=== PATIENT | female | born 1995 | race African-American/Black ===

== ENCOUNTER 2022-01-11 21:44 | Emergency (ER) | payer SELFPAY ==
[2022-01-11] VITALS (12 sets, daily range): BP systolic 95–110; BP diastolic 61–75; PULSE 89–102; RESP 14–19; TEMP 37; O2SAT 100
--- NOTE | 2022-01-11 21:53 | ECG_ITS ---
Measurements Intervals [place] Rate: 101 P: 71 NH: 148 QRS: 19 QRSD: 87 T: -2 QT: 326 QTc: 423 Interpretive Statements SINUS TACHYCARDIA LOW QRS VOLTAGE IN PRECORDIAL LEADS [QRS DEFLECTION < 1.0 mV IN CHEST LEADS] POSSIBLE RIGHT VENTRICULAR CONDUCTION DELAY [RSR (QR) IN V1/V2] NONSPECIFIC T-WAVE ABNORMALITY ABNORMAL ECG NO PREVIOUS ECG AVAILABLE FOR COMPARISON Electronically Signed On 01-12-2022 9:06:02 [employer]ANNING LEAD by Davide Webb M.D.
[2022-01-11 22:30] LABS: Basophils Percent Auto 0.4 % (0.2-1.2); Eosinophils Percent Auto 0.3 % (0-4.4); Hematocrit 30.5 % (37.0-47.0); Hemoglobin 9.9 g/dL (12.0-15.0); Immature Granulocyte Absolute 0.02 K/mm3 (0.00-0.031); Immature Granulocyte Percent A 0.3 % (0-0.5); Lymphocytes Absolute Auto 2.68 K/mm3 (0.9-3.2); Lymphocytes Percent Auto 35.4 % (18.3-44.2); Mean Corpuscular HGB Conc 32.5 g/dl (32-36); Mean Corpuscular Hemoglobin 31.4 pg (26-34); Mean Corpuscular Volume 96.8 fl (80-100); Mean Platelet Volume 10.7 fl (7.4-10.4); Monocytes Absolute Auto 0.4 K/mm3 (0.1-0.6); Monocytes Percent Auto 5.8 % (2.6-8.5); Neutrophils Absolute Auto 4.4 K/mm3 (1.3-6.7); Neutrophils Percent Auto 57.8 % (45.5-73.1); Platelet Count Result 234 k/mm3 (150-375); Red Blood Count 3.15 M/mm3 (4.2-5.4); Red Cell Distribution Width 12.3 % (11.5-14.5); White Blood Count 7.6 K/mm3 (4.5-10.0)
[2022-01-11 22:40] LABS: INR 1.2; Prothrombin Time 15.1 Seconds (11.1-14.7)
[2022-01-11 22:56] LABS: Ethanol 64 mg/dL (<10)
[2022-01-11 23:01] LABS: Alanine Aminotransferase 11 U/L (4-35); Albumin Level 4.5 g/dL (3.5-5.1); Alkaline Phosphatase 54 U/L (38-126); Anion Gap 16 mmol/L (8-16); Aspartate Amino Transferase 25 U/L (14-36); Bilirubin,Total 0.2 mg/dL (0.2-1.3); Blood Urea Nitrogen 3 mg/dL (7-17); Calcium 8.5 mg/dL (8.4-10.2); Carbon Dioxide 18 mmol/L (22-30); Chloride 106 mmol/L (98-107); Estimated CRCL calculation 80 ml/min; Estimated Glomerular Filt Rate > 60; Glucose 38 mg/dL (65-110); Potassium 3.3 mmol/L (3.4-5.0); Sodium 140 mmol/L (137-145)
[2022-01-11] MEDS: DEXTROSE 50% 25 GM/50 ML SYRINGE (23:08)
[2022-01-11 23:48] LABS: Phenytoin Dilantin < 3 ug/mL (10-20)
--- NOTE | 2022-01-11 23:55 | ED.SEIZURE ---
HPI - Seizure General Chief Complaint: Seizure Stated Complaint: SEIZURES Time Seen by Provider: 01/11/22 23:32 Source: patient History of Present Illness HPI Narrative: Patient presents with seizures. Patient has a known seizure disorder reports she has stopped taking her medications since she knew she was . She has not discussed this with her OB or with her neurologist. Patient had seizure approximately 1 week ago was seen at another facility and discharged home. Patient where she does have follow-up with her OB and neurologist this week. Patient was in the car this evening not driving admits to having a couple shots then had a seizure. Patient reports she feels sore all over and says usual after she has had a seizure. She has no other focal areas of complaints. EMS noted 2 seizures in route gave Versed. Related Data Allergies Allergy/AdvReac Type Severity Reaction Status Date / Time ibuprofen Allergy Shakiness Verified 01/11/22 22:23 Review of Systems Review of Systems: CONSTITUTIONAL: Denies fever, chills, or sweats. EYES: Denies visual changes, redness, or discharge. ENT: Denies rhinorrhea, congestion, sore throat, or otalgia. CARDIOVASCULAR: Denies chest pain, palpitations, or edema. RESPIRATORY: Denies cough or dyspnea. GASTROINTESTINAL: Denies abdominal pain, nausea, vomiting, or diarrhea. GENITOURINARY: Denies dysuria or hematuria. SKIN: Denies rash or itching. MUSCULOSKELETAL: Denies back pain, joint pain. NEUROLOGIC: Denies headache, numbness, dizziness, or weakness. PSYCHIATRIC: Denies anxiety or depression. All systems reviewed & are unremarkable except as noted in HPI and below PMFSH Past Medical History Medical History (Updated 01/11/22 @ 23:59 by Alphonso Salgado MD) Seizures Social History Social History (Updated 01/11/22 @ 23:56 by Alphonso Salgado MD) Alcohol intake: current Exam Narrative: GENERAL: Well-appearing, well-nourished, and in no acute distress. HEAD: Normocephalic, atraumatic. EYES: PERRLA and EOMI. ENT: Nares clear, no rhinorrhea or epistaxis. Mucous membranes moist. NECK: Supple. No masses. No JVD CHEST: Clear to auscultation. No respiratory distress. No wheezes rales or rhonchi HEART: Regular rate and rhythm. No murmur heard. Normal peripheral pulses. ABDOMEN: Soft, nontender, nondistended, normal active bowel sounds. EXTREMITIES: Normal range of motion. No edema. SKIN: Warm, dry, no rash. NEURO: No focal deficits. Alert and oriented x3. PSYCH: Normal mood and affect. Course Vital Signs Vital signs: Vital Signs Temperature 37.0 C 01/11/22 21:54 Pulse Rate 102 H 01/11/22 21:54 Respiratory Rate 17 01/11/22 21:54 Blood Pressure 110/75 01/11/22 21:54 Pulse Oximetry 100 01/11/22 21:54 Temperature 37.0 C 01/11/22 21:54 Pulse Rate 84 01/12/22 06:54 Respiratory Rate 16 01/12/22 06:54 Blood Pressure 127/75 01/12/22 06:54 Pulse Oximetry 100 01/12/22 06:54 MDM - Seizure MDM Narrative Medical decision making narrative: H&P as above, vss, pt looks clinically well, exam no focal neurological deficits or focal areas of pain, labs with hypoglycemia corrected with and likely related to seizure activity additional labs/img considered, symptomatic relief available as needed, on reevaluation pt continues to looks clinically well. Suspect is related to medication noncompliance we'll switch patient to Lamictal given her status, dns intracranial hemorrhage, severe sepsis, severe dehydration plan to tx/monitor as op w/ pcm f/u findings/plan discussed with pt, pt agree/comfortable with plan, return precautions given Lab Data Result diagrams: 01/11/22 22:25 01/11/22 22:25 Labs: Lab Results 01/11/22 01/11/22 01/11/22 Range/Units 22:25 22:25 22:25 WBC 7.6 (4.5-10.0) K/mm3 RBC 3.15 L (4.2-5.4) M/mm3 Hgb 9.9 L (12.0-15.0) g/dL Hct 30.5 L (37.0-47.0) % MCV 96.8 (80-100)
[2022-01-11 23:56] LABS: Glucose Point of Care 68 mg/dl (65-105)
[2022-01-12] VITALS: BP 108/71; PULSE 90; RESP 19
[2022-01-12 00:06] VITALS: PULSE 99; RESP 19
[2022-01-12 00:15] VITALS: BP 96/55; PULSE 94; RESP 14
[2022-01-12] MEDS: DEXTROSE 50% 25 GM/50 ML SYRINGE IV PUSH (00:15)
[2022-01-12] MEDS: lamoTRIgine 25 MG TABLET 50 MG PO (02:07)
[2022-01-12] MEDS: POTASSIUM CHLORIDE 20 MEQ PACKET (FOR LIQUID) 40 MEQ PO (02:07)
[2022-01-12] MEDS: METOCLOPRAMIDE HCL INJ 10 MG/2 ML VIAL IV PUSH (02:16)
[2022-01-12] MEDS: POTASSIUM CHLORIDE 20 MEQ TABLET 40 MEQ PO (02:22)
[2022-01-12 03:02] LABS: Add Urine Microscopic? YES; Appearance Urine Clear (Clear); Bacteria Urine Trace /hpf; Bilirubin Urine Negative (Negative); Blood Urine Negative (Negative); Color Urine Yellow (Yellow); Glucose Urine UA 1+ mg/dL (Negative); Ketones Urine Trace mg/dL (Negative); Leukocyte Esterase Ur 1+ LEU/UL (Negative); Mucus Urine Rare /lpf; Nitrate Urine Negative (Negative); Protein Urine 1+ mg/dL (Negative); Specific Grav Ur 1.018 (1.001-1.035); Squamous Epithelial Cell Urine Moderate /hpf (Few); Urobilinogen Urine Negative mg/dL (<2.0)
[2022-01-12 06:54] VITALS: BP 127/75; PULSE 84; RESP 16; O2SAT 100
== END 2022-01-12 06:56 | disposition home or self-care (01) ==
PROVIDERS: Emergency Medicine; Emergency Provider Emergency Medicine
DX: G40.909 Epilepsy, unspecified, not intractable, without status epilepticus (principal)
CPT/HCPCS: 36415; 80053; 80185; 80307; 81001; 82948; 84702; 85025; 85610; 85730; 93005; 96374; 96375; 99284; A9270; J2765

== ENCOUNTER 2022-05-27 10:48 | Observation (INO) | payer OTHER, SELFPAY ==
[2022-05-27 11:00] VITALS: BMI 19.5
[2022-05-27 11:15] VITALS: BP 111/62; PULSE 82
[2022-05-27 11:51] LABS: Appearance Urine Clear (Clear); Bilirubin Urine Negative (Negative); Blood Urine Negative (Negative); Color Urine Yellow (Yellow); Glucose Urine UA Negative (Negative); Ketones Urine Negative (Negative); Leukocyte Esterase Ur 2+ LEU/UL (NEGATIVE); Nitrate Urine Negative (Negative); Protein Urine Negative (Negative); Specific Grav Ur 1.015 (1.001-1.035); Urobilinogen Urine 0.2 mg/dL (<2.0); pH Urine 7.5 (5.0-9.0)
[2022-05-27 12:06] LABS: Bacteria Urine 1+ /hpf; Squamous Epithelial Cell Urine Many /hpf (Few)
[2022-05-27 12:13] LABS: Add Urine Microscopic? YES
--- NOTE | 2022-05-27 12:17 | OBADM ---
This patient, Saray Mcdaniel, admitted to the OB room OB Post 116 for observation. Patient/family oriented to hospital policies and general routines including ID bracelet, bed and alarms, visiting hours, pain management, procedures, bathroom and other care routines, personal items, smoking policy, room service/diet, and visiting hours. Patient/Family are encouraged to report perceived risks to care and to ask questions if they do not understand what they are told or what they should do.
--- NOTE | 2022-05-27 14:10 | PM.OBTRLD ---
OB - Triage/Final Diagnosis Visit Information Comments/Additional reasons for admission: I have assessed the risk for this patient, Saray Mcdaniel, and determined that she would benefit from observation care. Evaluation Laboratory results: Laboratory Tests 05/27/22 11:38 Urine Color Yellow Urine Appearance Clear Urine pH 7.5 Ur Specific [place] 1.015 Urine Protein Negative Urine Glucose (UA) Negative Urine Ketones Negative Ur Blood (Man) Negative Urine Nitrate Negative Urine Bilirubin Negative Urine Urobilinogen 0.2 Ur Leukocyte Esterase 2+ H Urine RBC 3-5 H Urine WBC 4-6 H Ur Squamous Epith Cells Many H Urine Bacteria 1+ H Vital signs: Vital Signs - 24 hr 05/27/22 11:15 Pulse Rate 82 Blood Pressure 111/62 Final Diagnosis (1) Abdominal pain affecting : Code(s): O26.899 - Other specified related conditions, unspecified trimester; R10.9 - Unspecified abdominal pain Status: Acute
== END 2022-05-27 13:03 | disposition home or self-care (01) ==
PROVIDERS: Admitting Provider Student in an Organized Health Care Education/Training Program; Visit Provider Student in an Organized Health Care Education/Training Program
DX: O26.892 Other specified pregnancy related conditions, second trimester (principal); R10.9 Unspecified abdominal pain; Z3A.27 27 weeks gestation of pregnancy
CPT/HCPCS: 81001; G0378; G0379

== ENCOUNTER 2025-02-23 01:35 | Emergency (ER) | payer OTHER, SELFPAY ==
[2025-02-23] VITALS (98 sets, daily range): BP systolic 46–144; BP diastolic 36–120; PULSE 47–122; RESP 12–45; TEMP 35.9–36.9; O2SAT 61–100
--- NOTE | ~2025-02-23 | XR_ITS ---
XR chest ET placement Ordering provider: Valerio Azevedo MD History: 29 years Female with . ET OG PLACEMENT . Comparison: None. FINDINGS: MEDIASTINUM: The cardiac silhouette is not enlarged. The endotracheal tube is 2 cm above the ra. Nasogastric tube is extending to the stomach area. Congestive gloria. LUNGS: No infiltrates, effusions or pneumothorax. OTHER: No free air under the diaphragm. IMPRESSION: No acute cardiopulmonary pathology. Reviewed, dictated and finalized at location A.
--- NOTE | ~2025-02-23 | US_ITS ---
FIRST TRIMESTER ULTRASOUND 02/23/2025 2:50 CDT Ordering provider: Valerio Azevedo History: . pain bleeding eval for ectopic . Comparison: None. FINDINGS: INTRAUTERINE GESTATIONAL SAC: Not demonstrated. YOLK SAC: Not demonstrated. POLE: Not demonstrated. No obvious infiltrate frontal is seen. Thickened heterogenous endometrium is noted measuring 18 mm. E panfilo cannot be excluded. Follow-up advised. Splenomegaly UTERUS: The uterus measures 10.8x 5.2x 5.1 cm. in length which is within normal limits. No myometrial masses. FREE FLUID: Trace seen anterior to the uterus. OVARIES: Normal in size with the right measuring 3.7x 1.6x 2.3 cm. and the left is not visualized. Do ppler flow is demonstrated within the right ovary. ADNEXAL MASSES: None. IMPRESSION: Thickened endometrium with no intrauterine seen at this time. This may indicate early pregn chayito or missed . Follow-up advised. No adnexal masses seen to suggest ectopic . The left ovary is not demonstrated. Reviewed, dictated and finalized at location A. IMPRESSION: Thickened endometrium with no intrauterine seen at this time. This ma y indicate early or missed . Follow-up advised. No adnexal masses seen to suggest ectopic . The left ovary is not demo nstrated.
--- NOTE | 2025-02-23 02:05 | PC.NURSE ---
pt has witnessed seizure x 1 min x 2 episodes. mikep essence at bedside. keppra ativan given at this time.
[2025-02-23 02:08] LABS: Basophils Percent Auto 0.4 % (0.2-1.2); Eosinophils Percent Auto 0.5 % (0-4.4); Hemoglobin 10.8 g/dL (12.0-15.0); Immature Granulocyte Absolute 0.02 K/mm3 (0.00-0.031); Immature Granulocyte Percent A 0.2 % (0-0.5); Lymphocytes Absolute Auto 1.47 K/mm3 (0.9-3.2); Lymphocytes Percent Auto 18.1 % (18.3-44.2); Mean Corpuscular HGB Conc 31.8 g/dl (32-36); Mean Corpuscular Hemoglobin 29.6 pg (26-34); Mean Corpuscular Volume 93.2 fl (80-100); Mean Platelet Volume 10.9 fl (7.4-10.4); Monocytes Absolute Auto 0.4 K/mm3 (0.1-0.6); Monocytes Percent Auto 4.7 % (2.6-8.5); Neutrophils Absolute Auto 6.2 K/mm3 (1.3-6.7); Neutrophils Percent Auto 76.1 % (45.5-73.1); Platelet Count Result 237 k/mm3 (150-375); Red Blood Count 3.65 M/mm3 (4.2-5.4); Red Cell Distribution Width 13.1 % (11.5-14.5); White Blood Count 8.1 K/mm3 (4.5-10.0)
[2025-02-23] MEDS: levETIRAcetam 1000MG/NACL100ML 1,000 MG/100 ML BAG 400 MG IVPB (02:16)
[2025-02-23] MEDS: LORazepam INJ (*CRX) 2 MG/ML VIAL ×2 (02:16→03:19)
[2025-02-23 02:18] LABS: Alanine Aminotransferase 16 U/L (6-35); Albumin Level 4.3 g/dL (3.5-5.1); Alkaline Phosphatase 45 U/L (38-126); Anion Gap 18 mmol/L (4-12); Aspartate Amino Transferase 24 U/L (14-36); Bilirubin,Total 0.6 mg/dL (0.2-1.3); Blood Urea Nitrogen 4 mg/dL (7-17); Carbon Dioxide 15 mmol/L (22-30); Chloride 101 mmol/L (98-107); Estimated CRCL calculation 109 ml/min; Estimated Glomerular Filt Rate > 60; Glucose 102 mg/dL (65-110); Potassium 3.5 mmol/L (3.4-5.0); Sodium 134 mmol/L (137-145)
--- NOTE | 2025-02-23 02:20 | ED.GENADULT ---
HPI - General Adult General Chief complaint: Seizure Stated complaint: SEIZURE/VAGINAL BLEEDING History of Present Illness HPI narrative: Patient 29-year-old female who presents since emergency department with chief complaint of vaginal bleeding and seizures. Patient has prior history of seizure disorder takes Keppra and Vimpat the patient states that she was diagnosed with an incomplete and was given medications to complete her miscarriage at home the patient states that she started having heavy bleeding and reports that she has been saturating towel patient states that she has been getting lightheaded was standing up reports she is Rh negative the patient states that she had several seizures EN route to the emergency department and reports that she may have missed some of her doses of Keppra Related Data Allergies Allergy/AdvReac Type Severity Reaction Status Date / Time ibuprofen Allergy Shakiness Verified 01/11/22 22:23 Review of Systems Review of Systems: A 10 system review of systems was completed on the patient and is negative except for what is stated in the HPI. Nursing and ancillary documentation was reviewed. PMFSH Past Medical History Medical History Seizures Social History Social History Alcohol intake: current Exam Narrative: GENERAL: Well-appearing, well-nourished, and in no acute distress. HEAD: Normocephalic, atraumatic. EYES: PERRLA and EOMI. ENT: Nares clear, no rhinorrhea or epistaxis. Mucous membranes moist. NECK: Supple. CHEST: Clear to auscultation. No respiratory distress. HEART: Regular rate and rhythm. No murmur heard. Normal peripheral pulses. ABDOMEN: Soft, nontender, nondistended, normal active bowel sounds. : There was moderate amount of blood and gestational sac vaginal vault the vault was cleared and bleeding appears to have stopped at this time EXTREMITIES: Normal range of motion. No edema. SKIN: Warm, dry, no rash. NEURO: No focal deficits. Alert and oriented x3. PSYCH: Normal mood and affect. Course Vital Signs Vital signs: Vital Signs Temperature 36.7 C 02/23/25 01:37 Pulse Rate 93 02/23/25 01:37 Respiratory Rate 19 02/23/25 01:37 Blood Pressure 96/62 L 02/23/25 01:37 Pulse Oximetry 100 02/23/25 01:37 Oxygen Delivery Room Air 02/23/25 01:37 Temperature 36.0 C L 02/23/25 06:42 Pulse Rate 60 02/23/25 06:37 Respiratory Rate 16 02/23/25 06:22 Blood Pressure 79/45 L 02/23/25 06:37 Pulse Oximetry 100 02/23/25 06:21 Oxygen Delivery Mechanical Ventilation 02/23/25 06:04 Fraction of Inspired Oxygen 45 02/23/25 06:04 Procedures Central Line Placement Right Femoral: Central Line Date: 02/23/25 Central Line Time: 05:13 Performed Emergently - Given emergent patient condition, temporal constraints may have precluded informed consent.: Yes Time Out Performed: Yes Patient Placed on Monitor/Pulse Ox: Yes Max. Sterile Barrier Technique: Caps, large sterile sheet and hand hygiene Central Line Prep: 2% chlorhexidine scrub and sterile drapes applied Technique: sterile prep/drape Local Anesthetic: lidocaine 1% Amount of anesthesia used (mL): 5 Ultrasound Used for Placement: Yes Central Line Lumen Inserted: triple Post Procedure: sutured in place, good blood return, all ports aspirated, flushed, capped and sterile dressing applied Patient Tolerated Procedure: well Complications: none Intubation Intubation #1: Intubation Date: 02/23/25 Intubation Time: 04:07 Time out performed: Yes sedative: Etomidate Mg Given: 20 paralytic: Succinylcholine Mg Given: 100 Laryngoscope: Bam Tube Size (cm): 7.5 Method of Intubation: orotracheal Number of Attempts: 1 Tube Secured Depth (cm): 24 Tube Secured Location: lips Tube Placement Confirmation: visualized tube passing through cords, equal breath sounds bilaterally, no breath sounds over epigastrium and confirmation by capnometry Patient Tolerated Procedure: well Intubation Complications: none Medical Decision Making MDM Narrative Medical decision making narrative: The patient continued to have multiple seizures in the emergency department after multiple doses of Ativan and also being loaded with Keppra The patient was also given 1 g of Dilantin as she was continuing to seize after receiving Keppra and multiple doses of benzodiazepines. Ultimately the patient was continuing to seize and the patient was intubated for airway protection prior to intubation the patient requested to go to [facility] after intubation the ultrasound was obtained that showed no gestational sac in the uterus. There is no free fluid the pelvis Case was discussed with the [facility] transfer center currently [facility] does not have beds available in the neuro ICU and is not taking wait list they recommended calling other facilities the [facility] transfer center was contacted and plan at this time [facility] be [facility] has spoken with gynecology neurology and now we are waiting on the textbook associate call back Vital Signs Vital Signs: Vital Signs Temperature 36.7 C 02/23/25 01:37 Pulse Rate 93 02/23/25 01:37 Respiratory Rate 19 02/23/25 01:37 Blood Pressure 96/62 L 02/23/25 01:37 Pulse Oximetry 100 02/23/25 01:37 Oxygen Delivery Room Air 02/23/25 01:37 Temperature 36.0 C L 02/23/25 06:42 Pulse Rate 60 02/23/25 06:37 Respiratory Rate 16 02/23/25 06:22 Blood Pressure 79/45 L 02/23/25 06:37 Pulse Oximetry 100 02/23/25 06:21 Oxygen Delivery Mechanical Ventilation 02/23/25 06:04 Fraction of Inspired Oxygen 45 02/23/25 06:04 Lab Data 02/23/25 06:07 02/23/25 01:59 Labs: Lab Results 02/23/25 02/23/25 02/23/25 Range/Units 01:59 04:06 06:07 WBC 8.1 (4.5-10.0) K/mm3 RBC 3.65 L (4.2-5.4) M/mm3 Hgb 10.8 L 9.2 L (12.0-15.0) g/dL Hct 34.0 L 28.7 L (37.0-47.0) % MCV 93.2 (80-100) fl MCH 29.6 (26-34) pg MCHC 31.8 L (32-36) g/dl RDW 13.1 (11.5-14.5) % Plt Count 237 (150-375) k/mm3 MPV 10.9 H (7.4-10.4) fl Immature Gran % (Auto) 0.2 (0-0.5) % Neut % (Auto) 76.1 H (45.5-73.1) % Lymph % (Auto) 18.1 L (18.3-44.2) % [place] % (Auto) 4.7 (2.6-8.5) % Eos % (Auto) 0.5 (0-4.4) % Baso % (Auto) 0.4 (0.2-1.2) % Lymph # (Auto) 1.47 (0.9-3.2) K/mm3 [place] # (Auto) 0.4 (0.1-0.6) K/mm3 Eos # (Auto) 0.0 (0-0.3) K/mm3 Baso # (Auto) 0.0 (0.0-0.1) K/mm3 Abs Immat Gran (auto) 0.02 (0.00-0.031) K/mm3 Absolute Neuts (auto) 6.2 (1.3-6.7) K/mm3 Absolute Nucleated RBC 0.000 (0.0-0.012) K/mm3 Nucleated RBC % 0.0 (0.0-0.2) % Minute Volume Not Reportable Vent Mode Cmv Tidal Volume 350 ml PEEP 5 cmH2O Peak Inspir Pressure Not Reportable Pressure Support Not Reportable Sodium 134 L (137-145) mmol/L Potassium 3.5 (3.4-5.0) mmol/L Chloride 101 (98-107) mmol/L Carbon Dioxide 15 L (22-30) mmol/L Anion Gap 18 H (4-12) mmol/L BUN 4 L (7-17) mg/dL Creatinine 0.55 L (0.7-1.0) mg/dL Estim Creat Clear Calc 109 ml/min Estimated GFR > 60 (59 - ) Glucose 102 (65-110) mg/dL Calcium 9.0 (8.4-10.2) mg/dL Total Bilirubin 0.6 (0.2-1.3) mg/dL AST 24 (14-36) U/L ALT 16 (6-35) U/L Alkaline Phosphatase 45 (38-126) U/L Total Protein 7.0 (6.3-8.2) g/dL Albumin 4.3 (3.5-5.1) g/dL Triglycerides 68 (<150) mg/dL Beta HCG, Quant 62399.00 mIU/ML Urine Color Yellow (Yellow) Urine Appearance Clear (Clear) Urine pH 6.5 (5.0-9.0) Ur Specific [place] 1.007 (1.001-1.035) Urine Protein Negative (Negative) mg/dL Urine Glucose (UA) Negative (Negative) mg/dL Urine Ketones 1+ H (Negative) mg/dL Ur Blood (Man) Trace (Negative) Urine Nitrate Negative (Negative) Urine Bilirubin Negative (Negative) Urine Urobilinogen 0.2 (<2.0) mg/dL Leukocyte Esterase Rfl Negative (Negative) SINDY/UL Urine RBC 0-2 (0-2) /hpf Urine WBC 0-5 (0-3) /hpf Ur Squamous Epith Cells None seen (Few) /hpf Urine Bacteria None seen /hpf Urine Casts 0-2 Blood Type AB Negative Antibody Screen Negative Doses of RhIg Required 1 ABG Data ABG results: 02/23/25 04:06 Puncture Site Left radial ABG pH 7.332 L ABG pCO2 32.3 L ABG pO2 493.4 H ABG PO2/FiO2 Ratio 4.93 ABG HCO3 16.7 L ABG O2 Saturation 99.9 ABG O2 Content 17.2 ABG Base Excess -8.2 A-a Gradient 187.3 Oxyhemoglobin 99.0 Total Hemoglobin 11.4 L O2 Delivery Device Ventilator O2 Liters/Min Not Reportable Vent Rate 16 FiO2 100 Critical Care Time Critical Care Time Critical Care Time: Yes Total Critical Care Time: 75 Discharge Plan Discharge Clinical Impression: Seizures, Threatened miscarriage Patient Disposition: Acute Care Hospital Condition: Stable Patient Language: [place] Prescriptions: No Action lamotrigine [Lamictal] 25 mg tablet 50 mg PO DAILY Qty: 60 0RF Rx Instructions: take 2 tabs daily for 1 week then increase to twice a day Follow-up/Referrals: UNKNOWN,DOCTOR [Primary Care Provider] -
--- NOTE | 2025-02-23 02:24 | PC.NURSE ---
Pt told this rn and Carrol, java technical manager that if she keeps seizing that she has had to have a breathing tube and i am ok if we need to do that again.
[2025-02-23] MEDS: SODIUM CHLORIDE 0.9% IV 1,000 ML 999 ML IV CONT ×3 (02:37→06:18)
[2025-02-23] MEDS: LORazepam INJ (*CRX) 2 MG/ML VIAL 4 MG (03:25)
--- NOTE | 2025-02-23 03:25 | PC.NURSE ---
Pt has had 8 total seizures witnessed. EDP Roberto Carlos at the bedside - verbal consent obtained for intubation and blood products if needed to be given if needed. ED RT x 2 at bedside. Meds Given: Ativan 1mg @ 0314 Ativan 1mg @ 0319 Ativan 4mg @ 0324 0327- Pt given 20mg etomidate and 100 mg Succinylcholine for intubation. 0330 Intubated - bilateral breathe sounds, color change, ett 7.5, 24 @ lip. 0333 - Propofol drip for sedation started @5mcg/hr
[2025-02-23] MEDS: PHENYTOIN SODIUM INJ (*BKC) 1,000 MG in SODIUM CHLORIDE 0.9% IV 100 ML 360 MG IVPB (03:38)
[2025-02-23] MEDS: PROPOFOL IV EMULSION 100 ML 1.84 MG IV CONT ×2 (03:39→07:19)
[2025-02-23] MEDS: RAPID SEQUENCE INTUBATION KIT 1 EACH (03:39)
--- NOTE | 2025-02-23 03:46 | PC.NURSE ---
0345 OG @ 58 at the teeth Pt continues to osorio the tube. EDP Aware - more sedation requested.
[2025-02-23 03:50] LABS: Triglycerides 68 mg/dL (<150)
[2025-02-23] MEDS: FENTANYL 2,500MCG/NS250ML(*CRX 2,500 MCG/250 ML BAG IV CONT (03:53)
--- OUTSIDE RECORDS SUMMARY | 2025-02-23 03:53 | XMS_ITS | Clinical Summary ---
Author Organization [facility] [employer] Address [address] [place] [address] Care Team Providers Care Mechanical Insulator Name Role Phone Izzy Shukla MD Unavailable [phone] Source Comments [facility] [employer],non-owned Affiliates and Associated Physician Practices is amultiple site organization consisting of ambulatory clinics and hospital sitesin [place], [place], [place] and [place]. This disclosure is being madepursuant to the Care Everywhere program and may not contain all information available regarding this patient. Last updated 18.[facility] [employer] Allergies Active Allergy Reactions Criticality Noted Date Comments Ibuprofen Other 11/26/2010 Pt states it causes shaking Clobazam Other 06/11/2023 Sores in mouth Medications * This document contains information received from the source organization and may not represent a complete record from that organization. * Be aware that medications may not be up to date on this document. Alwaysverify current medications with the patient. famotidine (Pepcid) 20 MG tablet Take 1 (one) tablet by mouth every 12 hours 60 tablet 2 2 Active ondansetron (Zofran) 4 MG tablet Take 1 (one) tablet by mouth every 6 hours as needed for Nausea/Vomiting 10 tablet 2 Active acetaminophen (Tylenol) 325 MG tablet Take 2 (two) tablets by mouth every 6 hours as needed for Fever or Pain Maximum allowable Acetaminophen amount = 4 Grams (4000 mg) / 24 hours. 60 tablet 1 2 Active lacosamide (Vimpat) 200 MG tablet Take 1 (one) tablet by mouth 2 times daily 60 tablet 3 3 Active levETIRAcetam (Keppra) 1000 MG tablet Take 1 (one) tablet by mouth 2 times daily 60 tablet 3 3 Active QUEtiapine (SEROquel) 50 MG tablet Take 1 (one) tablet by mouth every morning 30 tablet 3 3 Active QUEtiapine (SEROquel) 100 MG tablet Take 1 (one) tablet by mouth at bedtime 30 tablet 3 3 Active cyproheptadine (Periactin) 4 MG tablet Take 1 (one) tablet by mouth 2 times daily 60 tablet 3 3 Active Active Problems Problem Noted Date Diagnosed Date Bipolar affective disorder, currently depressed, moderate 06/06/2023 Seizures 06/04/2023 Ill feeling 07/20/2022 Abdominal pain, unspecified abdominal location 0 06/17/2022 contractions 05/22/2022 Seizure disorder during in second trim manjula 04/18/2022 Gonorrhea affecting in second trimeste r 03/29/2022 Seizure disorder during 03/17/2022 Supervision of high-risk of aliya fox igravida 03/17/2022 Depression 03/22/2011 Overview (03/22/2011): Continue psychiatrist and return to therapist. Discussed need for ongoing counseling. 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 [facility] lab results reviewed and DOPE HOUSE OPERATOR HELPER exam reviewed with Dr. Kaitlynn Joseph over the phone. Plan: No current intervention at this time. Pt should have a repeat pap in 1 year from now. If parents or pt concerned may do sooner but no sooner than 4 months post colposcopy. Pap done today was discarded and not sent to lab. Pt and mother provided with education and reassurance. HPV handout given. Parent wishing to transfer care to correctional supervisor lieutenant. Pt to followup with Dr. Joseph in 1 year for pap. Screen for STD (sexually transmitted disease) 03/22/20 11 03/17/2022 Overview (03/22/2011): Pt with multiple partners and inconsistent condom use. HIV and RPR tested recently and reported to be negative. Pt has history of chlamydia dx last month. Currently discharge has resolved. Tested for gc, chlamydia, and trich today. Encounter for other general counseling or advice on contraception 03/22/2011 03/17/2022 Overview (09/20/2015): Pt currently has been using Nuva Ring for past 3 months and wishes to continue but having difficulty with insertion and unable to insert it in this month. Has prescription at home. Does not want to be at this time. Recommended pt to insert Nuva Ring with tampon applicator to see if this makes it easier on insertion. Discussed mode and pt to start Ring upon arrival home today. Also encouraged pt to only use for 3 weeks and then menstruate for 1. [facility] providers have told her in past to use for more than 3 weeks. Abdominal pain, generalized 11/19/2010 03/17/2022 Overview (03/22/2011): Pt with no pain on palpation of abdomen or pelvic region today. Continue to monitor abdominal pain. Monitor stools. May use tylenol prn for pain. Constipation 11/19/2010 03/17/2022 IBS (irritable bowel syndrome) 11/19/2010 03/17/2022 Immunizations Immunization Administration Dates Next Due MMR 07/24/2022(Deferred: See Comments - patient is rubella IMMUNE) Rho D Immune Globulin 07/25/2022(Deferre d: See Comments - already administered this hospitalization on 07/24/22),07/24/2022,04/19/2022 TDAP (7yrs+) 07/24/2022 Family History Medical History Relation Name Comments Other Brother HIV+, homosexua l Other Maternal Aunt 1 Chrohn's dis ease Diabetes Maternal Aunt 2 CAD (Coronary Artery Disease) Maternal Grandmother Cancer - Ovarian Maternal Grandmother Diabetes Maternal Grandmother Diabetes Maternal Uncle 1 Stroke Maternal Uncle 2 Glaucoma Mother Other Mother uterine fibroid s Relation Name Status Comments Brother Maternal Aunt 1 Maternal Aunt 2 Maternal Grandmother Maternal Uncle 1 Maternal Uncle 2 Mother Alive Social History Tobacco Use Types Packs/Day Years Used Date Smoking Tobacco: Some Days Cigarettes 0.1 8 Started: 12/2013; Last attempted to quit: 12/2021 Smokeless Tobacco: Never Tobacco Cessation:Ready to Q uit: No; Counseling Given: Yes Comments:1 cigarette a day Alcohol Use Standard Drinks/Week Comments No 0 (1 standard drink = 0.6 oz pur e alcohol) Overall Financial Resource Strain (CARDIA) Answe r Date Recorded How hard is it for you to pa y for the very basics like food, housing, medical care, and heating? Somewhat hard 06/04/2023 [facility] [place] of Occupat ional Health - Occupational Stress Questionnaire Answer Date Recorded Do you feel stress - tense, restless, nervous, or anxious, or unable to sleep at night because your mind is troubled all the time - these days? To some extent 06/04/2023 Hunger Vital Sign Answer Date Recorded Within the past 12 months, y ou worried that your food would run out before you got the money to buy more. Never true 06/04/20 Within the past 12 months, t he food you bought just didn't last and you didn't have money to get more. Never true 06/04/2023 PRAPARE - Transportation Answer Date Re corded In the past 12 months, has l ack of transportation kept you from medical appointments or from getting medications? Yes 05/14 In the past 12 months, has l ack of transportation kept you from meetings, work, or from getting things needed for daily living? Yes 06/04/2023 Housing Stability Vital Sign Answer Bryon e Recorded In the last 12 months, was t here a time when you were not able to pay the mortgage or rent on time? Yes 06/04/2023 In the last 12 months, how many places have you lived? 1 06/04/2023 In the last 12 months, was t here a time when you did not have a steady place to sleep or slept in a senior care (including now)? No 06/04/2023 Wirtz Depression Scale Answer Date Recorded RETIRED: Total Score 0 07/25/2022 Last EPDS Self Harm Result Not on file 07/25 Comments No Sex and Gender Information Value Date Recorded Sex Assigned at Not on file Legal Sex Female 5:37 AM SUPERVISOR FITTING Gender Identity Not on file Sexual Orientation Not on file Last Filed Vital Signs Vital Sign Reading Time Taken Comments Blood Pressure 99/61 06/16/2023 10:56 AM CDT Pulse 89 06/16/2023 10:56 AM CDT Temperature 36.7 C (98 F) 06/16/2023 10:56 AM CDT Respiratory Rate 16 06/16/2023 10:56 AM CDT Oxygen Saturation 99% 06/16/2023 10:56 AM CDT Inhaled Oxygen Concentration - - Weight 62.8 kg (138 lb 6.4 oz) 06/16/2023 4:20 A M CDT Height 162.6 cm (5' 4) 06/15/2023 5:06 AM CDT Body Mass Index 23.76 06/15/2023 5:06 AM CDT Plan of Treatment Health Maintenance Due Date Last Done Comments PAP SMEAR 1994 HEPATITIS C SCREENING 10/31/2012 HEPATITIS B VACCINE (1 of 3 - 19+ 3-dose series) 2013 PNEUMOCOCCAL VACCINE (1 of 2 - PCV) 2013 COVID-19 VACCINE (1 - 2023-2 5 season) 2024 INFLUENZA VACCINE (Season Ended) 2025 08/03/20 18 DTAP/TDAP/TD VACCINES (2 - T d or Tdap) 07/24/2032 07/24/2022 ZOSTER VACCINE (1 of 2) 2044 HIV SCREENING Completed 12/30/2009 HIB VACCINE Aged Out No longer eligi ble based on patient's age to complete this topic HPV VACCINE Aged Out No longer eligi ble based on patient's age to complete this topic MENINGOCOCCAL (Group B) VACC INE SHARED DECISION-MAKING Aged Out No longer eligibl e based on patient's age to complete this topic MENINGOCOCCAL GROUPS A/C/Y/W VACCINE Aged Out No longer eligible b ased on patient's age to complete this topic Procedures Procedure Name Priority Date/Time Associated Diagnosis Comments HIV-1 HIV-2 ANTIBODY Routine 12/30/2009 4:38 PM SUPERVISOR FITTING Leukorrhea, not Specified as Infective from Last 3 Months or Most Recently Relevant to Health Maintenance Results * HIV-1 HIV-2 ANTIBODY (12/30/2009 4:38 PM SUPERVISOR FITTING) HIV-1/HIV-2 Non-Reacti ve Non-Reacti ve [facility] BLOOD SPECIMEN / Unknown 12/30/2009 4:38 PM SUPERVISOR FITTING us Shikha Maguire MD LAB - CHEMISTRY ORDERRommel HANSEN Final Result [facility] from Last 3 Months or Most Recently Relevant to Health Maintenance Insurance Advance Directives * Full Code (Latest Code Status on File) Date Activated Date Inactivated Comments 06/14/2023 3:25 PM 06/16/2023 4:14 PM * Full Code Date Activated Date Inactivated Comments 06/04/2023 8:49 AM 06/12/2023 12:39 AM * Full Code Date Activated Date Inactivated Comments 07/22/2022 9:04 AM 07/25/2022 5:20 PM * Full Code Date Activated Date Inactivated Comments 07/20/2022 5:32 PM 07/22/2022 9:04 AM * Full Code Date Activated Date Inactivated Comments 07/08/2022 4:26 AM 07/08/2022 3:04 PM Care Teams Mechanical Insulator Relationship Specialty Start Date End Date Izzy Shukla MD [address] [address] 05/27/21
--- OUTSIDE RECORDS SUMMARY | 2025-02-23 03:53 | XMS_ITS | Encounter Summary ---
Author Organization [facility] Care Team Providers Care Display Fabrication Supervisor Name Role Phone No, Physician Primary Care Provider [phone] Reason for Visit * Auth/Cert Specialty Diagnoses / Procedures Referred By Reny t Referred To Contact Diagnoses SEIZURES Procedures VIDEO EEG Referral ID Status Reason Start Date Expiration Date Visits Re quested Visits Authorized [id number] 1 1 Encounter Details Date Type Department Care Team (Late st Contact Info) Description 03/09/2022 8:00 AM CDT Hospital Encounter Timothy Malik MD PhD [address] [place] [address] Social History Tobacco Use Types Packs/Day Years Used Date Smoking Tobacco: Former Cigarettes Q uit: 12/28/2021 Smokeless Tobacco: Never [facility] Utilities Answer Date Recorded In the past 12 months has [employer] electric, gas, oil, or water company threatened to shut off services in your home? No 09/26/2023 Social Connection and Isolat ion Panel [NHANES] Answer Date Recorded In a typical week, how many times do you talk on the phone with family, friends, or neighbors? More than three times a week 09/26/2023 How often do you get togethe r with friends or relatives? More than three times a week 09/26/2023 How often do you attend chur ch or denominational services? Never 09/26/2023 Do you belong to any clubs o r organizations such as buddhist groups, unions, fraternal or athletic groups, or school groups? No 09/26/2023 How often do you attend meet ings of the clubs or organizations you belong to? Never 09/26/2023 Are you , , di vorced, , never , or living with a partner? Never 09/26/2023 AUDIT-C Answer Date Recorded Q1: How often do you have a drink containing alc ohol? Monthly or less 09/24/2023 Q2: How many drinks containi ng alcohol do you have on a typical day when you are drinking? 1 or 2 09/24/2023 Q3: How often do you have si x or more drinks on one occasion? Never 09/24/2023 Overall Financial Resource Strain (CARDIA) Answe r Date Recorded How hard is it for you to pa y for the very basics like food, housing, medical care, and heating? Not hard at all 09/26/2023 Hunger Vital Sign Answer Date Recorded Within the past 12 months, y ou worried that your food would run out before you got the money to buy more. Never true 09/26/20 23 Within the past 12 months, t he food you bought just didn't last and you didn't have money to get more. Never true 09/26/2023 PRAPARE - Transportation Answer Date Re corded In the past 12 months, has l ack of transportation kept you from medical appointments or from getting medications? No 09/13 In the past 12 months, has l ack of transportation kept you from meetings, work, or from getting things needed for daily living? No 09/26/2023 Housing Stability Vital Sign Answer Bryon e Recorded In the last 12 months, was t here a time when you were not able to pay the mortgage or rent on time? No 09/26/2023 In the last 12 months, how many places have you lived? 1 09/26/2023 In the last 12 months, was t here a time when you did not have a steady place to sleep or slept in a mcfp (including now)? No 09/26/2023 Personal Safety Answer Date Recorded Have you ever been in or are you currently in a harmful physical or emotional relationship or is someone making you feel afraid or unsafe? Denies 11/19/2024 Comments No Sex and Gender Information Value Date Recorded Sex Assigned at Not on file Legal Sex Female 7:13 AM CENTRAL OFFICE INSPECTOR Gender Identity Not on file Sexual Orientation Not on file documented as of this encounter Functional Status * Audit-C Score Answer Date of Assessment Author 1 09/24/2023 2:44 AM Kim Lomeli RN * Question Answer Date of Assessment Author Q1: How often do you have a drink containing alcohol? Monthly or less 09/24/2023 2:44 AM Kim Lomeli, SLIM Q2: How many drinks containing alcohol do you have on a typical day when you are drinking? 1 or 2 09/24/2023 2:44 AM Rj Lomeli RN Q3: How often do you have six or more drinks on one occasion? Never 09/24/2023 2:44 AM Kim Lomeli RN documented as of this encounter Plan of Treatment Not on file documented as of this encounter Visit Diagnoses Not on filedocumented in this encounter Additional Health Concerns Infection Onset Date Last Indicated Resolved Time COVID: Suspected 11/25/2023 11/25/2023 11/25/2023 3:30 AM CENTRAL OFFICE INSPECTOR COVID: Suspected 11/19/2024 11/19/2024 11/19/2024 9:11 PM CENTRAL OFFICE INSPECTOR documented as of this encounter Care Teams Display Fabrication Supervisor Relationship Specialty Start Date End Date No, Physician PCP - General 01/02/22 04/26/23 documented as of this encounter
--- OUTSIDE RECORDS SUMMARY | 2025-02-23 03:53 | XMS_ITS | Encounter Summary ---
Author Organization [facility] Address [facility] [place] [address] Care Team Providers Care County Agricultural Agent Name Role Phone Geno Gerard Primary Care Provider [phone] None, Provider Unavailable Unavailable Encounter Details Date Type Department Care Team (Late st Contact Info) Description 12/26/2022 [place] Message Enc [facility] Medical Group Family and Sports Medicine - [place] [address] [place] [address] [facility] Provider Schedule Appointment: Annual Physical Social History Tobacco Use Types Packs/Day Years Used Date Smoking Tobacco: Every Day Cigarettes 0.3 5 Smokeless Tobacco: Never Alcohol Use Standard Drinks/Week Comments Yes 0 (1 standard drink = 0.6 oz pur e alcohol) social AUDIT-C Answer Date Recorded Frequency of Alcohol Consumption Never 08/01/2018 Average Number of Drinks Not on file 018 Frequency of Binge Drinking Not on file 07/14 Comments No Sex and Gender Information Value Date Recorded Sex Assigned at Not on file Legal Sex Female 2:02 PM CDT Gender Identity Not on file Sexual Orientation Not on file documented as of this encounter Plan of Treatment Not on file documented as of this encounter Visit Diagnoses Not on filedocumented in this encounter Care Teams County Agricultural Agent Relationship Specialty Start Date End Date Geno Gerard APNP [address] [place] [address] PCP - General NURSE PRACTITIONER 10/15/18 None, ProviderMD 08/01/18 documented as of this encounter
--- OUTSIDE RECORDS SUMMARY | 2025-02-23 03:53 | XMS_ITS | Encounter Summary ---
Author Organization [facility] Address Count includes the [facility] [place] [address] Care Team Providers Care Skiver Sock Linings Name Role Phone Geno Gerard Primary Care Provider [phone] None, Provider MD Unavailable Unavailable Encounter Details Date Type Department Care Team (Late st Contact Info) Description 04/29/2024 MyChart Message Enc [facility] Medical [facility] Family and Sports Medicine - [place] [address] [place] [address] Geno Gerard APNP [address] [place] [address] [phone] Yearly Visit Reminder Social History Tobacco Use Types Packs/Day Years [...] on filedocumented in this encounter Care Teams Skiver Sock Linings Relationship Specialty Start Date End Date Geno Gerard APNP [address] [place] [address] PCP - General NURSE PRACTITIONER 10/15/18 None, Provider, 08/01/18 documented as of this encounter
--- OUTSIDE RECORDS SUMMARY | 2025-02-23 03:53 | XMS_ITS | Referral Summary ---
Author Organization [facility] Address [address] [place] [address] Care Team Providers Care Baker Test Name Role Phone Ines Her NP Primary Care Provide r Allergies Active Allergy Reactions Criticality Noted Date Comments Ibuprofen Other (See comments) Low 05/27/2017 Reaction: Other Reaction: Shaking Medications cyproheptadine (PERIACTIN) 4 mg tabletIndications: Increased Appetite Take 1 tablet (4 mg total) by mouth 2 (two) times a day Active medroxyPROGESTERon e 150 mg/mL injection Inject 1 mL (150 mg total) into the muscle as instructed every 3 (three) months 3 Active QUEtiapine (SEROquel) 100 mg tablet Take 1 tablet (100 mg total) by mouth nightly 3 Active QUEtiapine (SEROquel) 50 mg tablet Take 1 tablet (50 mg total) by mouth daily before breakfast [address] (PROTONIX) 40 mg EC tablet Take 1 tablet (40 mg total) by mouth daily 30 tablet 4 Active dicyclomine (BENTYL) 10 mg capsule Take 1 capsule (10 mg total) by mouth 4 (four) times a day before meals and nightly 120 capsule 4 Active ondansetron ODT (ZOFRAN-ODT) 4 mg disintegrating tablet Take 1 tablet (4 mg total) by mouth every 8 (eight) hours as needed for nausea or vomiting 20 tablet 4 Active levETIRAcetam (KEPPRA) 1,000 mg tablet Take 1 tablet (1,000 mg total) by mouth 2 (two) times a day 60 tablet 5 Active lacosamide (VIMPAT) 200 mg tablet Take 1 tablet (200 mg total) by mouth 2 (two) times a day 60 tablet 5 Active Active Problems Problem Noted Date Diagnosed Date Alcohol abuse 09/24/2023 Seizure 09/23/2023 Psychogenic nonepileptic seizure 01/25/2022 Anemia 10/22/2021 Bipolar disorder 10/22/2021 Resolved Problems Problem Noted Date Diagnosed Date Resolved Date Spells of trembling 10/22/2021 09/24/20 23 Immunizations Immunization Administration Dates Next Due DTP / HiB 06/15/1998,07/02/1996,08/17/1995 DTaP 12/23/1999 DTaP / IPV 12/23/1999 DTaP, Unspecified 12/23/1999 HPV, Quadrivalent 04/01/2008 HPV, Unspecified 04/01/2008 Hep A, Adult 01/31/2014 Hep A, Ped Unspecified 07/09/2004,03/20/2003 Hep A, Unspecified 01/31/2014,07/09/2004, 003 Hep B, Adolescent or Pediatric 4,06/15/1998,07/02/1996,04/15 HiB 04/15/1995 IPV 12/23/1999 Immune Globulin, IM 06/06/2016,05/18/2016,2014 Influenza, Trivalent, Preser vative Free, Intramuscular 09/20/2015 Influenza, Unspecified 08/03/2018,10/24/2017,12/2008 MMR 12/23/1999,07/02/1996 MMRV 12/23/1999,07/02/1996 OPV 07/02/1996,08/17/1995,04/15/1995 OPV, Unspecified 07/02/1996,08/17/1995, 5 Pneumococcal Polysaccharide PPV23 11/10/2015 Tdap 07/24/2022,09/20/2015 Varicella 03/03/2005 Social History Tobacco Use Types Packs/Day Years Used Date Smoking Tobacco: Former Cigarettes Q uit: 12/28/2021 Smokeless Tobacco: Never Tobacco Cessation:Ready to Q uit: No [facility] Utilities Answer Date Recorded In the past 12 months has th e electric, gas, oil, or water company threatened [...] often do you attend chur ch or zoroastrianism services? Never 09/26/2023 Do you belong to any clubs o r organizations such as roman catholic groups, unions, fraternal or athletic groups, or [...] place to sleep or slept in a detention (including now)? No 09/26/2023 Personal Safety Answer Date Recorded Have you ever been in or are you currently in a harmful physical or emotional relationship or is someone making you feel afraid or unsafe? Denies 11/19/2024 Comments No Sex and Gender Information Value Date Recorded Sex Assigned at Not on file Legal Sex Female 7:13 AM CPHT Gender Identity Not on file Sexual Orientation Not on file Last Filed Vital Signs Vital Sign Reading Time Taken Comments Blood Pressure 94/55 11/19/2024 10:00 PM CPHT Pulse 74 11/19/2024 10:46 PM CPHT Temperature 36.7 C (98.1 F) 11/19/2024 6:18 PM CPHT Respiratory Rate 14 11/19/2024 10:46 PM CPHT Oxygen Saturation 97% 11/19/2024 10:46 PM CPHT Inhaled Oxygen Concentration - - Weight 61.2 kg (135 lb) 11/19/2024 4:40 PM CPHT Height 162.6 cm (5' 4) 11/24/2023 8:34 PM CPHT Body Mass Index 23.17 11/24/2023 8:34 PM CPHT Plan of Treatment Not on file Insurance [facility] [address] Advance Directives For more information, please contact: [phone] * Full Code (Latest Code Status on File) Date Activated Date Inactivated Comments 09/25/2023 10:47 PM 09/27/2023 1:57 PM * Full Code Date Activated Date Inactivated Comments 09/23/2023 11:59 PM 09/25/2023 3:08 PM * Full Code Date Activated Date Inactivated Comments 10/22/2021 9:10 PM 10/23/2021 7:43 PM Care Teams Baker Test Relationship Specialty Start Date End Date Ines Her NP [address] [place] [address] PCP - General Nurse Practitioner 01/30/25
--- OUTSIDE RECORDS SUMMARY | 2025-02-23 03:53 | XMS_ITS | Clinical Summary ---
Author Organization [facility] Address [address] [place] [address] Care Team Providers Care General Office Dispatcher Name Role Phone Ines Her NP Primary [...] Polysaccharide PPV23 11/10/2015 Tdap 07/24/2022,09/20/2015 Varicella 03/03/2005 Medical History Medical History Date Comments Seizure (HCC) Social History Tobacco Use Types Packs/Day Years Used Date Smoking Tobacco: Former Cigarettes Q uit: 12/28/2021 Smokeless Tobacco: Never Tobacco Cessation:Ready to Q uit: No [facility] Utilities Answer Date Recorded In the [...] often do you attend chur ch or buddhist services? Never 09/26/2023 Do you belong to any clubs o r organizations such as yarsanism groups, unions, fraternal or athletic groups, or [...] place to sleep or slept in a penitentiary (including now)? No 09/26/2023 Personal Safety Answer Date Recorded Have you ever been in or are you currently in a harmful physical or emotional relationship or is someone making you feel afraid or unsafe? Denies 11/19/2024 Comments No Sex and Gender Information Value Date Recorded Sex Assigned at Not on file Legal Sex Female 7:13 AM KICK BOXER Gender Identity Not on file Sexual Orientation Not on file Obstetrics History Last Filed Vital Signs Vital Sign Reading Time Taken Comments Blood Pressure 94/55 11/19/2024 10:00 PM KICK BOXER Pulse 74 11/19/2024 10:46 PM KICK BOXER Temperature 36.7 C (98.1 F) 11/19/2024 6:18 PM KICK BOXER Respiratory Rate 14 11/19/2024 10:46 PM KICK BOXER Oxygen Saturation 97% 11/19/2024 10:46 PM KICK BOXER Inhaled Oxygen Concentration - - Weight 61.2 kg (135 lb) 11/19/2024 4:40 PM KICK BOXER Height 162.6 cm (5' 4) 11/24/2023 8:34 PM KICK BOXER Body Mass Index 23.17 11/24/2023 8:34 PM KICK BOXER Plan of Treatment Health Maintenance Due Date Last Done Comments Depression Screening 1995 Hepatitis C Screening 1995 HPV Vaccines (2 - 2-dose series) 10/02/2008 04/01/2008, 04/01/2008 Regular Well Visit/Exam 18-64 2012 Cervical Cancer Screening 05/03/2020 05/03/2019 Influenza Vaccine (Season Ended) 2025 08/03/2018, 10/24/2017, 09/20/2015, Additional history exists DTaP/Tdap/Td Vaccine (7 - Td or Tdap) 07/24/2032 07/24/2022, 09/20/2015, 12/23/1999, Additional history exists Varicella Vaccines Completed 03/03/2005, 0 12/23/1999, 07/02/1996 Hepatitis B Screening Completed 01/31/2014 , 06/15/1998, 07/02/1996, Additional history exists Pneumococcal vaccine <65 Aged Out 11/10/2015 No longer eligible based on patient's age to complete this topic Insurance [facility] Advance Directives For more information, please contact: [phone] * Full Code (Latest Code Status on File) Date Activated Date Inactivated Comments 09/25/2023 10:47 PM 09/27/2023 1:57 PM * Full Code Date Activated Date Inactivated Comments 09/23/2023 11:59 PM 09/25/2023 3:08 PM * Full Code Date Activated Date Inactivated Comments 10/22/2021 9:10 PM 10/23/2021 7:43 PM Care Teams General Office Dispatcher Relationship Specialty Start Date End Date Ines Her NP [facility] [place], [place] [id number] PCP - General Nurse Practitioner 01/30/25
--- OUTSIDE RECORDS SUMMARY | 2025-02-23 03:53 | XMS_ITS | Clinical Summary ---
Author Organization [facility] Address [facility] [place] [address] Care Team Providers Care Delivery Aide Name Role Phone Geno Reilly Primary Care Provider [phone] None, Provider MD Unavailable Unavailable Allergies Active Allergy Reactions Criticality Noted Date Comments Ibuprofen Other (see comment) 11/20/2017 shakes Other reaction(s): Other (See Comments) shaking Medications QUEtiapine 200 MG tabletIndications:B ipolar depression ([facility]) Take 1 tablet (200 mg total) by mouth nightly at bedtime. 30 tablet 6 0 Active ondansetron 4 MG disintegrating tabletIndications:N ausea Take 1 tablet (4 mg total) by mouth every 8 (eight) hours as needed for Nausea. 20 tablet 0 Active acetaminophen-codei ne 300-30 MG tablet 01/30/20 2 0 Active omeprazole 40 MG capsuleIndications: Gastroesophageal reflux disease without esophagitis Take 1 capsule (40 mg total) by mouth daily. 90 capsule 3 0 Active cyproheptadine 4 MG tablet Take 1 tablet (4 mg total) by mouth 3 (three) times daily as needed. 90 tablet 0 Active Active Problems Problem Noted Date Diagnosed Date Bacterial vaginosis 08/03/2018 Bipolar disorder with depression ([facility]) 08/03/2018 Contraception 08/03/2018 Dark urine 08/03/2018 Migraine 08/03/2018 UTI symptoms 08/03/2018 Depression 03/22/2011 Overview (10/15/2018): Overview: Continue psychiatrist and return to therapist. Discussed need for ongoing counseling. Encounter for other general counseling or advice on contraception 03/22/2011 Overview (10/15/2018): Overview: Pt currently has been using Nuva Ring [...] 3 weeks and then menstruate for 1. [facility] providers have told her in past to use for more than 3 weeks. Abdominal pain, generalized 11/19/2010 Overview (10/15/2018): Overview: Pt with no pain on palpation of abdomen or pelvic region today. Continue to monitor abdominal pain. Monitor stools. May use tylenol prn for pain. Constipation 11/19/2010 IBS (irritable bowel syndrome) 11/19/2010 Resolved Problems Problem Noted Date Diagnosed Date Resolved Date Screening for deficiency anemia 08/03/2018 07/24/2020 Need for influenza vaccination 08/03/2018 07/24/2020 Immunizations Immunization Administration Dates Next Due Dtap (Generic) 12/23/1999 Dtp/Hib 06/15/1998,07/02/1996,08/17/1995 HPV 04/01/2008 Hepatitis A (Generic) 01/31/2014,07/09/2004,05/0 06/2003 Hepatitis B Pediatric 01/31/2014,06/15/1998,06/14,04/15/1995 Hib (Generic) 04/15/1995 Influenza (Generic) 09/20/2015,08/14/2009 Influenza Adult (Generic) 08/03/2018,10/24/2017 MMR (Generic) 12/23/1999,07/02/1996 Opv 07/02/1996,08/17/1995,04/15/1995 Pneumococcal (Pneumovax 23) 11/10/2015 Polio Ipv (Generic) 12/23/1999 Tdap (Generic) 09/20/2015 Varicella Vaccine 03/03/2005 Family History Medical History Relation Comments Stroke Father Hypertension Mother Relation Status Comments Father Alive Mother Alive Social History Tobacco Use Types Packs/Day Years Used Date Smoking Tobacco: Every Day Cigarettes 0.3 5 Smokeless Tobacco: Never Tobacco Cessation:Ready to Q uit: No; Counseling Given: Yes Alcohol Use Standard Drinks/Week Comments Yes 0 [...] Sign Reading Time Taken Comments Blood Pressure 103/72 11/19/2024 1:00 PM AGRICULTURAL SCIENTIST Pulse 88 11/19/2024 1:00 PM AGRICULTURAL SCIENTIST Temperature 37.1 C (98.8 F) 11/19/2024 8:40 AM AGRICULTURAL SCIENTIST Respiratory Rate 22 11/19/2024 1:00 PM AGRICULTURAL SCIENTIST Oxygen Saturation 93% 11/19/2024 1:00 PM AGRICULTURAL SCIENTIST Inhaled Oxygen Concentration - - Weight 63.7 kg (140 lb 6.9 oz) 11/19/2024 8:40 A M AGRICULTURAL SCIENTIST Height 163.8 cm (5' 4.5) 11/19/2024 8:27 AM AGRICULTURAL SCIENTIST Body Mass Index 23.73 11/19/2024 8:27 AM AGRICULTURAL SCIENTIST Plan of Treatment Health Maintenance Due Date Last Done Comments Annual Physical 1997 HPV Vaccines (2 - 2-dose series) 10/02/2008 04/01/2008 Pneumococcal Vaccine: Pediatrics (0 to 5 Years) and At-Risk Patients (6 to 49 Years) (2 of 2 - PCV) 11/10/2016 11/10/2015 Cervical Cancer Screening Pap Smear (Age 30 to 64) Every 3 Years 05/03/2022 05/03/2019, 04/16/2011 COVID-19 Vaccine ( season) 2024 Cervical Cancer Screening Pap with HPV Testing (Age 30 to 64) Every 5 Years 2024 05/06/2019, 05/03/2019, 04/16/2011 Cervical Cancer Screening with HPV 2024 PHQ-2 (Physician [place]) 11/13/2024 DTaP, Tdap and Td Vaccines (4 - Td or Tdap) 07/24/2032 07/24/2022, 09/20/2015, 12/23/1999, Additional history exists Hepatitis B Vaccines Completed 01/31/2014, 06/15/1998, 07/02/1996, Additional history exists Hepatitis C Completed 11/14/2019, 04/05/2019 Meningococcal B Vaccine Aged Out No l onger eligible based on patient's age to complete this topic Meningococcal Vaccine Aged Out No kenroy jazmyne eligible based on patient's age to complete this topic RSV Immunizations Under 20 Months Aged Out No longer eligible based on patient's age to complete this topic Procedures Procedure Name Priority Date/Time Associated Diagnosis Comments HEPATITIS PANEL,ACUTE Routine 11/14/2019 2:36 PM AGRICULTURAL SCIENTIST Routine screening for STI (sexually transmitted infection) HPV MRNA E6/E7 W/ RFLX GENOTYPES Routine 05/03/2019 2:36 PM CDT CYTOPATH CERV/VAG THIN LAYER Routine 05/03/2019 12:00 AM CDT from Last 3 Months or Most Recently Relevant to Health Maintenance Results * HEPATITIS PANEL,ACUTE (11/14/2019 2:36 PM AGRICULTURAL SCIENTIST) HEPATITIS B SURFACE AG NON-REACTI VE NON-REACTI VE 11/14/2019 8:35 PM AGRICULTURAL SCIENTIST [facility] HEP B CORE IGM NON-REACTI VE NON-REACTI VE 11/14/2019 8:52 PM AGRICULTURAL SCIENTIST [facility] HAV IGM NON-REACTI VE NON-REACTI VE 11/14/2019 8:54 PM AGRICULTURAL SCIENTIST [facility] HEPATITIS C AB NON-REACTI VE NON-REACTI VE 11/14/2019 8:51 PM AGRICULTURAL SCIENTIST [facility] 11/14/2019 2:36 PM AGRICULTURAL SCIENTIST Geno Poirot APNP LABORATORY Final Result [facility] [address] [place] [address], * HPV MRNA E6/E7 W/ RFLX GENOTYPES (05/03/2019 2:36 PM CDT) HPV MRNA E6/E7 Not Detected NOT DETECTED 05/09/2019 4:37 PM CDT [facility] ELXUS MORRISON Comment: This test was performed using the APTIMA(R) HPV Assay ([employer] This assay detects E6/E7 viral messenger RNA (mRNA) from 14 high-risk HPV types (16,18,31,33,35,39,45,51, 52,56,58,59,66,68). For additional information please refer to: http://education.[employer]/faq/QGM065f7 (This link is being provided for informational/ educational purposes only.) The analytical performance characteristics of this assay have been determined by [facility] [place], [place]. The modifications have not been cleared or approved by the FDA. This assay has been validated pursuant to the CLIA regulations and is used for clinical purposes. HPV HUMAN PAPILLOMAVIRUS REPORT 05/09/2019 4:37 PM CDT [facility] LEXUS MORRISON Comment: Not indicated Test Performed by [facility], [facility] [place], [address] [place] [address] Scott Cano M.D., Ph.D., Director of Laboratories , CLIA [id number] 05/03/2019 2:36 PM CDT Geno Moustapha SARGENT PATHOLOGY/CYTOLOGY ORDERABLES Final Result [facility] [address] [place] [address], * Cytopath Cerv/Vag Thin Layer (05/03/2019 12:00 AM CDT) COPATH REPORT [facility] [address] [place], [place] [address] [phone] Department of Pathology Pathology Report Gynecological Cytology Report Patient Name: HARPAL EDENKINS ANUJ MATIASAccession#: [id number] : 1995 (Age: 23) Location: [facility] Gender: F Collected Date: 05/03/2019 Med Rec #: [id number] Date Received: 05/08/2019 Date Reported: 05/10/2019 Provider: GENO REILLY Final Cytologic Diagnosis Satisfactory for evaluation. Endocervical component not identified. Negative for Intraepithelial Lesion or Malignancy Bacterial Vaginosis High-risk HPV mRNA E6/E7 by Aptima assay (performed at [facility]) is reported as NOT DETECTED (see separate report for details). This case was signed out at [facility], [address] [place] [address]. Electronically Signed Out Oscar Jacobs Source of Specimen(s) Cervical/Endocervi veda - Thin Prep Clinical History Screening, last Pap not provided. History of HPV and abnormal Pap. Z12.4 Date of Last Menstrual Period: 04/15/19 Frozen Section Diagnosis Billing Fee Code(s): A: [address] [facility] 05/03/2019 05/08/2019 3:3 2 PM CDT Comment:CERVICAL/ENDOCERVICA L - THIN PREP us Geno SARGENT PATHOLOGY/CYTOLOGY ORDERABLES Final Result [facility] [address] [place] [address], from Last 3 Months or Most Recently Relevant to Health Maintenance Insurance [employer] Care Teams Delivery Aide Relationship Specialty Start Date End Date Geno Reilly APNP [address] [place] [id number] PCP - General NURSE PRACTITIONER 10/15/18 None, Provider, 08/01/18
--- OUTSIDE RECORDS SUMMARY | 2025-02-23 03:53 | XMS_ITS | Data Portability ---
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 Plan of Treatment Reminders Order Date Submit Date Provider Last Modified By Organization Details Last Modified Time Details Appointments None record ed. Lab beta-H CG, quanti tative , serum or plasma 2024 025 [facility] [employer], [address] [place], [address], 5 10:18:32 CBC w/ auto diff 2024 025 [employer], [address] [place], [address], 5 10:23:50 bacter ial vagino sis + vagini tis panel, vagina l 2024 025 [employer], [address] [place], [address], 5 09:12:37 pregna ncy test, urine 2024 025 [facility], [address] [place], [address], 5 10:11:54 unlist ed lab - STD screen ing (hc) 2024 025 [employer] [employer], [address] [place], [address], 5 14:16:26 bacter ial vagino sis + vagini tis panel, vagina l 2023 024 LACEY [facility], [address] [place], [address], 4 08:57:22 pregna ncy test, urine 2023 024 [facility], [address] [facility], [place], [address], 4 11:34:01 Referral dermat ologis t referr angeles roblero, evalua te and treat for possib le dermat itis 2024 025 [email or web address] [facility], [address] [facility], [place], [address], 5 10:39:53 Procedures None record ed. Surgeries None record ed. Imaging US, obstet roberto, transv aginal 2024 025 LACEY [facility], [facility], [place], [address], 5 07:57:28 US, transv aginal 2024 025 [email or web address] [facility], [address] [place] [address], [address], 5 18:30:45 US, transv aginal 2023 024 LACEY [facility], [facility] [place], [address], 4 13:49:51 Medication Orders Percoc et 5 mg-325 mg tablet 2024 025 [id number], [address] [place], [place], [id number], 14:16:21 misopr ostol 200 mcg tablet 2024 [facility] #[id number] [place], [place], [id number], 14:16:19 Prenat al Vitami n 27 mg iron-8 00 mcg tablet 2024 [facility] #[id number], [address] [place], [place], [id number], 10:12:00 Depo-P rovera 150 mg/mL intram uscula r suspen anna 2023 [facility] #94601, [address] [place], [place], [id number], 5 09:39:34 Mirena 21 mcg/24 hr (up to 8 years) 52 mg intrau terine device 2023 024 [email or web address] Not available 15:48:09 Patient TargetsNo targets recorded. 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 Referral for I nflammatory dermatosis Consult, evaluate and treat for possible dermatitis Referring Physician: Ines Her, BULB PACKER, Encounter Date: 01/29/2025 Results Created Date Observation Date Name Description Value Unit Range Abnormal Flag Note LastModifiedBy Organization Detail LastModifiedTime 04/11/20 24 04/12/2024 STD SCREAiram MOLINA ([facility] ) hep BS Ag Non-Re active non-re active normal Not Available [address], [address], 04/12/2024 14:16:03 04/11/20 24 04/12/2024 STD SCREAiram MOLINA ([facility] ) hep C Ab Non-Re active non-re active normal Not Available [address], [address], 04/12/2024 14:16:03 04/11/20 24 04/12/2024 STD SANDER MOLINA ([facility] ) HIV 1/2 Ag/Ab Non-Re active non-re active normal Not Available [address], [address], 04/12/2024 14:16:03 04/11/20 24 04/12/2024 STD SANDER COLLAZOG ([facility] ) syphilis Ab Non-Re active non-re active normal Not Available [address], [address], 04/12/2024 14:16:03 04/11/20 24 04/16/2024 STI PANEL trichomonas vaginalis TRICH neg negati ve normal Not Available [address], [address], 04/16/2024 13:50:12 04/11/20 24 04/16/2024 STI PANEL chlamydia trachomatis CT neg negati ve normal This repor t is inten ded for us in clini veda monit oring and manag ement of [facility]. It is not inten ded for use in medic al-le gal appli catio n. Not Available [address], [address], 04/16/2024 13:50:12 04/11/20 24 04/16/2024 STI PANEL neisseria gonorrhoeae GC neg negati ve normal This repor t is inten ded for us in clini veda monit oring and manag ement of [facility]. It is not inten ded for use in medic [facility] appli catio n. Not Available [employer] [address] [place], [address], 04/16/2024 13:50:12 04/15/20 24 04/15/2024 pregn chayito test, urine HCG negati ve Not Available [facility] [address] [place], [address], 04/15/2024 10:22:42 07/05/20 24 07/08/2024 VAGIN ITIS PLUS STD PANEL bacterial vaginosis BV POS negati ve abnormal Not Available [facility] [address] [place], [address], 07/09/2024 08:57:22 07/05/20 24 07/08/2024 VAGIN ITIS PLUS STD PANEL lety species C. spp neg negati ve normal Not Available [facility] [address] [place], [address], 07/09/2024 08:57:22 07/05/20 24 07/08/2024 VAGIN ITIS PLUS STD PANEL lety glabrata C. gla neg negati ve normal Not Available [facility] [address] [place] [address], [address], 07/09/2024 08:57:22 07/05/20 24 07/08/2024 VAGIN ITIS PLUS STD PANEL trichomonas vaginalis CV/TV TRICH neg negati ve normal Not Available [facility] [address] [place] [address], [address], 07/09/2024 08:57:22 07/05/20 24 07/08/2024 VAGIN ITIS PLUS STD PANEL chlamydia trachomatis CT neg negati ve normal This repor t is inten ded for us in clini veda monit oring and manag ement of [facility]. It is not inten ded for use in medic al-le gal appli catio n. Not Available [address], [address], 07/09/2024 08:57:22 07/05/20 24 07/08/2024 VAGIN ITIS PLUS STD PANEL neisseria gonorrhoeae GC neg negati ve normal This repor t is inten ded for us in clini veda monit oring and manag ement of [facility]. It is not inten ded for use in medic al-le gal appli catio n. Not Available [address], [address], 07/09/2024 08:57:22 01/30/20 25 01/30/2025 STD BLOOD SCREE TRACY ([facility] ) hep BS Ag Non-Re active non-re active normal Not Available [address], [address], 01/30/2025 14:16:26 01/30/20 25 01/30/2025 STD BLOOD SCREE TRACY ([facility] ) hep C Ab Non-Re active non-re active normal Not Available [address], [address], 01/30/2025 14:16:26 01/30/20 25 01/30/2025 STD BLOOD SCREE TRACY ([facility] ) HIV 1/2 Ag/Ab Non-Re active non-re active normal Not Available [address], [address], 01/30/2025 14:16:26 01/30/20 25 01/30/2025 STD BLOOD SCREE TRACY ([facility] ) syphilis Ab Non-Re active non-re active normal Not Available [address], [address], 01/30/2025 14:16:26 01/30/20 25 01/30/2025 VAGIN ITIS PLUS STD PANEL bacterial vaginosis BV POS negati ve abnormal Not Available [address], [address], 01/31/2025 09:12:37 01/30/20 25 01/30/2025 VAGIN ITIS PLUS STD PANEL lety species C. spp neg negati ve normal Not Available [address], [address], 01/31/2025 09:12:37 01/30/20 25 01/30/2025 VAGIN ITIS PLUS STD PANEL lety glabrata C. gla neg negati ve normal Not Available [address], [address], 01/31/2025 09:12:37 01/30/20 25 01/30/2025 VAGIN ITIS PLUS STD PANEL trichomonas vaginalis CV/TV TRICH neg negati ve normal Not Available [address], [address], 01/31/2025 09:12:37 01/30/20 25 01/30/2025 VAGIN ITIS PLUS STD PANEL chlamydia trachomatis CT neg negati ve normal This repor t is inten ded for us in clini veda monit oring and manag ement of patie nts. It is not inten ded for use in medic al-le gal appli catio n. Not Available [address], [address], 01/31/2025 09:12:37 01/30/20 25 01/30/2025 VAGIN ITIS PLUS STD PANEL neisseria gonorrhoeae GC neg negati ve normal This repor t is inten ded for us in clini veda monit oring and manag ement of patie nts. It is not inten ded for use in medic al-le gal appli catio n. Not Available [address], [address], 01/31/2025 09:12:37 01/30/20 25 01/29/2025 pregn chayito test, urine HCG positi ve Not Available [facility] [address] [place], [address], 01/29/2025 10:02:14 04/15/20 24 04/15/2024 US, trans vagin al No observ ation record ed. [id number], [place], [address], 04/15/2024 13:53:59 02/11/20 25 02/10/2025 US, trans vagin al No observ ation record ed. [address], [place], [address], 02/10/2025 20:17:54 02/23/20 25 02/21/2025 US, obste tric, trans vagin al No observ ation record ed. [id number] [address], [place], [address], 02/22/2025 07:57:28 Result Notes None recorded. Problems No Known Problems Procedures Surgical History Date Name Laterality Status Provider Name and Address Organization Details Recorded Time 07/05/20 24 IUD Removal completed JESSIE JETT [address] [place], [address], [facility] 07/05/2024 16:06:15 04/15/20 24 IUD Insertion completed JESISE JETT [address] [place], [address], [place] [facility] 04/15/2024 11:07:07 04/11/20 24 Date of Last Pap Smear completed Millicent Malik [place] - [facility] 04/15/2024 10:33:27 09/11/20 23 Depo Provera Injection completed Martine Dallas [place] - [facility] 09/11/2023 11:52:07 11/16/19 23 I&D completed ERIKA PEREZ DO [address] [place], [address], [place] [facility] 11/17/2022 10:32:24 10/25/20 22 Suture/Staple removal cancelled Ria Hoskins [facility] 09/05/2022 14:12:57 procedure on upper arm completed Roma Fernandezlauricristina [facility] [employer] [facility] IV 07/05/2024 15:49:01 Imaging Results Imaging Date Name Status LastModified by Organization Details LastModified Time 04/15/2024 US, transvaginal completed Sophie [address], [place], [address], 04/15/2024 13:53:59 02/10/2025 US, transvaginal completed Sophie [address], [place], [address], 02/10/2025 20:17:54 02/21/2025 US, obstetric, transvaginal active [id number] [address], [place], [address], 02/22/2025 07:57:28 Procedure Notes None recorded. Medical Equipment None Reported. Allergies Allergen ID Allergen Name Allergen Category Reaction Reaction Severity Criticality Documentation Date Start Date Code Code System Note Provider Name and Address Organization Details Recorded Time 788980 ibuprofen medicatio n Not available Not available Not available 09/03/20212014 5640 RxNorm Sever ity: Moder ate; Not Available Not Available Not Available Medications Name Sig Start Date Stop Date Status Note LastModified by Organization Details LastModified Time Mirena 21 mcg/24 hr (up to 8 years) 52 mg intrauter ine device Take by intraute rine route. 07/05 completed Document procedur e details in the PE - Procedur e SectionD ocument Lot # Exp Date and click Administ ered in this A/P order Not Available Not Available Not Available terconazo le 0.4 % vaginal cream INSERT ONE APPLICAT ORFUL VAGINALL Y AT BEDTIME FOR 7 NIGHTS 03/21 completed Not Available Not Available Not Available acetamino phen 325 mg tablet TAKE 2 TABLETS BY MOUTH EVERY 6 HOURS NEEDED 01/17 completed Not Available Not Available Not Available doxycycli ne hyclate 100 mg capsule TAKE 1 CAPSULE BY MOUTH TWICE DAILY WITH MEALS FOR 14 DAYS 11/16 completed Not Available Not Available Not Available Celexa 10 mg tablet Take 1 tablet(s ) by mouth daily 01/17 completed Celexa 10mg Tablet RxNorm: 592014 Allow Substitu tion: True Refill Denied: No For Problem: Depressi on Not Available Not Available Not Available clindamyc in HCl 300 mg capsule TAKE 1 CAPSULE BY MOUTH EVERY 8 HOURS FOR 7 DAYS 01/17 completed Not Available Not Available Not Available azithromy ariana 250 mg tablet Take 2 tablet(s ) by mouth on day 1 then 1 tablet every day for the next 4 days. 10/06 completed Azithrom ycin 250mg Tablet RxNorm: 115458 Allow Substitu tion: True Refill Denied: No Not Available Not Available Not Available levetirac etam 500 mg tablet 09/04 completed Not Available Not Available Not Available cephalexi n 250 mg capsule TAKE ONE CAPSULE BY MOUTH TWICE DAILY 01/17 completed Not Available Not Available Not Available hydrocodo ne 5 mg-acetam inophen 325 mg tablet 04/15 completed Not Available Not Available Not Available metronida zole 0.75 % (37.5 mg/5 gram) vaginal gel INSERT 1 APPLICAT ORFUL VAGINALL Y EVERY DAY FOR 5 DAYS 04/11 completed Not Available Not Available Not Available ondansetr on HCl 4 mg tablet TAKE 1 TABLET BY MOUTH EVERY 8 HOURS NEEDED 01/29 completed Not Available Not Available Not Available metronida zole 500 mg tablet 1 tablet twice a day x 7 days 02/10 completed Not Available Not Available Not Available oxcarbaze pine 300 mg tablet TAKE 1 TABLET BY MOUTH EVERY 12 HOURS 01/17 completed Not Available Not Available Not Available phenytoin sodium extended 100 mg capsule TAKE 1 CAPSULE BY MOUTH TWICE DAILY 04/15 completed Not Available Not Available Not Available sulfameth oxazole 800 mg-trimet hoprim 160 mg tablet TAKE 1 TABLET BY MOUTH TWICE DAILY 01/17 completed Not Available Not Available Not Available quetiapin e 100 mg tablet TAKE 1 TABLET BY MOUTH EVERY NIGHT AT BEDTIME 04/15 completed Not Available Not Available Not Available Vitamin tablet Take 1 tablet(s ) by mouth daily 12/21 completed Multivit araujo Tablet Allow Substitu tion: True Refill Denied: No Not Available Not Available Not Available cyprohept adine 4 mg tablet TAKE 1 TABLET BY MOUTH EVERY NIGHT AT BEDTIME 01/29 completed Not Available Not Available Not Available famotidin e 20 mg tablet TAKE 1 TABLET BY MOUTH TWICE DAILY FOR 10 DAYS 04/11 completed Not Available Not Available Not Available cephalexi n 500 mg capsule TAKE 1 CAPSULE BY MOUTH TWICE DAILY FOR 5 DAYS 12/20 completed Not Available Not Available Not Available pantopraz ole 40 mg tablet,de layed release 07/05 completed Not Available Not Available Not Available buspirone 30 mg tablet 12/21 completed Buspiron e HCl Allow Substitu tion: True Refill Denied: No Not Available Not Available Not Available buspirone 10 mg tablet 12/21 completed Buspiron e HCl Allow Substitu tion: True Refill Denied: No Not Available Not Available Not Available misoprost ol 200 mcg tablet 4 tablets vaginall y x 1 then repeat 4 tablets vaginall y in 24 hours. 2024 active Not Available Not Available Not Avai lable docusate sodium 100 mg capsule 11/16 completed Not Available Not Available Not Available folic acid 1 mg tablet 11/16 completed Not Available Not Available Not Available ceftriaxo ne 500 mg solution for injection 500 mg IM injectio n x 1. 11/16 completed Not Available Not Available Not Available mirtazapi ne 15 mg tablet TAKE 1/2 TABLET BY MOUTH EVERY DAY AT BEDTIME FOR SLEEP OR ANXIETY 02/10 completed Not Available Not Available Not Available gabapenti n 100 mg capsule TAKE ONE CAPSULE BY MOUTH THREE TIMES DAILY 01/17 completed Not Available Not Available Not Available methylpre dnisolone 4 mg tablets in a dose pack FOLLOW PACKAGE DIRECTIO NS 01/17 completed Not Available Not Available Not Available Percocet 5 mg-325 mg tablet Take 1 tablet every 6 hours by oral route as needed, for moderate to severe pain. 2024 active Not Available Not Available Not Avai lable morphine 15 mg immediate release tablet TAKE 1 TABLET BY MOUTH EVERY 4 HOURS NEEDED FOR PAIN 04/15 completed Not Available Not Available Not Available ondansetr on 4 mg disintegr ating tablet 04/15 completed Not Available Not Available Not Available clotrimaz ole 1 % topical cream APPLY TOPICALL Y TO THE AFFECTED AREA EVERY 12 HOURS 01/29 completed Not Available Not Available Not Available medroxypr ogesteron e 150 mg/mL intramusc ular suspensio n ADMINIST ER 1 ML IN THE MUSCLE EVERY 3 MONTHS 01/29 completed Not Available Not Available Not Available dicyclomi ne 10 mg capsule 04/15 completed Not Available Not Available Not Available naproxen 500 mg tablet 09/04 completed Not Available Not Available Not Available amoxicill in 875 mg-potass ium clavulana te 125 mg tablet TAKE 1 TABLET BY MOUTH TWICE DAILY WITH FOOD 12/20 completed Not Available Not Available Not Available azithromy ariana 1 gram oral packet MIX 2 PACKETS DIRECTED FOR 1 DOSE 04/12 completed Not Available Not Available Not Available buspirone 15 mg tablet 1/2 tablet PO BID 03/20 completed Buspiron e HCl 15mg Tablet RxNorm: 220043 Allow Substitu tion: True Refill Denied: No For Problem: Depressi on Not Available Not Available Not Available Ortho Evra 150 mcg-35 mcg/24 hr transderm al patch Apply 1 patch to buttock, abdomen, or upper outer arm q week for 3 weeks of each month. 05/19 completed Ortho Evra 150mcg/3 5mcg per 24hr Transder mal Patch RxNorm: 6106908 Allow Substitu tion: True Refill Denied: No For Problem: Family planning advice Not Available Not Available Not Available azithromy ariana 500 mg tablet TAKE 2 TABLETS BY MOUTH 1 TIME WITH FOOD 04/12 completed Not Available Not Available Not Available medroxypr ogesteron e 150 mg/mL intramusc ular syringe Inject 1 mL every 3 months by intramus cular route. 04/15 completed Not Available Not Available Not Available cyclobenz aprine 5 mg tablet TAKE 2 TABLETS BY MOUTH TWICE DAILY NEEDED FOR MUSCLE SPASMS 01/17 completed Not Available Not Available Not Available aripipraz ole 5 mg tablet TAKE 1 TABLET BY MOUTH EVERY DAY AT BEDTIME 01/29 completed Not Available Not Available Not Available nitrofura ntoin monohydra te/macroc rystals 100 mg capsule TAKE ONE CAPSULE BY MOUTH EVERY 12 HOURS FOR 5 DAYS 01/17 completed Not Available Not Available Not Available albuterol 2 puffs every 4-6 hrs prn 10/17 completed Albutero l 90mcg/1a ctuation Oral Inhaler RxNorm: 933665 Allow Substitu tion: True Refill Denied: No Not Available Not Available Not Available azithromy ariana Take 2 tablet(s ) by mouth once. Take with food. 04/27 completed Azithrom ycin 500mg Tablet RxNorm: 001230 Allow Substitu tion: True Refill Denied: No Not Available Not Available Not Available ferrous sulfate 12/21 completed Ferrous Sulfate Allow Substitu tion: True Refill Denied: No Refill DateOccu rred: 08/18/20 15 Not Available Not Available Not Available Celexa 10/06 completed Celexa RxNorm: 222336 Allow Substitu tion: True Refill Denied: No Refill DateOccu rred: 08/18/20 15 Not Available Not Available Not Available 10/17 completed Not Available Not Available Not Available levetirac etam 1,000 mg tablet TAKE 1 TABLET BY MOUTH TWICE DAILY 01/29 completed Not Available Not Available Not Available quetiapin e 50 mg tablet TAKE 1 TABLET BY MOUTH EVERY MORNING 04/15 completed Not Available Not Available Not Available quetiapin e 400 mg tablet TAKE 1 TABLET BY MOUTH EVERY DAY AT BEDTIME 04/12 completed Not Available Not Available Not Available quetiapin e ER 400 mg tablet,ex tended release 24 hr TAKE 1 TABLET BY MOUTH EVERY DAY AT BEDTIME 01/17 completed Not Available Not Available Not Available quetiapin e ER 300 mg tablet,ex tended release 24 hr TAKE 1 TABLET BY MOUTH EVERY DAY AT BEDTIME 01/17 completed Not Available Not Available Not Available quetiapin e ER 200 mg tablet,ex tended release 24 hr TAKE 1 TABLET BY MOUTH EVERY DAY AT BEDTIME FOR 4 DAYS 11/16 completed Not Available Not Available Not Available quetiapin e ER 50 mg tablet,ex tended release 24 hr TAKE 2 TABLETS BY MOUTH EVERY DAY AT BEDTIME 04/15 completed Not Available Not Available Not Available lacosamid e 200 mg tablet TAKE 1 TABLET BY MOUTH TWICE DAILY 04/15 completed Not Available Not Available Not Available PNV-DHA 27 mg iron-1 mg-300 mg capsule Take 1 capsule by oral route for 30 days. 03/21 completed Not Available Not Available Not Available [place] 11/04 completed [place] RxNorm: 6568478 Allow Substitu tion: True Refill Denied: No Refill DateOccu rred: 09/21/20 15 Not Available Not Available Not Available Vitamin 27 mg iron-800 mcg tablet Take 1 tablet every day by oral route for 30 days. 2024 active Not Available Not Available Not Avai lable [place] (PF) 275 mg/1.1 mL subcutane ous auto-inje ctor Inject 1.1 mL every week by subcutan eous route. 11/16 completed Not Available Not Available Not Available WesTab Plus 27 mg iron-1 mg tablet TAKE 1 TABLET BY MOUTH EVERY DAY 11/16 completed Not Available Not Available Not Available Vitals Date Recorded Body height Body mass index (BMI) Body weight Body temperature Systolic blood pressure Diastolic blood pressure Provider Name and Address Organization Details Last Updated DateTime 4 163.83 cm 24.2 kg/m2 72683.7 1 g 98 [degF] 118 mm[Hg] 68 mm[Hg] Millicent Malik [facility] [employer] [facility] 4 10:38:45 Date Recorded Body height Body mass index (BMI) Body weight Systolic blood pressure Diastolic blood pressure Provider Name and Address Organization Details Last Updated DateTime 07/05/2024 163.83 cm 24.3 kg/m2 85165.3 g 90 mm[Hg] 40 mm[Hg] Roma Callaway [place] [facility] 4 15:53:27 Date Recorded Body height Body mass index (BMI) Body weight Systolic blood pressure Diastolic blood pressure Provider Name and Address Organization Details Last Updated DateTime 01/29/2025 163.83 cm 21.6 kg/m2 49916.82 g 110 mm[Hg] 70 mm[Hg] Ina Arellano [place] [facility] 5 09:38:34 Date Recorded Body height Body mass index (BMI) Body weight Systolic blood pressure Diastolic blood pressure Provider Name and Address Organization Details Last Updated DateTime 02/10/2025 163.83 cm 21.2 kg/m2 37925.48 g 118 mm[Hg] 72 mm[Hg] Ria Hoskins [place] [facility] 5 12:11:46 Date Recorded Body height Body mass index (BMI) Body weight Systolic blood pressure Diastolic blood pressure Provider Name and Address Organization Details Last Updated DateTime 02/21/2025 163.83 cm 20.9 kg/m2 70607.3 g 100 mm[Hg] 60 mm[Hg] Kirk Delgado [facility] [employer] IV 5 13:58:29 Social History Question Answer Notes LastModified by Organizat ion Details LastModified Time Tobacco Smoking Status Former Smoker Roma quiroz, [employer] [facility] 07/05/2024 15:48:44 What Is Your Level Of Alcohol Consumption? None [email or web address] Information not available 04/12/2022 Are You Blind Or Do You Have Difficulty Seeing? No Information not available 02/14/2022 Are You Currently Employed? No [email or web address] Information not available 04/11/2024 Are You Deaf Or Do You Have Serious Difficulty Hearing? No Information not available 02/14/2022 What Type Of Diet Are You Following? REGULAR Information not available 02/14/2022 Do You Or Have You Ever Used E-cigarettes Or Vape? Current User Of Electronic Cigarettes Information not available 07/05/2024 How Many Children Do You Have? 3 [email or web address] Information not available 12/20/2022 What Is Your Relationship Status? [email or web address] Information not available 04/12/2022 Are You Sexually Active? Yes Information not available 04/11/2024 Do You Use Any Illicit Or Recreational Drugs? No Information not available 04/12/2022 Do You Or Have You Ever Used Any Other Forms Of Tobacco Or Nicotine? Yes Information not available 07/05/2024 Sex: Unknown Functional Status Question Answer Note LastModified by Organization D etails LastModified Time What is your exercise level? None Information not available 02/14/2022 Mental Status None recorded. Family History Relationship Description Onset Age of this Age Resolved Age Notes LastModified by Organization Details LastModified Time Maternal Aunt Malignant tumor of breast [email or web address] Not available 2023 13:57:45 Paternal Grandfather Malignant tumor of colon [email or web address] Not available 04/2022 20:37:28 Maternal Grandmother Malignant tumor of ovary [email or web address] Not available 04/2022 20:37:39 Unspecified Relation Malignant tumor of breast Not available 2023 13:57:45 Medical History Condition Response High Blood Pressure N Cytomegalovirus N Hyperthyroidism N MRSA N Blood Transfusion N Depression Y Incontinence N Anxiety Disorder Y Autoimmune disease N Arthritis N Polycystic Ovarian Syndrome N Infertility N Hematuria N Varicosities N Stroke N Crohn's Disease N Seasonal allergies N Alzheimer's/Dementia N COPD/Emphysema N History of Abnormal Pap Y Fibromyalgia N Kidney Infection N Kidney Disease N Gallbladder disease N Von Willebrand disease N Eating Disorder N Diabetes Mellitus (non-insulin dependent ) N Ovarian Problems N Frequent Urinary Tract infections N Osteopenia N GERD (reflux) N Diabetes (insulin dependent) N Asthma N Heart Attack N Endometrial Cancer N Hepatitis N Pulmonary Embolism N RPR N Chicken Pox N Other Cancer N Colon Cancer N Breast Cancer N Herpes (HSV) N Lung Cancer N Hypothyroidism N Panic Attacks N Neurological Disorder N Deep Vein Thrombosis N Tuberculosis/Positive PPD N Shingles N Cervical Cancer N Chlamydia N HPV/Genital Warts N Endometriosis N IBS (Irritable Bowel Syndrome) N High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 [id number] growth restriction 07/20/2022 [id number] start testing- biweekly NST/wkly MELI and dopplers Chris Calculation Initial Chris Date Initial Exam Date Initial Exam Provider Initial Ultrasound Date Last Menstrual Period Date Ultra Sound Weeks Gestation 08/26/2022 02/14/2022 01/17/2022 11/19/2021 8 Eighteen To Twenty Week Chris Update Ultra Sound Date Fundal Height At Umbil Quickening Date Ultra Sound Latest Weeks Gestation Final Chris Confirmed By Final Chris Confirmed Date Final Chris Date Ultra Sound Latest Days Gestation 0 08/26/20 22 0 [place] Flowsheet Flowsheet Date 02/14/2022 Early Score Blood Edema Fundus Height Fundus Units Glucose Ketones Leukocytes Nitrite Labor Signs Protein Cervic Dilation Cervic Effacement Cervic Station none neg Type Weight in lbs Pre/Post Dialysis Refused Weight 103.278861001664 BP Diastolic BP Location Tested BP Systolic BP Type 78 118 Fetus Heart Rate Present A 158 Fetus Movement A Yes Comments Flowsheet Date 03/21/2022 Early Score Blood Edema Fundus Height Fundus Units Glucose Ketones Leukocytes Nitrite Labor Signs Protein Cervic Dilation Cervic Effacement Cervic Station none none neg Type Weight in lbs Pre/Post Dialysis Refused Weight 104.438772438229 BP Diastolic BP Location Tested BP Systolic BP Type 58 110 Fetus Heart Rate Present A 150 Fetus Movement A Yes Comments PENTA today Flowsheet Date 04/12/2022 Early Score Blood Edema Fundus Height Fundus Units Glucose Ketones Leukocytes Nitrite Labor Signs Protein Cervic Dilation Cervic Effacement Cervic Station none neg Type Weight in lbs Pre/Post Dialysis Refused Weight 109.604110174941 BP Diastolic BP Location Tested BP Systolic BP Type 70 116 Fetus Heart Rate Present A 155 Fetus Movement A Yes Comments Patient is following up afte r [facility] visit last week. States they are requesting her to have [place] injections. Visit notes not available but task sent to day to order. Reinforced bleeding recommendations. Needs RANCHO for chlamydia at next visit. Flowsheet Date 05/10/2022 Early Score Blood Edema Fundus Height Fundus Units Glucose Ketones Leukocytes Nitrite Labor Signs Protein Cervic Dilation Cervic Effacement Cervic Station none neg Type Weight in lbs Pre/Post Dialysis Refused Weight 114.4282251824 BP Diastolic BP Location Tested BP Systolic BP Type 68 116 Fetus Heart Rate Present A 151 Fetus Movement A Yes Comments Reports she saw [facility] yesterda y- previa is resolved. Checking status on [place] Flowsheet Date 06/24/2022 Early Score Blood Edema Fundus Height Fundus Units Glucose Ketones Leukocytes Nitrite Labor Signs Protein Cervic Dilation Cervic Effacement Cervic Station none 29 wks none Cramping neg Type Weight in lbs Pre/Post Dialysis Refused Weight 123.221262096837 BP Diastolic BP Location Tested BP Systolic BP Type Fetus Heart Rate Present A 142 Present Fetus Movement A Yes Comments s/p inpatient stay at [facility], r /o PTL. sve 1cm on admit without change. complaints of left sided pain unresolved. discussed pt referral from [facility] and [facility]. Plan to order on [facility]. PTL precautions discussed at length.Rhogam order and tdap info given today. 28 week labs completed today. RTO 2 wks plan growth with 4d. s<d Flowsheet Date 07/20/2022 Early Score Blood Edema Fundus Height Fundus Units Glucose Ketones Leukocytes Nitrite Labor Signs Protein Cervic Dilation Cervic Effacement Cervic Station none none Uterine Contract ions neg Type Weight in lbs Pre/Post Dialysis Refused With clothes 132.420019279667 BP Diastolic BP Location Tested BP Systolic BP Type 62 L arm 102 sitting Fetus Heart Rate Present A 147 Present Fetus Movement A Yes Comments EFW- 2.2%tile; dopplers done ; BPP 06/20- already established with [facility]- patient case to schedule her for an appt; start biweekly NST/weekly dopplers/MELI; s/p steroids after hospital admission for PTL SVE - no change Flowsheet Date 10/17/2022 Early Score Blood Edema Fundus Height Fundus Units Glucose Ketones Leukocytes Nitrite Labor Signs Protein Cervic Dilation Cervic Effacement Cervic Station Type Weight in lbs Pre/Post Dialysis Refused Weight 122.046911214880 BP Diastolic BP Location Tested BP Systolic BP Type 72 L arm 108 sitting Fetus Heart Rate Present Fetus Movement Comments Menstrual History Last Menstrual Date Menses Monthly On Bcp Conception Prior Menses Frequency Hcg Plus Date Menarche Onset Age 0111/19/2021 Delivery Information Delivery Date Delivery Type Labor Anesthesia Weeks Gestation Incision Type Labor Labor Length Hrs Delivered By Post Complications Tubal Sterilization Discharge Date Comments 2 35.1 IOL for oligohydr amnios (3.8cm) and FGR (normal dopplers) , hx PTD, pseudosei zures Discharge Information Feeding Method Contraceptive Method Maternal HG B and HCT Levels Ob Episode Information Episode Created Date Number of Fetuses Patient Bloodtype Patient rh Status Prepregnancy Weight lbs Domestic Partner Domestic Partner Phone Father Name Medical Affairs Specialist Status 10/15/20 22 1 CLOSED Fetus Data First Name Last Name Admitted to NICU Weight (g) Sex Living Outcome Pediatric Complications Fetus ID Race Codes Race Delivery Type , Spontane ous [id number] Chris Calculation Initial Chris Date Initial Exam Date Initial Exam Provider Initial Ultrasound Date Last Menstrual Period Date Ultra Sound Weeks Gestation 0 Eighteen To Twenty Week Chris Update Ultra Sound Date Fundal Height At Umbil Quickening Date Ultra Sound Latest Weeks Gestation Final Chris Confirmed By Final Chris Confirmed Date Final Chris Date Ultra Sound Latest Days Gestation 0 0 Menstrual History Last Menstrual Date Menses Monthly On Bcp Conception Prior Menses Frequency Hcg Plus Date Menarche Onset Age Delivery Information Delivery Date Delivery Type Labor Anesthesia Weeks Gestation Incision Type Labor Labor Length Hrs Delivered By Post Complications Tubal Sterilization Discharge Date Comments 4 Discharge Information Feeding Method Contraceptive Method Maternal HG B and HCT Levels Ob Episode Information Episode Created Date Number of Fetuses Patient Bloodtype Patient rh Status Prepregnancy Weight lbs Domestic Partner Domestic Partner Phone Father Name Medical Affairs Specialist Status 10/15/20 22 1 CLOSED Fetus Data First Name Last Name Admitted to NICU Weight (g) Sex Living Outcome Pediatric Complications Fetus ID Race Codes Race Delivery Type , Induced [id number] Chris Calculation Initial Chris Date Initial Exam Date Initial Exam Provider Initial Ultrasound Date Last Menstrual Period Date Ultra Sound Weeks Gestation 0 Eighteen To Twenty Week Chris Update Ultra Sound Date Fundal Height At Umbil Quickening Date Ultra Sound Latest Weeks Gestation Final Chris Confirmed By Final Chris Confirmed Date Final Chris Date Ultra Sound Latest Days Gestation 0 0 Menstrual History Last Menstrual Date Menses Monthly On Bcp Conception Prior Menses Frequency Hcg Plus Date Menarche Onset Age Delivery Information Delivery Date Delivery Type Labor Anesthesia Weeks Gestation Incision Type Labor Labor Length Hrs Delivered By Post Complications Tubal Sterilization Discharge Date Comments 6 18 Discharge Information Feeding Method Contraceptive Method Maternal HG B and HCT Levels
--- OUTSIDE RECORDS SUMMARY | 2025-02-23 03:53 | XMS_ITS | Encounter Summary ---
Author Organization [facility] Address [address] [place] [address] Care Team Providers Care Field Tax Auditor Name Role Phone Geno Gerard Primary Care Provider [phone] None, Provider Unavailable Unavailable Encounter Details Date Type Department Care Team (Late st Contact Info) Description 10/10/2022 D[facility] Labs Message Enc [facility] Medical Group Family [facility] - [place] [address] [place] [address] [facility] Provider Schedule Appointment: Annual Physical Due Social History Tobacco Use Types Packs/Day Years [...] on filedocumented in this encounter Care Teams Field Tax Auditor Relationship Specialty Start Date End Date Geno Gerard APNP [address] [place] [address] PCP - General NURSE PRACTITIONER 10/15/18 None, Provider, 08/01/18 documented as of this encounter
[2025-02-23] MEDS: MIDAZOLAM 100MG/NS 100ML(*CRX) 100 MG/100 ML BAG IV CONT (03:55)
[2025-02-23 04:19] LABS: Add Urine Microscopic? YES; Appearance Urine Clear (Clear); Bacteria Urine None Seen /hpf; Bilirubin Urine Negative (Negative); Blood Urine Trace (Negative); Color Urine Yellow (Yellow); Glucose Urine UA Negative (Negative); Ketones Urine 1+ mg/dL (Negative); Leukocyte Esterase Ur Negative LEU/UL (Negative); Nitrate Urine Negative (Negative); Non Pathogenic Casts 0-2; Protein Urine Negative (Negative); RBC Urine 0-2 /hpf (0-2); Specific Grav Ur 1.007 (1.001-1.035); Squamous Epithelial Cell Urine None Seen /hpf (Few); Urobilinogen Urine 0.2 mg/dL (<2.0); WBC Urine 0-5 /hpf (0-3); pH Urine 6.5 (5.0-9.0)
--- NOTE | 2025-02-23 04:47 | PC.NURSE ---
verbal consent obtained to start a central line. Jairo Gardner RN, and VLADIMIR Carranza at bedside.
--- NOTE | 2025-02-23 04:47 | PC.NURSE ---
LEFT HAND IV INFILTRATED, UNABLE TO OBTAIN 2ND IV ACCESS SITE. EDP AWARE. CENTRAL LINE WILL BE PLACED. PROPOFOL TEMPORARILY PAUSED.
[2025-02-23 04:49] LABS: Alveolar/Arterial O2 Gradient 187.3 mmHg; Base Excess ABG -8.2 mEq/l (+/-2.0); Fractional Inspired Oxygen 100 %; HCO3 ABG 16.7 mEq/l (22.0-26.0); Oxygen Content ABG 17.2 %vol (16.0-22.0); Oxygen Saturation ABG 99.9 % (95.0-100.0); PCO2 ABG 32.3 mmHg (35.0-45.0); PO2 ABG 493.4 mmHg (80.0-100.0); PO2 FiO2 Ratio Arterial Blood 4.93 %; Total Hemoglobin 11.4 g/dL (12.0-18.0); pH ABG 7.332 (7.350-7.450)
[2025-02-23 04:50] LABS: Device VENTILATOR; Modified Allen's Test Pass; Site Drawn LEFT RADIAL
[2025-02-23 04:51] LABS: Arterial Blood Gas PEEP 5 cmH2O; Arterial Blood Gas Tidal Volume 350 ml; Arterial Blood Gas Vent Mode CMV; Arterial Blood Gas Ventilator rate 16 /MIN
--- NOTE | 2025-02-23 06:00 | PC.NURSE ---
multiple warm blankets placed on pt at this time.
[2025-02-23] MEDS: SODIUM CHLORIDE 0.9% IV 1,000 ML 150 ML IV CONT (06:09)
[2025-02-23 06:18] LABS: Hematocrit 28.7 % (37.0-47.0); Hemoglobin 9.2 g/dL (12.0-15.0)
[2025-02-23] MEDS: NOREPINEPHRINE 8 MG/D5W 250 ML 8 MG/250 ML BAG 9.38 MG IV CONT (06:37)
--- NOTE | 2025-02-23 07:25 | PC.NURSE ---
RN report to SLIM Golden
--- NOTE | 2025-02-23 07:27 | PC.NURSE ---
Jann accepted Room [address] Virgen RN to RN report [phone]
--- NOTE | 2025-02-23 07:28 | PC.NURSE ---
Report to SLIM Christine @ [facility] 3N Room 302
[2025-02-23] MEDS: RHO(D) IMMUNE GLOBULIN 300 MCG/2 ML SYRINGE IM (08:12)
[2025-02-23 08:14] LABS: Triglycerides 80 mg/dL (<150)
--- NOTE | 2025-02-23 09:33 | PC.NURSE ---
Pt transferred with maintenance fluids, Midazolam, Propofol and Norepinephrine currently infusing.
== END 2025-02-23 09:42 | disposition short-term general hospital (02) ==
PROVIDERS: Emergency Provider Emergency Medicine
DX: O99.351 Diseases of the nervous system complicating pregnancy, first trimester (principal); G40.909 Epilepsy, unspecified, not intractable, without status epilepticus; O20.0 Threatened abortion; Z3A.01 Less than 8 weeks gestation of pregnancy
CPT/HCPCS: 31500; 36415; 36556; 36600; 76801; 80053; 81001; 82805; 84478; 84702; 85014; 85018; 85025; 85461; 86850; 86900; 86901; 88305; 90384; 94002; 96361; 96365; 96366; 96367; 96368; 96372; 96375; 96376; 99285; C1751; J0330; J1165; J1953; J2060; J2250; J2704; J2790; J3010; J7030

== ENCOUNTER 2025-03-03 15:18 | Emergency (ER) | payer OTHER, SELFPAY ==
[2025-03-03 15:42] VITALS: BP 109/81; PULSE 90; RESP 16; TEMP 37.3; O2SAT 100
--- OUTSIDE RECORDS SUMMARY | 2025-03-03 17:17 | XMS_ITS | Clinical Summary ---
Author Organization [facility] Address [address] [place] [address] Care Team Providers Care Shirring Tender Name Role Phone Ines Her NP Primary [...] Never Tobacco Cessation:Ready to Q uit: No [facility] Utilities Answer Date Recorded In the [...] often do you attend chur ch or yazidi services? Never 09/26/2023 Do you belong to any clubs o r organizations such as scientology groups, unions, fraternal or athletic groups, or [...] place to sleep or slept in a assisted (including now)? No 09/26/2023 Personal Safety Answer Date Recorded Have you ever been in or are you currently in a harmful physical or emotional relationship or is someone making you feel afraid or unsafe? Denies 11/19/2024 Comments No Sex and Gender Information Value Date Recorded Sex Assigned at Not on file Legal Sex Female 7:13 AM ADMINISTRATIVE COORDINATOR Gender Identity Not on file Sexual Orientation Not on file Obstetrics History Last Filed Vital Signs Vital Sign Reading Time Taken Comments Blood Pressure 94/55 11/19/2024 10:00 PM ADMINISTRATIVE COORDINATOR Pulse 74 11/19/2024 10:46 PM ADMINISTRATIVE COORDINATOR Temperature 36.7 C (98.1 F) 11/19/2024 6:18 PM ADMINISTRATIVE COORDINATOR Respiratory Rate 14 11/19/2024 10:46 PM ADMINISTRATIVE COORDINATOR Oxygen Saturation 97% 11/19/2024 10:46 PM ADMINISTRATIVE COORDINATOR Inhaled Oxygen Concentration - - Weight 61.2 kg (135 lb) 11/19/2024 4:40 PM ADMINISTRATIVE COORDINATOR Height 162.6 cm (5' 4 ) 11/24/2023 8:34 PM ADMINISTRATIVE COORDINATOR Body Mass Index 23.17 11/24/2023 8:34 PM ADMINISTRATIVE COORDINATOR Plan of Treatment Health Maintenance Due Date [...] patient's age to complete this topic Insurance [facility] Advance Directives For more information, please contact: [phone] * Full Code (Latest Code Status on File) Date Activated Date Inactivated Comments 09/25/2023 10:47 PM 09/27/2023 1:57 PM * Full Code Date Activated Date Inactivated Comments 09/23/2023 11:59 PM 09/25/2023 3:08 PM * Full Code Date Activated Date Inactivated Comments 10/22/2021 9:10 PM 10/23/2021 7:43 PM Care Teams Shirring Tender Relationship Specialty Start Date End Date Ines Her NP [facility] [place], [place] [id number] PCP - General Nurse Practitioner 01/30/25
--- OUTSIDE RECORDS SUMMARY | 2025-03-03 17:17 | XMS_ITS | Referral Summary ---
Author Organization [facility] Address [address] [place] [address] Care Team Providers Care Hydraulic Press Tender Name Role Phone Ines Her NP [...] Never Tobacco Cessation:Ready to Q uit: No [facility] Utilities Answer Date Recorded In the [...] often do you attend chur ch or lutheran services? Never 09/26/2023 Do you belong to any clubs o r organizations such as caodaism groups, unions, fraternal or athletic groups, or [...] on file Legal Sex Female 7:13 AM ASSURANCE MANAGER Gender Identity Not on file Sexual Orientation Not on file Last Filed Vital Signs Vital Sign Reading Time Taken Comments Blood Pressure 94/55 11/19/2024 10:00 PM ASSURANCE MANAGER Pulse 74 11/19/2024 10:46 PM ASSURANCE MANAGER Temperature 36.7 C (98.1 F) 11/19/2024 6:18 PM ASSURANCE MANAGER Respiratory Rate 14 11/19/2024 10:46 PM ASSURANCE MANAGER Oxygen Saturation 97% 11/19/2024 10:46 PM ASSURANCE MANAGER Inhaled Oxygen Concentration - - Weight 61.2 kg (135 lb) 11/19/2024 4:40 PM ASSURANCE MANAGER Height 162.6 cm (5' 4 ) 11/24/2023 8:34 PM ASSURANCE MANAGER Body Mass Index 23.17 11/24/2023 8:34 PM ASSURANCE MANAGER Plan of Treatment Not on file Insurance [facility] [address] Advance Directives For more information, please contact: [phone] * Full Code (Latest Code Status on File) Date Activated Date Inactivated Comments 09/25/2023 10:47 PM 09/27/2023 1:57 PM * Full Code Date Activated Date Inactivated Comments 09/23/2023 11:59 PM 09/25/2023 3:08 PM * Full Code Date Activated Date Inactivated Comments 10/22/2021 9:10 PM 10/23/2021 7:43 PM Care Teams Hydraulic Press Tender Relationship Specialty Start Date End Date Ines Her NP [address] [place] [address] PCP - General Nurse Practitioner 01/30/25
--- OUTSIDE RECORDS SUMMARY | 2025-03-03 17:17 | XMS_ITS | Clinical Summary ---
Author Organization [facility] Address [facility] [place] [address] Care Team Providers Care Pension Administrator Name Role Phone Geno Reilly Primary Care Provider [phone] None, Provider MD Unavailable Unavailable Allergies Active Allergy Reactions Criticality Noted Date Comments Ibuprofen Other (see comment) 11/20/2017 shakes Other reaction(s): Other (See Comments) shaking Medications QUEtiapine 200 MG tabletIndications:B ipolar depression ([facility]) Take 1 tablet (200 mg total) by [...] Bacterial vaginosis 08/03/2018 Bipolar disorder with depression ([facility]) 08/03/2018 Contraception 08/03/2018 Dark urine [...] 3 weeks and then menstruate for 1. [facility] providers have told her in past [...] Comments Blood Pressure 103/72 11/19/2024 1:00 PM TOWER WATCHMAN Pulse 88 11/19/2024 1:00 PM TOWER WATCHMAN Temperature 37.1 C (98.8 F) 11/19/2024 8:40 AM TOWER WATCHMAN Respiratory Rate 22 11/19/2024 1:00 PM TOWER WATCHMAN Oxygen Saturation 93% 11/19/2024 1:00 PM TOWER WATCHMAN Inhaled Oxygen Concentration - - Weight 63.7 kg (140 lb 6.9 oz) 11/19/2024 8:40 A M TOWER WATCHMAN Height 163.8 cm (5' 4.5 ) 11/19/2024 8:27 AM TOWER WATCHMAN Body Mass Index 23.73 11/19/2024 8:27 AM TOWER WATCHMAN Plan of Treatment Health Maintenance Due Date [...] Cancer Screening with HPV 2024 PHQ-2 (Physician Spencer) 11/13/2024 DTaP, Tdap and Td Vaccines (4 [...] Comments HEPATITIS PANEL,ACUTE Routine 11/14/2019 2:36 PM TOWER WATCHMAN Routine screening for STI (sexually transmitted infection) HPV MRNA E6/E7 W/ RFLX GENOTYPES Routine 05/03/2019 2:36 PM CDT CYTOPATH CERV/VAG THIN LAYER Routine 05/03/2019 12:00 AM CDT from Last 3 Months or Most Recently Relevant to Health Maintenance Results * HEPATITIS PANEL,ACUTE (11/14/2019 2:36 PM TOWER WATCHMAN) HEPATITIS B SURFACE AG NON-REACTI VE NON-REACTI VE 11/14/2019 8:35 PM TOWER WATCHMAN [facility] HEP B CORE IGM NON-REACTI VE NON-REACTI VE 11/14/2019 8:52 PM TOWER WATCHMAN [facility] HAV IGM NON-REACTI VE NON-REACTI VE 11/14/2019 8:54 PM TOWER WATCHMAN [facility] HEPATITIS C AB NON-REACTI VE NON-REACTI VE 11/14/2019 8:51 PM TOWER WATCHMAN [facility] 11/14/2019 2:36 PM TOWER WATCHMAN Geno Poirot APNP LABORATORY Final Result [facility] [address] [place] [address], * HPV MRNA E6/E7 W/ RFLX GENOTYPES (05/03/2019 2:36 PM CDT) HPV MRNA E6/E7 Not Detected NOT DETECTED 05/09/2019 4:37 PM CDT [employer] LEXUS MORRISON Comment: This test was performed using the APTIMA(R) HPV Assay ([employer] This assay detects E6/E7 viral messenger RNA (mRNA) from 14 high-risk HPV types (16,18,31,33,35,39,45,51, 52,56,58,59,66,68). For additional information please refer to: http://education.[employer]/faq/YSI575t9 (This link is being provided for informational/ educational purposes only.) The analytical performance characteristics of this assay have been determined by [employer] [place], [place]. The modifications have not been cleared or approved by the FDA. This assay has been validated pursuant to the CLIA regulations and is used for clinical purposes. HPV HUMAN PAPILLOMAVIRUS REPORT 05/09/2019 4:37 PM CDT [employer] LEXUS MORRISON Comment: Not indicated Test Performed by [facility], [employer] [place], [id number] [place] [address] Scott Cano M.D., Ph.D., Director of Laboratories , CLIA [id number] 05/03/2019 2:36 PM CDT Geno Moustapha SARGENT PATHOLOGY/CYTOLOGY ORDERABLES Final Result [facility] [address] [place] [address], * Cytopath Cerv/Vag Thin Layer (05/03/2019 12:00 AM CDT) COPATH REPORT [facility] [address] [place], [place] [address] [phone] Department of Pathology Pathology Report Gynecological Cytology Report Patient Name: HARPAL EDENKINS ANUJ MATIASAccession#: [id number] : 1995 (Age: 23) Location: [facility] Gender: F Collected Date: 05/03/2019 Med Rec #: [id number] Date Received: 05/08/2019 Date Reported: 05/10/2019 Provider: GENO REILLY Final Cytologic Diagnosis Satisfactory for evaluation. Endocervical component not identified. Negative for Intraepithelial Lesion or Malignancy Bacterial Vaginosis High-risk HPV mRNA E6/E7 by Aptima assay (performed at [employer]) is reported as NOT DETECTED (see separate report for details). This case was signed out at [facility], [address] [place] [address]. Electronically Signed Out Oscar Jacobs Source of Specimen(s) Cervical/Endocervi veda - Thin Prep Clinical History Screening, last Pap not provided. History of HPV and abnormal Pap. Z12.4 Date of Last Menstrual Period: 04/15/19 Frozen Section Diagnosis Billing Fee Code(s): A: [address] [facility] 05/03/2019 05/08/2019 3:3 2 PM CDT Comment:CERVICAL/ENDOCERVICA L - THIN PREP us Geno SARGENT PATHOLOGY/CYTOLOGY ORDERABLES Final Result [facility] [address] [place] [address], from Last 3 Months or Most Recently Relevant to Health Maintenance Insurance [employer] Care Teams Pension Administrator Relationship Specialty Start Date End Date Geno Reilly APNP [address] [place] [address] PCP - General NURSE PRACTITIONER 10/15/18 None, Provider, 08/01/18
--- OUTSIDE RECORDS SUMMARY | 2025-03-03 17:17 | XMS_ITS | Encounter Summary ---
Author Organization [facility] Address [facility] [place] [address] Care Team Providers Care Director Of Business Development Name Role Phone Geno Gerard Primary Care Provider [phone] None, Provider MD Unavailable Unavailable Encounter Details Date Type Department Care Team (Late st Contact Info) Description 04/29/2024 MyChart Message Enc [facility] Medical Group Family and Sports Medicine - [place] [address] [place] [address] Geno Gerard APNP [address] [place] [address] [phone] Yearly Visit Reminder Social History Tobacco Use [...] on filedocumented in this encounter Care Teams Director Of Business Development Relationship Specialty Start Date End Date Geno Gerard APNP [address] [place] [address] PCP - General NURSE PRACTITIONER 10/15/18 None, Provider, 08/01/18 documented as of this encounter
--- OUTSIDE RECORDS SUMMARY | 2025-03-03 17:17 | XMS_ITS | Encounter Summary ---
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 Role Phone Izzy Shukla MD Unavailable [phone] Reason for Referral * (Routine) - Open Specialty Diagnoses / Procedures Referred By Reny roblero Referred To Contact Procedures Follow up with provider Armand Fam MD [address] [place] [address] [place] [address] Phone: tel: fax: Referral ID Status Reason Start Date Expiration Date Visits Re quested Visits Authorized [id number] Open 03/03/2025 03/03/2026 1 1 Reason for Visit * Auth/Cert (Routine) Specialty Diagnoses / Procedures Referred By Reny roblero Referred To Contact Diagnoses Seizure Referral ID Status Reason Start Date Expiration Date Visits Re quested Visits Authorized [id number] 1 1 Encounter Details Date Type Department Care Team (Latest Contact Info) Description 03/01/2025 3:01 PM CDT - 03/03/2025 10:52 AM CDT Hospital Encounter [facility] 7S TELE/NEURO [id number] [place] [address] [place] [address] [place] [id number] [place] [address] [place] [address] [place] [address] [place] [id number] [facility] [place] [address] Hospitalist Discharge Disposition: Home or Self Care Social History Tobacco Use Types Packs/Day Years Used Date Smoking Tobacco: Some Days Cigarettes 0.1 8 Started: 12/2013; Last attempted to quit: 12/2021 Smokeless Tobacco: Never Comments:1 cigarette a day Alcohol Use Standard Drinks/Week Comments No 0 (1 standard drink = 0.6 oz pur e alcohol) AUDIT-C Answer Date Recorded Q1: How often do you have a drink containing alcohol? Patient unable to answer 02/24/2025 Q2: How many drinks containi ng alcohol do you have on a typical day when you are drinking? Patient unable to answer Q3: How often do you have si x or more drinks on one occasion? Patient unable to answer 02/24/2025 Overall Financial Resource Strain (CARDIA) Answe r Date Recorded How hard is it for you to pa y for the very basics like food, housing, medical care, and heating? Not hard at all 02/26/2025 [facility] - Occupational Stress Questionnaire Answer Date Recorded Do you feel stress - tense, restless, nervous, or anxious, or unable to sleep at night because your mind is troubled all the time - these days? Patient unable to answer 02/24/2025 Hunger Vital Sign Answer Date Recorded Within the past 12 months, y ou worried that your food would run out before you got the money to buy more. Never true 02/27/20 25 Within the past 12 months, t he food you bought just didn't last and you didn't have money to get more. Never true 02/26/2025 PRAPARE - Transportation Answer Date Re corded In the past 12 months, has l ack of transportation kept you from medical appointments or from getting medications? No 02/11 In the past 12 months, has l ack of transportation kept you from meetings, work, or from getting things needed for daily living? No 02/26/2025 Housing Stability Vital Sign Answer Bryon e [...] place to sleep or slept in a prison (including now)? No 06/04/2023 [place] Depression Scale Answer Date Recorded RETIRED: Total Score 0 07/25/2022 Last EPDS Self Harm Result Not on file 07/25 Housing Stability Vital Sign Answer Bryon e Recorded In the last 12 months, was t here a time when you were not able to pay the mortgage or rent on time? No 02/26/2025 In the past 12 months, how m any times have you moved where you were living? 0 02/26/2025 At any time in the past 12 m [facility], were you homeless or living in a prison (including now)? 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 Answer Date of Assessment Author No 03/03/2025 10:41 AM CDT Pita Newton RN * Is person blind or have serious difficulty seeing? Answer Date of Assessment Author No 03/03/2025 10:41 AM Pita Smart RN * Does person have serious difficulty walking/climbing stairs? Answer Date of Assessment Author No 03/03/2025 10:41 AM Pita Smart RN * Does person have difficulty dressing/bathing? Answer Date of Assessment Author No 03/03/2025 10:41 AM Pita Smart RN * Does person have difficulty doing errands alone? Answer Date of Assessment Author No 03/03/2025 10:41 AM Pita Smart RN documented as of this encounter Mental Status * Does person have difficulty concentrating/remembering/making decisions? Answer Entry Date Author No 03/03/2025 10:41 AM Pita Smart RN documented in this encounter Discharge Summaries * Armand Fam MD - 03/03/2025 9:49 AM CDT HOSPITALIST DISCHARGE SUMMARY NAME: Saray Chow : 1995 DATE OF ADMISSION: 03/01/2025 DATE OF DISCHARGE: 03/03/2025 FINAL DIAGNOSES: Include all new and active diagnoses. Pseudoseizure Missed Miscarriage Vaginal bleeding Anemia DISCHARGE DESTINATION: Home FOLLOW UP PLAN: Include list of active issues: Next steps Testing & Referrals Scheduled: Testing & Referrals TBD: Timing Provider PCP in one week PENDING TEST RESULTS: None INCIDENTAL FINDINGS REQUIRING FOLLOW UP: None READMISSION RISK SCORE: 19+: high 30 day readmission risk 0-18: low-moderate 30 day readmission risk 12 at 9:49 AM 03/03/2025. Secondary/Resolved/Significant Prior Diagnoses: None PRESENTING HISTORY: Saray Chow is a 29 year old female with PMH of h/o seizure disorder treated with Keppra and Vimpat who was admitted on 02/23/2025 for status epilepticus was just discharged yesterday when she repeatedly asked to get discharged. She was admitted to ICU in last admission with status epilepticus and neurology was following. She underwent MRI brain with and without contrast which was unremarkable. Neurology recommended psychiatry evaluation. Patient was discharged on depakote and olanzapine in addition to keppra lacosamide and abilify. Patient had missed miscarriage and was also experiencing vaginal bleeding during my eval. She had an episode of seizure today, presented to outside hospital and was transferred to [facility] care. HOSPITAL COURSE: (include consults and procedure details) Saray Chow is a 29 year old female with PMH of h/o seizure disorder treated with Keppra and Vimpat who was admitted on 02/23/2025 for status epilepticus was just discharged yesterday when she repeatedly asked to get discharged. She was admitted to ICU in last admission with status epilepticus and neurology was following. She underwent MRI brain with and without contrast which was unremarkable. Neurology recommended psychiatry evaluation. Patient was discharged on depakote and olanzapine in addition to keppra lacosamide and abilify. Pseudoseizure Workup from last admission reviewed Neurology consulted and cleared patient for discharge Psychiatry consulted and cleared for discharge Resume all antiepileptics Missed Miscarriage Vaginal bleeding Anemia TVUS done recently and no gestational sac seen RADIOLOGY: (last 7 days) + additional pertinent studies US OB Less Than 14 Wks W Transvag Result Date: 02/28/2025 IMPRESSION: 1. An intrauterine is NOT identified. Serial beta hCG and if needed, short interval follow-up pelvic ultrasound is recommended. 2. No adnexal mass or pelvic free fluid. > Interpreting Provider: Jamal Bush DO on 02/28/2025 10:52 AM MRI Brain Wwo Contrast Result Date: 02/26/2025 IMPRESSION: Unremarkable brain MRI performed without and with contrast. > Interpreting Provider:Deb Martinez MD on 02/26/2025 9:32 AM ADDITIONAL PERTINENT STUDIES: RECENT/NOTABLE LABS: include pertinent positives Recent Labs Component Name 03/02/25 0349 SODIUM 141 POTASSIUM 3.9 CHLORIDE 112* CO2 23 BUN 8 CREATININE 0.63 EGFR >90 Recent Labs Component Name 03/01/25 1727 WBC 6.1 HGB 9.9* HCT 31.6* PLTCOUNT 288 Recent Labs Component Name 04/19/22 0001 07/04/17 0516 INR 1.1 1.3* VITALS/MENTAL STATUS/NOTIBLE EXAM FINDINGS Most recent weight: BP 129/79 Pulse 97 Temp 98.4 ??F (36.9 ??C) Resp 14 SpO2 99% Exam: constitutional: Alert, oriented x3, in no distress Respiratory: Auscultation: Vesicular breath sounds B/L. No wheezing/crackles. Cardiovascular: Regular rate and rhythm. S1 and S2 heard, no murmurs. No extremity edema. Gastrointestinal: soft, nontender, non-distended, no guarding or rigidity. BS heard. Genitourinary: Omitted Musculoskeletal: no gross limb abnormalities Skin: warm, no skin ulcers/rash/petechiae/ecchymosis Neurological: alert, oriented, normal speech, motor and sensory grossly normal, crude touch intact all 4 extremities . Neck supple. NIHSS 0 Psychiatric: appropriate to circumstances DISCHARGE MEDICATIONS AND ALLERGIES This list of medications is preliminary and tentative: please see the Patient Discharge Instructions for patients discharged home or the Facility Transfer Order for the final and accurate medication list. Current Discharge Medication List CONTINUE taking these medications which have NOT CHANGED Instructions Authorizing Provider ARIPiprazole 5 MG tablet Commonly known as: Abilify Take 1 (one) tablet by mouth at bedtime cyproheptadine 4 MG tablet Commonly known as: Periactin Quantity Dispensed: 60 tablet Take 1 (one) tablet by mouth 2 times daily Mercy Fernandez MD Depo-Provera 150 MG/ML vial Generic drug: medroxyPROGESTERone Inject 1 mL into muscle Every [address] 250 MG tablet Commonly known as: Depakote Quantity Dispensed: 90 tablet Take 1 (one) tablet by mouth 3 times daily for 30 days Armand Fam MD lacosamide 200 MG tablet Commonly known as: Vimpat Quantity Dispensed: 60 tablet Take 1 (one) tablet by mouth 2 times daily Mercy Fernandez MD levETIRAcetam 1000 MG tablet Commonly known as: Keppra Quantity Dispensed: 60 tablet Take 1 (one) tablet by mouth 2 times daily Mercy Fernandez MD mirtazapine 15 MG tablet Commonly known as: Remeron Take 0.5 (one-half) tablet by mouth nightly as needed (sleep, anxiety) Nutritional Supplement Liqd Take 1 container by mouth 2 times daily for 30 days Your Registered Dietitian recommends that you continue an oral nutrition supplement 1-2 times daily for 30 days after discharge. High Calorie High Protein Supplement Examples: Ensure Enlive/Ensure Plus/Boost Plus/Equate Plus Armand Fam MD OLANZapine (disintegrating) 10 MG tablet Commonly known as: ZyPREXA Zydis Quantity Dispensed: 30 tablet Take 1 (one) tablet by mouth at bedtime for 30 days Armand Fam MD ALLERGIES: Allergies[1] DISCHARGE INSTRUCTIONS Contact Information for Follow-Up Providers Follow up with provider Next Steps: Follow up Follow Up Instructions for Patient: Within 5 Days from Discharge ISOLATION PRECAUTIONS No active isolations. Isolation due to No active infections. I spent 35 minutes in addition to direct patient care summarizing this patient's hospital stay, reviewing and updating the inpatient problem list, reviewing discharge medications, instructions, discussing discharge care planand discharge follow up labs/studies/doctor visits with the patient and or POA/family. Armand Fam MD [1] Allergies Allergen Reactions Ibuprofen Other Pt states it causes shaking Onfi [Clobazam] Other Sores in mouth documented in this encounter Medications at Time of Discharge ARIPiprazole (Abilify) 5 MG tablet Take 1 (one) tablet by mouth at bedtime cyproheptadine (Periactin) 4 MG tablet Take 1 (one) tablet by mouth 2 times daily 60 tablet 3 06/16/[address] (Depakote) 250 MG tablet Take 1 (one) tablet by mouth 3 times daily for 30 days 90 tablet 02/28/2025 lacosamide (Vimpat) 200 MG tablet Take 1 (one) tablet by mouth 2 times daily 60 tablet 3 06/16/2023 levETIRAcetam (Keppra) 1000 MG tablet Take 1 (one) tablet by mouth 2 times daily 60 tablet 3 06/16/2023 medroxyPROGESTER one (Depo-Provera) 150 MG/ML vial Inject 1 mL into muscle Every 90 days mirtazapine (Remeron) 15 MG tablet Take 0.5 (one-half) tablet by mouth nightly as needed (sleep, anxiety) Nutritional Supplement LIQD Take 1 container by mouth 2 times daily for 30 days Your Registered Dietitian recommends that you continue an oral nutrition supplement 1-2 times daily for 30 days after discharge. High Calorie High Protein Supplement Examples: Ensure Enlive/Ensure Plus/Boost Plus/Equate Plus 02/27/2025 5 OLANZapine, disintegrating, (ZyPREXA Zydis) 10 MG tablet Take 1 (one) tablet by mouth at bedtime for 30 days 30 tablet 02/28/2025 5 documented as of this encounter Progress Notes * Cait Dove RN - 03/03/2025 10:52 AM CDT Patient discharge before could complete initial assessment. Cait Dove hr analyst [phone] * Marietta Sanchez RN - 03/03/2025 10:12 AM CDT Problem: Pain/Discomfort Goal: Patient exhibits reduced pain/discomfort as evidenced by pain scores Outcome: Progressing Goal: Patient uses pharmacological and non-pharmacological pain management strategies. Outcome: Progressing Goal: Patient verbalizes acceptable level of pain relief and ability to engage in desired activity. 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 VSS throughout. Previous EEGs have confirmed nonepileptic events. Patient upset and wanting to be transferred, says that she was told at [facility] that she had epileptic seizures though I see no record of this. Medication list reviewed as per electronic chart Past medical, family, social history reviewed and unchanged from previously documented Review of systems unchanged from previously documented BP 129/79 Pulse 97 Temp 98.4 ??F (36.9 ??C) Resp 14 SpO2 99% Medications[1] Objective: A&O x 3, no acute distress Speech fluent Follows commands Moves all extremities spontaneously Strength symmetric proximally and distally Sensation intact throughout CN 2-12 grossly intact Impression: PNES Plan: EEG discontinued Continue home meds Psych input appreciated Follow up with [facility] will sign off. Please call with any questions or concerns. Thank you for allowing us to participate in the care of this patient. Lamar Morris APRN, COMPLIANCE AIDE-C General Neurology [facility] [employer] ASCOM #[id number] [1] 0.9% NaCl 3 mL Intracatheter q8h ARIPiprazole 5 mg Oral QDAY bacitracin Topical TID cyproheptadine 4 mg Oral BID lacosamide 200 mg Intravenous BID lactulose 20 g Oral TID levETIRAcetam 1,000 mg Intravenous q12h OLANZapine 10 mg Oral AT BEDTIME valproate 250 mg Intravenous q8h Cosigned by aWqas Burnham MD at 03/03/2025 12:33 PM CDT Associated attestation - Waqas Burnham MD - 03/03/2025 12:33 PM CDT I have seen and examined the patient with the nurse practitioner. I have re- confirmed the [place] elements of the history and performed an examination. I have discussed the patient's care with the nurse practitioner. History of known nonepileptic events Requesting transfer to [facility] Impression: Psychogenic nonepileptic events. Pranav is unlikely to except given that she has an established diagnosis. Reiterated behavioral nature of events and recommended therapeutic approaches. Plan: EEG reviewed Continue home medication Psychiatry input reviewed Follow-up with outpatient neurologist after discharge Neurology will sign off I created the above plan in its entirety and communicated with the nurse practitioner Waqas Burnham MD, MSc * Pita Newton RN - 03/03/2025 9:[address] Burnham pt can discharge. EEG was negtive. * Armand Fam MD - 03/02/2025 11:47 AM CDT DAILY PROGRESS NOTE Armand Fam MD 03/02/2025 Name: Saray Chow Admit Date: 03/01/2025 3:01 PM PCP: No primary care provider on file. , None Clinical Course Saray Chow is a 29 year old female with PMH of h/o seizure disorder treated with Keppra and Vimpat who was admitted on 02/23/2025 for status epilepticus was just discharged yesterday when she repeatedly asked to get discharged. She was admitted to ICU in last admission with status epilepticus and neurology was following. She underwent MRI brain with and without contrast which was unremarkable. Neurology recommended psychiatry evaluation. Patient was discharged on depakote and olanzapine in addition to keppra lacosamide and abilify. Seen and exmined Patient known to me from previous admission Extensive work up completed and she was diagnosed with Pseudoseizure Data Intake/Output Summary (Last 24 hours) at 03/02/2025 1148 Last data filed at 03/01/2025 1922 Gross per 24 hour Intake 120 ml Output 250 ml Net -130 ml LABS:My review of labs, imaging, notes and other tests is significant for : see details in my assessment and plan Recent Labs Component Name 03/01/25 1727 02/28/25 0637 02/27/25 0243 WBC 6.1 4.8 5.6 HGB 9.9* 9.4* 9.6* HCT 31.6* 29.1* 30.0* PLTCOUNT 288 256 237 Recent Labs Component Name 03/02/25 0349 03/01/25 1727 02/28/25 0637 SODIUM 141 141 142 POTASSIUM 3.9 3.6 3.6 CHLORIDE 112* 110* 109* CO2 23 23 26 BUN 8 8 4* CREATININE 0.63 0.64 0.61 GLUCOSE 102* 107* 99 CALCIUM 8.3* 8.9 9.1 Exam Vitals: 03/01/25 2018 03/01/25 2257 03/02/25 0350 03/02/25 1035 BP: 101/59 97/67 104/78 Pulse: 87 62 85 Resp: Temp: 98.1 ??F (36.7 ??C) 98.1 ??F (36.7 ??C) SpO2: (!) 0% 98% 100% onstitutional: Alert, oriented x3, in no distress Respiratory: Auscultation: Vesicular breath sounds B/L. No wheezing/crackles. Cardiovascular: Regular rate and rhythm. S1 and S2 heard, no murmurs. No extremity edema. Gastrointestinal: soft, nontender, non-distended, no guarding or rigidity. BS heard. Genitourinary: Omitted Musculoskeletal: no gross limb abnormalities Skin: warm, no skin ulcers/rash/petechiae/ecchymosis Neurological: alert, oriented, normal speech, motor and sensory grossly normal, crude touch intact all 4 extremities . Neck supple. NIHSS 0 Psychiatric: appropriate to circumstances Assessment and plan 29 year old yr old patient with presenting with seizures. Pseudoseizure Workup from last admission reviewed Neurology consulted Psychiatry consulted Resume all antiepileptics Missed Miscarriage Vaginal bleeding Anemia TVUS done recently and no gestational sac seen READMISSION RISK SCORE is 12 at 11:48 AM 03/02/2025. Patients Functional Baseline prior to admit : independent Discharge Planning to Next Site of Care: Based on clinical conditions and medical necessities and after reviewing PT/OT evaluation, family support, patient wishes, and discussion with multidisciplinary care team (manager group home, GROCERY WORKER, CSN, Therapy services, Pharmacy, and gum rolling machine operator) the current recommendation for the most appropriate discharge destination at this time is :Home Due to the medical condition in assessment and plan patient requires further stay in the hospital e * Marni Peters RN - 03/02/2025 11:01 AM CDT CM attempted to complete assessments, pt refused stating she did not want to answer any questions at this time. RN at bedside speaking with family and states pt has requested to leave AMA. * Corin Warren LCSW - 03/02/2025 9:09 AM CDT Corin has submitted a consult to psychiatry request in the [employer] Portal for TeleHealth evaluation [id number]. [employer] contact number: [phone] documented in this encounter H&P Notes * Rica Hogan MD - 03/01/2025 7:29 PM CDT HISTORY AND PHYSICAL ASSESSMENT [address] [address] Name: Saray ChowMRN: [id number] : 1995Age: 29 year old ADMISSION DATE: 03/01/2025 LOCATION: [address] TELE/NEURO PCP: No primary care provider on file. Chief Complaint: pseudoseizures History of Present Illness Saray Chow is a 29 year old female with PMH of h/o seizure disorder treated with Keppra and Vimpat who was admitted on 02/23/2025 for status epilepticus was just discharged yesterday when she repeatedly asked to get discharged. She was admitted to ICU in last admission with status epilepticus and neurology was following. She underwent MRI brain with and without contrast which was unremarkable. Neurology recommended psychiatry evaluation. Patient was discharged on depakote and olanzapine in addition to keppra lacosamide and abilify. Patient had missed miscarriage and was also experiencing vaginal bleeding during my eval. She had an episode of seizure today, presented to outside hospital and was transferred to [facility] of care. Patient is being admitted for further evaluation During my examination patient was:- Review of system Constitutional: alert oriented x 3 vitally stable HENT: No congestion, no sore throat. Eyes: No visual disturbance. Respiratory: no cough, no shortness of breath. Cardiovascular:no chest pain, no palpitations. Gastrointestinal: no abdominal pain, no nausea, no vomiting Genitourinary: No dysuria, no hematuria. Musculoskeletal: No new back pain. Skin: No rash. Neurological: No light-headedness, no headache, no tingling Psychiatric/Behavioral: No confusion. Past Medical History[1] Past Surgical History[2] Medications[3] Allergies[4] Social History: reports that she has been smoking cigarettes. She started smoking about 11 years ago. She has a 0.8pack-year smoking history. She has never used smokeless tobacco. She reports that she does not currently use drugs after having used the following drugs: Marijuana. She reports that she does not drink alcohol. Family History[5] Physical Exam Vitals: Blood pressure 111/75, pulse 81, temperature 99 ??F (37.2 ??C), temperature source Oral, resp. rate 18, SpO2 99%, not currently ., There is no height or weight on file to calculate BMI. Constitutional: Alert, oriented x3, in no distress Respiratory: Auscultation: Vesicular breath sounds B/L. No wheezing/crackles. Cardiovascular: Regular rate and rhythm. S1 and S2 heard, no murmurs. No extremity edema. Gastrointestinal: soft, nontender, non-distended, no guarding or rigidity. BS heard. Genitourinary: Omitted Musculoskeletal: no gross limb abnormalities Skin: warm, no skin ulcers/rash/petechiae/ecchymosis Neurological: alert, oriented, normal speech, motor and sensory grossly normal, crude touch intact all 4 extremities . Neck supple. NIHSS 0 Psychiatric: appropriate to circumstances Data Review Labs: Recent Labs Component Name 03/01/25 1727 02/28/25 0637 02/27/25 0243 04/18/22 2023 07/04/17 0516 05/27/17 1750 05/27/17 1750 05/16/17 2132 SODIUM 141 142 142 - 141 - 141 - NA - - - - - - - 146* POTASSIUM 3.6 3.6 3.5 - 3.0* - 4.4 3.3* CHLORIDE 110* 109* 111* - 106 - 109* - CO2 23 26 23 - 18* - 13* 27 BUN 8 4* <3* - 4* - 8.2 4* CREATININE 0.64 0.61 0.61 - 0.74 - 0.66 0.8 GLUCOSE 107* 99 104* - 82 - 89 97 CALCIUM 8.9 9.1 8.6 - 9.0 - 9.52 9.0 EGFR >90 >90 >90 - >60 - >60 >60 EGFRAFR - - - - >60 - >60 - - = values in this interval not displayed. Recent Labs Component Name 03/01/25 1727 WBC 6.1 HGB 9.9* HCT 31.6* PLTCOUNT 288 No results found for: TROPONIN Lab Results Component Value Date TRIG 79 02/25/2025 Studies: I reviewed all of patient's current and pertinent past medical records, labs, imaging and scans. Assessment and Plan: 29 year old yr old patient with presenting with seizures. Pseudoseizure Workup from last admission reviewed Neurology consulted Psychiatry consulted Resume all antiepileptics Missed Miscarriage Vaginal bleeding Anemia TVUS ordered Monitor Hb Medications Reconciliation Medication reconciliation was done with last discharge summary Nutrition: regular DVT Prophylaxis: SCD Advance Care Planning Goals of Care A voluntary discussion was had with the patient regarding goals of care. - The patient has the following serious conditions: seizure Current active code status Full Code Discussion: I had a detailed discussion regarding resuscitation preferences with the patient/patient's family, and all the resources that could be provided to the patient. The patient/patient's family, elects toremain Full Code for now including potential CPR, cardioversion/defibrillation/internal or external pacemaker application, intubation, mechanical ventilation, and vasopressors in the event of a cardiac or respiratory arrest. I reviewed with the patient/patient's family the current diagnosis, treatment options, and associated prognosis. I reviewed with the patient what decisions to be made regarding the current illness and what decisions to be made if things change. These active diagnoses are of sufficient risk that focused discussion on advance care planning is indicated in order to allow the patient and/or family to consider personal goals of care; and, if situations arise that prevent the ability to personally provide input, to ensure appropriate representation of their personal desires through documentation or informed surrogate decision makers. Patients Functional Baseline prior to admit : Home Discharge Planning to Next Site of Care: TBD READMISSION RISK SCORE is 11 at 7:42 PM 03/01/2025. Peripheral IV Left;Posterior Hand (Active) Placement Date/Time: 03/01/25 1200 Existing LDA : Outside Facility Size (Gauge): 20 G Orientation: Left;Posterior Location: Hand Number of days: 0 Peripheral IV Posterior;Right Hand (Active) Placement Date/Time: 03/01/25 1200 Existing LDA : Outside Facility Size (Gauge): 22 G Orientation:Posterior;Right Location: Hand Number of days: 0 Other Wound Left;Lower;Posterior Arm (Active) Date/Time: 03/01/25 1520 Present on admission?: Yes Orientation: Left;Lower;Posterior Location: Arm Number of days: 0 Other Wound Upper Face (Active) Date/Time: 03/01/25 1520 Present on admission?: Yes Orientation: Upper Location: Face Number of days: 0 { Risk Factors for Mortality Present at Time of Admission Patient Diagnoses Present at the Time of Admission No other risk factors present Author: Rica Hogan MD 03/01/25 7:42 PM This note was dictated with [employer] Direct voice recognition software. Please excuse any unintentional grammatical and syntactical errors. Thank you. 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 recurrent uti's depression Psychiatric diagnosis Bipolar, depression, anxiety Psychogenic nonepileptic seizure 06/2023 Documented with 24h EEG Rh incompatibility [2] Past Surgical History: Procedure Laterality Date CERVICAL BIOPSY WITH COLPOSCOPY 2013 ULNAR SHAFT FRACTURE REPAIR Left Pt has 2 metal plates [3] Medications Prior to Admission Medication Sig Dispense Refill ARIPiprazole (Abilify) 5 MG tablet Take 1 (one) tablet by mouth at bedtime cyproheptadine (Periactin) 4 MG tablet Take 1 (one) tablet by mouth 2 times daily (Patient taking differently: Take 1 (one) tablet by mouth at bedtime) [address] (Depakote) 250 MG tablet Take 1 (one) tablet by mouth 3 times daily for 30 days 90 tablet 0 lacosamide (Vimpat) 200 MG tablet Take 1 (one) tablet by mouth 2 times daily 60 tablet 3 levETIRAcetam (Keppra) 1000 MG tablet Take 1 (one) tablet by mouth 2 times daily 60 tablet 3 medroxyPROGESTERone (Depo-Provera) 150 MG/ML vial Inject 1 mL into muscle Every 90 days mirtazapine (Remeron) 15 MG tablet Take 0.5 (one-half) tablet by mouth nightly as needed (sleep, anxiety) Nutritional Supplement LIQD Take 1 container by mouth 2 times daily for 30 days Your Registered Dietitian recommends that you continue an oral nutrition supplement 1-2 times daily for 30 days after discharge. High Calorie High Protein Supplement Examples: Ensure Enlive/Ensure Plus/Boost Plus/Equate Plus OLANZapine, disintegrating, (ZyPREXA Zydis) 10 MG tablet Take 1 (one) tablet by mouth at bedtime for 30 days 30 tablet 0 [4] Allergies Allergen Reactions Ibuprofen Other Pt states it causes shaking Onfi [Clobazam] Other Sores in mouth [5] Family History Problem Relation Name Age of Onset Glaucoma Mother Other Mother uterine fibroids Cancer - Ovarian Maternal Grandmother Diabetes Maternal Grandmother CAD (Coronary Artery Disease) Maternal Grandmother Other Maternal Aunt Chrohn's disease Diabetes Maternal Aunt Diabetes Maternal Uncle Stroke Maternal Uncle Other Brother HIV+, homosexual documented in this encounter Consult Notes * Zaire Graff MD - 03/02/2025 12:15 PM CDTAssociated Order(s): IP CONSULT TO PSYCHIATRY PSYCHIATRY CONSULT NOTE: INITIAL EVALUATION Date/Time: 03/02/2025 1:15:03 PM Name: Saray Chow : 1995 Location of the patient: [facility] IP Consulting Array Clinician: Zaire Graff Location of the clinician: [facility] Length of Consult: 50 mts SUMMARY 29-year-old female, with history of bipolar disorder, history of suicide attempt(s), aggressive behavior, history of psychiatric hospitalization, with no current excessive drug use, admitted to medicine 03/01 for Seizures referred to psychiatry for agitation, yanira. Pt is readmitted for having seizures in 1 day after discharged from medical floor. She is having some agitation and frustration about medical care. She is not exhibiting any acute psychiatric distress, no behaviors of danger to selfor others. She is currently on Abilify 5mg qday, and Zyprex 10mg qhs, two antipsychotics and unusual for bipolar disorder but she feels stable on the combination at this time and do not want to change and have change later slowly with the help of her outpt psychiatrist. Primary team has concern forpseudo seizures and that need to be addressed with therapy and psychiatric outpt care.Patient denies SI/HI, does not display signs or symptoms of serious psychosis, has reliable collateral support who confirms safety, has supportive and safe recovery environment. Patient does not appear to be at acute risk to self or others due to psychiatric illness or to require inpatient psychiatric hospitalization. 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 Disposition to be determined by primary team Resource information to be provided by site: outpatient mental health treatment Observation level - Psychiatric 1:1 needed? No psych 1:1 needed Work-up: Pharmacological: Continue Zyprexa 10mg qhs and Abilify 5mg qday Is patient psychotic? - No; Informed consent: Discussed risks and benefits of the above recommended psychiatric medications with patient, who demonstrated understanding and gave express informed consent to take the above medications as documented. Follow up needed while in the hospital? [id number] Other: Discussed plan with onsite freight team associate: Yes - Spoke with Dr Cristel WATKINS, WILL follow up HISTORY This evaluation was conducted remotely with the assistance of onsite staff via HIPAA-compliant video call. Patient consented to proceed with the telehealth visit. Requested by: Dr Cristel MD Sources of information: Patient, medical record, Mother History of Present Illness: 29-year-old female, single, on disability, with history of bipolar disorder, history of suicide attempt(s), aggressive behavior, history of psychiatric hospitalization, with no current excessive druguse, admitted to medicine 03/01 for Seizures referred to psychiatry for agitation, yanira. UDS not ordered, Alcohol not ordered. In the hospital, patient has been agitated. On psychiatric evaluation, patient is cooperative, able to give clear history. Pt reports she is frustrated about her staph infection not treated that is making her agitated. According to the nurses she was yelling at the staff as she felt the nurse was disrespectful. She feel her mood is okay at this time, denied depression or anxiety, and not having manic or psychotic symptoms. She was recentlyd/c from hospital 1 day ago and readmitted as she had seizures in the home and she felt it was not safe for her.. Collateral Contacted Contacted Mirian Coker- [facility]- Bed side--Mother. Collateral reports patient poses no immediatesafety concerns. Collateral reports patient has no access to firearms. PSYCHIATRIC REVIEW OF SYSTEMS (symptoms in past two weeks) Pertinent Positives: irritability/aggressive behavior/agitation/anxiety/mood swings/impulsivity Pertinent Negatives: no depressed mood/no anhedonia/no hopelessness/no negative ruminations/no insomnia/no hypersomnia/no poor appetite/no anergia/no self- injurious behavior/no homicidal ideation/no auditory hallucinations/no visual hallucinations/no command hallucinations/no paranoia/no ideas of reference/no disordered thinking/no confusion/no panic attacks/no tension/no somatic preoccupations/no hypervigilance/no flashbacks/no nightmares/no elevated mood/no increased goal-directed activity/nodecreased need for sleep PSYCHIATRIC HISTORY Past Psychiatric Diagnoses/Problems: bipolar disorder Psychiatric Treatment: Hospitalizations: psychiatric hospitalization Other Past treatment: medication management Current treatment: medication management; treatment adherent Drug/Alcohol History Current excessive drug/alcohol use: none Past excessive drug/alcohol use: none Drug/alcohol use comment: Treatment: none Withdrawal symptoms: none UDS results: UDS not ordered BAL results: not ordered Active withdrawal Protocol: Stressors: acute medical illness, medical comorbidity Trauma: none Family Psychiatric History: Brother- Depression and anxiety HEALTH HISTORY Medical Problems: seizure disorder Is patient linked with PCP? yes Psychiatric and other clinically relevant medications: Zyprexa 10mg qhs, Abilify 5mg qday, Periactin 4mg bid- Allergies/Adverse Medication Reactions: Ibuprofen, Clobazam Physical Findings: no clinically significant changes in vital signs, no clinically significant abnormal lab values, QTc < 500 ms DEMOGRAPHICS/SOCIAL HISTORY Gender: female Living Situation: Relationship Status: single Education: Employment: on disability Social Support Network: Legal History: none Special Considerations: none RISK EVALUATION Suicidality/self-injury: Yes prior suicide attempt(s) over 6 months ago Primary Suicide Screening (PSS-3) 1. In the past two weeks, have you felt down, depressed, or hopeless? NO 2. In the past two weeks, have you had thoughts of killing yourself? NO 3. In your lifetime, have you ever attempted to kill yourself? YES 3a. Within the past 6 months? NO ESS-6 Secondary Screen ( If #2 is yes or #3a is yes within the past 6 months, then complete secondary screen) 1. Positive on PSS-3 questions 2 & 3 - active suicidal ideation with a past attempt? Screen notapplicable 2. Have you been thinking about how you might kill yourself? Screen not applicable 3. Have you had some intention of acting on your thoughts? Screen not applicable 4. Lifetime psychiatric hospitalization? Screen not applicable 5. Has drinking or substance abuse ever been a problem for you? Screen not applicable 6. Current irritability, agitation, or aggression? Screen not applicable PSS-3/ESS-6 Secondary Screen Scoring: Low Risk-PSS3 screen negative PSS-3/ESS-6 Scoring Interpretation Legend PSS-3 screen incomplete [Blank PSS-3 questions #2 OR #3a] PSS-3 screen unable to assess [Unable to Assess responses on PSS-3 questions #2 AND #3a] Mild [No current attempt AND No suicide plan or intent AND Score (0-2)] Moderate [No current attempt AND Active suicidal ideation with plan or intent (not both) OR Score (3-4)] Severe [Current attempt OR Suicide plan and intent OR Score (5-6)] HI/Violence/Property Destruction: Yes Access to Firearms: none. Collateral reports patient has no access to firearms. Grave disability/Poor self-care: no Psychosis: No Protective Factors: future orientation High Utilization Criteria: none Signs of Secondary Gain: none MENTAL STATUS EXAM Appearance and Attire: Normal Psychomotor agitation: No abnormality Attitude and behavior: Cooperative Speech: No abnormality Mood: Dysthymic Affect: Full range of affect Thought Process: Coherent Thought content: No suicidal ideation, No homicidal ideation, No paranoia, No delusions Perception: No hallucinations Intelligence: Average Abstraction: Appropriate Language: No abnormality Orientation: Oriented x 4 Sensorium: Normal Knowledge: Appropriate for education and socioeconomic status Memory: Intact Insight: Mild impairment Judgment: Mild impairment SUMMARY RISK ASSESSMENT Current Suicide Risk Elevated? PSS-3/ESS-6 Scoring: Low Risk-PSS3 screen negative Current Violence Risk Elevated? No Issues with ability to care for self. No SAFE-T Risk Factors Suicidal Behavior: ? History of prior suicide attempts ? Aborted suicide attempt ? History of prior SI ? Self-injurious behavior Current/Past Psychiatric Disorders: ?Mood disorders ? Psychotic Disorders ? History of inpatient hospitalization ? ADHD ? TBI ? PTSD ? Cluster B personality disorders ? Conduct disorders ? Medical comorbidity ? Recent onset of illness Current/Past Substance Use: ? Active ETOH/Opiates/Other Substance abuse ? History of ETOH/Opiates/Other Substance abuse ? Active withdrawal or risk of withdrawal from ETOH/Opiate [place] Symptoms: ? Anhedonia ? Impulsivity ? Hopelessness ? Anxiety/Panic ? Global insomnia (difficulty falling asleep, maintaining sleep, or falling back to sleep) ? Command Hallucinations Family History Risk Factors: ? Suicide Attempts ? Psychiatric disorders requiring hospitalization ? Suicidal Behavior Precipitants/Stressors/Interpersonal/Triggers: ? Events leading to humiliation, shame, or despair ? Family turmoil/chaos ? Chronic physical pain or other acute medical problems ? Perceived burden on others ? Ongoing medical illness ? History of physical or sexual abuse ? Legal problems ? Intoxication ? Social isolation ? Inadequate social support Treatment: ? Medication management ? Therapy ? Satisfied with current treatment ? Recent discharge from a psychiatric hospital ? Recent change in provider or treatment ? Access to firearms/ammunition Protective Factors Internal: ? Ability to cope with stress ? Identifies reasons for living ? Frustration tolerance ? [employer] beliefs ? Fear of or the actual act of killing self External: ? Cultural factors against suicide ? Beloved pets ? Engaged in work or school ? Spiritual and/or moral attitudes against suicide ? Supportive social network of family or friends ? Responsibility to children/others ? Positive therapeutic relationships * Merlene Foreman MD - 03/02/2025 9:51 AM CDTAssociated Order(s): IP CONSULT TO NEUROLOGY Neurology Consult Note Consult Date: 03/02/2025 Referring Physician: No admitting provider for patient encounter. Reason for Consult I have been asked to see the patient in neurological consultation to render advice and opinion regarding seizure like events. History of Present Illness History was obtained from a review of the electronic record and discussion with the patient and clinical staff. Saray Chow is a 29 year old female came to ER due to seizure-like events. Was called by accident yesterday requesting transferred here for further evaluation. Patient was recent evaluated here with continuous EEG showing pseudoseizures. She denies missing seizure medication.The patient denies fever, headaches, weakness, numbness, double-vision, slurred speech, incontinence of bowel/bladder. She is concerned about left forearm blisters concerning for possible infection. Past Medical History Past Medical History[1] Past Surgical History[2] Medications[3] Allergies Allergies[4] Social History Social History[5] Family History Family History[6] no family hx of nerve or muscle disease. REVIEW OF SYSTEMS: General: No recent fevers Eyes: No vision loss or diplopia ENT: No hearing loss Cardiac: No chest pain Respiratory: No shortness of breath GI: No bloody stools : No hematuria Skin: No rash Heme: Denies easy bruising Psych: Denies anxiety or depression Endocrine: Denies heat intolerance Musc: No arthralgias Others see HPI. Exam BP 97/67 (BP Location: Right arm, Patient Position: Lying) Pulse 62 Temp 98.1 ??F (36.7 ??C) (Oral) Resp 20 SpO2 98% General appearance: well developed, in no distress Cardiovascular: Carotids no bruits. Neck: Supple. Neurological Examination: Mental Status: Awake, Alert. Oriented. Follows commands, has normal fund of knowledge, attention, short term recall, fluency, comprehension, memory, and insight. Cranial Nerves: Visual amaral are full without hemineglect. Fundi Could not be adequately assessed due to PPE/poor cooperation. Pupils react equally to light. Extraocular movements are full. Facial sensation intact bilaterally. Facial movement intact, symmetric. Hearing intact to conversation. Nystagmus is not present. Palate elevates symmetrically. Shoulder shrug symmetric. Tongue midline, no laceration. Motor: No orbiting or pronator drift. Strength is symmetric strong proximally and distally. No drifting, asterixis, tremor or myoclonus. Normal tone. No atrophy. Sensation: Intact to light touch. Reflexes: DTRs trace bl BR, 1+ bl Biceps, trace bl triceps, 1+ bl Kjs, trace bl AJs. Plantar responses downgoing. Coordination/Cerebellar: Intact to gqhthu-eqzx-cusgxz exam. Gait:not walking at the time of exam. Lab Review Recent Labs Component Name 03/02/25 0349 03/01/25 1727 02/28/25 0637 SODIUM 141 141 142 POTASSIUM 3.9 3.6 3.6 CHLORIDE 112* 110* 109* CO2 23 23 26 BUN 8 8 4* CREATININE 0.63 0.64 0.61 GLUCOSE 102* 107* 99 CALCIUM 8.3* 8.9 9.1 Recent Labs Component Name 03/01/25 1727 02/28/25 0637 02/27/25 0243 WBC 6.1 4.8 5.6 HGB 9.9* 9.4* 9.6* HCT 31.6* 29.1* 30.0* PLTCOUNT 288 256 237 No results for input(s): TSH in the last 18507 hours. Recent Labs Component Name 02/24/25 0457 06/07/23 1925 06/06/23 1119 CK 227* 104 86 Recent Labs Component Name 06/07/23 0526 05/16/17 2132 PHENYTOIN 20.1* <0.5* Recent Labs Component Name 06/11/23 0316 06/08/23 0748 07/04/17 0516 VPA 72.5 93.3 3.2* Recent Labs Component Name 03/01/25 1727 02/28/25 0637 02/27/25 0243 02/24/25 0457 02/23/25 1114 06/11/23 0316 ALBUMIN 3.7 3.2* 3.5 - 3.2* 3.4 ALKPHOS 49 - - - 41 40 ALT 19 - - - <6* <6 AST 39 - - - 18 24 TBIL 0.3 - - - 0.4 0.4 TPROT 6.7 - - - 5.4* 6.4 - = values in this interval not displayed. Recent Labs Component Name 02/25/25 0433 TRIG 79 Recent Labs Component Name 02/24/25 0457 HGBA1C 4.8 No results for input(s): MCSOFCJM32 in the last 56391 hours. Recent Labs Component Name 02/23/25 1114 AMMONIA 18 No results for input(s): RPR in the last 52239 hours. No results for input(s): CARBAMAZEPIN in the last 97002 hours. No results for input(s): IDQKFALBZ5RJ , VBBMJAVOKH9E , VBMTAMJZDX7H , IKYHKL2LH , AGGARDYPBA8E in the last 63076 hours. Invalid input(s): YSXPQBHQ9MY , JNZAPXNF9YC , EGY7JMEP41 , ECLDAPTKIQ9A , CQPOOLLYU3PC , UCXJMQXYL9RQ Recent Labs Component Name 05/31/23 2316 COLORUA Yellow CLARITYUA Slt Cloudy* SPECGRAVUA 1.025 PHUA 5.0 PROTEINUA Negative BLOODUA 2+* LEUKOCYTEUA Negative NITRITEUA Negative GLUCOSEUA Negative KETONEUA Negative BILIRUBINUA Negative UROBILINUA Negative WBCUA 0-5 RBCUA 3-5 MUCUSUA 3+ BACTUA None Seen No results for input(s): SEDRATE in the last 33740 hours. No results for input(s): CRP in the last 94072 hours. Recent Labs Component Name 04/19/22 0001 07/04/17 0516 INR 1.1 1.3* Imaging US OB Less Than 14 Wks W Transvag Result Date: 02/28/2025 IMPRESSION: 1. An intrauterine is NOT identified. Serial beta hCG and if needed, short interval follow-up pelvic ultrasound is recommended. 2. No adnexal mass or pelvic free fluid. > Interpreting Provider: Jamal Bush DO on 02/28/2025 10:52 AM MRI Brain Wwo Contrast Result Date: 02/26/2025 IMPRESSION: Unremarkable brain MRI performed without and with contrast. > Interpreting Provider:Deb Martinez MD on 02/26/2025 9:32 AM No results found. Impression: 1)seizures 2) pseudoseizure stress Comment: more sz-like events, likely pseudosz. Had vaginal bloody discharge 02/28. Ltem reported slowing, event reported does not have eeg correlate. 02/2025 Mr brain no acute stroke/process per my visualization. Multiple notes, labs, and images visualized. Fairly complicated case. Risk of patient management is of high complexity because of the diagnosis , comments, and plans. Plan: 1) vimpat, keppra, depakote, psych input. Zyprexa prn. Consider ltem for further eval sz-like event. 2) Will defer to primary team to keep K>4, Mag>2, blood sugar, and other electrolytes normal. psych input. 3) medical w/u, optimization. F-u wustl neruol. Stress reduction. Seizure Precaution Instructions: 1.Come to ER/Call EMS for seizure >2-3 minutes, or frequent seizures or any life-concerning situations. No driving for at least 6 months. If no seizures for 6 months then please clarify with your physician before starting to drive. 2. No heavy machine operation, no open fire, no swimming alone, no acitivities where loss of consciousness can cause harm to patient and/or people around the patient. 3. Please make your family and close friends as well as co-workers about possibility that you may have these episodes and to document your episode or notify authorities if these happen and you are not aware of them. 4. If you are on seizure medications please take them regularly. Inform physician of all side effects and outcomes on a regular basis. Please call for any neurological concerns, results and questions. Come to er for neurol deficit or stroke-like symptoms. Other medical management per primary team. Thanks for the opportuity to participate in Saray Chow's care. 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 recurrent uti's depression Psychiatric diagnosis Bipolar, depression, anxiety Psychogenic nonepileptic seizure 06/2023 Documented with 24h EEG Rh incompatibility [2] Past Surgical History: Procedure Laterality Date CERVICAL BIOPSY WITH COLPOSCOPY 2013 ULNAR SHAFT FRACTURE REPAIR Left Pt has 2 metal plates [3] Current Facility-Administered Medications Medication 0.9% NaCl infusion 0.9% NaCl injection 3 mL And 0.9% NaCl injection 1-10 mL acetaminophen (Tylenol) tablet 650 mg acetaminophen (Tylenol) tablet 650 mg ARIPiprazole (Abilify) tablet 5 mg benzonatate (Tessalon) capsule 100 mg cyproheptadine (Periactin) tablet 4 mg dextrose 10 % IV bolus Or dextrose 10 % IV bolus Or glucagon (Glucagen) injection [address] (Depakote) tablet 250 mg glucose (Diabetic Use) oral gel guaiFENesin (Robitussin) solution 10 mL lacosamide (Vimpat) tablet 200 mg levETIRAcetam (Keppra) tablet 1,000 mg LORazepam (Ativan) injection 1 mg morphine injection 2 mg OLANZapine (ZyPREXA) tablet 10 mg ondansetron (disintegrating) (Zofran ODT) tablet 4 mg Or ondansetron (Zofran) injection 4 mg ondansetron (Zofran) injection 4 mg oxyCODONE (immediate release) (Roxicodone) tablet 5 mg prochlorperazine (Compazine) injection 10 mg throat lozenge 1 lozenge [4] Allergies Allergen Reactions Ibuprofen Other Pt states it causes shaking Onfi [Clobazam] Other Sores in mouth [5] Social History Tobacco Use Smoking status: Some Days Current packs/day: 0.00 Average packs/day: 0.1 packs/day for 8.0 years (0.8 ttl pk-yrs) Types: Cigarettes Start date: 12/2013 Last attempt to quit: 12/2021 Years since quittin.2 Smokeless tobacco: Never Tobacco comments: 1 cigarette a day Vaping Use Vaping status: Every Day Substance Use Topics Alcohol use: No Drug use: Not Currently Types: Marijuana [6] Family History Problem Relation Name Age of Onset Glaucoma Mother Other Mother uterine fibroids Cancer - Ovarian Maternal Grandmother Diabetes Maternal Grandmother CAD (Coronary Artery Disease) Maternal Grandmother Other Maternal Aunt Chrohn's disease Diabetes Maternal Aunt Diabetes Maternal Uncle Stroke Maternal Uncle Other Brother HIV+, homosexual documented in this encounter Miscellaneous Notes * Code/Rapid Response Event - Dipesh Long RN - 03/03/2025 9:05 AM CDT RAPID RESPONSE DOCUMENTATION NOTE Date: 03/03/2025 Time: 833 PATIENT'S NAME: Saray Chow BIRTHDATE: 1995 CODE STATUS: Full Code RAPID DATE: 03/03/2025 RAPID TIME: 833 RAPID LOCATION: [facility]01/11 ADMITTING SERVICE: Armand Fam MD PERSON(S) NOTIFIED: Person(s) Notified: The care team at bedside and Provider - Dr. Ag NAME OF RESPONDING PROVIDER: Ancelmo PRIMARY REASON FOR CALL: Other (comment) Seizure-like activity OUTCOME: Remains in current room PERSON INITIATING RAPID: RN SUMMARY OF RAPID EVENTS: PHOTO CARTOGRAPHER called for Seizure like activity. Staff at bedside report patient was c/o mild headache and began exhibiting full body rhythmic jerking. Upon rapid team arrival to room, patient is alert and resting in supine position in bed. Primary RN at bedside administering IV ativan upon rapid team arrival. Patient is oriented to self, place and year. Following commands in all extremities. Responses delayed. Vital signs WNL upon arrival. SpO2 98% on RA. Pt complaining of mild headache. Respirations appear even and non labored. Lungs clear. Pt protecting airway with NO snoringor drooling. Patient receiving IV Keppra and Vimpat. Dr. Ag at bedside to attend PHOTO CARTOGRAPHER; no new orders received at this time, continue current plan of care per MD. Tylenol to be administered by primary RN for c/o RICH. D/w RN, MD, MEDICAL STAFF SERVICES MANAGER RN and RT at bedside prior to rapid team departure. Vital Signs Patient Vitals for the past 8 hrs: Temp Pulse Resp BP 03/03/25 0115 -- 94 16 100/58 03/03/25 0130 -- 91 16 97/61 03/03/25 0145 -- 86 16 99/60 03/03/25 0200 -- 79 16 93/51 03/03/25 0215 -- 84 16 86/54 03/03/25 0230 -- 75 16 84/44 03/03/25 0245 -- 81 16 (!) 80/42 03/03/25 0300 -- 78 16 92/59 03/03/25 0315 -- 80 16 86/54 03/03/25 0330 -- 83 16 90/56 03/03/25 0345 -- 79 16 100/60 03/03/25 0400 97.7 ??F (36.5 ??C) 89 16 93/63 03/03/25 0727 98.4 ??F (36.9 ??C) 80 14 104/58 03/03/25 0800 98.4 ??F (36.9 ??C) 97 14 129/79 Results Recent Labs Component Name 03/02/25 0349 03/01/25 1727 02/28/25 0637 02/27/25 0243 02/26/25 0343 SODIUM 141 141 142 142 140 POTASSIUM 3.9 3.6 3.6 3.5 3.3* CHLORIDE 112* 110* 109* 111* 109* CO2 23 23 26 23 23 BUN 8 8 4* <3* <3* CREATININE 0.63 0.64 0.61 0.61 0.60 GLUCOSE 102* 107* 99 104* 99 CALCIUM 8.3* 8.9 9.1 8.6 8.2* ALBUMIN - 3.7 3.2* 3.5 3.1* PHOS - - 4.6* 2.9 3.6 No results for input(s): MAGMGDL in the last 16606 hours. Recent Labs Component Name 03/01/25 1727 02/28/25 0637 02/27/25 0243 WBC 6.1 4.8 5.6 HGB 9.9* 9.4* 9.6* HCT 31.6* 29.1* 30.0* PLTCOUNT 288 256 237 Recent Labs Component Name 05/31/23 2316 COLORUA Yellow SPECGRAVUA 1.025 PHUA 5.0 PROTEINUA Negative BLOODUA 2+* LEUKOCYTEUA Negative NITRITEUA Negative GLUCOSEUA Negative KETONEUA Negative BILIRUBINUA Negative UROBILINUA Negative WBCUA 0-5 RBCUA 3-5 MUCUSUA 3+ .. Recent Labs Component Name 04/19/22 0001 07/04/17 0516 PT 14.5 13.4* Recent Labs Component Name 04/19/22 0001 07/04/17 0516 INR 1.1 1.3* No results for input(s): BNP in the last 84074 hours. Recent Labs Component Name 03/01/25 1727 07/04/17 0516 05/27/17 1750 05/17/17 0600 WBC 6.1 - 12.1* 5.6 RBC 3.40* - 3.91 3.47* HGB 9.9* - 11.9* 10.3* HCT 31.6* - 36.4 31.9* MCV 92.9 - 93.1 91.9 MCH 29.1 - 30.4 29.7 MCHC 31.3* - 32.7 32.3 RDW - - - 13.7 PLTCOUNT 288 - 216 235 LYMPHMANPCT - - 23 - MONOMANPCT - - 6 - RBCMORPH - - Normal - WBCMORPH - - Normal - - = values in this interval not displayed. 20 minutes for patient examination, review of relevant data, placement of orders and documentation. * Code/Rapid Response Event - Saundra Jernigan RN - 03/02/2025 9:09 PM CDT RAPID RESPONSE DOCUMENTATION NOTE Date: 03/02/2025 Time: 21:09 PATIENT'S NAME: Saray Chow BIRTHDATE: 1995 CODE STATUS: Full Code RAPID DATE: 03/02/2025 RAPID TIME: 21:09 RAPID LOCATION: [address] [place] [address] ADMITTING SERVICE: Armand Fam MD NAME OF RESPONDING PROVIDER: Dr. Rees PRIMARY REASON FOR CALL: Other (comment) - Seizure like behavior OUTCOME: Remains in current room PERSON INITIATING RAPID: [address] [place] [address] Nurse SUMMARY OF RAPID EVENTS: PHOTO CARTOGRAPHER called for Seizure like behavior. Upon arrival of the rapid response team patient patient found laying in the supine position on the fall mat. [address] [place] [address] Charge Nurse reports that the patient was in bed talking to her mother on face time when she started to exhibit seizurelike behaviors. The patient's mother then called the [address] [place] [address] Nurses station to report what she had observed through face time. On entry of the [address] [place] [address] Charge Nurse the patient was found in the supineposition on the floor next to the bed on with the entirety of her head and body on the fall mat. While assessing the patient on the floor she began to have what appeared to be repetitive voluntary muscle contractions. Contractions started in her right upper extremity, and was followed by flexion and extension of both lower extremities. Extremities held to prevent harm and patient placed in the left lateral recumbent position. With extremities secured, contraction strength unable to overcome resistance. Contractions ceased after being placed in the recumbent position. Pupils equal at 3 mm, round, and reactive to light. No nystagmus. No gaze or deviation noted. No drop in oxygen saturation, or concerns for ability to protect her airway. No bowel or bladder incontinence observed. No signs ofhead trauma. No signs of cervical step-off. No signs of trama or injury/abrasions on the torso and e xtremities. Sinus tachycardia on the tele box with heart rate 102 bpm. Blood pressure normotensive.spO2 99% without supplemental oxygen. Blood glucose 103 mg/dL. 1 mg of PRN Ativan administered. Patient lifted safely back to bed by staff. Patient awaked immediately after being placed back to bed by staff. Patient tearful but oriented to self, place, and time. Moving all extremities to command and without limitation. No focal findings. Reports a mild headache that she has intermittently been having. Patient denies neck pain/tenderness. Per Fur Trapper no imaging ordered at this time. Zyprexa and Antiepileptic medications modified to different route per Dr. Rees to ensure administration. 10 mg IM Zyprexa administered. Bedside sitter ordered and at bedside for safety. Reinforced fall precautions. Primary RN to administer PRN tylenol for headache. Neuro checks to be completed per protocol. [facility] Charge Nurse to order low bed. No additional needs or concerns expressed at this time. Vital Signs Patient Vitals for the past 8 hrs: Temp Pulse Resp BP 03/02/25 1600 97.5 ??F (36.4 ??C) 77 16 112/78 03/02/259 -- 99 -- 123/81 Results Recent Labs Component Name 03/02/25 03403/01/25172602/28/25 0637 02/27/25 0243 02/26/25 0343 SODIUM 141 141 142 142 140 POTASSIUM 3.9 3.6 3.6 3.5 3.3* CHLORIDE 112* 110* 109* 111* 109* CO2 23 23 26 23 23 BUN 8 8 4* <3* <3* CREATININE 0.63 0.64 0.61 0.61 0.60 GLUCOSE 102* 107* 99 104* 99 CALCIUM 8.3* 8.9 9.1 8.6 8.2* ALBUMIN - 3.7 3.2* 3.5 3.1* PHOS - - 4.6* 2.9 3.6 Recent Labs Component Name 03/01/25172602/28/25 0637 02/27/25 0243 WBC 6.1 4.8 5.6 HGB 9.9* 9.4* 9.6* HCT 31.6* 29.1* 30.0* PLTCOUNT 288 256 237 Recent Labs Component Name 05/31/23 2316 COLORUA Yellow SPECGRAVUA 1.025 PHUA 5.0 PROTEINUA Negative BLOODUA 2+* LEUKOCYTEUA Negative NITRITEUA Negative GLUCOSEUA Negative KETONEUA Negative BILIRUBINUA Negative UROBILINUA Negative WBCUA 0-5 RBCUA 3-5 MUCUSUA 3+ .. Recent Labs Component Name 04/19/22 0001 07/04/17 0516 PT 14.5 13.4* Recent Labs Component Name 04/19/22 0001 07/04/17 0516 INR 1.1 1.3* Recent Labs Component Name 03/01/25 1727 07/04/17 0516 05/27/17 1750 05/17/17 0600 WBC 6.1 - 12.1* 5.6 RBC 3.40* - 3.91 3.47* HGB 9.9* - 11.9* 10.3* HCT 31.6* - 36.4 31.9* MCV 92.9 - 93.1 91.9 MCH 29.1 - 30.4 29.7 MCHC 31.3* - 32.7 32.3 RDW - - - 13.7 PLTCOUNT 288 - 216 235 LYMPHMANPCT - - 23 - MONOMANPCT - - 6 - RBCMORPH - - Normal - WBCMORPH - - Normal - - = values in this interval not displayed. 50 minutes for patient examination, review of relevant data, placement of orders and documentation. documented in this encounter Plan of Treatment Not on file documented as of this encounter Procedures Procedure Name Priority Date/Time Associated Diagnosis Comments GLUCOSE - POINT OF CARE Routine 03/02/2025 9:16 PM CDT BASIC METABOLIC PANEL (CALCIUM TOTAL) Routine 03/02/2025 3:49 AM CDT CBC W AUTO DIFFERENTIAL STAT 03/01/2025 5:27 PM CDT COMPREHENSIVE METABOLIC PANEL STAT 03/01/2025 5:27 PM CDT GLUCOSE - POINT OF CARE Routine 03/01/2025 3:20 PM CDT documented in this encounter Results * (ABNORMAL) GLUCOSE - POINT OF CARE (03/02/2025 9:16 PM CDT) [facility] Glucose WB/POC 103(H) 70 - 99 mg/dL 03/02/2025 9:18 PM CDT [facility] Specimen Type Cap Fingerstick 2024 9:18 PM CDT [facility] Blood BLOOD SPECIMEN / Unknown 03/02/2025 9:16 PM CDT 03/02/2025 9:18 PM CDT Armand Fam MD LAB - POINT OF CARE ORDERAB LES Final Result [facility] [id number] [place] [address] * (ABNORMAL) BASIC METABOLIC PANEL (CALCIUM TOTAL) (03/02/2025 3:49 AM CDT) Pathologist [facility] Glucose 102(H) 70 - 99 mg/dL 03/02/2025 4:22 AM CDT [facility] Sodium 141 136 - 145 mmol/L 03/02/2025 4:22 AM CDT [facility] Potassium 3.9 3.5 - 5.1 mmol/L 03/02/2025 4:22 AM CDT [facility] Chloride 112(H) 98 - 107 mmol/L 03/02/2025 4:22 AM CDT [facility] CO2 23 22 - 29 mmol/L 03/02/2025 4:22 AM T [facility] Calcium 8.3(L) 8.4 - 10.4 mg/dL 03/02/2025 4:22 AM CDT [facility] Anion Gap 6 6 - 16 mmol/L 03/02/2025 4:22 AM CDT [facility] BUN 8 5.3 - 18.7 mg/dL 03/02/2025 4:22 AM CDT [facility] Creatinine 0.63 0.57 - 1.11 mg/dL 03/02/2025 4:22 AM CDT [facility] eGFR by CKD-EPI >90 >=90 mL/min/1.7 3 m2 03/02/2025 4:22 AM CDT [facility] Blood BLOOD SPECIMEN / Unknown Venipuncture / Unknown 03/02/2025 3:49 AM CDT 03/02/2025 3:57 AM CDT us Rick Campuzano MD LAB - CHEMISTRY ORDERAB LES Final Result [facility] [address] [place] [address] * (ABNORMAL) CBC W AUTO DIFFERENTIAL (03/01/2025 5:27 PM CDT) WBC 6.1 4.0 - 10.7 x10E9/L 03/01/2025 5:56 PM CDT [facility] RBC Count 3.40(L) 3.90 - 5.20 x10E12/L 03/01/2025 5:56 PM CDT [facility] Hemoglobin 9.9(L) 11.9 - 15.8 g/dL 03/01/2025 5:56 PM CDT [facility] Hematocrit 31.6(L) 34.8 - 46.1 % 03/01/2025 5:56 PM CDT [facility] MCV 92.9 80.0 - 98.0 fL 03/01/2025 5:56 PM CDT [facility] MCH 29.1 26.7 - 33.6 pg 03/01/2025 5:56 PM CDT [facility] MCHC 31.3(L) 31.7 - 36.3 g/dL 03/01/2025 5:56 PM CDT [facility] RDW-CV 13.3 11.3 - 14.8 % 03/01/2025 5:56 PM CDT [facility] Platelet Count 288 150 - 420 x10E9/L 03/01/2025 5:56 PM CDT [facility] MPV 10.3 7.8 - 11.4 fL 03/01/2025 5:56 PM CDT [facility] Neutrophil % 66.0 41.0 - 74.0 % 03/01/2025 5:56 PM CDT [facility] Lymphocyte % 25.9 17.0 - 47.0 % 03/01/2025 5:56 PM CDT [facility] Monocyte % 5.5 3.0 - 11.0 % 03/01/2025 5:56 PM CDT [facility] Eosinophil % 1.6 0.0 - 7.0 % 03/01/2025 5:56 PM CDT [facility] Basophil % 0.7 0.0 - 1.6 % 03/01/2025 5:56 PM CDT [facility] Immature Granulocytes % 0.3 0.0 - 1.0 % 03/01/2025 5:56 PM CDT [facility] Neutrophil Absolute 4.04 1.60 - 7.50 x10E9/L 03/01/2025 5:56 PM CDT [facility] Lymphocyte Absolute 1.59 1.00 - 4.40 x10E9/L 03/01/2025 5:56 PM CDT [facility] Monocyte Absolute 0.34 0.15 - 1.00 x10E9/L 03/01/2025 5:56 PM CDT [facility] Eosinophil Absolute 0.10 0.00 - 0.60 x10E9/L 03/01/2025 5:56 PM CDT [facility] Basophil Absolute 0.04 0.00 - 0.13 x10E9/L 03/01/2025 5:56 PM CDT [facility] Blood BLOOD SPECIMEN / Unknown Venipuncture / Unknown 03/01/2025 5:27 PM CDT 03/01/2025 5:37 PM CDT Rick Campuzano MD LAB - HEMATOLOGY ORDERA BLES Final Result [facility] [address] [place] [address] * (ABNORMAL) COMPREHENSIVE METABOLIC PANEL (03/01/2025 5:27 PM CDT) [facility] Glucose 107(H) 70 - 99 mg/dL 03/01/2025 5:52 PM CDT [facility] Sodium 141 136 - 145 mmol/L 03/01/2025 5:52 PM CDT [facility] Potassium 3.6 3.5 - 5.1 mmol/L 03/01/2025 5:52 PM CDT [facility] Chloride 110(H) 98 - 107 mmol/L 03/01/2025 5:52 PM CDT [facility] CO2 23 22 - 29 mmol/L 03/01/2025 5:52 PM CDT [facility] Calcium 8.9 8.4 - 10.4 mg/dL 03/01/2025 5:52 PM CDT [facility] Anion Gap 8 6 - 16 mmol/L 03/01/2025 5:52 PM CDT [facility] BUN 8 5.3 - 18.7 mg/dL 03/01/2025 5:52 PM CDT [facility] Creatinine 0.64 0.57 - 1.11 mg/dL 03/01/2025 5:52 PM CDT [facility] Alkaline Phosphatase 49 40 - 150 U/L 03/01/2025 5:52 PM CDT [facility] ALT 19 6 - 57 U/L 03/01/2025 5:52 PM CDT [facility] AST 39 10 - 48 U/L 03/01/2025 5:52 PM CDT [facility] Protein Total 6.7 6.4 - 8.3 gm/dL 03/01/2025 5:52 PM CDT [facility] Albumin 3.7 3.4 - 5.0 gm/dL 03/01/2025 5:52 PM CDT [facility] Bilirubin Total 0.3 0.2 - 1.2 mg/dL 03/01/2025 5:52 PM CDT [facility] eGFR by CKD-EPI >90 >=90 mL/min/1.7 3 m2 03/01/2025 5:52 PM CDT [facility] Blood BLOOD SPECIMEN / Unknown Venipuncture / Unknown 03/01/2025 5:27 PM CDT 03/01/2025 5:37 PM CDT Rick Campuzano MD LAB - CHEMISTRY ORDERAB LES Final Result [facility] [id number] [place] [address] * GLUCOSE - POINT OF CARE (03/01/2025 3:20 PM CDT) [facility] Glucose WB/POC 83 70 - 99 mg/dL 03/01/2025 3:24 PM CDT [facility] Specimen Type Cap Fingerstick 2024 3:24 PM CDT [facility] Blood BLOOD SPECIMEN / Unknown 03/01/2025 3:20 PM CDT 03/01/2025 3:24 PM CDT Rick Campuzano MD LAB - POINT OF CARE ORD ERABLES Final Result [facility] [address] [place] [address] documented in this encounter Visit Diagnoses Diagnosis Seizures (HCC)- Primary Other convulsions Seizures (HCC) Other convulsions documented in this encounter Administered Medications Inactive Administered Medications - up to 3 most recent administrations Medication Order MAR Action Action Date Dose Rate Site 0.9% NaCl infusion at 75 mL/hr, Intravenous, CONTINUOUS, Starting on 03/01/25 at 1630, Until 03/03/25 at 1152 $ New Bag/Syringe 03/02/2025 10:51 PM CDT 75 mL/hr $ New Bag/Syringe 03/02/2025 4:48 PM CDT 75 mL/ hr $ New Bag/Syringe 03/01/2025 5:31 PM CDT 75 mL/ hr 0.9% NaCl injection 1-10 mL 1-10 mL, Intracatheter, PRN, Other, peripheral line flush, Starting on 03/01/25 at 1553, Until 03/03/25 at 1152, Flush peripheral IV catheter with 1-10 mL of normal saline before and after medications and prn to clear blood from the line or to verify patency. 0.9% NaCl injection 3 mL 3 mL, Intracatheter, EVERY 8 HOURS, First dose on 03/01/25 at 1630, Until Discontinued, Flush peripheral IV catheter with 3 mL of normal saline every 8 hours. $ Given 03/02/2025 10:44 PM CDT 3 mL acetaminophen (Tylenol) tablet 650 mg 650 mg, Oral, EVERY 4 HOURS PRN, Fever, For temperature GREATER than 101 , Starting on 03/01/25 at 1554, Until 03/03/25 at 1152, Patient preference for lesser PRN pain meds may be honored when the patient requests a less strong medication, a lower dose, or a less intrusive route of administration when the lesser drug, dose and route have been ordered for the patient. This patient request must be documented in the MAR. If both oral and IV options are ordered for the same pain severity, give oral first unless patient cannot tolerate oral intake acetaminophen (Tylenol) tablet 650 mg 650 mg, Oral, EVERY 4 HOURS PRN, Fever, Mild Pain, Headache, Starting on 03/01/25 at 1708, Until 03/03/25 at 1152, Patient preference for lesser PRN pain meds may be honored when the patient requests a less strong medication, a lower dose, or a less intrusive route of administration when the lesser drug, dose and route have been ordered for the patient. This patient request must be documented in the MAR. If both oral and IV options are ordered for the same pain severity, give oral first unless patient cannot tolerate oral intake $ Given 03/03/2025 8:49 AM CDT 650 mg $ Given 03/02/2025 10:18 PM CDT 650 mg $ Given 03/01/2025 8:18 PM CDT 650 mg ARIPiprazole (Abilify) tablet 5 mg 5 mg, Oral, DAILY, First dose on 03/01/25 at 1745, Until Discontinued $ Given 03/03/2025 8:49 AM CDT 5 mg $ Given 03/02/2025 10:29 AM CDT 5 mg $ Given 03/01/2025 5:44 PM CDT 5 mg bacitracin topical ointment Topical, 3 TIMES DAILY, First dose on 03/02/25 at 1115, Until Discontinued, Apply to wrist $ Given 03/02/2025 10:44 PM CDT $ Given 03/02/2025 4:47 PM CDT $ Given 03/02/2025 12:30 PM CDT benzonatate (Tessalon) capsule 100 mg 100 mg, Oral, 3 TIMES DAILY PRN, Cough, Starting on 03/01/25 at 1708, Until 03/03/25 at 1152 cyproheptadine (Periactin) tablet 4 mg 4 mg, Oral, 2 TIMES DAILY, First dose on 03/01/25 at 2100, Until Discontinued $ Given 03/03/2025 8:52 AM CDT 4 mg $ Given 03/02/2025 10:37 PM CDT 4 mg $ Given 03/02/2025 10:30 AM CDT 4 mg dextrose 10 % IV bolus 12.5 g, at 468.75 mL/hr, Intravenous, PRN, Other, Bedside Glucose less than 70 mg/dL -If NOT able to eat and/or NPO and with IV Access, Starting on 03/01/25 at 2028, Until Mon03/03/25 at 1152, If NOT able to eat and/or NPO and with IV Access: For Bedside Glucose 54-69 mg/dL give 12.5 g Dextrose IV STAT For Bedside Glucose LESS than 54 mg/dl verify with a second Bedside Glucose (from a different site) and give 25 g Dextrose IV STAT Re-check and Re-treat blood glucose EVERY , 10-25 minutes until blood glucose GREATER than or equal to 80 mg/dl. NOTIFY PROVIDER OF HYPOGLYCEMIC EVENT. dextrose 10 % IV bolus 25 g, at 937.5 mL/hr, Intravenous, PRN, Other, Bedside Glucose less than 70 mg/dL -If NOT able to eat and/or NPO and with IV Access, Starting on 03/01/25 at 2028, Until Mon03/03/25 at 1152, If NOT able to eat and/or NPO and with IV Access: For Bedside Glucose LESS than 54 mg/dl verify with a second Bedside Glucose (from a different site) and give 25 g Dextrose IV STAT Re-check and Re-treat blood glucose EVERY - 10-25 minutes until blood glucose GREATER than or equal to 80 mg/dl. - If repeat bedside glucose 54-79 give 12.5 g Dextrose IV STAT NOTIFY PROVIDER OF HYPOGLYCEMIC EVENT. divalproex DR (Depakote) tablet 250 mg 250 mg, Oral, 3 TIMES DAILY, First dose on 03/01/25 at 2100, Until Discontinued, Do not crush, chew, or cut in half. $ Given 03/02/2025 4:47 PM CDT 250 mg $ Given 03/02/2025 10:29 AM CDT 250 mg $ Given 03/01/2025 8:16 PM CDT 250 mg glucagon (Glucagen) injection 1 mg 1 mg, Subcutaneous, PRN, Bedside Glucose less than 70 mg/dL - If NOT able to eat and/or NPO and withOUT IV Access, Starting on 03/01/25 at 2028, Until Mon03/03/25 at 1152, If NOT able to eat and/or NPO and NO IV Access: For Bedside glucose 54-69 mg/dL - Give 1 mg subcutaneous For Bedside Glucose LESS than 54 mg/dl - verify with a second bedside glucose (from a different site) - Give 1 mg subcutaneous Re-check and Re-treat blood glucose EVERY 10-25 minutes until blood glucose GREATER than or equal to 80 mg/dl. NOTIFY PROVIDER OF HYPOGLYCEMIC EVENT. Reconstitute vial with 1 mL of sterile water for injection for a final concentration of 1 mg/mL; shake vial gently; use immediately and discard unused portion glucose (Diabetic Use) oral gel Oral, PRN, Other, Bedside Glucose less than 70 mg/dL, Starting on 03/01/25 at 2029, Until 03/03/25 at 1152, If able to take oral medications: For Bedside Glucose 54 - 69 mg/dL Give 15 grams of oral carbohydrates - 1 glucose gel (see MAR) If patient refuses glucose gel, then offer: - 4 ounces of fruit juice OR - 4 ounces non-diet soda OR - 8 ounces of fat-free milk For Bedside Glucose LESS than 54 mg/dL verify with a second Bedside Glucose (from a different site) - If pt is symptomatic, do not delay treatment - If accuracy of the POC glucose is in question, confirm glucose with a STAT laboratory test Give 30 grams of oral carbohydrates - 2 glucose gels (see MAR) If patient refuses glucose gel, then offer: - 8 ounces of fruit juice OR - 8 ounces non-diet soda OR - 16 ounces of fat-free milk Re-check and Re-treat blood glucose EVERY 10-25 minutes until blood glucose GREATER than or equal to 80 mg/dl. - If on recheck, bedside glucose 54-79 mg/dL - Give 15 grams of oral carbohydrates (see above for choices) NOTIFY PROVIDER OF HYPOGLYCEMIC EVENT. 1 tube delivers 15 grams dextrose/carbohydrates guaiFENesin (Robitussin) solution 10 mL 10 mL, Oral, EVERY 6 HOURS PRN, Cough, Starting on 03/01/25 at 1708, Until 03/03/25 at 1152 lacosamide (Vimpat) injection 200 mg 200 mg, Intravenous, 2 TIMES DAILY, First dose on 03/02/25 at 2130, Until Discontinued $ Given 03/03/2025 8:50 AM CDT 200 mg $ Given 03/02/2025 10:23 PM CDT 200 mg lacosamide (Vimpat) tablet 200 mg 200 mg, Oral, 2 TIMES DAILY, First dose on 03/01/25 at 2100, Until Discontinued, Tablets should be swallowed whole with liquid; do not divide. $ Given 03/02/2025 10:29 AM CDT 200 mg $ Given 03/01/2025 8:16 PM CDT 200 mg lactated ringers IV bolus 1,000 mL, at 1,935.48 mL/hr, Administer over 31 Minutes, ONCE, 1 dose, On 03/01/25 at 2100 $ New Bag/Syringe 03/01/2025 8:53 PM CDT 1,000 mL 1935.48 mL/hr lactulose (Chronulac) solution 20 g 20 g, Oral, 3 TIMES DAILY, First dose on 03/02/25 at 2100, Until Discontinued $ Given 03/03/2025 8:52 AM CDT 20 g $ Given 03/02/2025 10:37 PM CDT 20 g levETIRAcetam (Keppra) injection 1,000 mg 1,000 mg, Intravenous, EVERY 12 HOURS, First dose on 03/02/25 at 2200, Until Discontinued, Administer straight drug (undiluted) over two minutes $ Given 03/03/2025 8:50 AM CDT 1,000 mg $ Given 03/02/2025 10:24 PM CDT 1,000 mg levETIRAcetam (Keppra) tablet 1,000 mg 1,000 mg, Oral, 2 TIMES DAILY, First dose on 03/01/25 at 2100, Until Discontinued, Do not crush or chew because of TASTE only. $ Given 03/02/2025 10:29 AM CDT 1,000 mg $ Given 03/01/2025 8:16 PM CDT 1,000 mg LORazepam (Ativan) injection 1 mg 1 mg, Intravenous, EVERY 6 HOURS PRN, Anxiety, Agitation, Psychosis, Seizures, Starting on 03/01/25 at 1708, Until 03/03/25 at 1152 $ Given 03/03/2025 8:37 AM CDT 1 mg $ Given 03/02/2025 9:15 PM CDT 1 mg morphine injection 2 mg 2 mg, Intravenous, EVERY 4 HOURS PRN, Severe Pain, Starting on 03/01/25 at 1708, Until 03/03/25 at 1152, Patient preference for lesser PRN pain meds may be honored when the patient requests a less strong medication, a lower dose, or a less intrusive route of administration when the lesser drug, dose and route have been ordered for the patient. This patient request must be documented in the MAR. If both oral and IV options are ordered for the same pain severity, give oral first unless patient cannot tolerate oral intake OLANZapine (ZyPREXA) injection 10 mg 10 mg, Intramuscular, ONCE, 1 dose, On 03/02/25 at 2145, Dilute vial with 2.1 ml sterile water. Final concentration = 10mg/2ml; use within 1hr of dilution. Monitor for orthostatic hypotension prior to the administration. Reconstitute with 2.1 mL of sterile water to give approximately 5 mg/mL concentration. $ Given 03/02/2025 9:31 PM CDT 10 mg Left Deltoid OLANZapine (ZyPREXA) tablet 10 mg 10 mg, Oral, AT BEDTIME, First dose on 03/01/25 at 2100, Until Discontinued $ Given 03/01/2025 8:16 PM CDT 10 mg ondansetron (disintegrating) (Zofran ODT) tablet 4 mg 4 mg, Oral, EVERY 6 HOURS PRN, Nausea/Vomiting, Starting on 03/01/25 at 1554, Until 03/03/25 at 1152, Dissolved orally on tongue ondansetron (Zofran) injection 4 mg 4 mg, Intravenous, EVERY 6 HOURS PRN, Nausea/Vomiting, Starting on 03/01/25 at 1554, Until 03/03/25 at 1152, Administer IV if patient is NPO, actively vomiting, or unable to swallow. ondansetron (Zofran) injection 4 mg 4 mg, Intravenous, EVERY 6 HOURS PRN, Nausea/Vomiting, Starting on 03/01/25 at 1708, Until 03/03/25 at 1152, Administer over 2 to 5 minutes. oxyCODONE (immediate release) (Roxicodone) tablet 5 mg 5 mg, Oral, EVERY 6 HOURS PRN, Moderate Pain, Starting on 03/01/25 at 1708, Until 03/03/25 at 1152, Patient preference for lesser PRN pain meds may be honored when the patient requests a less strong medication, a lower dose, or a less intrusive route of administration when the lesser drug, dose and route have been ordered for the patient. This patient request must be documented in the MAR. If both oral and IV options are ordered for the same pain severity, give oral first unless patient cannot tolerate oral intake $ Given 03/02/2025 12:48 AM CDT 5 mg polyethylene glycol 3350 (Miralax) packet 17 g 17 g, Oral, DAILY PRN, Constipation, Starting on 03/02/25 at 1904, Until 03/03/25 at 1152, Mix in 8 ounces of water, juice, soda, coffee or tea prior to administration prochlorperazine (Compazine) injection 10 mg 10 mg, Intravenous, EVERY 6 HOURS PRN, Nausea/Vomiting, Starting on 03/01/25 at 1708, Until 03/03/25 at 1152, Max intravenous rate = 5 mg/min throat lozenge 1 lozenge 1 lozenge, Oral, EVERY 2 HOURS PRN, Sore Throat, Starting on 03/01/25 at 1708, Until 03/03/25 at 1152 valproate (Depacon) 250 mg in NaCl IV 0.9 % 52.5 mL IVPB 250 mg, at 52.5 mL/hr, Intravenous, EVERY 8 HOURS, First dose on 03/02/25 at 2200, Until Discontinued $ New Bag/Syringe 03/03/2025 5:57 AM CDT 250 mg 52.5 mL/hr $ New Bag/Syringe 03/02/2025 11:14 PM CDT 250 mg 52.5 mL/hr documented in this encounter Active and Recently Administered Medications Times are shown in CDT. Scheduled Medication Order 03/01/2025 03/02/2025 03/03/2025 0.9% NaCl injection 3 mL(Linked Group 1) 3 mL, Intracatheter, EVERY 8 HOURS, First dose on 03/01/25 at 1630, Until Discontinued, Flush peripheral IV catheter with 3 mL of normal saline every 8 hours. 173 (Not Administered - Provider: Bekah Maki RN - Reason: Loss of Access)2018 (Not Administered - Provider: Sheila Ellington RN - Reason: IV Currently Infusing) 0621 (Not Administered - Provider: Sheila Ellington RN - Reason: IV Currently Infusing)1650 (Canceled Entry - Provider: Patty Simms RN)2244 ($ Given - Provider: Marietta Sanchez RN) 0558 (Not Administered - Provider: Marietta Sanchez RN - Reason: IV Currently Infusing) ARIPiprazole (Abilify) tablet 5 mg 5 mg, Oral, DAILY, First dose on 03/01/25 at 1745, Until Discontinued 1743 ($ Given - Provider: Bekah Maki RN) 1029 ($ Given - Provider: Patty Simms RN) 0849 ($ Given - Provider: Ashly Abbasi, SLIM) bacitracin topical ointment Topical, 3 TIMES DAILY, First dose on 03/02/25 at 1115, Until Discontinued, Apply to wrist 1230 ($ Given - Provider: Patty [place]ms RN)1647 ($ Given - Provider: Patty Simms RN)2244 ($ Given - Provider: Marietta Sanchez RN) 0900 (Due) cyproheptadine (Periactin) tablet 4 mg 4 mg, Oral, 2 TIMES DAILY, First dose on 03/01/25 at 2100, Until Discontinued 2015 ($ Given - Provider: Sheila Ellington RN) 1030 ($ Given - Provider: Patty Simms, SLIM)2237 ($ Given - Provider: Marietta Sanchez RN) 0852 ($ Given - Provider: Ashly Abbasi, SLIM) divalproex DR (Depakote) tablet 250 mg (CANCELED) 250 mg, Oral, 3 TIMES DAILY, First dose on 03/01/25 at 2100, Until Discontinued, Do not crush, chew, or cut in half. 2015 ($ Given - Provider: Sheila Ellington RN) 1029 ($ Given - Provider: Patty Simms RN)1647 ($ Given - Provider: Patty Simms RN)2135 (Not Administered - Provider: Saundra Jernigan RN - Reason: Discontinued by physician - Comment: route changed) lacosamide (Vimpat) injection 200 mg 200 mg, Intravenous, 2 TIMES DAILY, First dose on 03/02/25 at 2130, Until Discontinued 2222 ($ Given - Provider: Marietta Sanchez RN) 0850 ($ Given - Provider: Ashly Abbasi, SLIM) lacosamide (Vimpat) tablet 200 mg (CANCELED) 200 mg, Oral, 2 TIMES DAILY, First dose on 03/01/25 at 2100, Until Discontinued, Tablets should be swallowed whole with liquid; do not divide. 2015 ($ Given - Provider: Sheila Ellington RN) 1028 ($ Given - Provider: Patty [place]ms, RN)2135 (Not Administered - Provider: Saundra Jernigan RN - Reason: Discontinued by physician - Comment: route changed to IV) lactated ringers IV bolus (COMPLETED) 1,000 mL, at 1,935.48 mL/hr, Administer over 31 Minutes, ONCE, 1 dose, On 03/01/25 at 2100 2052 ($ New Bag/Syringe - Provider: Sheila Ellington RN)2123 (Stopped - Provider: Sheila Ellington RN) lactulose (Chronulac) solution 20 g 20 g, Oral, 3 TIMES DAILY, First dose on 03/02/25 at 2100, Until Discontinued 2236 ($ Given - Provider: Marietta Sanchez RN) 0852 ($ Given - Provider: Ashly Abbasi, SLIM) levETIRAcetam (Keppra) injection 1,000 mg 1,000 mg, Intravenous, EVERY 12 HOURS, First dose on 03/02/25 at 2200, Until Discontinued, Administer straight drug (undiluted) over two minutes 2223 ($ Given - Provider: Marietta Sanchez RN) 0850 ($ Given - Provider: Ashly Abbasi, SLIM) levETIRAcetam (Keppra) tablet 1,000 mg (CANCELED) 1,000 mg, Oral, 2 TIMES DAILY, First dose on 03/01/25 at 2100, Until Discontinued, Do not crush or chew because of TASTE only. 2015 ($ Given - Provider: Sheila Ellington RN) 1028 ($ Given - Provider: Patty Simms, RN)2135 (Not Administered - Provider: Saundra Jernigan, SLIM - Reason: Discontinued by physician - Comment: route changed to IV) OLANZapine (ZyPREXA) injection 10 mg (COMPLETED) 10 mg, Intramuscular, ONCE, 1 dose, On 03/02/25 at 2145, Dilute vial with 2.1 ml sterile water. Final concentration = 10mg/2ml; use within 1hr of dilution. Monitor for orthostatic hypotension prior to the administration. Reconstitute with 2.1 mL of sterile water to give approximately 5 mg/mL concentration. 2130 ($ Given - Provider: Saundra Jernigan, RN) OLANZapine (ZyPREXA) tablet 10 mg 10 mg, Oral, AT BEDTIME, First dose on 03/01/25 at 2100, Until Discontinued 2015 ($ Given - Provider: Sheila Ellington, SLIM) 2136 (Not Administered - Provider: Saundra Jernigan RN - Reason: Documented on duplicate row - Comment: IM zyprexa administered in place of PO at this time) valproate (Depacon) 250 mg in NaCl IV 0.9 % 52.5 mL IVPB 250 mg, at 52.5 mL/hr, Intravenous, EVERY 8 HOURS, First dose on 03/02/25 at 2200, Until Discontinued 2313 ($ New Bag/Syringe - Provider: Marietta Sanchez RN) 0012 (Stopped - Provider: Marietta Sanchez, SLIM)0557 ($ New Bag/Syringe - Provider: Marietta Sanchez, SLIM)0807 (Stopped - Provider: Ashly Abbasi RN) Continuous Medication Order 03/01/2025 03/02/2025 03/03/2025 0.9% NaCl infusion at 75 mL/hr, Intravenous, CONTINUOUS, Starting on 03/01/25 at 1630, Until 03/03/25 at 1152 1731 ($ New Bag/Syringe - Provider: Bekah Maki RN) 1648 ($ New Bag/Syringe - Provider: Patty Simms, SLIM)2251 ($ New Bag/Syringe - Provider: Marietta Sanchez RN) PRN Medication Order 03/01/2025 03/02/2025 03/03/2025 0.9% NaCl injection 1-10 mL(Linked Group 1) 1-10 mL, Intracatheter, PRN, Other, peripheral line flush, Starting on 03/01/25 at 1553, Until Mon03/03/25 at 1152, Flush peripheral IV catheter with 1-10 mL of normal saline before and after medications and prn to clear blood from the line or to verify patency. acetaminophen (Tylenol) tablet 650 mg 650 mg, Oral, EVERY 4 HOURS PRN, Fever, For temperature GREATER than 101 , Starting on 03/01/25 at 1554, Until Mon03/03/25 at 1152, Patient preference for lesser PRN pain meds may be honored when the patient requests a less strong medication, a lower dose, or a less intrusive route of administration when the lesser drug, dose and route have been ordered for the patient. This patient request must be documented in the MAR. If both oral and IV options are ordered for the same pain severity, give oral first unless patient cannot tolerate oral intake acetaminophen (Tylenol) tablet 650 mg 650 mg, Oral, EVERY 4 HOURS PRN, Fever, Mild Pain, Headache, Starting on 03/01/25 at 1708, Until Mon03/03/25 at 1152, Patient preference for lesser PRN pain meds may be honored when the patient requests a less strong medication, a lower dose, or a less intrusive route of administration when the lesser drug, dose and route have been ordered for the patient. This patient request must be documented in the MAR. If both oral and IV options are ordered for the same pain severity, give oral first unless patient cannot tolerate oral intake 1744 ($ Given - Provider: Bekah Maki RN)2018 ($ Given - Provider: Sheila Ellington, SLIM) 2218 ($ Given - Provider: Marietta Sanchez, SLIM) 0849 ($ Given - Provider: Ashly Abbasi, SLIM) benzonatate (Tessalon) capsule 100 mg 100 mg, Oral, 3 TIMES DAILY PRN, Cough, Starting on 03/01/25 at 1708, Until Mon03/03/25 at 1152 dextrose 10 % IV bolus(Linked Group 2) 12.5 g, at 468.75 mL/hr, Intravenous, PRN, Other, Bedside Glucose less than 70 mg/dL -If NOT able to eat and/or NPO and with IV Access, Starting on 03/01/25 at 2028, Until 03/03/25 at 1152, If NOT able to eat and/or NPO and with IV Access: For Bedside Glucose 54-69 mg/dL give 12.5 g Dextrose IV STAT For Bedside Glucose LESS than 54 mg/dl verify with a second Bedside Glucose (from a different site) and give 25 g Dextrose IV STAT Re-check and Re-treat blood glucose EVERY , 10-25 minutes until blood glucose GREATER than or equal to 80 mg/dl. NOTIFY PROVIDER OF HYPOGLYCEMIC EVENT. dextrose 10 % IV bolus(Linked Group 2) 25 g, at 937.5 mL/hr, Intravenous, PRN, Other, Bedside Glucose less than 70 mg/dL -If NOT able to eat and/or NPO and with IV Access, Starting on 03/01/25 at 2028, Until Mon03/03/25 at 1152, If NOT able to eat and/or NPO and with IV Access: For Bedside Glucose LESS than 54 mg/dl verify with a second Bedside Glucose (from a different site) and give 25 g Dextrose IV STAT Re-check and Re-treat blood glucose EVERY - 10-25 minutes until blood glucose GREATER than or equal to 80 mg/dl. - If repeat bedside glucose 54-79 give 12.5 g Dextrose IV STAT NOTIFY PROVIDER OF HYPOGLYCEMIC EVENT. glucagon (Glucagen) injection 1 mg(Linked Group 2) 1 mg, Subcutaneous, PRN, Bedside Glucose less than 70 mg/dL - If NOT able to eat and/or NPO and withOUT IV Access, Starting on 03/01/25 at 2028, Until Mon03/03/25 at 1152, If NOT able to eat and/or NPO and NO IV Access: For Bedside glucose 54-69 mg/dL - Give 1 mg subcutaneous For Bedside Glucose LESS than 54 mg/dl - verify with a second bedside glucose (from a different site) - Give 1 mg subcutaneous Re-check and Re-treat blood glucose EVERY 10-25 minutes until blood glucose GREATER than or equal to 80 mg/dl. NOTIFY PROVIDER OF HYPOGLYCEMIC EVENT. Reconstitute vial with 1 mL of sterile water for injection for a final concentration of 1 mg/mL; shake vial gently; use immediately and discard unused portion glucose (Diabetic Use) oral gel Oral, PRN, Other, Bedside Glucose less than 70 mg/dL, Starting on 03/01/25 at 2029, Until 03/03/25 at 1152, If able to take oral medications: For Bedside Glucose 54 - 69 mg/dL Give 15 grams of oral carbohydrates - 1 glucose gel (see MAR) If patient refuses glucose gel, then offer: - 4 ounces of fruit juice OR - 4 ounces non-diet soda OR - 8 ounces of fat-free milk For Bedside Glucose LESS than 54 mg/dL verify with a second Bedside Glucose (from a different site) - If pt is symptomatic, do not delay treatment - If accuracy of the POC glucose is in question, confirm glucose with a STAT laboratory test Give 30 grams of oral carbohydrates - 2 glucose gels (see MAR) If patient refuses glucose gel, then offer: - 8 ounces of fruit juice OR - 8 ounces non-diet soda OR - 16 ounces of fat-free milk Re-check and Re-treat blood glucose EVERY 10-25 minutes until blood glucose GREATER than or equal to 80 mg/dl. - If on recheck, bedside glucose 54-79 mg/dL - Give 15 grams of oral carbohydrates (see above for choices) NOTIFY PROVIDER OF HYPOGLYCEMIC EVENT. 1 tube delivers 15 grams dextrose/carbohydrates guaiFENesin (Robitussin) solution 10 mL 10 mL, Oral, EVERY 6 HOURS PRN, Cough, Starting on 03/01/25 at 1708, Until 03/03/25 at 1152 LORazepam (Ativan) injection 1 mg 1 mg, Intravenous, EVERY 6 HOURS PRN, Anxiety, Agitation, Psychosis, Seizures, Starting on 03/01/25 at 1708, Until 03/03/25 at 1152 2115 ($ Given - Provider: Marietta Sanchez, RN) 0837 ($ Given - Provider: Ashly Abbasi RN) morphine injection 2 mg 2 mg, Intravenous, EVERY 4 HOURS PRN, Severe Pain, Starting on 03/01/25 at 1708, Until 03/03/25 at 1152, Patient preference for lesser PRN pain meds may be honored when the patient requests a less strong medication, a lower dose, or a less intrusive route of administration when the lesser drug, dose and route have been ordered for the patient. This patient request must be documented in the MAR. If both oral and IV options are ordered for the same pain severity, give oral first unless patient cannot tolerate oral intake ondansetron (disintegrating) (Zofran ODT) tablet 4 mg(Linked Group 3) 4 mg, Oral, EVERY 6 HOURS PRN, Nausea/Vomiting, Starting on 03/01/25 at 1554, Until 03/03/25 at 1152, Dissolved orally on tongue ondansetron (Zofran) injection 4 mg(Linked Group 3) 4 mg, Intravenous, EVERY 6 HOURS PRN, Nausea/Vomiting, Starting on 03/01/25 at 1554, Until 03/03/25 at 1152, Administer IV if patient is NPO, actively vomiting, or unable to swallow. ondansetron (Zofran) injection 4 mg 4 mg, Intravenous, EVERY 6 HOURS PRN, Nausea/Vomiting, Starting on 03/01/25 at 1708, Until 03/03/25 at 1152, Administer over 2 to 5 minutes. oxyCODONE (immediate release) (Roxicodone) tablet 5 mg 5 mg, Oral, EVERY 6 HOURS PRN, Moderate Pain, Starting on 03/01/25 at 1708, Until 03/03/25 at 1152, Patient preference for lesser PRN pain meds may be honored when the patient requests a less strong medication, a lower dose, or a less intrusive route of administration when the lesser drug, dose and route have been ordered for the patient. This patient request must be documented in the MAR. If both oral and IV options are ordered for the same pain severity, give oral first unless patient cannot tolerate oral intake 0048 ($ Given - Provider: Sheila Ellington RN) polyethylene glycol 3350 (Miralax) packet 17 g 17 g, Oral, DAILY PRN, Constipation, Starting on 03/02/25 at 1904, Until Mon03/03/25 at 1152, Mix in 8 ounces of water, juice, soda, coffee or tea prior to administration prochlorperazine (Compazine) injection 10 mg 10 mg, Intravenous, EVERY 6 HOURS PRN, Nausea/Vomiting, Starting on 03/01/25 at 1708, Until Mon03/03/25 at 1152, Max intravenous rate = 5 mg/min throat lozenge 1 lozenge 1 lozenge, Oral, EVERY 2 HOURS PRN, Sore Throat, Starting on 03/01/25 at 1708, Until Mon03/03/25 at 1152 Linked Groups Order Group 1: SALINE LOCK, INSERT AND MAINTAIN (CANCELED) Routine, CONTINUOUS, Starting on 03/01/25 at 1600, Until Specified, New collection And 0.9% NaCl injection 3 mLJump to med 3 mL, Intracatheter, EVERY 8 HOURS, First dose on 03/01/25 at 1630, Until Discontinued, Flush peripheral IV catheter with 3 mL of normal saline every 8 hours. And 0.9% NaCl injection 1-10 mLJump to med 1-10 mL, Intracatheter, PRN, Other, peripheral line flush, Starting on 03/01/25 at 1553, Until Mon03/03/25 at 1152, Flush peripheral IV catheter with 1-10 mL of normal saline before and after medications and prn to clear blood from the line or to verify patency. Group 2: dextrose 10 % IV bolusJump to med 12.5 g, at 468.75 mL/hr, Intravenous, PRN, Other, Bedside Glucose less than 70 mg/dL -If NOT able to eat and/or NPO and with IV Access, Starting on 03/01/25 at 2028, Until Mon03/03/25 at 1152, If NOT able to eat and/or NPO and with IV Access: For Bedside Glucose 54-69 mg/dL give 12.5 g Dextrose IV STAT For Bedside Glucose LESS than 54 mg/dl verify with a second Bedside Glucose (from a different site) and give 25 g Dextrose IV STAT Re-check and Re-treat blood glucose EVERY , 10-25 minutes until blood glucose GREATER than or equal to 80 mg/dl. NOTIFY PROVIDER OF HYPOGLYCEMIC EVENT. Or dextrose 10 % IV bolusJump to med 25 g, at 937.5 mL/hr, Intravenous, PRN, Other, Bedside Glucose less than 70 mg/dL -If NOT able to eat and/or NPO and with IV Access, Starting on 03/01/25 at 2028, Until Mon03/03/25 at 1152, If NOT able to eat and/or NPO and with IV Access: For Bedside Glucose LESS than 54 mg/dl verify with a second Bedside Glucose (from a different site) and give 25 g Dextrose IV STAT Re-check and Re-treat blood glucose EVERY - 10-25 minutes until blood glucose GREATER than or equal to 80 mg/dl. - If repeat bedside glucose 54-79 give 12.5 g Dextrose IV STAT NOTIFY PROVIDER OF HYPOGLYCEMIC EVENT. Or glucagon (Glucagen) injection 1 mgJump to med 1 mg, Subcutaneous, PRN, Bedside Glucose less than 70 mg/dL - If NOT able to eat and/or NPO and withOUT IV Access, Starting on 03/01/25 at 2029, Until Mon03/03/25 at 1152, If NOT able to eat and/or NPO and NO IV Access: For Bedside glucose 54- 69 mg/dL - Give 1 mg subcutaneous For Bedside Glucose LESS than 54 mg/dl - verify with a second bedside glucose (from a different site) - Give 1 mg subcutaneous Re-check and Re-treat blood glucose EVERY 10-25 minutes until blood glucose GREATER than or equal to 80 mg/dl. NOTIFY PROVIDER OF HYPOGLYCEMIC EVENT. Reconstitute vial with 1 mL of sterile water for injection for a final concentration of 1 mg/mL; shake vial gently; use immediately and discard unused portion Group 3: ondansetron (disintegrating) (Zofran ODT) tablet 4 mgJump to med 4 mg, Oral, EVERY 6 HOURS PRN, Nausea/Vomiting, Starting on 03/01/25 at 1554, Until Mon03/03/25 at 1152, Dissolved orally on tongue Or ondansetron (Zofran) injection 4 mgJump to med 4 mg, Intravenous, EVERY 6 HOURS PRN, Nausea/Vomiting, Starting on 03/01/25 at 1554, Until 03/03/25 at 1152, Administer IV if patient is NPO, actively vomiting, or unable to swallow. documented in this encounter Care Teams Tray Casting Machine Operator Relationship Specialty Start Date End Date Izzy Shukla MD [address] [place] [id number] 05/27/21 documented as of this encounter
--- OUTSIDE RECORDS SUMMARY | 2025-03-03 17:17 | XMS_ITS | Encounter Summary ---
Author Organization [facility] - [facility] Address [facility] [place] [address] Care Team Providers Care Service Planner Name Role Phone Geno Gerard Primary Care Provider [phone] None, Provider Unavailable Unavailable Encounter Details Date Type Department Care Team (Late st Contact Info) Description 12/26/2022 [email or web address] Message Enc [facility] Medical Group Family and Sports Medicine - [place] [address] [place] [address] [facility] Provider Schedule Appointment: Annual Physical [...] on filedocumented in this encounter Care Teams Service Planner Relationship Specialty Start Date End Date Geno Gerard APNP [address] [place] [address] PCP - General NURSE PRACTITIONER 10/15/18 None, ProviderMD 08/01/18 documented as of this encounter
--- OUTSIDE RECORDS SUMMARY | 2025-03-03 17:17 | XMS_ITS | Encounter Summary ---
Author Organization [facility] Address [address] [place] [id number] Care Team Providers Care Web Ui Software Engineer Name Role Phone Geno Gerard Primary Care Provider [phone] None, Provider Unavailable Unavailable Encounter Details Date Type Department Care Team (Late st Contact Info) Description 10/10/2022 [employer] Message Enc [facility] Medical Group Family and Sports Medicine - [place] [address] [place] [address] [facility] Provider Schedule Appointment: Annual Physical Due Social [...] on filedocumented in this encounter Care Teams Web Ui Software Engineer Relationship Specialty Start Date End Date Geno Gerard APNP [address] [place] [address] PCP - General NURSE PRACTITIONER 10/15/18 None, Provider, 08/01/18 documented as of this encounter
--- OUTSIDE RECORDS SUMMARY | 2025-03-03 17:17 | XMS_ITS | Encounter Summary ---
Author Organization [facility] Facility Care Team Providers Care [employer] Name Role Phone No, Physician Primary Care Provider Reason for Visit * Auth/Cert Specialty Diagnoses / Procedures Referred By Reny t Referred To Contact Diagnoses SEIZURES Procedures VIDEO EEG Referral ID Status Reason Start Date Expiration Date Visits Re quested Visits Authorized [id number] 1 1 Encounter Details Date Type Department Care Team (Late st Contact Info) Description 03/09/2022 8:00 AM CDT Hospital Encounter Timothy Malik MD PhD [address] [place] [address] Social History Tobacco Use Types Packs/Day Years Used Date Smoking Tobacco: Former Cigarettes Q uit: 12/28/2021 Smokeless Tobacco: Never [facility] Utilities Answer Date Recorded In the past 12 months has [employer] electric, gas, oil, or water company threatened [...] often do you attend chur ch or jainism services? 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
--- OUTSIDE RECORDS SUMMARY | 2025-03-03 17:18 | XMS_ITS | Clinical Summary ---
Author Organization [facility] Address [address] [place] [address] Care Team Providers Care Crew Caller Name Role Phone Izzy Shukla MD Unavailable [phone] Source Comments [facility],non-owned Affiliates and Associated Physician Practices is amultiple site organization consisting of ambulatory clinics and hospital sitesin [place], [place], [place] and [place]. This disclosure is being madepursuant to the Care Everywhere program and may not contain all information available regarding this patient. Last updated 18.[facility] Allergies Active Allergy Reactions Criticality Noted Date Comments Ibuprofen Other 11/26/2010 Pt states it causes shaking Clobazam Other 06/11/2023 Sores in mouth Medications * This document contains information received from the source organization and may not represent a complete record from that organization. * Be aware that medications may not be up to date on this document. Alwaysverify current medications with the patient. lacosamide (Vimpat) 200 MG tablet Take 1 (one) tablet by mouth 2 times daily 60 tablet 3 06/16/20 23 Active levETIRAcetam (Keppra) 1000 MG tablet Take 1 (one) tablet by mouth 2 times daily 60 tablet 3 06/16/20 23 Active cyproheptadine (Periactin) 4 MG tablet Take 1 (one) tablet by mouth 2 times daily 60 tablet 3 06/16/20 23 Active Additional Information Patient taking differently:4 mg OralAT BEDTIME, Reason: Provider adjusted, Reported on 02/26/2025 mirtazapine (Remeron) 15 MG tablet Take 0.5 (one-half) tablet by mouth nightly as needed (sleep, anxiety) Active ARIPiprazole (Abilify) 5 MG tablet Take 1 (one) tablet by mouth at bedtime Active medroxyPROGEST ERone (Depo-Provera) 150 MG/ML vial Inject 1 mL into muscle Every 90 days Active Nutritional Supplement LIQD Take 1 container by mouth 2 times daily for 30 days Your Registered Dietitian recommends that you continue an oral nutrition supplement 1-2 times daily for 30 days after discharge. High Calorie High Protein Supplement Examples: Ensure Enlive/Ensure Plus/Boost Plus/Equate Plus 02/28/[address] (Depakote) 250 MG tablet Take 1 (one) tablet by mouth 3 times daily for 30 days 90 tablet 02/29/20 25 025 Active OLANZapine, disintegrating , (ZyPREXA Zydis) 10 MG tablet Take 1 (one) tablet by mouth at bedtime for 30 days 30 tablet 02/29/20 25 025 Active famotidine (Pepcid) 20 MG tablet Take 1 (one) tablet by mouth every 12 hours 60 tablet 2 06/29/20 22 025 Discontin ued(List Clean-Up) ondansetron (Zofran) 4 MG tablet Take 1 (one) tablet by mouth every 6 hours as needed for Nausea/Vomiting 10 tablet 06/29/20 22 025 Discontin ued(List Clean-Up) acetaminophen (Tylenol) 325 MG tablet Take 2 (two) tablets by mouth every 6 hours as needed for Fever or Pain Maximum allowable Acetaminophen amount = 4 Grams (4000 mg) / 24 hours. 60 tablet 1 07/25/20 22 025 Discontin ued(List Clean-Up) QUEtiapine (SEROquel) 50 MG tablet Take 1 (one) tablet by mouth every morning 30 tablet 3 06/16/20 23 025 Discontin ued(List Clean-Up) QUEtiapine (SEROquel) 100 MG tablet Take 1 (one) tablet by mouth at bedtime 30 tablet 3 06/16/20 23 025 Discontin ued(List Clean-Up) miSOPROStol (Cytotec) 200 MCG tablet Insert 4 (four) tablets into the vagina as directed 800 mcg intravaginally, then repeat in 24 hours 02/22/20 025 Discontin ued(Clini veda Decision) Active Problems Problem Noted Date Diagnosed Date Status epilepticus 02/23/2025 Bipolar affective disorder, currently depressed, moderate 06/06/2023 [...] (03/22/2011): Pt is a 15 yo who [facility] 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 H lab results reviewed and [employer] exam reviewed with Dr. Kaitlynn Joseph over [...] given. Parent wishing to transfer care to sales enablement manager. Pt to followup with Dr. Joseph in [...] 3 weeks and then menstruate for 1. [facility] providers have told her in past to use for more than 3 weeks. Abdominal pain, generalized 11/19/2010 03/17/2022 Overview (03/22/2011): Pt with no pain on palpation of abdomen or pelvic region today. Continue to monitor abdominal pain. Monitor stools. May use tylenol prn for pain. Constipation 11/19/2010 03/17/2022 IBS (irritable bowel syndrome) 11/19/2010 03/17/2022 Encounters Date Type Department Care Team Description 03/01/2025 3:01 PM CDT - 03/03/2025 10:52 AM CDT Hospital Encounter [facility]S TELE/NEURO [address] [id number] Rick Campuzano MD Fatima, Noor E, MD Bezuneh, Abraham D, MD Hospitalist Discharge Disposition: Home or Self Care 02/24/2025 Travel 02/23/2025 10:21 AM CDT - 02/28/2025 8:00 PM CDT Hospital Encounter [facility]S TELE/NEURO [address] [place] [address] Jemma Virgen MD [place], MD Blayne Villalobos, Raymon Castillo, Kelli Chen MD Bezuneh, Armand Reyes MD Hospitalist Discharge Disposition: Admitted as an Inpatient 02/23/2025 6:17 AM CDT - 02/23/2025 7:19 AM CDT Emergency ER at [address] [address] from Last 3 Months Immunizations Immunization Administration Dates Next Due MMR [...] and heating? Not hard at all 02/26/2025 [facility] Occup[facility] ional [facility] - Occupational Stress [...] place to sleep or slept in a usp (including now)? No 06/04/2023 Foley Depression Scale Answer Date Recorded RETIRED: Total [...] any time in the past 12 m onths, were you homeless or living in a usp (including now)? 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 Gender Identity Not on file Sexual Orientation Not on file Last Filed Vital Signs Vital Sign Reading Time Taken Comments Blood Pressure 110/73 03/03/2025 10:45 AM CDT Pulse 99 03/03/2025 10:45 AM CDT Temperature 36.8 C (98.2 F) 03/03/2025 10:45 AM CDT Respiratory Rate 14 03/03/2025 8:00 AM CDT Oxygen Saturation 99% 03/03/2025 8:00 AM CDT Inhaled Oxygen Concentration 30% 02/24/2025 8 :28 PM CDT Weight 60.9 kg (134 lb 4.2 oz) 02/27/2025 4:22 A M CDT Height 163.8 cm (5' 4.5 ) 02/23/2025 2:01 PM CDT Body Mass Index 22.69 02/23/2025 2:01 PM CDT Plan of Treatment Health Maintenance Due [...] OF CARE Routine 03/01/2025 3:20 PM CDT GLUCOSE - POINT OF CARE Routine 02/28/2025 11:28 AM CDT EEG EXTENDED MONITORING > 1 HOUR STAT 02/28/2025 8:35 AM CDT US OB LESS THAN 14 WKS W TRANSVAG Routine 02/28/2025 7:53 AM CDT contractions (HCC) CBC W AUTO DIFFERENTIAL Routine 02/28/2025 6:37 AM CDT MAGNESIUM BLOOD Routine 02/28/2025 6:37 AM CDT RENAL FUNCTION PANEL Routine 02/28/2025 6:37 AM CDT IGG BLOOD Routine 02/27/2025 2:43 AM CDT HERPES SIMPLEX 2 ANTIBODY IGG AM Draw 02/27/2025 2:43 AM CDT CBC W AUTO DIFFERENTIAL Routine 02/27/2025 2:43 AM CDT MAGNESIUM BLOOD Routine 02/27/2025 2:43 AM CDT RENAL FUNCTION PANEL Routine 02/27/2025 2:43 AM CDT GLUCOSE - POINT OF CARE Routine 02/26/2025 8:16 AM CDT HCG BETA BLOOD QUANTITATIVE Timed 02/26/2025 3:43 AM CDT HCG BLOOD QUAL REFLEX QUANT Timed 02/26/2025 3:43 AM CDT CBC W AUTO DIFFERENTIAL Routine 02/26/2025 3:43 AM CDT MAGNESIUM BLOOD Routine 02/26/2025 3:43 AM CDT RENAL FUNCTION PANEL Routine 02/26/2025 3:43 AM CDT GLUCOSE - POINT OF CARE Routine 02/25/2025 9:26 PM CDT MRI BRAIN WWO CONTRAST Routine 02/25/2025 8:13 PM CDT Seizures (HCC) GLUCOSE - POINT OF CARE Routine 02/25/2025 5:36 PM CDT GLUCOSE - POINT OF CARE Routine 02/25/2025 1:23 PM CDT GLUCOSE - POINT OF CARE Routine 02/25/2025 10:53 AM CDT GLUCOSE - POINT OF CARE Routine 02/25/2025 8:14 AM CDT CBC W AUTO DIFFERENTIAL Routine 02/25/2025 4:33 AM CDT MAGNESIUM BLOOD Routine 02/25/2025 4:33 AM CDT RENAL FUNCTION PANEL Routine 02/25/2025 4:33 AM CDT TRIGLYCERIDES BLOOD AM Draw 02/25/2025 4 :33 AM CDT GLUCOSE - POINT OF CARE Routine 02/25/2025 4:32 AM CDT GLUCOSE - POINT OF CARE Routine 02/24/2025 11:58 PM CDT GLUCOSE - POINT OF CARE Routine 02/24/2025 8:50 PM CDT GLUCOSE - POINT OF CARE Routine 02/24/2025 3:51 PM CDT GLUCOSE - POINT OF CARE Routine 02/24/2025 11:22 AM CDT GLUCOSE - POINT OF CARE Routine 02/24/2025 7:55 AM CDT GLUCOSE - POINT OF CARE Routine 02/24/2025 5:00 AM CDT CK BLOOD Routine 02/24/2025 4:57 AM CDT CBC W AUTO DIFFERENTIAL Routine 02/24/2025 4:57 AM CDT MAGNESIUM BLOOD Routine 02/24/2025 4:57 AM CDT RENAL FUNCTION PANEL Routine 02/24/2025 4:57 AM CDT HEMOGLOBIN A1C Routine 02/24/2025 4:57 AM CDT HCG BETA BLOOD QUANTITATIVE GIOVANNA 02/24/2025 4:57 AM CDT GLUCOSE - POINT OF CARE Routine 02/24/2025 12:10 AM CDT HGB HCT PANEL Routine 02/23/2025 9:59 PM CDT BASIC METABOLIC PANEL (CALCIUM TOTAL) Routine 02/23/2025 9:59 PM CDT GLUCOSE - POINT OF CARE Routine 02/23/2025 9:52 PM CDT GLUCOSE - POINT OF CARE Routine 02/23/2025 3:18 PM CDT BLOOD GASES ARTERIAL STAT 02/23/2025 11:18 AM CDT MAGNESIUM BLOOD STAT 02/23/2025 11:14 AM CDT PHOSPHORUS BLOOD STAT 02/23/2025 11:1 4 AM CDT LACTIC ACID BLOOD STAT 02/23/2025 11: 14 AM CDT AMMONIA STAT 02/23/2025 11:14 AM CDT CBC W AUTO DIFFERENTIAL STAT 02/23/2025 11:14 AM CDT COMPREHENSIVE METABOLIC PANEL STAT 02/23/2025 11:14 AM CDT XR CHEST 1VW PORTABLE STAT 02/23/2025 11:10 AM CDT Status epilepticus (HCC) HIV-1 HIV-2 ANTIBODY Routine 12/30/2009 4:38 PM 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 Glucose WB/POC 103(H) 70 - 99 mg/dL 03/02/2025 9:18 PM CDT [facility] Specimen Type Cap Fingerstick 2024 9:18 PM CDT [facility] Blood BLOOD SPECIMEN / Unknown 03/02/2025 9:16 PM CDT 03/02/2025 9:18 PM CDT Armand Fam MD LAB - POINT OF CARE ORDERAB LES Final Result [facility] [id number] [place] [address] * (ABNORMAL) BASIC METABOLIC PANEL (CALCIUM TOTAL) (03/02/2025 3:49 AM CDT) Only the most recent of2 resultswithin the time period is included. Glucose 102(H) 70 - 99 mg/dL 03/02/2025 4:22 AM CDT [facility] Sodium 141 136 - 145 mmol/L 03/02/2025 4:22 AM CDT [facility] Potassium 3.9 3.5 - 5.1 mmol/L 03/02/2025 4:22 AM CDT [facility] Chloride 112(H) 98 - 107 mmol/L 03/02/2025 4:22 AM CDT [facility] CO2 23 22 - 29 mmol/L 03/02/2025 4:22 AM CDT [facility] Calcium 8.3(L) 8.4 - 10.4 mg/dL 03/02/2025 4:22 AM CDT [facility] Anion Gap 6 6 - 16 mmol/L 03/02/2025 4:22 AM CDT [facility] BUN 8 5.3 - 18.7 mg/dL 03/02/2025 4:22 AM CDT [facility] Creatinine 0.63 0.57 - 1.11 mg/dL 03/02/2025 4:22 AM CDT [facility] eGFR by CKD-EPI >90 >=90 mL/min/1.7 3 m2 03/02/2025 4:22 AM CDT [facility] Blood BLOOD SPECIMEN / Unknown Venipuncture / Unknown 03/02/2025 3:49 AM CDT 03/02/2025 3:57 AM CDT Rick Campuzano MD LAB - CHEMISTRY ORDERAB LES Final Result [facility] [address] [place] [address] * (ABNORMAL) CBC W AUTO DIFFERENTIAL (03/01/2025 5:27 PM CDT) Only the most recent of7 resultswithin the time period is included. WBC 6.1 4.0 - 10.7 x10E9/L 03/01/2025 5:56 PM CDT [facility] RBC Count 3.40(L) 3.90 - 5.20 x10E12/L 03/01/2025 5:56 PM CDT [facility] Hemoglobin 9.9(L) 11.9 - 15.8 g/dL 03/01/2025 5:56 PM CDT [facility] Hematocrit 31.6(L) 34.8 - 46.1 % 03/01/2025 5:56 PM CDT [facility] MCV 92.9 80.0 - 98.0 fL 03/01/2025 5:56 PM CDT [facility] MCH 29.1 26.7 - 33.6 pg 03/01/2025 5:56 PM CDT [facility] MCHC 31.3(L) 31.7 - 36.3 g/dL 03/01/2025 5:56 PM CDT [facility] RDW-CV 13.3 11.3 - 14.8 % 03/01/2025 5:56 PM CDT [facility] Platelet Count 288 150 - 420 x10E9/L 03/01/2025 5:56 PM CDT [facility] MPV 10.3 7.8 - 11.4 fL 03/01/2025 5:56 PM CDT [facility] Neutrophil % 66.0 41.0 - 74.0 % 03/01/2025 5:56 PM CDT [facility] Lymphocyte % 25.9 17.0 - 47.0 % 03/01/2025 5:56 PM CDT [facility] Monocyte % 5.5 3.0 - 11.0 % 03/01/2025 5:56 PM CDT [facility] Eosinophil % 1.6 0.0 - 7.0 % 03/01/2025 5:56 PM CDT [facility] Basophil % 0.7 0.0 - 1.6 % 03/01/2025 5:56 PM CDT [facility] Immature Granulocytes % 0.3 0.0 - 1.0 % 03/01/2025 5:56 PM CDT [facility] Neutrophil Absolute 4.04 1.60 - 7.50 x10E9/L 03/01/2025 5:56 PM CDT [facility] Lymphocyte Absolute 1.59 1.00 - 4.40 x10E9/L 03/01/2025 5:56 PM CDT [facility] Monocyte Absolute 0.34 0.15 - 1.00 x10E9/L 03/01/2025 5:56 PM CDT [facility] Eosinophil Absolute 0.10 0.00 - 0.60 x10E9/L 03/01/2025 5:56 PM CDT [facility] Basophil Absolute 0.04 0.00 - 0.13 x10E9/L 03/01/2025 5:56 PM CDT [facility] Blood BLOOD SPECIMEN / Unknown Venipuncture / Unknown 03/01/2025 5:27 PM CDT 03/01/2025 5:37 PM CDT us Rick Campuzano MD LAB - HEMATOLOGY ORDERA BLES Final Result [facility] [id number] [employer] [facility] ([place] [address] * (ABNORMAL) COMPREHENSIVE METABOLIC PANEL (03/01/2025 5:27 PM CDT) Only the most recent of2 resultswithin the time period is included. Glucose 107(H) 70 - 99 mg/dL 03/01/2025 5:52 PM CDT [facility] Sodium 141 136 - 145 mmol/L 03/01/2025 5:52 PM CDT [facility] Potassium 3.6 3.5 - 5.1 mmol/L 03/01/2025 5:52 PM CDT [facility] Chloride 110(H) 98 - 107 mmol/L 03/01/2025 5:52 PM CDT [facility] CO2 23 22 - 29 mmol/L 03/01/2025 5:52 PM CDT [facility] Calcium 8.9 8.4 - 10.4 mg/dL 03/01/2025 5:52 PM CDT [facility] Anion Gap 8 6 - 16 mmol/L 03/01/2025 5:52 PM CDT [facility] BUN 8 5.3 - 18.7 mg/dL 03/01/2025 5:52 PM CDT [facility] Creatinine 0.64 0.57 - 1.11 mg/dL 03/01/2025 5:52 PM CDT [facility] Alkaline Phosphatase 49 40 - 150 U/L 03/01/2025 5:52 PM CDT [facility] ALT 19 6 - 57 U/L 03/01/2025 5:52 PM CDT [facility] AST 39 10 - 48 U/L 03/01/2025 5:52 PM CDT [facility] Protein Total 6.7 6.4 - 8.3 gm/dL 03/01/2025 5:52 PM CDT [facility] Albumin 3.7 3.4 - 5.0 gm/dL 03/01/2025 5:52 PM CDT [facility] Bilirubin Total 0.3 0.2 - 1.2 mg/dL 03/01/2025 5:52 PM CDT [facility] eGFR by CKD-EPI >90 >=90 mL/min/1.7 3 m2 03/01/2025 5:52 PM CDT [facility] Blood BLOOD SPECIMEN / Unknown Venipuncture / Unknown 03/01/2025 5:27 PM CDT 03/01/2025 5:37 PM CDT Rick Campuzano MD LAB - CHEMISTRY ORDERAB LES Final Result [facility] [address] [place] [address] * EEG EXTENDED MONITORING > 1 HOUR (02/28/2025 8:35 AM CDT) [facility]ative [facility] 02/28/[facility] 8:35 AM CDT Waqas Burnham MD 02/28/2025 8:36 AM LONG-TERM VIDEO EEG SUMMARY REPORT [facility] Long-term video EEG monitoring was performed on a patient with status. Utilizing the [employer] recording system, EEG was recorded in standard multichannel format, and synchronized with currently recorded EKG and video by cable telemetry. Electrode placement was as per the 10/20 system of electrode placement. The record was reviewed in its entirety, utilizing both bipolar and referential montages, as appropriate. Appropriate provocations were made. The quality of the recording is good. The background consists of diffusely slowed, mostly 4-6 hz activity with a posterior dominant rhythm. The record is continuous and symmetric with good variability and reactivity.No other focal or lateralizing abnormalities are noted. Up to stage 3 sleep is noted. Sleep architecture is within normal limits. Suspected seizure-like [place] [address] on Feb 23, 2025. No EEG correlate is seen. Automatic spike and seizure detection are unremarkable. No events reported. A total of over 20h was reviewed beginning at 1200 on Feb 24, 2025. The background consists of diffusely slowed, mostly 4-6 hz activity with a posterior dominant rhythm. The record is continuous and symmetric with good variability and reactivity.No other focal or lateralizing abnormalities are noted. Up to stage 3 sleep is noted. Sleep architecture is within normal limits. Automatic spike and seizure detection are unremarkable. A total of over 20h was reviewed beginning at 1200 on Feb 25, 2025. The background consists of diffusely slowed, mostly 6-8 hz activity with a posterior dominant rhythm. The record is continuous and symmetric with good variability and reactivity.No other focal or lateralizing abnormalities are noted. Up to stage 3 sleep is noted. Sleep architecture is within normal limits. Event is reported at 1025 on Feb 25, 2025. Thrashing and arching are noted. EEG is normal. Automatic spike and seizure detection are unremarkable. A total of over 20h was reviewed beginning at 1200 on Feb 26, 2025. The background consists of diffusely slowed, mostly 6-8 hz activity with a posterior dominant rhythm. The record is continuous and symmetric with good variability and reactivity.No other focal or lateralizing abnormalities are noted. Up to stage 3 sleep is noted. Sleep architecture is within normal limits. No seizures are seen. Automatic spike and seizure detection are unremarkable. Impression: VIDEO EEG MONITORING RECORD DEMONSTRATING INITIALLY DIFFUSE SLOWING CONSISTENT WITH SEDATION/ENCEPHALOPATHY EVOLVING TO A NORMAL BACKGROUND. EVENTS CAPTURED ARE NONEPILEPTIC. NO EVIDENCE OF UNDERLYING EPILEPTIC SEIZURE ACTIVITY IS SEEN. Roma Burger MD NEUROLOGY ORDERABLES Final Re sult [facility] * US OB Less Than 14 Wks W Transvag (02/28/2025 7:53 AM CDT) Anatomical Region Laterality Modality Abdomen Ultrasound 02/28/2025 10:4 7 AM CDT Impressions 02/28/2025 10:52 AM CDT IMPRESSION: 1. An intrauterine is NOT identified. Serial beta hCG and if needed, short interval follow-up pelvic ultrasound is recommended. 2. No adnexal mass or pelvic free fluid. > Interpreting Provider: Jamal Buhs DO on 02/28/2025 10:52 AM Narrative 02/28/2025 10:52 AM CDT PROCEDURE: US OB LESS THAN 14 WKS W TRANSVAG DATE/TIME OF EXAM: 02/28/2025 7:53 AM CLINICAL INFORMATION: contractions. Clinical gestational age 9 weeks 0 days. COMPARISON: None. TECHNIQUE: Real time transabdominal and transvaginal pelvic ultrasound was performed by the shanker out with DICOM image capture. Obstetric follow-up care is recommended possibly including follow-up laboratory evaluation and dedicated obstetric ultrasound examinations at OB's discretion. This exam does not constitute a survey. FINDINGS: Uterus is retroverted estimated at 6.2 x 4.7 x 5.3 cm. Endometrial complex is thickened and mildly heterogenous measuring up to 23 mm. An intrauterine gestational sac is not identified. Left ovary measures 0.9 x 1.9 x 1.2 cm (1 cc). Right ovary measures 3.3 x 1.3 x 1.4 cm (3 cc). No separate adnexal mass. No pelvic free fluid. Procedure Note Jamal Bush DO - 02/28/2025 PROCEDURE: US OB LESS THAN 14 WKS W TRANSVAG DATE/TIME OF EXAM: 02/28/2025 7:53 AM CLINICAL INFORMATION: contractions. Clinical gestational age 9 weeks 0 days. COMPARISON: None. TECHNIQUE: Real time transabdominal and transvaginal pelvic ultrasound wasperformed by the shanker out with DICOM image capture. Obstetric follow-up care is recommended possibly including follow-up laboratory evaluation and dedicated obstetric ultrasound examinations at OB's discretion. This exam does not constitute a survey. FINDINGS: Uterus is retroverted estimated at 6.2 x 4.7 x 5.3 cm. Endometrialcomplex is thickened and mildly heterogenous measuring up to 23 mm. Anintrauterine gestational sac is not identified. Left ovary measures 0.9 x 1.9 x 1.2 cm (1 cc). Right ovary measures 3.3 x 1.3 x 1.4 cm (3 cc). No separate adnexalmass. No pelvic free fluid. IMPRESSION: 1. An intrauterine is NOT identified. Serial beta hCG and if needed, short interval follow-up pelvic ultrasound is recommended. 2. No adnexal mass or pelvic free fluid. > Interpreting Provider: Jamal Bush DO on 02/28/2025 10:52 AM us Armand Fam MD US ORDERABLES Final Resul t * (ABNORMAL) RENAL FUNCTION PANEL (02/28/2025 6:37 AM CDT) Only the most recent of5 resultswithin the time period is included. Glucose 99 70 - 99 mg/dL 02/28/2025 7:09 AM CDT [facility] Sodium 142 136 - 145 mmol/L 02/28/2025 7:09 AM CDT [facility] Potassium 3.6 3.5 - 5.1 mmol/L 02/28/2025 7:09 AM CDT [facility] Chloride 109(H) 98 - 107 mmol/L 02/28/2025 7:09 AM CDT [facility] CO2 26 22 - 29 mmol/L 02/28/2025 7:09 AM CDT [facility] Calcium 9.1 8.4 - 10.4 mg/dL 02/28/2025 7:09 AM T [facility] Anion Gap 7 6 - 16 mmol/L 02/28/2025 7:09 AM CDT [facility] BUN 4(L) 5.3 - 18.7 mg/dL 02/28/2025 7:09 AM CDT [facility] Creatinine 0.61 0.57 - 1.11 mg/dL 02/28/2025 7:09 AM CDT [facility] Albumin 3.2(L) 3.4 - 5.0 gm/dL 02/28/2025 7:09 AM CDT [facility] Phosphorus 4.6(H) 2.5 - 4.5 mg/dL 02/28/2025 7:09 AM T [facility] eGFR by CKD-EPI >90 >=90 mL/min/1.7 3 m2 02/28/2025 7:09 AM T [facility] Blood BLOOD SPECIMEN / Unknown Venipuncture / Unknown 02/28/2025 6:37 AM CDT 02/28/2025 6:50 AM CDT Roma Burger MD LAB - CHEMISTRY ORDERABLES Fi nal Result [facility] [address] [place] [address] * MAGNESIUM BLOOD (02/28/2025 6:37 AM CDT) Only the most recent of6 resultswithin the time period is included. Pathologist [facility] Magnesium 1.7 1.6 - 2.6 mg/dL 02/28/2025 7:07 AM CDT [facility] Blood BLOOD SPECIMEN / Unknown Venipuncture / Unknown 02/28/2025 6:37 AM CDT 02/28/2025 6:50 AM CDT Roma Burger MD LAB - CHEMISTRY ORDERABLES Fi nal Result [facility] [address] [place], [place] [id number] * (ABNORMAL) HERPES SIMPLEX 2 ANTIBODY IGG (02/27/2025 2:43 AM CDT) [facility] Herpes Simplex Virus 2 Antibody IgG Type Specific Reactive( A) Non Reactive 02/28/2025 8:11 AM CDT [facility] ([facility]) Comment: Please note reference interval change Current guidelines and recommendations do not recommend routine screening for HSV-2 in asymptomatic individuals, including those that are . The detection of HSV-2 IgG antibodies in a single sample indicates previous exposure to HSV-2 but does not give information as to the site of HSV infection or the timing of exposure. The predictive value of positive and negative results depends on the population's prevalence and the pretest likelihood of HSV-2. HSV-2 IgG testing performed using the [employer] HSV-2 IgG assay. Blood BLOOD SPECIMEN / Unknown Venipuncture / Unknown 02/27/2025 2:43 AM CDT 02/27/2025 2:57 AM CDT Narrative [facility] ([facility]) - 02/28/2025 8:11 AM CDT Performed at: [facility] [id number] [employer] Supervisor: Roe John PhD, Phone: [phone] Weston Florentino CRIMINAL RESEARCHER-INTERMEDIATE DESIGNER LAB - CHEMISTRY ORDERA BLES Final Result [facility] ([facility]) [address] [place], [place] [id number] * IGG BLOOD (02/27/2025 2:43 AM CDT) [facility] IgG 1,080 767 - 1,590 mg/dL 02/27/2025 10:34 AM CDT [facility] Blood BLOOD SPECIMEN / Unknown Venipuncture / Unknown 02/27/2025 2:43 AM CDT 02/27/2025 2:57 AM CDT Weston Florentino CRIMINAL RESEARCHER-INTERMEDIATE DESIGNER LAB - CHEMISTRY ORDERA BLES Final Result Performing Organization Address City/[facility]/ZIP Co de Phone Number [facility] [address] [place] [address], [facility] [phone] * (ABNORMAL) HCG BLOOD QUAL REFLEX QUANT (02/26/2025 3:43 AM CDT) [facility] HCG Qual Serum Positive(A ) Negative 02/26/2025 4:22 AM CDT [facility] Blood BLOOD SPECIMEN / Unknown Venipuncture / Unknown 02/26/2025 3:43 AM CDT 02/26/2025 3:56 AM CDT Narrative [facility] - 02/26/2025 4:22 AM CDT Specimens containing human anti-mouse antibodies may exhibit false positive or false negative results. If qualitative interpretation is inconsistent with clinical evaluation, consider confirmation by an alternative hCG method. Waqas Cotter MD LAB - CHEMISTRY O RDERABLES Final Result [facility] [address] [place] [address] * HCG BETA BLOOD QUANTITATIVE (02/26/2025 3:43 AM CDT) Only the most recent of2 resultswithin the time period is included. [facility] hCG Quantitative 5,731.84 mIU/mL 02/27/20 5:52 AM CDT [facility] Blood BLOOD SPECIMEN / Unknown Venipuncture / Unknown 02/26/2025 3:43 AM CDT 02/26/2025 3:56 AM CDT Narrative [facility] - 02/26/2025 5:52 AM CDT hCG Reference Range, mIU/mL: Non Females 0-6.0 Perimenopausal Females ages 41-55* 0-7.7 Postmenopausal Females age >55* 0-14 Females, Weeks after Last Menstrual Period 0.2-1 week 5-50 1 - 2 weeks 50-500 2 - 3 weeks 100-5000 3 - 4 weeks 500-10,000 4 - 5 weeks 1000-50,000 5 - 6 weeks 10,000-100,000 6 - 8 weeks 15,000-200,000 2 - 3 months 10,000-100,000 Trophoblastic Disease >100,000 *In higher than expected hCG in females > age 40, a serum FSH >20 IU/L makes unlikely. Waqas Cotter MD LAB - CHEMISTRY O RDERABLES Final Result [facility] [address] [place] [address] * MRI Brain Wwo Contrast (02/25/2025 8:13 PM CDT) Anatomical Region Laterality Modality Head Magnetic Resonan ce 02/26/2025 9:23 AM CDT Impressions 02/26/2025 9:32 AM CDT IMPRESSION: Unremarkable brain MRI performed without and with contrast. > Interpreting Provider: Deb Martinez MD on 02/26/2025 9:32 AM Narrative 02/26/2025 9:32 AM CDT PROCEDURE: MRI BRAIN WWO CONTRAST, DATE/TIME OF EXAM: 02/25/2025 8:15 PM, LOCATION [facility] INDICATION: R56.9: Unspecified convulsions (HCC) ADDITIONAL CLINICAL INFORMATION: Ordering Provider Reason For Exam: Technologist Note: Additional: COMPARISON: None. TECHNIQUE: MRI of the brain was performed without and with contrast. CONTRAST: GADOTERATE MEGLUMINE 0.5 MMOL/ML IV SSM SO:15 mL FINDINGS: Brain parenchymal signal intensity is normal. Purcell-white matter differentiation is normal. No diffusion restriction to suggest acute infarct is seen. No evidence of hemorrhage is seen on gradient sequence. The ventricular system is normal in size and configuration. Midline structures are not displaced. No abnormal enhancement is seen. No mass or mass effect is seen. Vascular flow-voids are normal. The paranasal sinuses and mastoid air cells are aerated. The calvarium has normal marrow signal intensity. Procedure Note Deb Martinez MD - 02/26/2025 PROCEDURE: MRI BRAIN WWO CONTRAST, DATE/TIME OF EXAM: 02/25/2025 8:15PM, LOCATION [facility] INDICATION: R56.9: Unspecified convulsions (HCC) ADDITIONAL CLINICAL INFORMATION: Ordering Provider Reason For Exam: Technologist Note: Additional: COMPARISON: None. TECHNIQUE: MRI of the brain was performed without and with contrast. CONTRAST: GADOTERATE MEGLUMINE 0.5 MMOL/ML IV SSM SO:15 mL FINDINGS: Brain parenchymal signal intensity is normal. Purcell-white matter differentiation is normal. No diffusion restriction to suggest acute infarct is seen. No evidence of hemorrhage is seen on gradient sequence. The ventricular system is normal in size and configuration. Midline structures are not displaced. No abnormal enhancement is seen. No massor mass effect is seen. Vascular flow-voids are normal. The paranasal sinuses and mastoid aircells are aerated. The calvarium has normal marrow signal intensity. IMPRESSION: Unremarkable brain MRI performed without and with contrast. > Interpreting Provider: Deb Martinez MD on 02/26/2025 9:32 AM Merlene Foreman MD MR ORDERABLES Final Result * TRIGLYCERIDES BLOOD (02/25/2025 4:33 AM CDT) Triglycerides 79 <150 mg/dL 02/25/2025 4:58 AM CDT [facility] Blood BLOOD SPECIMEN / Unknown Venipuncture / Unknown 02/25/2025 4:33 AM CDT 02/25/2025 4:40 AM CDT Roma Burger MD LAB - CHEMISTRY ORDERABLES Fi nal Result [facility] [address] [place] [address] * HEMOGLOBIN A1C (02/24/2025 4:57 AM CDT) Pathologist [facility] Hemoglobin A1c 4.8 <5.7 % 02/24/2025 5:35 AM CDT [facility] Estimated Average Glucose 91 mg/dL 02/24/2025 5:35 AM CDT [facility] Blood BLOOD SPECIMEN / Unknown Venipuncture / Unknown 02/24/2025 4:57 AM CDT 02/24/2025 5:05 AM CDT Narrative [facility] - 02/24/2025 5:35 AM CDT HbA1c Interpretation: Normal: < 5.7% Pre-diabetes: 5.7-6.4% Diabetes: Equal to or greater than 6.5% Test results diagnostic of diabetes should be repeated for confirmation. Treatment target values recommended by ADA and other clinical organizations should be used to evaluate metabolic control in patients. This test should not replace glucose testing for patients with Type 1 diabetes, pediatric patients, or women. Falsely low HbA1c results may be observed in patients with clinical conditions that shorten erythrocyte life span or decrease mean erythrocyte age such as the presence of unstable hemoglobin variants, elevated hemoglobin F level or other causes of hemolytic anemia. HbA1c may not accurately reflect glycemic control when clinical conditions that affect erythrocyte survival are present. Severe Iron deficiency anemia may yield falsely high results. Hemoglobin A1c assay should not be used to diagnose or monitor diabetes in patients with malignancy, recent blood transfusion, chronic kidney or liver disease. This method may yield falsely low results when hemoglobin (HbF) exceeds 5% in the specimen. The Telles Alinity assay for the measurement of HbA1c is a National Glycohemoglobin Standardization Program (NGSP) certified method. us Roma Burger MD LAB - CHEMISTRY ORDERABLES Fi nal Result Performing Organization Address City/[facility]/ZIP Co de Phone Number [facility] [address] [place] [address] * (ABNORMAL) CK BLOOD (02/24/2025 4:57 AM CDT) Pathologist [facility] CK 227(H) 29 - 168 U/L 02/24/2025 8:50 AM CDT [facility] Blood BLOOD SPECIMEN / Unknown Venipuncture / Unknown 02/24/2025 4:57 AM CDT 02/24/2025 5:05 AM CDT us Waqas Cotter MD LAB - CHEMISTRY O RDERABLES Final Result Performing Organization Address [facility] Co de Phone Number [facility] [id number] [place] [address] * (ABNORMAL) HGB HCT PANEL (02/23/2025 9:59 PM CDT) Pathologist [facility] Hemoglobin 9.6(L) 11.9 - 15.8 g/dL 02/23/2025 10:14 PM CDT [facility] Hematocrit 30.7(L) 34.8 - 46.1 % 02/23/2025 10:14 PM CDT [facility] Blood BLOOD SPECIMEN / Unknown Venipuncture / Unknown 02/23/2025 9:59 PM CDT 02/23/2025 10:10 PM CDT us Roma Burger MD LAB - HEMATOLOGY ORDERABLES F inal Result Performing Organization Address [facility] de Phone Number [facility] [address] [place] [id number] * (ABNORMAL) BLOOD GASES ARTERIAL (02/23/2025 11:18 AM CDT) pH Arterial 7.33(L) 7.35 - 7.45 pH 02/23/2025 11:53 AM CDT [facility] pO2 Arterial 500(H) 80 - 100 mmHg 02/23/2025 11:53 AM CDT [facility] pCO2 Arterial 37 35 - 45 mmHg 02/23/2025 11:53 AM CDT [facility] HCO3 Arterial 19.5(L) 22.0 - 26.0 mmol/L 02/23/2025 11:53 AM CDT [facility] BE Arterial -5.8(L) -2.0 - 2.0 mmol/L 02/23/2025 11:53 AM CDT [facility] O2 Saturation Arterial 100 90 - 100 % 02/23/2025 11:53 AM CDT [facility] Gary's Test Positive 02/23/2025 11:53 AM CDT [facility] Sample Site Right RA 02/23/2025 11:53 AM CDT [facility] Mode PRVC 02/23/2025 11:53 AM CDT [facility] FI O2 100.0 % 02/23/2025 11:53 AM CDT [facility] Mechanical Tidal Volume (mL) 350 02/23/2025 11:53 AM CDT [facility] Mechanical Respiratory Rate (bpm) 16 02/23/2025 11:53 AM CDT [facility] PEEP (cmH2O) 5 02/23/2025 11:53 AM CDT [facility] Blood, arterial ARTERIAL BLOOD SPECIMEN / Unknown 02/23/2025 11:18 AM CDT 02/23/2025 11:18 AM CDT Roma Burger MD LAB - BLOOD GASES ORDERABLES Final Result Performing Organization Address [facility] de Phone Number [facility] [address] [place] [address] * (ABNORMAL) PHOSPHORUS BLOOD (02/23/2025 11:14 AM CDT) [facility] Phosphorus 2.4(L) 2.5 - 4.5 mg/dL 02/23/2025 12:05 PM CDT [facility] Blood BLOOD SPECIMEN / Unknown Line Draw / Unknown 02/23/2025 11:14 AM CDT 02/23/2025 11:48 AM CDT Roma Burger MD LAB - CHEMISTRY ORDERABLES Fi nal Result Performing Organization Address [facility] Co de Phone Number [facility] [id number] [place] [address] * LACTIC ACID BLOOD (02/23/2025 11:14 AM CDT) Pathologist [facility] Lactic Acid 1.6 <=2 mmol/L 02/23/2025 12:05 PM CDT [facility] Blood BLOOD SPECIMEN / Unknown Line Draw / Unknown 02/23/2025 11:14 AM CDT 02/23/2025 11:48 AM CDT Roma Burger MD LAB - CHEMISTRY ORDERABLES Fi nal Result Performing Organization Address City/[facility] Co de Phone Number [facility] [address] [place] [address] * AMMONIA (02/23/2025 11:14 AM CDT) Ammonia 18 18 - 72 umol/L 02/23/2025 11:57 AM CDT [facility] Blood BLOOD SPECIMEN / Unknown Line Draw / Unknown 02/23/2025 11:14 AM CDT 02/23/2025 11:48 AM CDT Roma Burger MD LAB - CHEMISTRY ORDERABLES Fi nal Result Performing Organization Address [facility] de Phone Number [facility] [id number] [place] [phone] * XR CHEST 1VW PORTABLE (02/23/2025 11:10 AM CDT) Anatomical Region Laterality Modality Chest Computed Radiogr aphy 02/23/2025 11:2 3 AM CDT Narrative 02/23/2025 11:24 AM CDT PROCEDURE: XR CHEST 1VW PORTABLE DATE/TIME OF EXAM: 02/23/2025 11:18 AM CLINICAL INFORMATION: None relevant/not provided if blank. Indication: G40.901: Epilepsy, unspecified, not intractable, with status epilepticus (HCC) Additional History: Respiratory failure. ET tube placement. COMPARISON: December 19, 2008 FINDINGS: Single AP view of the chest shows placement of an ET tube with its tip 3 cm above the ra. An NG tube has been placed with its tip at least in the body the stomach below the radiograph. There is no discrete or confluent lung infiltrate. No pleural effusion or pneumothorax. Heart size and pulmonary vascularity are within normal limits. > Interpreting Provider: Jonathan Brunson MD on 02/23/2025 11:24 AM Procedure Note Jonathan Brunson MD - 02/23/2025 PROCEDURE: XR CHEST 1VW PORTABLE DATE/TIME OF EXAM: 02/23/2025 11:18 AM CLINICAL INFORMATION: None relevant/not provided if blank. Indication: G40.901: Epilepsy, unspecified, not intractable, with status epilepticus (HCC) Additional History: Respiratory failure. ET tube placement. COMPARISON: December 19, 2008 FINDINGS: Single AP view of the chest shows placement of an ET tube with its tip 3cm above the ra. An NG tube has been placed with its tip at least in the body the stomach below the radiograph. There is no discrete or confluent lung infiltrate. No pleural effusionor pneumothorax. Heart size and pulmonary vascularity are within normal limits. > Interpreting Provider: Jonathan Brunson MD on 02/23/2025 11:24 AM us Roma Burger MD DIAGNOSTIC IMAGING ORDERABLES Final Result * HIV-1 HIV-2 ANTIBODY (12/30/2009 4:38 PM LOG DATA TECHNICIAN) HIV-1/HIV-2 Non-Reacti ve Non-Reacti ve [facility] BLOOD SPECIMEN / Unknown 12/30/2009 4:38 PM LOG DATA TECHNICIAN Shikha Maguire MD LAB - CHEMISTRY ORDERA BLES Final Result [facility] from Last 3 Months or Most Recently Relevant to Health Maintenance Insurance [facility] Advance Directives * Full Code (Latest Code Status on File) Date Activated Date Inactivated Comments 03/01/2025 3:54 PM 03/03/2025 11:58 AM * Full Code Date Activated Date Inactivated Comments 02/23/2025 10:53 AM 02/28/2025 9:11 PM * Full Code Date Activated Date Inactivated Comments 06/14/2023 3:25 PM 06/16/2023 4:14 PM * Full Code Date Activated Date Inactivated Comments 06/04/2023 8:49 AM 06/12/2023 12:39 AM * Full Code Date Activated Date Inactivated Comments 07/22/2022 9:04 AM 07/25/2022 5:20 PM Care Teams Crew Caller Relationship Specialty Start Date End Date Izzy Shukla MD [address] [place] [id number] 05/27/21
--- OUTSIDE RECORDS SUMMARY | 2025-03-03 17:18 | XMS_ITS | Data Portability ---
Author Organization [employer] , [facility] Address [address] [place] [address] Care Team Providers Care Manufacture Specialist Name Role Phone [facility] Gin Clerk Assessment No assessment recorded. Plan of Treatment Reminders Order Date Submit Date Provider Last Modified By Organization Details Last Modified Time Details Appointments None record ed. Lab beta-H CG, quanti tative , serum or plasma 2024 025 [facility], [address] [place], [address], 5 10:18:32 CBC w/ auto diff 2024 025 [facility], [address] [place], [address], 5 10:23:50 bacter ial vagino sis + vagini tis panel, vagina l 2024 025 [facility] [employer], [address] [place], [address], 5 09:12:37 pregna ncy test, urine 2024 025 [facility], [address] [place], [address], 5 10:11:54 unlist ed lab - STD screen ing (hc) 2024 025 [facility], [address] [place], [address], 5 14:16:26 bacter ial vagino sis + vagini tis panel, vagina l 2023 [facility]24 [facility], [address] [place], [address], 4 08:57:22 pregna ncy test, urine 2023 024 [facility], [address] [place] [address], [address], 4 11:34:01 Referral dermat ologis t referr angeles roblero, evalua te and treat for possib le dermat itis 2024 025 [facility], [address] [place] [address], [place], [address], 5 04:03:50 Procedures None record ed. Surgeries None record ed. Imaging US, obstet roberto, transv aginal 2024 025 [facility], [address] [place] [address], [phone], 5 07:57:28 US, transv aginal 2024 025 [email or web address] [facility], [address] [place] [address], [address], 5 18:30:45 US, transv aginal 2023 024 [facility], [address] [place] [address], [address], 4 13:49:51 Medication Orders Percoc et 5 mg-325 mg tablet 2024 025 [id number], [address], [place], [id number], 14:16:21 misopr ostol 200 mcg tablet 2024 025 [id number], [place], [id number], 14:16:19 Prenat al Vitami n 27 mg iron-8 00 mcg tablet 2024 025 [facility] #[id number], [address], [place], [id number], 10:12:00 Depo-P rovera 150 mg/mL intram uscula r suspen anna 2023 [id number], [address], [place], [id number], 5 09:39:34 Mirena 21 mcg/24 hr (up to 8 years) 52 mg intrau terine device 2023 024 emily Not available 15:48:09 Patient TargetsNo targets recorded. Patient Instructions Encounter Date Encounter Id Patient Instructions Last Modified By Organization Details Last Modified Time 04/15/2024 [id number] intrauterine device (IUD) insertion: care instructions Not available 04/15/2024 11:34:01 07/05/2024 [id number] IUD removal: car e instructions Not available 07/05/2024 16:03:31 01/29/2025 [id number] vaginitis: care instructions Not available 01/29/2025 10:11:55 Reason for Referral [employer] Referral for I nflammatory dermatosis Consult, evaluate and treat for possible dermatitis Referring Physician: Ines Her, WHEEL PRESSER, Encounter Date: 01/29/2025 Results Created Date Observation Date Name Description Value Unit Range Abnormal Flag Note LastModifiedBy Organization Detail LastModifiedTime 02/23/2002/22/2025 HCG, TOTAL , QUANT HCG, total, quant 00558 mIU/m L <5 high Refer ence Range s are for femal es aged 18 years - Adult Nonpr egnan t or preme nopau tiffanie <5 Postm enopa usal <10 Value s from diffe rent assay metho ds may vary. The use of this assay to monit or or to diagn ose patie nts with cance r or any other condi tion unrel ated to pregn chayito has not been valid ated by the [facility] actur er of this assay . Not Available [facility] [employer] [address] [place] [address], [address], 02/22/2025 10:18:32 02/23/20 25 02/22/2025 CBC (INCL UDES DIFF/ PLT) WBC 8.7 thous and/u L 4.0 - 9.8 normal Not Available [facility] [address] [place] [address], [address], 02/22/2025 10:23:50 02/23/20 25 02/22/2025 CBC (INCL UDES DIFF/ PLT) RBC 4.2 chriss on/uL 3.9 - 4.9 normal Not Available [facility] [address] [place] [address], [address], 02/22/2025 10:23:50 02/23/20 25 02/22/2025 CBC (INCL UDES DIFF/ PLT) hemoglobin 12.5 g/dL 11.8 - 14.8 normal Not Available [facility] [address] [place] [address], [address], 02/22/2025 10:23:50 02/23/20 25 02/22/2025 CBC (INCL UDES DIFF/ PLT) hematocrit 38.2 % 35.5 - 44.0 normal Not Available [facility] [address] [place] [address], [address], 02/22/2025 10:23:50 02/23/20 25 02/22/2025 CBC (INCL UDES DIFF/ PLT) MCV 91.4 fL 82.0 - 99.0 normal Not Available [address], [address], 02/22/2025 10:23:50 02/23/20 25 02/22/2025 CBC (INCL UDES DIFF/ PLT) MCH 29.9 pg 27.2 - 32.6 normal Not Available [address], [address], 02/22/2025 10:23:50 02/23/20 25 02/22/2025 CBC (INCL UDES DIFF/ PLT) MCHC 32.7 g/dL 31.5 - 35.5 normal Not Available [address], [address], 02/22/2025 10:23:50 02/23/20 25 02/22/2025 CBC (INCL UDES DIFF/ PLT) RDW-CV 13.1 % 11.5 - 14.5 normal Not Available [address], [address], 02/22/2025 10:23:50 02/23/20 25 02/22/2025 CBC (INCL UDES DIFF/ PLT) platelet 271 thous and/u L 140 - 350 normal Not Available [address], [address], 02/22/2025 10:23:50 02/23/20 25 02/22/2025 CBC (INCL UDES DIFF/ PLT) MPV 12.0 fL 9.3 - 12.4 normal Not Available [address], [address], 02/22/2025 10:23:50 02/23/20 25 02/22/2025 CBC (INCL UDES DIFF/ PLT) absolute neutrophil 6.42 thous and/u L 1.90 - 7.00 normal Not Available [address], [address], 02/22/2025 10:23:50 02/23/20 25 02/22/2025 CBC (INCL UDES DIFF/ PLT) absolute lymphocyte 1.66 thous and/u L 0.70 - 4.50 normal Not Available [address], [address], 02/22/2025 10:23:50 02/23/20 25 02/22/2025 CBC (INCL UDES DIFF/ PLT) absolute monocyte 0.47 thous and/u L 0.10 - 1.30 normal Not Available [address], [address], 02/22/2025 10:23:50 02/23/20 25 02/22/2025 CBC (INCL UDES DIFF/ PLT) absolute eosinophil 0.03 thous and/u L <0.70 normal Not Available [address], [address], 02/22/2025 10:23:50 02/23/20 25 02/22/2025 CBC (INCL UDES DIFF/ PLT) absolute basophil 0.06 thous and/u L <0.20 normal Not Available [address], [address], 02/22/2025 10:23:50 02/23/20 25 02/22/2025 CBC (INCL UDES DIFF/ PLT) absolute immature granulocyte 0.01 thous and/u L <0.03 normal Not Available [address], [address], 02/22/2025 10:23:50 04/11/20 24 04/12/2024 STD SCREE TRACY ([facility] ) hep BS Ag Non-Re active non-re active normal Not Available [address], [address], 04/12/2024 14:16:03 04/11/20 24 04/12/2024 STD SCREE TRACY ([facility] ) hep C Ab Non-Re active non-re active normal Not Available [address], [place], [address], 04/12/2024 14:16:03 04/11/20 24 04/12/2024 STD SANDER MOLINA ([facility] ) HIV 1/2 Ag/Ab Non-Re active non-re active normal Not Available [address], [place], [address], 04/12/2024 14:16:03 04/11/20 24 04/12/2024 STD SANDER MOLINA ([facility] ) syphilis Ab Non-Re active non-re active normal Not Available [address], [place], [address], 04/12/2024 14:16:03 04/11/20 24 04/16/2024 STI PANEL trichomonas vaginalis TRICH neg negati ve normal Not Available [address], [address], 04/16/2024 13:50:12 04/11/20 24 04/16/2024 STI PANEL chlamydia trachomatis CT neg negati ve normal This repor t is inten ded for us in clini veda monit oring and manag ement of patie nts. It is not inten ded for use in medic al-le gal appli catio n. Not Available [address], [address], 04/16/2024 13:50:12 04/11/20 24 04/16/2024 STI PANEL neisseria gonorrhoeae GC neg negati ve normal This repor t is inten ded for us in clini veda monit oring and manag ement of patie nts. It is not inten ded for use in medic al-le gal appli catio n. Not Available [address], [address], 04/16/2024 13:50:12 04/15/20 24 04/15/2024 pregn chayito test, urine HCG negati ve Not Available [facility] [address] [place], [address], 04/15/2024 10:22:42 07/05/20 24 07/08/2024 VAGIN ITIS PLUS STD PANEL bacterial vaginosis BV POS negati ve abnormal Not Available [facility] [address] [place] [address], [address], 07/09/2024 08:57:22 07/05/20 24 07/08/2024 VAGIN ITIS PLUS STD PANEL lety species C. spp neg negati ve normal Not Available [facility] [address] [place] [address], [address], 07/09/2024 08:57:22 07/05/20 24 07/08/2024 VAGIN ITIS PLUS STD PANEL lety glabrata C. gla neg negati ve normal Not Available [address], [address], 07/09/2024 08:57:22 07/05/20 24 07/08/2024 VAGIN ITIS PLUS STD PANEL trichomonas vaginalis CV/TV TRICH neg negati ve normal Not Available [address], [address], 07/09/2024 08:57:22 07/05/20 24 07/08/2024 VAGIN ITIS PLUS STD PANEL chlamydia trachomatis CT neg negati ve normal This repor t is inten ded for us in clini veda monit oring and manag ement of patie nts. It is not inten ded for use in medic al-le gal appli catio n. Not Available [facility] [address] [place] [address], [address], 07/09/2024 08:57:22 07/05/20 24 07/08/2024 VAGIN ITIS PLUS STD PANEL neisseria gonorrhoeae GC neg negati ve normal This repor t is inten ded for us in clini veda monit oring and manag ement of patie nts. It is not inten ded for use in medic al-le gal appli catio n. Not Available [facility] [address], [place], [address], 07/09/2024 08:57:22 01/30/20 25 01/30/2025 STD BLOOD SCREE TRACY ([facility] ) hep BS Ag Non-Re active non-re active normal Not Available [address], [address], 01/30/2025 14:16:26 01/30/20 25 01/30/2025 STD BLOOD SCREE TRACY ([facility] ) hep C Ab Non-Re active non-re active normal Not Available [address], [address], 01/30/2025 14:16:26 01/30/20 25 01/30/2025 STD BLOOD SCREE TRACY ([facility] ) HIV 1/2 Ag/Ab Non-Re active non-re active normal Not Available [address], [address], 01/30/2025 14:16:26 01/30/20 25 01/30/2025 STD BLOOD SCREE TRACY ([facility] ) syphilis Ab Non-Re active non-re active normal Not Available [address], [address], 01/30/2025 14:16:26 01/30/20 25 01/30/2025 VAGIN ITIS PLUS STD PANEL bacterial vaginosis BV POS negati ve abnormal Not Available [address], [address], 01/31/2025 09:12:37 01/30/20 25 01/30/2025 VAGIN ITIS PLUS STD PANEL lety species C. spp neg negati ve normal Not Available [address], [address], 01/31/2025 09:12:37 01/30/20 25 01/30/2025 VAGIN ITIS PLUS STD PANEL lety glabrata C. gla neg negati ve normal Not Available [address], [address], 01/31/2025 09:12:37 01/30/20 25 01/30/2025 VAGIN ITIS PLUS STD PANEL trichomonas vaginalis CV/TV TRICH neg negati ve normal Not Available [address], [place], [address], 01/31/2025 09:12:37 01/30/20 25 01/30/2025 VAGIN ITIS PLUS STD PANEL chlamydia trachomatis CT neg negati ve normal This repor t is inten ded for us in clini veda monit oring and manag ement of patie nts. It is not inten ded for use in medic al-le gal appli catio n. Not Available [address], [address], 01/31/2025 09:12:37 01/30/20 25 01/30/2025 VAGIN ITIS PLUS STD PANEL neisseria gonorrhoeae GC neg negati ve normal This repor t is inten ded for us in clini veda monit oring and manag ement of patie nts. It is not inten ded for use in medic al-le gal appli catio n. Not Available [address], [place], [address], 01/31/2025 09:12:37 01/30/20 25 01/29/2025 pregn chayito test, urine HCG positi ve Not Available [facility] [address] [place], [address], 01/29/2025 10:02:14 04/15/20 24 04/15/2024 US, trans vagin al No observ ation record ed. [facility] [id number], [place], [address], 04/15/2024 13:53:59 02/11/20 25 02/10/2025 US, trans vagin al No observ ation record ed. [facility] [address], [place], [address], 02/10/2025 20:17:54 02/23/20 25 02/21/2025 US, obste tric, trans vagin al No observ ation record ed. [facility] [address], [place], [address], 02/24/2025 09:57:36 Result Notes None recorded. Problems No Known Problems Procedures Surgical History Date Name Laterality Status Provider Name and Address Organization Details Recorded Time 07/05/20 24 IUD Removal completed INES HER, BILLING MANAGER [address] [place], [address], [facility] 07/05/2024 16:06:15 04/15/20 24 IUD Insertion completed INES HER, JESSIE [address] [place], [address], [place] [facility] 04/15/2024 11:07:07 04/11/20 24 Date of Last Pap Smear completed Millicent Malik [place] [facility] 04/15/2024 10:33:27 09/11/20 23 Depo Provera Injection completed Martine Dallas [place] [facility] 09/11/2023 11:52:07 11/16/19 23 I&D completed ERIKA PEREZ , [address] [place], [address], [place] [facility] 11/17/2022 10:32:24 09/06/20 22 Suture/Staple removal cancelled Ria Hoskins [place] [facility] 09/05/2022 14:12:57 procedure on upper arm completed Roma Callaway [place] [facility] 07/05/2024 15:49:01 Imaging Results Imaging Date Name Status LastModified by Organization Details LastModified Time 04/15/2024 US, transvaginal completed Sophie [address], [place], [address], 04/15/2024 13:53:59 02/10/2025 US, transvaginal completed Sophie [address], [place], [address], 02/10/2025 20:17:54 02/21/2025 US, obstetric, transvaginal completed Sophie [address], [place], [address], 02/24/2025 09:57:36 Procedure Notes None recorded. Medical Equipment None Reported. Allergies Allergen ID Allergen Name Allergen Category Reaction Reaction Severity Criticality Documentation Date Start Date Code Code System Note Provider Name and Address Organization Details Recorded Time 633509 ibuprofen medicatio n Not available Not available [...] daily 01/17 completed Celexa 10mg Tablet RxNorm: 539095 Allow Substitu tion: True Refill Denied: No For Problem: Depressi on Not Available Not Available Not Available clindamyc in HCl 300 mg capsule TAKE 1 CAPSULE BY MOUTH EVERY 8 HOURS FOR 7 DAYS 01/17 completed Not Available Not Available Not Available divalproe x 250 mg tablet,de layed release TAKE 1 TABLET BY MOUTH THREE TIMES DAILY active Not Available Not Available No t Available azithromy ariana 250 mg tablet Take 2 tablet(s ) by mouth on day 1 then 1 tablet every day for the next 4 days. 10/06 completed Azithrom ycin 250mg Tablet RxNorm: 778705 Allow Substitu tion: True Refill Denied: No [...] completed Not Available Not Available Not Available oxycodone -acetamin ophen 5 mg-325 mg tablet TAKE 1 TABLET BY MOUTH EVERY 6 HOURS NEEDED FOR MODERATE TO SEVERE PAIN active Not Available Not Available No t Available famotidin e 20 mg tablet TAKE [...] Not Available misoprost ol 200 mcg tablet INSERT 4 TABLETS VAGINALL Y THEN REPEAT IN 24 HOURS active Not Available Not Available No t Available olanzapin e 10 mg disintegr ating tablet DISSOLVE 1 TABLET ON THE TONGUE AT BEDTIME active Not Available Not Available No t Available docusate sodium 100 mg capsule 11/16 completed [...] completed Not Available Not Available Not Available morphine 15 mg immediate release tablet TAKE [...] completed Buspiron e HCl 15mg Tablet RxNorm: 794658 Allow Substitu tion: True Refill Denied: No For Problem: Depressi on Not Available Not Available Not Available Ortho Evra 150 mcg-35 mcg/24 hr transderm al patch Apply 1 patch to buttock, abdomen, or upper outer arm q week for 3 weeks of each month. 05/19 completed Ortho Evra 150mcg/3 5mcg per 24hr Transder mal Patch RxNorm: 1986366 Allow Substitu tion: True Refill Denied: No [...] Albutero l 90mcg/1a ctuation Oral Inhaler RxNorm: 093803 Allow Substitu tion: True Refill Denied: No Not Available Not Available Not Available azithromy ariana Take 2 tablet(s ) by mouth once. Take with food. 04/27 completed Azithrom ycin 500mg Tablet RxNorm: 533071 Allow Substitu tion: True Refill Denied: No Not Available Not Available Not Available ferrous sulfate 12/21 completed Ferrous Sulfate Allow Substitu tion: True Refill Denied: No Refill DateOccu rred: 08/18/20 15 Not Available Not Available Not Available Celexa 10/06 completed Celexa RxNorm: 305700 Allow Substitu tion: True Refill Denied: No [...] completed Not Available Not Available Not Available [place] 11/04 completed [facility] RxNorm: 2654493 Allow Substitu tion: True Refill Denied: No Refill DateOccu rred: 09/21/20 15 Not Available Not Available Not Available Vitamin 27 mg iron-800 mcg tablet Take 1 tablet every day by oral route for 30 days. 2024 active Not Available Not Available Not Avai lable Sapphire (PF) 275 mg/1.1 mL subcutane ous auto-inje [...] Updated DateTime 4 163.83 cm 24.2 kg/m2 63194.7 1 g 98 [degF] 118 mm[Hg] 68 mm[Hg] Millicent Malik [employer] [employer] [facility] 4 10:38:45 Date Recorded Body height Body mass index (BMI) Body weight Systolic blood pressure Diastolic blood pressure Provider Name and Address Organization Details Last Updated DateTime 07/05/2024 163.83 cm 24.3 kg/m2 59465.3 g 90 mm[Hg] 40 mm[Hg] Roma Callaway [employer] [facility] 4 15:53:27 Date Recorded Body height Body mass index (BMI) Body weight Systolic blood pressure Diastolic blood pressure Provider Name and Address Organization Details Last Updated DateTime 01/29/2025 163.83 cm 21.6 kg/m2 90601.82 g 110 mm[Hg] 70 mm[Hg] Ina Arellano [employer] [facility] 5 09:38:34 Date Recorded Body height Body mass index (BMI) Body weight Systolic blood pressure Diastolic blood pressure Provider Name and Address Organization Details Last Updated DateTime 02/10/2025 163.83 cm 21.2 kg/m2 25167.48 g 118 mm[Hg] 72 mm[Hg] Ria Hoskins [employer] [facility] 5 12:11:46 Date Recorded Body height Body mass index (BMI) Body weight Systolic blood pressure Diastolic blood pressure Provider Name and Address Organization Details Last Updated DateTime 02/21/2025 163.83 cm 20.9 kg/m2 41401.3 g 100 mm[Hg] 60 mm[Hg] Kirk Delgado [employer] [facility] 5 13:58:29 Social History Question Answer Notes LastModified by Organizat ion Details LastModified Time Tobacco Smoking Status Former Smoker Roma quiroz, [employer] [facility] 07/05/2024 15:48:44 What Is Your Level Of Alcohol Consumption? None [email or web address] Information not available 04/12/2022 Are You Blind Or Do You Have Difficulty Seeing? No Information not available 02/14/2022 Are You Currently Employed? No [email or web address] Information not available 04/11/2024 Are You Deaf [...] available 12/20/2022 What Is Your Relationship Status? [email or web address] Information not available 04/12/2022 Are You Sexually Active? Yes [email or web address] Information not available 04/11/2024 Do You Use Any Illicit Or Recreational Drugs? No [email or web address] Information not available 04/12/2022 Do You Or [...] Time Maternal Aunt Malignant tumor of breast [email or web address] Not available 2023 13:57:45 Paternal Grandfather Malignant tumor of colon [email or web address] Not available 04/2022 20:37:28 Maternal Grandmother Malignant tumor of ovary [email or web address] Not available 04/2022 20:37:39 Unspecified Relation Malignant tumor of breast Not available 2023 13:57:45 Medical History Condition Response Other Cancer N High Blood Pressure N Colon Cancer N Cytomegalovirus N Hyperthyroidism N MRSA N Blood Transfusion N Herpes (HSV) N Breast Cancer N Lung Cancer N Depression Y Hypothyroidism N Incontinence N Panic Attacks N Neurological Disorder N Deep Vein Thrombosis N Anxiety Disorder Y Autoimmune disease N Arthritis N Shingles N Tuberculosis/Positive PPD N Infertility N Polycystic Ovarian Syndrome N Cervical Cancer N Hematuria N Chlamydia N Varicosities N Stroke N Seasonal allergies N Crohn's Disease N Alzheimer's/Dementia N COPD/Emphysema N Endometriosis N HPV/Genital Warts N IBS (Irritable Bowel Syndrome) N History of Abnormal Pap Y High Cholesterol N Liver Disease N Fibromyalgia N Kidney Infection N Ulcer N Kidney Disease N HIV N Gallbladder disease N Sickle Cell Disease/Trait N Von Willebrand disease N ADD/ADHD N Eating Disorder N Anemia N Diabetes Mellitus (non-insulin dependent ) N Ovarian Problems N Multiple Sclerosis N Gonorrhea N Frequent Urinary Tract infections N Osteopenia N Headaches/migraines N GERD (reflux) N Ovarian Cancer N Diabetes (insulin dependent) N Seizures/Epilepsy Y Breast Problems N Fibroids N Heart Attack N Asthma N Lupus N Endometrial Cancer N Rubella N Blood Clotting Disorder N Bipolar Disorder N Diabetes Mellitus (during ) N Ulcerative Colitis N Hepatitis N Heart Disease N Pulmonary Embolism N RPR N Chicken Pox N Osteoporosis N Gynecological History Statement/Question Response [...] SNOMED-CT Code Diagnosis ICD10 Code Diagnosis Note [id number] MATHEUS Bee [facility] [address] [place] [address] 01/17/2022 14:22:52 01/17/2022 14:53:31 test positive 237699444 Z32.01 Hx of PTL/Seizur e disorder. Will refer to [facility]. 8 week confirmati on of visit performed today. Will RTO in 4 weeks. [facility] case started. [facility] referral placed. PNV rx'd. Pap performed today Screening for malignant neoplasm of cervix 975148101 Z12.4 Screening for disorder [id number] Z11.3 N89.9 Vaginal discharge 322477 006 N89.8 N76.0 Seizure disorder 3769912 02 G40.909 Will refer to [facility] for hx of seizure disorder. Last seizure was last week and patient presented to [facility] and was rx'd medication . She has not filled this medication as of yet. [id number] Kelli Lyon CNM [facility] [address] [place] [address] 02/14/2022 12:15:42 02/14/2022 14:06:36 Routine care 281952904 Z34.01 Z34.81 O09.511 O09.610 [id number] Kelli Lyon CNM [facility] [address] [place] [address] 03/21/2022 15:16:49 03/22/2022 10:47:09 Chromosome abnormality screening 489779670 Z13.79 [id number] Kelli Lyon CNM [facility] [address] [place] [address] 04/12/2022 15:21:41 04/12/2022 17:07:11 [id number] [facility] [address] [place] [address] 05/10/2022 10:36:57 05/10/2022 12:39:30 [id number] LYNN MENDES CNM [facility] [address] [place] [address] 06/24/2022 11:36:52 06/24/2022 12:14:42 Routine care [id number] Z34.03 Z34.83 O09.513 O09.523 Gestation period, 31 weeks 44634888 Z3A.31 IUP @ 31+ wks. s/p inpatient stay at [facility], r/o PTL. sve 1cm on admit without change. complaints of left sided pain unresolved . discussed pt referral from [facility]. Plan to order on amazon. PTL precaution s discussed at length.Rho armando order and tdap info given today. 28 week labs completed today.RTO 2 wks. [id number] Marcy Byrnes FROY [facility] [address] [place] [address] 07/20/2022 09:50:43 07/20/2022 12:18:38 Gestation period, 34 weeks 71970947 Z3A.34 Uterine si ze for dates discrepancy 385792900 O26.849 High risk due to history of labor 482760475 O09.219 grow th restriction 76240426 O36.5999 start screening- biweekly NST/ weekly MELI and dopplerspa tient case to schedule appt with M (already establishe d) [id number] Nargis Ashton FROY [facility] [address] [place] [address] 10/17/2022 09:49:59 10/17/2022 12:09:11 state 18044460 Z39.2 Pt educated on release back to work, exercise, and sexual activity. Plan to F/U for [employer]. Maternal p ostpartum depression screening [id number] 24660 Z13.32 EPDS: 0. Pt educated on normal EPDS scoring, and discussed depression precaution s and when to notify HCP/go to ER. Screening for malignant neoplasm of cervix 129976989 Z12.4 ASCCP guidelines reviewed with pt. Pap collected and sent. Further POC pending lab result review. Pt states understand ing of POC. Initiation of depot contraception done [id number] 28422 Z30.013 Pt unable to leave urine for [...] administra tion. Acute pelv ic inflammatory disease 937720790 N73.9 Bimanual exam notable for L adnexal and uterine tenderness . Plan to tx for PID. Rx for Flagyl, Doxycyclin e, & Ceftriaxon e sent. Pt educated on return to office for Ceftriaxon e administra tion. Pt encouraged to avoid intercours e. Vaginal cx collected and sent. Further POC pending lab result review. Pt states understand ing of POC. Cyst of vulva 55736953 N 90.7 Pt encouraged to discuss removal with MD only at future visit. Will need to discuss if can be done in office or outpatient . Pt states understand ing of POC. [id number] ERIKA PEREZ DO [facility] [address] [place] [address] 11/16/2022 13:09:13 11/17/2022 11:27:00 Contraception care [id number] Z30.09 Initiation of depot contraception done [id number] 13838 Z30.013 UPT in office is negative. Pt [...] period for injection Venereal d isease screening 195020047 Z11.3 Cyst of vulva 26640836 N 90.7 right labial cyst 1x1 cm. Mucous drainagePr ocedure went as planned, and patient tolerated procedure. Please see procedure note for full detail [id number] JEMIMA WALSH MD [facility] [address] [place] [address] 12/20/2022 13:58:37 01/03/2023 15:24:07 Indwelling catheter removed 161672349 Z46.6 [id number] STEFFANY DENNIS, [facility] [address] [place] [address] 09/04/2023 12:43:01 09/04/2023 16:49:39 Venereal disease screening 344281441 Z11.3 Pt comes in today for Infection/ STI testing. Discussed the various types of Infections and STIs, related symptoms and the potential consequenc es (including effects on fertility) of STI. Reviewed ways to limit exposure and prevention techniques . Vulvar care guidelines and safe sex practices reviewed. TX pending results. Accepts STI blood work Initiation of depot contraception done [id number] 62544 Z30.013 Pt comes in for Initiation of [...] . 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 The patient denies any changes in her medical history. The patient denies any changes in her family medical history. 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 Pap Hx: No pap collected today. Pt states understand ing and is amenable to POC. Contracept ion education 328247417 Z30.09 Contracept humble counseling : Discussed options including OCPs, NuvaRing, Nexplanon, hormonal and copper IUDs. Discussed risks, efficacy, noncontrac eptive benefits, and side effects of each option, including risk of VTE with hormonal contracept ion and uterine perforatio n, expulsion, infection with IUD. Hypertrophy of breast 37 4663788 N62 Interested in breast reduction due to back pain. Venereal d isease screening 710348197 Z11.3 Pt comes in today for Infection/ STI testing. Discussed the various types of Infections and STIs, related symptoms and the potential consequenc es (including effects on fertility) of STI. Reviewed ways to limit exposure and prevention techniques . Vulvar care guidelines and safe sex practices reviewed. TX pending results. Accepts STI blood work [id number] JESSIE JETT [facility] [address] [place] [address] 04/15/2024 10:14:48 04/15/2024 13:20:47 Insertion of intrauterine contraceptive device 85104316 Z30.430 28 y.o. presenting for IUD placement. Patient is moving to [place] by June. - Risks of abnormal bleeding, [...] amenorrhea - TVUS today confirms proper placement [id number] JESSIE JETT [facility] [address] [place] [address] 07/05/2024 15:02:44 07/08/2024 10:43:16 Removal of intrauterine contraceptive device 9446822473 Z30.432 IUD noted to be in cervical opening at time of assessment .IUD removed without difficulty and pt tolerated procedure well. Pt educated on OTC NSAID therapy for 24-48 hours PRN following procedure. Bleeding profile reviewed. Plan to F/U for WWE or PRN. Surveillan ce of depot contraception 144511012 Z30.42 UPT not needed due to switching [...] medication for initial administra tion. Vaginal discharge 537754 006 N89.8 Pt educated on exam findings, and discussed POC. Vaginal cx collected and sent. Discussed use of boric acid suppositor ies to help alleviate symptoms. 1 vaginal suppositor y at bedtime 3 nights in a row. Pt advised to avoid fragrant soaps/laun dry detergents , use of baking soda soaks, having partner change soaps, etc. Further POC pending lab result review. [id number] JESSIE JETT [facility] [address] [place] [address] 01/29/2025 09:30:48 01/29/2025 10:39:53 Vaginal discharge 784385169 N89.8 N76.0 Pt educated on exam findings, [...] lab result review. Unprotecte d sexual intercourse 5347796 Z72.51 LMP 2-12 based on LMP patient would be approx 5 weeksWill RTC in 2 weeks for confirmati on Venereal d isease screening 534865432 Z11.3 Pt educated on importance of condom use for protection against STD's. Samples collected and sent. Further POC pending lab result review. Pt states understand ing of POC. Inflammato ry dermatosis 634959559 L30.9 [id number] JESSIE JETT [facility] [address] [place] [address] 02/10/2025 11:48:12 02/10/2025 18:30:45 Urine test positive 383347696 Z32.01 Confirmati on of today. has not [...] repeat TVUS in 12 days for viability [id number] INES HER, [facility] [address] [place] [address] 02/21/2025 13:30:21 02/21/2025 16:28:33 Uncertain viability of 216757470 O36.80X0 Us today showed approx 6 wk [...] proceed with medical management . Non-viable [id number] O02.89 Health Concerns Section Related Observation LastModified by Organization Detai ls LastModified Time None Recorded Concern Status LastModified by Organization Details LastModified Time None Recorded Advance Directives Directive None Recorded Payers Encounter Date Sequence Insurance Name Policy Number Policy Kelly Covered Member ID Kelly Member ID Guarantor Name 04/15/[address] [facility] ON OR AFTER 05/13/21 (MEDICAID REPLACEMENT - HMO) Saray aguilar [id number] Saray Worley ns 07/05/[address] [facility] ON OR AFTER 05/13/21 (MEDICAID REPLACEMENT - HMO) Saray aguilar [id number] Saray Worley ns 01/29/[address] [facility] ON OR AFTER 05/13/21 (MEDICAID REPLACEMENT - HMO) Saray aguilar [id number] Saray Worley ns 02/10/[address] [facility] ON OR AFTER 05/13/21 (MEDICAID REPLACEMENT - HMO) Saray aguilar [id number] Saray Worley ns 02/21/[address] [facility] ON OR AFTER 05/13/21 (MEDICAID REPLACEMENT - HMO) Saray aguilar [id number] Saray Worley ns Notes Date Note Type Note Provider Name and Address Organization Details Recorded Time 04/15/2024 text/html Feeling well toyaritza au states she had unprotected sex since last visit, but when asked date she said that her last sexual encounter was march 29.LMP:04/02/2024 JESSIE JETT [address] [facility], [place], [address], [employer] IV 04/15/2024 11:53:16 07/05/2024 text/html Patient is [...] would like to restart Depo Provera today. JESSIE JETT [address] [facility], [place], [address], [employer] IV 07/05/2024 21:38:54 01/29/2025 text/html Vaginal/Vulvar ProblemReported bypatient.Location:[facility] Onset/Timing:after unprotected intercourse Duration:1 month Quality:itching; irritation Severity:severe Context:sexually active Alleviating Factors:triamcinolone Aggravating Factors:tight fitting clothing Associated Symptoms:vaginal itching;vaginal irritation Saray is a 29 y/o female. Pt is here for possible BV. Sx started about a month ago. Pt says she also has a rash on her inner rt thigh. Pt was treated with triamcinolone at [facility] but it did not help. Patient reports [...] be between Dec 25-. JESSIE JETT [address] [facility], [place], [address], [employer] IV 01/29/2025 10:18:31 02/10/2025 text/html Saray is here t danae for a positive confirmation visit. LMP 12/27/2024. Patient has questions concerning when she actually conceived because she is trying to figure out who the possible father is. Based on her LMP she states the conception dates does not add up. JESSIE JETT [address] [facility], [place], [address], [facility] [employer] IV 02/10/2025 13:45:20 02/21/2025 text/html Saray is a 29 y r old female. Pt wants to know what is next. Pt is here for viability in . Pt had US today. Patient denies any cramping or bleeding. JESSIE JETT [address] [facility], [place], [address], [facility] [employer] IV 02/21/2025 14:19:17 OBGyn Episode Ob Episode Information Episode Created Date Number of Fetuses Patient Bloodtype Patient rh Status Prepregnancy Weight lbs Domestic Partner Domestic Partner Phone Father Name Charhouse Worker Status 01/17/20 22 1 CLOSED Fetus Data First Name Last Name Admitted to NICU Weight (g) Sex Living Outcome Pediatric Complications Fetus ID Race Codes Race Delivery Type 2352.78 1704 F Full Term [id number] Chris Calculation Initial Chris Date Initial Exam [...] Domestic Partner Domestic Partner Phone Father Name Charhouse Worker Status 01/17/20 22 1 CLOSED Fetus Data First Name Last Name Admitted to NICU Weight (g) Sex Living Outcome Pediatric Complications Fetus ID Race Codes Race Delivery Type 2522.87 8704 F Full Term [id number] Chris Calculation Initial Chris Date Initial Exam [...] Domestic Partner Domestic Partner Phone Father Name Charhouse Worker Status 01/28/20 22 1 DELETED Chris Calculation [...] Domestic Partner Domestic Partner Phone Father Name Charhouse Worker Status 02/15/20 22 1 AB Negative CLOSED Fetus Data First Name Last Name Admitted to NICU Weight (g) Sex Living Outcome Pediatric Complications Fetus ID Race Codes Race Delivery Type 1983.46 5 M [id number] Problems Problem Notes Problem Name Start Date End Date Resolution Snomed Code Not e Chlamydial infection [id number] at [facility], s/p tx, RANCHO next visit Past history of premature delivery [id number] [place] ordered 04/12 per [facility] request Placenta previa [id number] growth restriction 07/20/2022 [id number] start testing- biweekly NST/wkly MELI and dopplers [...] Latest Days Gestation 0 08/26/20 22 0 Pre- Flowsheet Flowsheet Date 02/14/2022 Early Score Blood Edema Fundus Height Fundus Units Glucose Ketones Leukocytes Nitrite Labor Signs Protein Cervic Dilation Cervic Effacement Cervic Station none neg Type Weight in lbs Pre/Post Dialysis Refused Weight 103.336152503534 BP Diastolic BP Location Tested BP Systolic BP Type 78 118 Fetus Heart Rate Present A 158 Fetus Movement A Yes Comments Flowsheet Date 03/21/2022 Early Score Blood Edema Fundus Height Fundus Units Glucose Ketones Leukocytes Nitrite Labor Signs Protein Cervic Dilation Cervic Effacement Cervic Station none none neg Type Weight in lbs Pre/Post Dialysis Refused Weight 104.596981350580 BP Diastolic BP Location Tested BP Systolic BP Type 58 110 Fetus Heart Rate Present A 150 Fetus Movement A Yes Comments PENTA today Flowsheet Date 04/12/2022 Early Score Blood Edema Fundus Height Fundus Units Glucose Ketones Leukocytes Nitrite Labor Signs Protein Cervic Dilation Cervic Effacement Cervic Station none neg Type Weight in lbs Pre/Post Dialysis Refused Weight 109.487368717733 BP Diastolic BP Location Tested BP Systolic BP Type 70 116 Fetus Heart Rate Present A 155 Fetus Movement A Yes Comments Patient is following up afte r MFM visit last week. States they are requesting her to have [place] injections. Visit notes not available but task sent to day to order. Reinforced bleeding recommendations. Needs RANCHO for chlamydia at next visit. Flowsheet Date 05/10/2022 Early Score Blood Edema Fundus Height Fundus Units Glucose Ketones Leukocytes Nitrite Labor Signs Protein Cervic Dilation Cervic Effacement Cervic Station none neg Type Weight in lbs Pre/Post Dialysis Refused Weight 114.2617922158 BP Diastolic BP Location Tested BP Systolic BP Type 68 116 Fetus Heart Rate Present A 151 Fetus Movement A Yes Comments Reports she saw MFM yesterda y- previa is resolved. Checking status on [employer] Flowsheet Date 06/24/2022 Early Score Blood Edema Fundus Height Fundus Units Glucose Ketones Leukocytes Nitrite Labor Signs Protein Cervic Dilation Cervic Effacement Cervic Station none 29 wks none Cramping neg Type Weight in lbs Pre/Post Dialysis Refused Weight 123.152522877171 BP Diastolic BP Location Tested BP Systolic BP Type Fetus Heart Rate Present A 142 Present Fetus Movement A Yes Comments s/p inpatient stay at [facility], r /o PTL. sve 1cm on admit without change. complaints of left sided pain unresolved. discussed pt referral from [facility]. Plan to order on [employer]. PTL precautions discussed at length.Rhogam order and tdap info given today. 28 week labs completed today. RTO 2 wks plan growth with 4d. s<d Flowsheet Date 07/20/2022 Early Score Blood Edema Fundus Height Fundus Units Glucose Ketones Leukocytes Nitrite Labor Signs Protein Cervic Dilation Cervic Effacement Cervic Station none none Uterine Contract ions neg Type Weight in lbs Pre/Post Dialysis Refused With clothes 132.450811025082 BP Diastolic BP Location Tested BP Systolic BP Type 62 L arm 102 sitting Fetus Heart Rate Present A 147 Present Fetus Movement A Yes Comments EFW- 2.2%tile; dopplers done ; BPP 8- already established with MFM- patient case to schedule her for an appt; start biweekly NST/weekly dopplers/MELI; s/p steroids after hospital admission for PTL SVE - no change Flowsheet Date 10/17/2022 Early Score Blood Edema Fundus Height Fundus Units Glucose Ketones Leukocytes Nitrite Labor Signs Protein Cervic Dilation Cervic Effacement Cervic Station Type Weight in lbs Pre/Post Dialysis Refused Weight 122.197387334664 BP Diastolic BP Location Tested BP Systolic [...] Domestic Partner Domestic Partner Phone Father Name Charhouse Worker Status 10/15/20 22 1 CLOSED Fetus Data First Name Last Name Admitted to NICU Weight (g) Sex Living Outcome Pediatric Complications Fetus ID Race Codes Race Delivery Type , Spontane ous [id number] Chris Calculation Initial Chris Date Initial Exam [...] Domestic Partner Domestic Partner Phone Father Name Charhouse Worker Status 10/15/20 22 1 CLOSED Fetus Data First Name Last Name Admitted to NICU Weight (g) Sex Living Outcome Pediatric Complications Fetus ID Race Codes Race Delivery Type , Induced [id number] Chris Calculation Initial Chris Date Initial Exam [...]
[2025-03-03 19:27] VITALS: BP 119/71; PULSE 88; RESP 15; O2SAT 100
--- NOTE | 2025-03-03 19:51 | ED_ITS ---
HPI - Skin/Abscess/Foreign Bdy General Chief complaint: Skin/Abscess/Foreign Body Stated complaint: Low BP, Poss skin infection-released from [facility] Time Seen by Provider: 03/03/25 19:33 Source: patient Mode of arrival: ambulatory Limitations: no limitations History of Present Illness HPI narrative: This is a 29-year-old female who presents to the ED for chief complaint of painful, erythematous rash to the dorsum of the left forearm. Patient states that she was seen here last week for status epilepticus and transferred to the [facility] system. States that she was staying at [facility] when she signed out AMA today. States that she signed out because she did not think they were taking good care for. She was trying to figure out what the over read rash to her arm is and states that no one was telling her what it was. She is also concerned that they were not telling her wire blood pressure was low. She feels that she has a staph infection to the arm. Denies fevers, chills, nausea, vomiting or immunocompromise condition. Related Data Allergies Allergy/AdvReac Type Severity Reaction Status Date / Time ibuprofen Allergy Shakiness Verified 03/03/25 15:19 Review of Systems Review of Systems: All systems as dictated in HPI REPLACED BY [facility] Past Medical History Medical History Seizures Social History Social History Alcohol intake: current Exam Narrative: GENERAL: Well-appearing, well-nourished, and in no acute distress. HEAD: Normocephalic, atraumatic. EYES: PERRLA and EOMI. ENT: Nares clear, no rhinorrhea or epistaxis. Mucous membranes moist. Oropharynx without tonsillar hypertrophy exudate or other lesions. NECK: Supple. No adenopathy or masses. CHEST: No respiratory distress. Clear to auscultation. No wheezes rales or rhonchi HEART: Regular rate and rhythm. No murmur heard. Normal peripheral pulses. ABDOMEN: Soft, nontender, nondistended, normal active bowel sounds. MSK: Normal range of motion. No edema. SKIN: 3 distinct punctate scabbed areas to the left dorsal forearm. There is mild surrounding erythema to these lesions but no coalescing. No swelling or superiorly ascending erythema. NEURO: Alert and oriented x4. No focal deficits. PSYCH: Normal mood and affect. Course Vital Signs Vital signs: Vital Signs Temperature 99.2 F 03/03/25 15:42 Pulse Rate 90 03/03/25 15:42 Respiratory Rate 16 03/03/25 15:42 Blood Pressure 109/81 03/03/25 15:42 Pulse Oximetry 100 03/03/25 15:42 Oxygen Delivery Room Air 03/03/25 15:42 Temperature 99.2 F 03/03/25 15:42 Pulse Rate 88 03/03/25 19:27 Respiratory Rate 15 03/03/25 19:27 Blood Pressure 119/71 03/03/25 19:27 Pulse Oximetry 100 03/03/25 19:27 Oxygen Delivery Room Air 03/03/25 15:42 MDM - Skin/Abscess/Foreign Bdy MDM Narrative Medical decision making narrative: This is a 29-year-old female who presents to the ED for chief complaint erythematous tender rash to the dorsal left forearm. Vitals are normal. Exam remarkable for the above. Presentation seems consistent with cellulitis versus folliculitis. Rx for doxycycline given. No evidence of deep space infection on exam. Patient will be discharged in stable condition. Supportive measures discussed and return precautions given. Patient is understanding and agreeable with plan for discharge with PCP follow-up. Discharge Plan Discharge Clinical Impression: Folliculitis Patient Disposition: Home Condition: Stable Instructions: Antibiotic Form Additional Instructions: Your exam today is concerning for potential infection. Please take antibiotics as prescribed and follow-up closely with your PCP on this issue this week. Use Tylenol 500 mg every 6 hours as needed for pain or fevers. If you have any new or worsening symptoms please return to the ER for further evaluation. Patient Language: Hungarian Prescriptions: New doxycycline hyclate 100 mg capsule 100 mg PO BID 7 Days Qty: 14 0RF No Action lamotrigine [Lamictal] 25 mg tablet 50 mg PO DAILY Qty: 60 0RF Rx Instructions: take 2 tabs daily for 1 week then increase to twice a day Follow-up/Referrals: UNKNOWN,DOCTOR [Primary Care Provider] - Time of Disposition: 19:55
--- OUTSIDE RECORDS SUMMARY | 2025-03-03 20:05 | XMS_ITS | Clinical Summary ---
Author Organization [facility] Address [address] [place] [address] Care Team Providers Care News Assignment Editor Name Role Phone Ines Her NP Primary [...] Cessation:Ready to Q uit: No [facility] Utilities Answer Date Recorded In the past [...] often do you attend chur ch or anabaptism services? Never 09/26/2023 Do you belong to any clubs o r organizations such as scientologist groups, unions, fraternal or athletic groups, or [...] place to sleep or slept in a fdc (including now)? No 09/26/2023 Personal Safety Answer Date Recorded Have you ever been in or are you currently in a harmful physical or emotional relationship or is someone making you feel afraid or unsafe? 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 Gender Identity Not on file Sexual Orientation Not on file Obstetrics History Last Filed Vital Signs Vital Sign Reading Time Taken Comments Blood Pressure 94/55 11/19/2024 10:00 PM HYDRAULIC JACK ADJUSTER Pulse 74 11/19/2024 10:46 PM HYDRAULIC JACK ADJUSTER Temperature 36.7 C (98.1 F) 11/19/2024 6:18 PM HYDRAULIC JACK ADJUSTER Respiratory Rate 14 11/19/2024 10:46 PM HYDRAULIC JACK ADJUSTER Oxygen Saturation 97% 11/19/2024 10:46 PM HYDRAULIC JACK ADJUSTER Inhaled Oxygen Concentration - - Weight 61.2 kg (135 lb) 11/19/2024 4:40 PM HYDRAULIC JACK ADJUSTER Height 162.6 cm (5' 4 ) 11/24/2023 8:34 PM HYDRAULIC JACK ADJUSTER Body Mass Index 23.17 11/24/2023 8:34 PM HYDRAULIC JACK ADJUSTER Plan of Treatment Health Maintenance Due Date [...] patient's age to complete this topic Insurance [facility] Advance Directives For more information, please contact: [phone] * Full Code (Latest Code Status on File) Date Activated Date Inactivated Comments 09/25/2023 10:47 PM 09/27/2023 1:57 PM * Full Code Date Activated Date Inactivated Comments 09/23/2023 11:59 PM 09/25/2023 3:08 PM * Full Code Date Activated Date Inactivated Comments 10/22/2021 9:10 PM 10/23/2021 7:43 PM Care Teams News Assignment Editor Relationship Specialty Start Date End Date Ines Her NP [facility] [place], [place] [id number] PCP - General Nurse Practitioner 01/30/25
--- OUTSIDE RECORDS SUMMARY | 2025-03-03 20:05 | XMS_ITS | Encounter Summary ---
Author Organization [facility] Address [address] [facility] [address] Care Team Providers Care Spray Drier Operator Name Role Phone Izzy Shukla MD Unavailable [phone] Reason for Referral * (Routine) - Open Specialty Diagnoses / Procedures Referred By Reny roblero Referred To Contact Procedures Follow up with provider Armand Fam MD [address] [place] [address] [place] [address] Phone: tel: fax: Referral ID Status Reason Start Date Expiration Date Visits Re quested Visits Authorized [id number] Open 03/03/2025 03/03/2026 1 1 Reason for Visit * Auth/Cert (Routine) Specialty Diagnoses / Procedures Referred By Reny roblero Referred To Contact Diagnoses Seizure Referral ID Status Reason Start Date Expiration Date Visits Re quested Visits Authorized [id number] 1 1 Encounter Details Date Type Department Care Team (Latest Contact Info) Description 03/01/2025 3:01 PM CDT - 03/03/2025 10:52 AM CDT Hospital Encounter [facility] 7S TELE/NEURO [id number] [place] [address] [place] [address] [place] [address] [place] [address] [place] [address] [place] [address] [place] [address] [facility] [address] Hospitalist Discharge Disposition: Home or Self [...] and heating? Not hard at all 02/26/2025 [facility] of Occupat ional Health - Occupational Stress [...] place to sleep or slept in a custodial (including now)? No 06/04/2023 [place] Depression Scale Answer Date Recorded RETIRED: Total [...] any time in the past [address] [facility], were you homeless or living in a custodial (including now)? No 02/26/2025 Comments No Sex and Gender Information Value Date Recorded Sex Assigned at Not on file Legal Sex Female 5:37 AM SET STAFF FITTER Gender Identity Not on file Sexual Orientation [...] to outside hospital and was transferred to [facility] forcontinuity of care. HOSPITAL COURSE: (include consults [...] before could complete initial assessment. Cait Dove technical assistant [phone] * Marietta Sanchez RN - 03/03/2025 10:12 [...] of falls Outcome: Progressing * Lamar Morris APRN-IRON MELTER - 03/03/2025 9:51 AM CDT Neurology CC: seizure like activity Interval History: SALES RECRUITING COORDINATOR called this morning per nursing staff for seizure like activity. VSS throughout. Previous EEGs have confirmed nonepileptic events. Patient upset and wanting to be transferred, says that she was told at [facility] that she had epileptic seizures though I [...] meds Psych input appreciated Follow up with [facility] will sign off. Please call with any questions or concerns. Thank you for allowing us to participate in the care of this patient. Lamar Morris APRN, GASOLINE PUMP MECHANIC-C General Neurology [facility] Neurosciences [place] ASCOM #[id number] [1] 0.9% NaCl 3 mL Intracatheter q8h ARIPiprazole 5 mg Oral QDAY bacitracin Topical TID cyproheptadine 4 mg Oral BID lacosamide 200 mg Intravenous BID lactulose 20 g Oral TID levETIRAcetam 1,000 mg Intravenous q12h OLANZapine 10 mg Oral AT BEDTIME valproate 250 mg Intravenous q8h Cosigned by Waqas Burnham MD at 03/03/2025 12:33 PM CDT Associated attestation - Waqas Burnham MD - 03/03/2025 12:33 PM CDT I have seen and examined the patient with the nurse practitioner. I have re- confirmed the [place] elements of the history and performed an examination. I have discussed the patient's care with the nurse practitioner. History of known nonepileptic events Requesting transfer to [place] Impression: Psychogenic nonepileptic events. Pranav is unlikely [...] wishes, and discussion with multidisciplinary care team (department store general manager, FORENSIC SCIENCE TECHNICIAN, CSN, Therapy services, Pharmacy, and husbandry person) the current recommendation for the most appropriate [...] a consult to psychiatry request in the [facility] Portal for TeleHealth evaluation [id number]. [employer] contact number: [phone] documented in this encounter H&P Notes * Rica Hogan MD - 03/01/2025 7:29 PM CDT HISTORY AND PHYSICAL ASSESSMENT [address] [address] Name: Saray ChowMRN: [id number] : 1995Age: 29 year old ADMISSION DATE: 03/01/2025 LOCATION: [address] TELE/NEURO PCP: No primary care provider [...] to outside hospital and was transferred to [facility] forcontinuity of care. Patient is being admitted [...] 7:42 PM This note was dictated with [employer] Direct voice recognition software. Please excuse any [...] Chow : 1995 Location of the patient: [facility] IP Consulting Array Clinician: Zaire Graff [...] and behavior Rule Out Diagnoses: CPT Codes: 66294 - Psychiatric Diagnostic Evaluation with Medical Services [...] Follow up needed while in the hospital? [id number] Other: Discussed plan with onsite steam flattener: Yes - Spoke with Dr Cristel WATKINS, [...] for her.. Collateral Contacted Contacted Mirian Coker- [facility]- Bed side--Mother. Collateral reports patient poses [...] reasons for living ? Frustration tolerance ? Episcopal beliefs ? Fear of or the actual [...] AJs. Plantar responses downgoing. Coordination/Cerebellar: Intact to bmgddz-vurl-grzivr exam. Gait:not walking at the time of [...] results for input(s): TSH in the last 11104 hours. Recent Labs Component Name 02/24/25 0457 [...] 0457 HGBA1C 4.8 No results for input(s): SDBSCQRS20 in the last 71013 hours. Recent Labs Component Name 02/23/25 1114 AMMONIA 18 No results for input(s): RPR in the last 57565 hours. No results for input(s): CARBAMAZEPIN in the last 99424 hours. No results for input(s): WYHEEWNLO4WP , GUMPVLZWYD5W , AYGORKOHFC0J , HGNIGQ7LJ , CYRPZBCAKQ0U in the last 23590 hours. Invalid input(s): EAYSTFEP4WU , HKINBNHD1GX , OHH5KCKN13 , OXCBXJUSSC3D , KZLMGAKXF3OG , VKHJTFKTW1IA Recent Labs Component Name 05/31/23 2316 COLORUA Yellow CLARITYUA Slt Cloudy* SPECGRAVUA 1.025 PHUA 5.0 PROTEINUA Negative BLOODUA 2+* LEUKOCYTEUA Negative NITRITEUA Negative GLUCOSEUA Negative KETONEUA Negative BILIRUBINUA Negative UROBILINUA Negative WBCUA 0-5 RBCUA 3-5 MUCUSUA 3+ BACTUA None Seen No results for input(s): SEDRATE in the last 83373 hours. No results for input(s): CRP in the last 24980 hours. Recent Labs Component Name 04/19/22 0001 [...] DATE: 03/03/2025 RAPID TIME: 833 RAPID LOCATION: [facility]01/11 ADMITTING SERVICE: Armand Fam MD PERSON(S) NOTIFIED: Person(s) Notified: The care team at bedside and Provider - Dr. Ag NAME OF RESPONDING PROVIDER: Ancelmo PRIMARY REASON FOR CALL: Other (comment) Seizure-like activity OUTCOME: Remains in current room PERSON INITIATING RAPID: RN SUMMARY OF RAPID EVENTS: SALES RECRUITING COORDINATOR called for Seizure like activity. Staff at [...] Vimpat. Dr. Ag at bedside to attend SALES RECRUITING COORDINATOR; no new orders received at this time, continue current plan of care per MD. Tylenol to be administered by primary RN for c/o RICH. D/w RN, MD, BOTTOM SPRAYER RN and RT at bedside prior to [...] results for input(s): MAGMGDL in the last 89189 hours. Recent Labs Component Name 03/01/25 1727 [...] results for input(s): BNP in the last 03828 hours. Recent Labs Component Name 03/01/25 1727 [...] DATE: 03/02/2025 RAPID TIME: 21:09 RAPID LOCATION: [address] [place] [address] ADMITTING SERVICE: Armand Fam MD NAME OF RESPONDING PROVIDER: Dr. Rees PRIMARY REASON FOR CALL: Other (comment) - Seizure like behavior OUTCOME: Remains in current room PERSON INITIATING RAPID: [address] [place] [address] Nurse SUMMARY OF RAPID EVENTS: SALES RECRUITING COORDINATOR called for Seizure like behavior. Upon arrival of the rapid response team patient patient found laying in the supine position on the fall mat. [address] [place] [address] Charge Nurse reports that the patient was in bed talking to her mother on face time when she started to exhibit seizurelike behaviors. The patient's mother then called the [address] [place] [address] Nurses station to report what she had observed through face time. On entry of the [address] [place] [address] Charge Nurse the patient was found in [...] been having. Patient denies neck pain/tenderness. Per Glaze Carrier no imaging ordered at this time. Zyprexa and Antiepileptic medications modified to different route per Dr. Rees to ensure administration. 10 mg IM Zyprexa administered. Bedside sitter ordered and at bedside for safety. Reinforced fall precautions. Primary RN to administer PRN tylenol for headache. Neuro checks to be completed per protocol. [facility] Charge Nurse to order low bed. [...] POINT OF CARE (03/02/2025 9:16 PM CDT) [facility] Glucose WB/POC 103(H) 70 - 99 mg/dL 03/02/2025 9:18 PM CDT [facility] Specimen Type Cap Fingerstick 2024 9:18 PM CDT [facility] Blood BLOOD SPECIMEN / Unknown 03/02/2025 9:16 PM CDT 03/02/2025 9:18 PM CDT Armand Fam MD LAB - POINT OF CARE ORDERAB LES Final Result [facility] [address] [place] [address] * (ABNORMAL) BASIC METABOLIC PANEL (CALCIUM TOTAL) (03/02/2025 3:49 AM CDT) Pathologist [facility] Glucose 102(H) 70 - 99 mg/dL 03/02/2025 4:22 AM CDT [facility] Sodium 141 136 - 145 mmol/L 03/02/2025 4:22 AM CDT [facility] Potassium 3.9 3.5 - 5.1 mmol/L 03/02/2025 4:22 AM CDT [facility] Chloride 112(H) 98 - 107 mmol/L 03/02/2025 4:22 AM CDT [facility] CO2 23 22 - 29 mmol/L 03/02/2025 4:22 AM T [facility] Calcium 8.3(L) 8.4 - 10.4 mg/dL 03/02/2025 4:22 AM CDT [facility] Anion Gap 6 6 - 16 mmol/L 03/02/2025 4:22 AM CDT [facility] BUN 8 5.3 - 18.7 mg/dL 03/02/2025 4:22 AM CDT [facility] Creatinine 0.63 0.57 - 1.11 mg/dL 03/02/2025 4:22 AM CDT [facility] eGFR by CKD-EPI >90 >=90 mL/min/1.7 3 m2 03/02/2025 4:22 AM CDT [facility] Blood BLOOD SPECIMEN / Unknown Venipuncture / Unknown 03/02/2025 3:49 AM CDT 03/02/2025 3:57 AM CDT us Rick Campuzano MD LAB - CHEMISTRY ORDERAB LES Final Result [facility] [address] [place] [address] * (ABNORMAL) CBC W AUTO DIFFERENTIAL (03/01/2025 5:27 PM CDT) WBC 6.1 4.0 - 10.7 x10E9/L 03/01/2025 5:56 PM CDT [facility] RBC Count 3.40(L) 3.90 - 5.20 x10E12/L 03/01/2025 5:56 PM CDT [facility] Hemoglobin 9.9(L) 11.9 - 15.8 g/dL 03/01/2025 5:56 PM CDT [facility] Hematocrit 31.6(L) 34.8 - 46.1 % 03/01/2025 5:56 PM CDT [facility] MCV 92.9 80.0 - 98.0 fL 03/01/2025 5:56 PM CDT [facility] MCH 29.1 26.7 - 33.6 pg 03/01/2025 5:56 PM CDT [facility] MCHC 31.3(L) 31.7 - 36.3 g/dL 03/01/2025 5:56 PM CDT [facility] RDW-CV 13.3 11.3 - 14.8 % 03/01/2025 5:56 PM CDT [facility] Platelet Count 288 150 - 420 x10E9/L 03/01/2025 5:56 PM CDT [facility] MPV 10.3 7.8 - 11.4 fL 03/01/2025 5:56 PM CDT [facility] Neutrophil % 66.0 41.0 - 74.0 % 03/01/2025 5:56 PM CDT [facility] Lymphocyte % 25.9 17.0 - 47.0 % 03/01/2025 5:56 PM CDT [facility] Monocyte % 5.5 3.0 - 11.0 % 03/01/2025 5:56 PM CDT [facility] Eosinophil % 1.6 0.0 - 7.0 % 03/01/2025 5:56 PM CDT [facility] Basophil % 0.7 0.0 - 1.6 % 03/01/2025 5:56 PM CDT [facility] Immature Granulocytes % 0.3 0.0 - 1.0 % 03/01/2025 5:56 PM CDT [facility] Neutrophil Absolute 4.04 1.60 - 7.50 x10E9/L 03/01/2025 5:56 PM CDT [facility] Lymphocyte Absolute 1.59 1.00 - 4.40 x10E9/L 03/01/2025 5:56 PM CDT [facility] Monocyte Absolute 0.34 0.15 - 1.00 x10E9/L 03/01/2025 5:56 PM CDT [facility] Eosinophil Absolute 0.10 0.00 - 0.60 x10E9/L 03/01/2025 5:56 PM CDT [facility] Basophil Absolute 0.04 0.00 - 0.13 x10E9/L 03/01/2025 5:56 PM CDT [facility] Blood BLOOD SPECIMEN / Unknown Venipuncture / Unknown 03/01/2025 5:27 PM CDT 03/01/2025 5:37 PM CDT Rick Campuzano MD LAB - HEMATOLOGY ORDERA BLES Final Result [facility] [address] [place] [address] * (ABNORMAL) COMPREHENSIVE METABOLIC PANEL (03/01/2025 5:27 PM CDT) [facility] Glucose 107(H) 70 - 99 mg/dL 03/01/2025 5:52 PM CDT [facility] Sodium 141 136 - 145 mmol/L 03/01/2025 5:52 PM CDT [facility] Potassium 3.6 3.5 - 5.1 mmol/L 03/01/2025 5:52 PM CDT [facility] Chloride 110(H) 98 - 107 mmol/L 03/01/2025 5:52 PM CDT [facility] CO2 23 22 - 29 mmol/L 03/01/2025 5:52 PM CDT [facility] Calcium 8.9 8.4 - 10.4 mg/dL 03/01/2025 5:52 PM CDT [facility] Anion Gap 8 6 - 16 mmol/L 03/01/2025 5:52 PM CDT [facility] BUN 8 5.3 - 18.7 mg/dL 03/01/2025 5:52 PM CDT [facility] Creatinine 0.64 0.57 - 1.11 mg/dL 03/01/2025 5:52 PM CDT [facility] Alkaline Phosphatase 49 40 - 150 U/L 03/01/2025 5:52 PM CDT [facility] ALT 19 6 - 57 U/L 03/01/2025 5:52 PM CDT [facility] AST 39 10 - 48 U/L 03/01/2025 5:52 PM CDT [facility] Protein Total 6.7 6.4 - 8.3 gm/dL 03/01/2025 5:52 PM CDT [facility] Albumin 3.7 3.4 - 5.0 gm/dL 03/01/2025 5:52 PM CDT [facility] Bilirubin Total 0.3 0.2 - 1.2 mg/dL 03/01/2025 5:52 PM CDT [facility] eGFR by CKD-EPI >90 >=90 mL/min/1.7 3 m2 03/01/2025 5:52 PM CDT [facility] Blood BLOOD SPECIMEN / Unknown Venipuncture / Unknown 03/01/2025 5:27 PM CDT 03/01/2025 5:37 PM CDT Rick Campuzano MD LAB - CHEMISTRY ORDERAB LES Final Result [facility] [address] [place] [address] * GLUCOSE - POINT OF CARE (03/01/2025 3:20 PM CDT) [facility] Glucose WB/POC 83 70 - 99 mg/dL 03/01/2025 3:24 PM CDT [facility] Specimen Type Cap Fingerstick 2024 3:24 PM CDT [facility] Blood BLOOD SPECIMEN / Unknown 03/01/2025 3:20 PM CDT 03/01/2025 3:24 PM CDT Rick Campuzano MD LAB - POINT OF CARE ORD ERABLES Final Result [facility] [address] [place] [address] documented in this encounter Visit Diagnoses Diagnosis [...] swallow. documented in this encounter Care Teams Spray Drier Operator Relationship Specialty Start Date End Date Izzy Shukla MD [address] [place] [address] 05/27/21 documented as of this encounter
--- OUTSIDE RECORDS SUMMARY | 2025-03-03 20:05 | XMS_ITS | Encounter Summary ---
Author Organization [facility] Address [facility] [place] [address] Care Team Providers Care Body Straightener Name Role Phone Geno Gerard Primary Care Provider [phone] None, Provider MD Unavailable Unavailable Encounter Details Date Type Department Care Team (Late st Contact Info) Description 04/29/2024 MyChart Message Enc [facility] Family and Sports Medicine - [place] [address] [place] [address] Geno Gerard APNP [address] [place] [address] [phone] Yearly Visit Reminder Social History Tobacco Use [...] on filedocumented in this encounter Care Teams Body Straightener Relationship Specialty Start Date End Date Geno Gerard APNP [address] [place] [address] PCP - General NURSE PRACTITIONER 10/15/18 None, Provider, 08/01/18 documented as of this encounter
--- OUTSIDE RECORDS SUMMARY | 2025-03-03 20:05 | XMS_ITS | Clinical Summary ---
Author Organization [facility] Address [facility] [place] [address] Care Team Providers Care Cigar Sorter Name Role Phone Geno Reilly Primary Care Provider [phone] None, Provider MD Unavailable Unavailable Allergies Active Allergy Reactions Criticality Noted Date Comments Ibuprofen Other (see comment) 11/20/2017 shakes Other reaction(s): Other (See Comments) shaking Medications QUEtiapine 200 MG tabletIndications:B ipolar depression ([facility]) Take 1 tablet (200 mg total) by [...] Bacterial vaginosis 08/03/2018 Bipolar disorder with depression ([facility]/HC C) 08/03/2018 Contraception 08/03/2018 Dark urine [...] 3 weeks and then menstruate for 1. [facility] providers have told her in past to [...] Comments Blood Pressure 103/72 11/19/2024 1:00 PM CARGO CHECKER Pulse 88 11/19/2024 1:00 PM CARGO CHECKER Temperature 37.1 C (98.8 F) 11/19/2024 8:40 AM CARGO CHECKER Respiratory Rate 22 11/19/2024 1:00 PM CARGO CHECKER Oxygen Saturation 93% 11/19/2024 1:00 PM CARGO CHECKER Inhaled Oxygen Concentration - - Weight 63.7 kg (140 lb 6.9 oz) 11/19/2024 8:40 A M CARGO CHECKER Height 163.8 cm (5' 4.5 ) 11/19/2024 8:27 AM CARGO CHECKER Body Mass Index 23.73 11/19/2024 8:27 AM CARGO CHECKER Plan of Treatment Health Maintenance Due Date [...] Cancer Screening with HPV 2024 PHQ-2 (Physician [place]) 11/13/2024 DTaP, Tdap and Td Vaccines (4 [...] Comments HEPATITIS PANEL,ACUTE Routine 11/14/2019 2:36 PM CARGO CHECKER Routine screening for STI (sexually transmitted infection) HPV MRNA E6/E7 W/ RFLX GENOTYPES Routine 05/03/2019 2:36 PM CDT CYTOPATH CERV/VAG THIN LAYER Routine 05/03/2019 12:00 AM CDT from Last 3 Months or Most Recently Relevant to Health Maintenance Results * HEPATITIS PANEL,ACUTE (11/14/2019 2:36 PM CARGO CHECKER) HEPATITIS B SURFACE AG NON-REACTI VE NON-REACTI VE 11/14/2019 8:35 PM CARGO [facility]ER [facility] HEP B CORE IGM NON-REACTI VE NON-REACTI VE 11/14/2019 8:52 PM CARGO CHECKER [facility] HAV IGM NON-REACTI VE NON-REACTI VE 11/14/2019 8:54 PM CARGO CHECKER [facility] HEPATITIS C AB NON-REACTI VE NON-REACTI VE 11/14/2019 8:51 PM CARGO CHECKER [facility] 11/14/2019 2:36 PM CARGO CHECKER Geno Poirot APNP LABORATORY Final Result [facility] [address] [place] [address], * HPV MRNA E6/E7 W/ RFLX GENOTYPES (05/03/2019 2:36 PM CDT) HPV MRNA E6/E7 Not Detected NOT DETECTED 05/09/2019 4:37 PM CDT [facility] MORRISON Comment: This test was performed using the APTIMA(R) HPV Assay ([employer] This assay detects E6/E7 viral messenger RNA (mRNA) from 14 high-risk HPV types (16,18,31,33,35,39,45,51, 52,56,58,59,66,68). For additional information please refer to: http://education.Knip/faq/VBD114f4 (This link is being provided for informational/ educational purposes only.) The analytical performance characteristics of this assay have been determined by [employer] [place], [place]. The modifications have not been cleared or approved by the FDA. This assay has been validated pursuant to the CLIA regulations and is used for clinical purposes. HPV HUMAN PAPILLOMAVIRUS REPORT 05/09/2019 4:37 PM CDT [facility] MORRISON Comment: Not indicated Test Performed by [facility], [facility] [place], [id number] [place] [address] Scott Cano M.D., Ph.D., Director of Laboratories , CLIA [id number] 05/03/2019 2:36 PM CDT Geno Moustapha SARGENT PATHOLOGY/CYTOLOGY ORDERABLES Final Result [facility] [address] [place] [address], * Cytopath Cerv/Vag Thin Layer (05/03/2019 12:00 AM CDT) COPATH REPORT [facility] [address] [place], [place] [address] [phone] Department of Pathology Pathology Report Gynecological Cytology Report Patient Name: HARPAL EDENKINS ANUJ MATIASAccession#: [id number] : 1995 (Age: 23) Location: [facility] Gender: F Collected Date: 05/03/2019 Med Rec #: [id number] Date Received: 05/08/2019 Date Reported: 05/10/2019 Provider: GENO REILLY Final Cytologic Diagnosis Satisfactory for evaluation. Endocervical component not identified. Negative for Intraepithelial Lesion or Malignancy Bacterial Vaginosis High-risk HPV mRNA E6/E7 by Aptima assay (performed at [facility]) is reported as NOT DETECTED (see separate report for details). This case was signed out at [facility], [address] [place] [address]. Electronically Signed Out Oscar Jacobs Source of Specimen(s) Cervical/Endocervi veda - Thin Prep Clinical History Screening, last Pap not provided. History of HPV and abnormal Pap. Z12.4 Date of Last Menstrual Period: 04/15/19 Frozen Section Diagnosis Billing Fee Code(s): A: [address] [facility] 05/03/2019 05/08/2019 3:3 2 PM CDT Comment:CERVICAL/ENDOCERVICA L - THIN PREP us Geno SARGENT PATHOLOGY/CYTOLOGY ORDERABLES Final Result [facility] [address] [place] [address], from Last 3 Months or Most Recently Relevant to Health Maintenance Insurance [employer] Care Teams Cigar Sorter Relationship Specialty Start Date End Date Geno Reilly APNP [address] [place] [id number] PCP - General NURSE PRACTITIONER 10/15/18 None, Provider, 08/01/18
--- OUTSIDE RECORDS SUMMARY | 2025-03-03 20:05 | XMS_ITS | Referral Summary ---
Author Organization [facility] Address [address] [place] [address] Care Team Providers Care Business Development Consultant Name Role Phone Ines Her NP Primary [...] Never Tobacco Cessation:Ready to Q uit: No [facility] Utilities Answer Date Recorded In [...] often do you attend chur ch or roman catholic services? Never 09/26/2023 Do you belong to any clubs o r organizations such as tenriism groups, unions, fraternal or athletic groups, or [...] place to sleep or slept in a jail (including now)? No 09/26/2023 Personal Safety Answer Date Recorded Have you ever been in or are you currently in a harmful physical or emotional relationship or is someone making you feel afraid or unsafe? Denies 11/19/2024 Comments No Sex and Gender Information Value Date Recorded Sex Assigned at Not on file Legal Sex Female 7:13 AM COVER STRIPPER Gender Identity Not on file Sexual Orientation Not on file Last Filed Vital Signs Vital Sign Reading Time Taken Comments Blood Pressure 94/55 11/19/2024 10:00 PM COVER STRIPPER Pulse 74 11/19/2024 10:46 PM COVER STRIPPER Temperature 36.7 C (98.1 F) 11/19/2024 6:18 PM COVER STRIPPER Respiratory Rate 14 11/19/2024 10:46 PM COVER STRIPPER Oxygen Saturation 97% 11/19/2024 10:46 PM COVER STRIPPER Inhaled Oxygen Concentration - - Weight 61.2 kg (135 lb) 11/19/2024 4:40 PM COVER STRIPPER Height 162.6 cm (5' 4 ) 11/24/2023 8:34 PM COVER STRIPPER Body Mass Index 23.17 11/24/2023 8:34 PM COVER STRIPPER Plan of Treatment Not on file Insurance [facility] [address] Advance Directives For more information, please contact: [phone] * Full Code (Latest Code Status on File) Date Activated Date Inactivated Comments 09/25/2023 10:47 PM 09/27/2023 1:57 PM * Full Code Date Activated Date Inactivated Comments 09/23/2023 11:59 PM 09/25/2023 3:08 PM * Full Code Date Activated Date Inactivated Comments 10/22/2021 9:10 PM 10/23/2021 7:43 PM Care Teams Business Development Consultant Relationship Specialty Start Date End Date Ines Her NP [address] [place] [address] PCP - General Nurse Practitioner 01/30/25
--- OUTSIDE RECORDS SUMMARY | 2025-03-03 20:05 | XMS_ITS | Encounter Summary ---
Author Organization [facility] Care Team Providers Care Assistant Commissioner Name Role Phone No, Physician Primary Care Provider [phone] Reason for Visit * Auth/Cert Specialty Diagnoses / Procedures Referred By Reny t Referred To Contact Diagnoses SEIZURES Procedures VIDEO EEG Referral ID Status Reason Start Date Expiration Date Visits Re quested Visits Authorized [id number] 1 1 Encounter Details Date Type Department Care Team (Late st Contact Info) Description 03/09/2022 8:00 AM CDT Hospital Encounter Timothy Malik MD PhD [address] [place] [address] Social History Tobacco Use Types Packs/Day Years Used Date Smoking Tobacco: Former Cigarettes Q uit: 12/28/2021 Smokeless Tobacco: Never [facility] Utilities Answer Date Recorded In the past 12 months has [employer] electric, gas, oil, or water company threatened [...] often do you attend chur ch or rastafari services? Never 09/26/2023 Do you belong to [...] on file Legal Sex Female 7:13 AM DRY CLEANER HELPER Gender Identity Not on file Sexual Orientation [...] COVID: Suspected 11/25/2023 11/25/2023 11/25/2023 3:30 AM DRY CLEANER HELPER COVID: Suspected 11/19/2024 11/19/2024 11/19/2024 9:11 PM DRY CLEANER HELPER documented as of this encounter Care Teams Assistant Commissioner Relationship Specialty Start Date End Date No, Physician PCP - General 01/02/22 04/26/23 documented as of this encounter
--- OUTSIDE RECORDS SUMMARY | 2025-03-03 20:05 | XMS_ITS | Encounter Summary ---
Author Organization [facility] Address [facility] [place] [address] Care Team Providers Care Medical Laboratory Scientist Name Role Phone Geno Gerard Primary Care Provider [phone] None, Provider Unavailable Unavailable Encounter Details Date Type Department Care Team (Late st Contact Info) Description 12/26/2022 [email or web address] Message Enc [facility] Medical Group Family and Sports Medicine - [place] [address] [place] [address] [facility] Provider Schedule Appointment: Annual Physical Social History [...] on filedocumented in this encounter Care Teams Medical Laboratory Scientist Relationship Specialty Start Date End Date Geno Gerard APNP [address] [place] [address] PCP - General NURSE PRACTITIONER 10/15/18 None, ProviderMD 08/01/18 documented as of this encounter
--- OUTSIDE RECORDS SUMMARY | 2025-03-03 20:05 | XMS_ITS | Encounter Summary ---
Author Organization [facility] Address [address] [place] [address] Care Team Providers Care Ultrasonographer Name Role Phone Geno Gerard Primary Care Provider [phone] None, Provider Unavailable Unavailable Encounter Details Date Type Department Care Team (Late st Contact Info) Description 10/10/2022 [employer] Message Enc [facility] Medical Group Family and Sports Medicine - [place] [address] [place] [address] [facility] Provider Schedule Appointment: [...] on filedocumented in this encounter Care Teams Ultrasonographer Relationship Specialty Start Date End Date Geno Gerard APNP [address] [place] [address] PCP - General NURSE PRACTITIONER 10/15/18 None, Provider, 08/01/18 documented as of this encounter
--- OUTSIDE RECORDS SUMMARY | 2025-03-03 20:06 | XMS_ITS | Clinical Summary ---
Author Organization [facility] Address [address] [facility] [place] [address] Care Team Providers Care Dining Room Host/Hostess Name Role Phone Izzy Shukla MD Unavailable Source Comments [facility],non-owned Affiliates and Associated Physician Practices is amultiple site organization consisting of ambulatory clinics and hospital sitesin [place], [place], [place] and [place]. This disclosure is being madepursuant to the Care Everywhere program and may not contain all information available regarding this patient. 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 H lab results reviewed and FINANCIAL SERVICES ASSISTANT exam reviewed with Dr. Kaitlynn Joseph over [...] given. 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 Pt to followup with Dr. Joseph in [...] weeks and then menstruate for 1. [facility] providers have told her in past [...] AM CDT Hospital Encounter [facility]S TELE/NEURO [address] [place] [id number] Rick Campuzano MD Fatima, Noor E, MD Bezuneh, Abraham D, MD Hospitalist Discharge Disposition: Home or Self Care 02/24/2025 Travel 02/23/2025 10:21 AM CDT - 02/28/2025 8:00 PM CDT Hospital Encounter [facility] 7S TELE/NEURO [address] [place] [address] Jemma Virgen MD [place], MD Blayne Villalobos, Raymon Castillo, Kelli Chen MD Bezuneh, Armand Reyes MD Hospitalist Discharge Disposition: Admitted as an Inpatient 02/23/2025 6:17 AM CDT - 02/23/2025 7:19 AM CDT Emergency ER at [address] [address] from Last 3 Months Immunizations Immunization Administration [...] and heating? Not hard at all 02/26/2025 [facility] [place] [facility] Occupat ional Health - Occupational Stress [...] in a custodial (including now)? 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 Glucose WB/POC 103(H) 70 - 99 mg/dL 03/02/2025 9:18 PM CDT [facility] Specimen Type Cap Fingerstick 2024 9:18 PM CDT [facility] Blood BLOOD SPECIMEN / Unknown 03/02/2025 9:16 PM CDT 03/02/2025 9:18 PM CDT Armand Fam MD LAB - POINT OF CARE ORDERAB LES Final Result [facility] [address] [place] [address] * (ABNORMAL) BASIC METABOLIC PANEL (CALCIUM TOTAL) (03/02/2025 3:49 AM CDT) Only the most recent of2 resultswithin the time period is included. Glucose 102(H) 70 - 99 mg/dL 03/02/2025 4:22 AM CDT [facility] Sodium 141 136 - 145 mmol/L 03/02/2025 4:22 AM CDT [facility] Potassium 3.9 3.5 - 5.1 mmol/L 03/02/2025 4:22 AM CDT [facility] Chloride 112(H) 98 - 107 mmol/L 03/02/2025 4:22 AM CDT [facility] CO2 23 22 - 29 mmol/L 03/02/2025 4:22 AM CDT [facility] Calcium 8.3(L) 8.4 - 10.4 mg/dL 03/02/2025 4:22 AM CDT [facility] Anion Gap 6 6 - 16 mmol/L 03/02/2025 4:22 AM CDT [facility] BUN 8 5.3 - 18.7 mg/dL 03/02/2025 4:22 AM CDT [facility] Creatinine 0.63 0.57 - 1.11 mg/dL 03/02/2025 4:22 AM CDT [facility] eGFR by CKD-EPI >90 >=90 mL/min/1.7 3 m2 03/02/2025 4:22 AM CDT [facility] Blood BLOOD SPECIMEN / Unknown Venipuncture / Unknown 03/02/2025 3:49 AM CDT 03/02/2025 3:57 AM CDT Rick Campuzano MD LAB - CHEMISTRY ORDERAB LES Final Result [facility] [address] [place] [address] * (ABNORMAL) CBC W AUTO DIFFERENTIAL (03/01/2025 5:27 PM CDT) Only the most recent of7 resultswithin the time period is included. WBC 6.1 4.0 - 10.7 x10E9/L 03/01/2025 5:56 PM CDT [facility] RBC Count 3.40(L) 3.90 - 5.20 x10E12/L 03/01/2025 5:56 PM CDT [facility] Hemoglobin 9.9(L) 11.9 - 15.8 g/dL 03/01/2025 5:56 PM CDT [facility] Hematocrit 31.6(L) 34.8 - 46.1 [...] - 0.13 x10E9/L 03/01/2025 5:56 PM CDT [facility] Blood BLOOD SPECIMEN / Unknown Venipuncture / Unknown 03/01/2025 5:27 PM CDT 03/01/2025 5:37 PM CDT us Rick Campuzano MD LAB - HEMATOLOGY ORDERA BLES Final Result [facility] [address] [place] [address] * (ABNORMAL) COMPREHENSIVE METABOLIC PANEL (03/01/2025 5:27 PM CDT) Only the most recent of2 resultswithin the time period is included. Glucose 107(H) 70 - 99 mg/dL 03/01/2025 5:52 PM CDT [facility] Sodium 141 136 - 145 mmol/L 03/01/2025 5:52 PM CDT [facility] Potassium 3.6 3.5 - 5.1 mmol/L 03/01/2025 5:52 PM CDT [facility] Chloride 110(H) 98 - 107 mmol/L 03/01/2025 5:52 PM CDT [facility] CO2 23 22 - 29 mmol/L 03/01/2025 5:52 PM CDT [facility] Calcium 8.9 8.4 - 10.4 mg/dL 03/01/2025 5:52 PM CDT [facility] Anion Gap 8 6 - 16 mmol/L 03/01/2025 5:52 PM CDT [facility] BUN 8 5.3 - 18.7 mg/dL 03/01/2025 5:52 PM CDT [facility] Creatinine 0.64 0.57 - 1.11 mg/dL 03/01/2025 5:52 PM CDT [facility] Alkaline Phosphatase 49 40 - 150 U/L 03/01/2025 5:52 PM CDT [facility] ALT 19 6 - 57 U/L 03/01/2025 5:52 PM CDT [facility] AST 39 10 - 48 U/L 03/01/2025 5:52 PM CDT [facility] Protein Total 6.7 6.4 - 8.3 gm/dL 03/01/2025 5:52 PM CDT [facility] Albumin 3.7 3.4 - 5.0 gm/dL 03/01/2025 5:52 PM CDT [facility] Bilirubin Total 0.3 0.2 - 1.2 mg/dL 03/01/2025 5:52 PM CDT [facility] eGFR by CKD-EPI >90 >=90 mL/min/1.7 3 m2 03/01/2025 5:52 PM CDT [facility] Blood BLOOD SPECIMEN / Unknown Venipuncture / Unknown 03/01/2025 5:27 PM CDT 03/01/2025 5:37 PM CDT Rick Campuzano MD LAB - CHEMISTRY ORDERAB LES Final Result [facility] [address] [place] [address] * EEG EXTENDED MONITORING > 1 HOUR (02/28/2025 8:35 AM CDT) [facility]/28/[facility] 8:35 AM CDT Waqas Burnham MD 02/28/2025 8:36 AM LONG-TERM VIDEO EEG SUMMARY REPORT [facility] Long-term video EEG monitoring was performed on a patient with status. Utilizing the [employer]/Xob[employer] recording system, EEG was recorded in standard [...] limits. Suspected [place] [id number] on Feb 23, 2025. No EEG correlate [...] Jamal Bush DO on 02/28/2025 10:52 AM Narrative 02/28/2025 10:52 AM CDT PROCEDURE: US OB LESS THAN 14 WKS W TRANSVAG DATE/TIME OF EXAM: 02/28/2025 7:53 AM CLINICAL INFORMATION: contractions. Clinical gestational age 9 weeks 0 days. COMPARISON: None. TECHNIQUE: Real time transabdominal and transvaginal pelvic ultrasound was performed by the copier field service technician with DICOM image capture. Obstetric follow-up care [...] and transvaginal pelvic ultrasound wasperformed by the copier field service technician with DICOM image capture. Obstetric follow-up care [...] - 99 mg/dL 02/28/2025 7:09 AM CDT [facility] Sodium 142 136 - 145 mmol/L 02/28/2025 7:09 AM CDT [facility] Potassium 3.6 3.5 - 5.1 mmol/L 02/28/2025 7:09 AM CDT [facility] Chloride 109(H) 98 - 107 mmol/L 02/28/2025 7:09 AM CDT [facility] CO2 26 22 - 29 mmol/L 02/28/2025 7:09 AM CDT [facility] Calcium 9.1 8.4 - 10.4 mg/dL 02/28/2025 7:09 AM T [facility] Anion Gap 7 6 - 16 mmol/L 02/28/2025 7:09 AM CDT [facility] BUN 4(L) 5.3 - 18.7 mg/dL 02/28/2025 7:09 AM CDT [facility] Creatinine 0.61 0.57 - 1.11 mg/dL 02/28/2025 7:09 AM CDT [facility] Albumin 3.2(L) 3.4 - 5.0 gm/dL 02/28/2025 7:09 AM CDT [facility] Phosphorus 4.6(H) 2.5 - 4.5 mg/dL 02/28/2025 7:09 AM T [facility] eGFR by CKD-EPI >90 >=90 mL/min/1.7 3 m2 02/28/2025 7:09 AM T [facility] Blood BLOOD SPECIMEN / Unknown Venipuncture / Unknown 02/28/2025 6:37 AM CDT 02/28/2025 6:50 AM CDT Roma Burger MD LAB - CHEMISTRY ORDERABLES Fi nal Result [facility] [address] [place] [address] * MAGNESIUM BLOOD (02/28/2025 6:37 AM CDT) Only the most recent of6 resultswithin the time period is included. Pathologist [facility] Magnesium 1.7 1.6 - 2.6 mg/dL 02/28/2025 7:07 AM CDT [facility] Blood BLOOD SPECIMEN / Unknown Venipuncture / Unknown 02/28/2025 6:37 AM CDT 02/28/2025 6:50 AM CDT Roma Burger MD LAB - CHEMISTRY ORDERABLES Fi nal Result [facility] [address] [place], [place] [id number] * (ABNORMAL) HERPES SIMPLEX 2 ANTIBODY IGG (02/27/2025 2:43 AM CDT) [facility] Herpes Simplex Virus 2 Antibody IgG Type Specific Reactive( A) Non Reactive 02/28/2025 8:11 AM CDT [facility] ([facility]) Comment: Please note reference interval change [...] CDT 02/27/2025 2:57 AM CDT Narrative [facility] ([facility]) - 02/28/2025 8:11 AM CDT Performed at: [facility] [address] [id number] Greenhouse Laborer: Roe John PhD, Phone: [phone] Weston Florentino METAL MOVER-LIBRARY SERVICES COORDINATOR LAB - CHEMISTRY ORDERA BLES Final Result [facility] ([facility]) [address] [place] [address] * IGG BLOOD (02/27/2025 2:43 AM CDT) [facility] IgG 1,080 767 - 1,590 mg/dL 02/27/2025 10:34 AM CDT [facility] Blood BLOOD SPECIMEN / Unknown Venipuncture / Unknown 02/27/2025 2:43 AM CDT 02/27/2025 2:57 AM CDT Weston Florentino METAL MOVER-LIBRARY SERVICES COORDINATOR LAB - CHEMISTRY ORDERA BLES Final Result Performing Organization Address City/[facility]/ZIP Co de Phone Number [facility] [address] [place] [address], [facility] [phone] * (ABNORMAL) HCG BLOOD QUAL REFLEX QUANT (02/26/2025 3:43 AM CDT) [facility] HCG Qual Serum Positive(A ) Negative 02/26/2025 4:22 AM CDT [facility] Blood BLOOD SPECIMEN / Unknown Venipuncture / Unknown 02/26/2025 3:43 AM CDT 02/26/2025 3:56 AM CDT Narrative [facility] - 02/26/2025 4:22 AM CDT Specimens containing human anti-mouse antibodies may exhibit false positive or false negative results. If qualitative interpretation is inconsistent with clinical evaluation, consider confirmation by an alternative hCG method. Waqas Cotter MD LAB - CHEMISTRY O RDERABLES Final Result [facility] [address] [place] [address] * HCG BETA BLOOD QUANTITATIVE (02/26/2025 3:43 AM CDT) Only the most recent of2 resultswithin the time period is included. [facility] hCG Quantitative 5,731.84 mIU/mL 02/27/20 5:52 AM CDT [facility] Blood BLOOD SPECIMEN / Unknown Venipuncture / Unknown 02/26/2025 3:43 AM CDT 02/26/2025 3:56 AM CDT Narrative [facility] - 02/26/2025 5:52 AM CDT [...] LAB - CHEMISTRY O RDERABLES Final Result [facility] [address] [place] [address] * MRI Brain Wwo Contrast [...] DATE/TIME OF EXAM: 02/25/2025 8:15 PM, LOCATION [facility] INDICATION: R56.9: Unspecified convulsions (HCC) ADDITIONAL CLINICAL INFORMATION: Ordering Provider Reason For Exam: Technologist Note: Additional: COMPARISON: None. TECHNIQUE: MRI of the brain was performed without and with contrast. CONTRAST: GADOTERATE MEGLUMINE 0.5 MMOL/ML IV SSM SO:15 mL FINDINGS: Brain parenchymal signal intensity is normal. Pucrell-white matter differentiation is normal. No diffusion restriction [...] CONTRAST, DATE/TIME OF EXAM: 02/25/2025 8:15PM, LOCATION [facility] INDICATION: R56.9: Unspecified convulsions (HCC) ADDITIONAL CLINICAL [...] LAB - CHEMISTRY ORDERABLES Fi nal Result [facility] [address] [place] [address] * HEMOGLOBIN A1C (02/24/2025 4:57 AM CDT) Pathologist [facility] Hemoglobin A1c 4.8 <5.7 % 02/24/2025 5:35 AM CDT [facility] Estimated Average Glucose 91 mg/dL 02/24/2025 5:35 AM CDT [facility] Blood BLOOD SPECIMEN / Unknown Venipuncture / Unknown 02/24/2025 4:57 AM CDT 02/24/2025 5:05 AM CDT Narrative [facility] - 02/24/2025 5:35 AM CDT [...] ORDERABLES Fi nal Result Performing Organization Address City/[facility]/ZIP Co de Phone Number [facility] [address] [place] [address] * (ABNORMAL) CK BLOOD (02/24/2025 4:57 AM CDT) Pathologist [facility] CK 227(H) 29 - 168 U/L 02/24/2025 8:50 AM CDT [facility] Blood BLOOD SPECIMEN / Unknown Venipuncture / Unknown 02/24/2025 4:57 AM CDT 02/24/2025 5:05 AM CDT us Waqas Cotter MD LAB - CHEMISTRY O RDERABLES Final Result Performing Organization Address [facility]/[place] Co de Phone Number [facility] [id number] [place] [address] * (ABNORMAL) HGB HCT PANEL (02/23/2025 9:59 PM CDT) Pathologist [facility] Hemoglobin 9.6(L) 11.9 - 15.8 g/dL 02/23/2025 10:14 PM CDT [facility] Hematocrit 30.7(L) 34.8 - 46.1 % 02/23/2025 10:14 PM CDT [facility] Blood BLOOD SPECIMEN / Unknown Venipuncture / Unknown 02/23/2025 9:59 PM CDT 02/23/2025 10:10 PM CDT us Roma Burger MD LAB - HEMATOLOGY ORDERABLES F inal Result Performing Organization Address [facility] de Phone Number [facility] [address] [place] [id number] * (ABNORMAL) BLOOD GASES ARTERIAL (02/23/2025 11:18 [...] GASES ORDERABLES Final Result Performing Organization Address [facility] de Phone Number [facility] RESP THERAPY [address] [place] [address] * (ABNORMAL) PHOSPHORUS BLOOD (02/23/2025 11:14 AM CDT) [facility] Phosphorus 2.4(L) 2.5 - 4.5 mg/dL 02/23/2025 12:05 PM CDT [facility] Blood BLOOD SPECIMEN / Unknown Line Draw / Unknown 02/23/2025 11:14 AM CDT 02/23/2025 11:48 AM CDT Roma Burger MD LAB - CHEMISTRY ORDERABLES Fi nal Result Performing Organization Address [facility]/[place] Co de Phone Number [facility] [id number] [place] [address] * LACTIC ACID BLOOD (02/23/2025 11:14 AM CDT) Pathologist [facility] Lactic Acid 1.6 <=2 mmol/L 02/23/2025 12:05 PM CDT [facility] Blood BLOOD SPECIMEN / Unknown Line Draw / Unknown 02/23/2025 11:14 AM CDT 02/23/2025 11:48 AM CDT Roma Burger MD LAB - CHEMISTRY ORDERABLES Fi nal Result Performing Organization Address City/[facility]/[place] Co de Phone Number [facility] [address] [place] [address] * AMMONIA (02/23/2025 11:14 AM CDT) Ammonia 18 18 - 72 umol/L 02/23/2025 11:57 AM CDT [facility] Blood BLOOD SPECIMEN / Unknown Line Draw / Unknown 02/23/2025 11:14 AM CDT 02/23/2025 11:48 AM CDT Roma Burger MD LAB - CHEMISTRY ORDERABLES Fi nal Result Performing Organization Address [facility] de Phone Number [facility] [id number] [place] [address] * XR CHEST 1VW PORTABLE (02/23/2025 11:10 [...] * HIV-1 HIV-2 ANTIBODY (12/30/2009 4:38 PM GARDEN TRACTOR MECHANIC) HIV-1/HIV-2 Non-Reacti ve Non-Reacti ve [facility] BLOOD SPECIMEN / Unknown 12/30/2009 4:38 PM GARDEN TRACTOR MECHANIC Shikha Maguire MD LAB - CHEMISTRY ORDERA BLES Final Result [facility] from Last 3 Months or Most Recently Relevant to Health Maintenance Insurance [facility] Advance Directives * Full Code (Latest Code [...] 9:04 AM 07/25/2022 5:20 PM Care Teams Dining Room Host/Hostess Relationship Specialty Start Date End Date Izzy Shukla MD [address] [place] [id number] 05/27/21
== END 2025-03-03 20:15 | disposition home or self-care (01) ==
LOC: ANHED 20:03
PROVIDERS: Emergency Provider Physician Assistant
DX: L73.9 Follicular disorder, unspecified (principal); G40.909 Epilepsy, unspecified, not intractable, without status epilepticus
CPT/HCPCS: 99283

== ENCOUNTER 2025-03-06 15:07 | Emergency (ER) | payer OTHER, SELFPAY ==
--- NOTE | ~2025-03-06 | XR_ITS ---
XR forearm LT 2V Ordering provider: Paula Muñoz APRN History: . concern for osteomyelitis . Comparison: None. FINDINGS: BONES: Postoperative changes in the distal humerus and proximal ulna. No definite osteomyelitis seen. JOINT SPACES: Normal. SOFT TISSUES: Normal. IMPRESSION: Postoperative changes in the distal humerus and proximal ulna. Reviewed, dictated and finalized at location A.
[2025-03-06 15:28] VITALS: BP 99/66; PULSE 95; RESP 16; TEMP 36.6; O2SAT 100
--- NOTE | 2025-03-06 15:35 | ED.GENADULT ---
HPI - General Adult General Chief complaint: Wound/Laceration <Paula Muñoz APRN - Last Filed: 03/06/25 15:37> Stated complaint: Chills and night sweats <Paula Muñoz APRN - Last Filed: 03/06/25 15:37> Time Seen by Provider: 03/06/25 15:30 <Paula Muñoz APRN - Last Filed: 03/06/25 15:37> Focused HPI: Patient is a 29-year-old female who presents to the ER with concerns of infection on her left forearm. She has an extensive history in the last month of having seizures, being intubated, and being sent to [facility] for further evaluation. Patient reports she was seen in this ER on Monday, 3 days ago, and she was diagnosed with cellulitis. She reports the pain and redness have not decreased since being on the antibiotic and she is worried there is still infection. Patient denies any drainage, decreased range of motion, recent fevers, or subsequent seizures. GENERAL: Well-appearing, well-nourished, and in no acute distress. HEAD: Normocephalic, atraumatic. CHEST: Clear to auscultation. ?No respiratory distress. HEART: Regular rate and rhythm.? NEURO: ?Alert and oriented x3. Patient screened in triage and initial orders placed.? ?Additional care and disposition to be based upon?diagnostic testing and treatment. <Paula Muñoz APRN - Last Filed: 03/06/25 15:37> History of Present Illness HPI narrative: Agree with the HPI above. Patient was otherwise in her normal state of health. She has a very minor looking cellulitic skin rash to her left upper extremity that appears unchanged on review of the EMR. Patient tells me that she has not had any progression of her rash and was just told that if it did not get any better to seek re-evaluation. Patient is on day 3 of doxycycline presently. <Adam Saucedo MD - Last Filed: 03/06/25 21:01> Related Data Allergies/adverse reactions: Allergies Allergy/AdvReac Type Severity Reaction Status Date / Time ibuprofen Allergy Shakiness Verified 03/03/25 15:19 <Paula Muñoz APRN - Last Filed: 03/06/25 15:37> Review of Systems Review of Systems: As reviewed above in HPI <Adam Saucedo MD - Last Filed: 03/06/25 21:01> [facility] Past Medical History Medical History: Medical History Seizures <Paula DowellWinsome Muñoz APRN - Last Filed: 03/06/25 15:37> Social History Social History: Social History Alcohol intake: current <Paula Muñoz APRN - Last Filed: 03/06/25 15:37> Exam Narrative: GENERAL: Well-appearing, well-nourished, and in no acute distress. HEAD: Normocephalic, atraumatic. EYES: PERRLA and EOMI. ENT: Nares clear, no rhinorrhea or epistaxis. Mucous membranes moist. Oropharynx without tonsillar hypertrophy exudate or other lesions. NECK: Supple. No adenopathy or masses. CHEST: No respiratory distress. Clear to auscultation. No wheezes rales or rhonchi HEART: Regular rate and rhythm. No murmur heard. Normal peripheral pulses. ABDOMEN: Soft, nontender, nondistended, normal active bowel sounds. MSK: Normal range of motion. No edema. SKIN: 3 distinct punctate scabbed areas to the left dorsal forearm. There is mild surrounding erythema to these lesions but no coalescing. No swelling or superiorly ascending erythema. No significant tenderness to palpation. Previous surgical scar to the proximal left elbow. NEURO: Alert and oriented x4. No focal deficits. PSYCH: Normal mood and affect. <Adam Saucedo MD - Last Filed: 03/06/25 21:01> Course Vital Signs Vital signs: Vital Signs Temperature 36.6 C 03/06/25 15:28 Pulse Rate 95 03/06/25 15:28 Respiratory Rate 16 03/06/25 15:28 Blood Pressure 99/66 L 03/06/25 15:28 Pulse Oximetry 100 03/06/25 15:28 Oxygen Delivery Room Air 03/06/25 15:28 Temperature 37.1 C 03/06/25 17:43 Pulse Rate 76 03/06/25 17:43 Respiratory Rate 18 03/06/25 17:43 Blood Pressure 104/62 03/06/25 17:43 Pulse Oximetry 100 03/06/25 17:43 Oxygen Delivery Room Air 03/06/25 15:28 <Paula Muñoz APRN - Last Filed: 03/06/25 15:37> Vital Signs Temperature 36.6 C 03/06/25 15:28 Pulse Rate 95 03/06/25 15:28 Respiratory Rate 16 03/06/25 15:28 Blood Pressure 99/66 L 03/06/25 15:28 Pulse Oximetry 100 03/06/25 15:28 Oxygen Delivery Room Air 03/06/25 15:28 Temperature 37.1 C 03/06/25 17:43 Pulse Rate 76 03/06/25 17:43 Respiratory Rate 18 03/06/25 17:43 Blood Pressure 104/62 03/06/25 17:43 Pulse Oximetry 100 03/06/25 17:43 Oxygen Delivery Room Air 03/06/25 15:28 <Adam Saucedo MD - Last Filed: 03/06/25 21:01> Medical Decision Making MDM Narrative Medical decision making narrative: 29-year-old female presenting with cellulitic skin rash to left upper extremity that appears unchanged and even slightly better than described on previous evaluations several days ago. Patient is compliant with her doxycycline she was prescribed. She has 3 focal pain point lesions to the dorsum of the left distal forearm that appears scabbed over. No streaking or or erythema that is tracking past these areas. No palpable fluctuance or tender masses. No expression of purulence or serosanguineous drainage. Good distal neuro vasculature and range of motion of the proximal and distal joints. Normal vital signs with any fever or tachycardia. No significant blood pressure concerns. Saturating normal 100% on room air. Suspicion presently is for involving and likely healing cellulitis with low suspicion for spread or treatment failure given the duration of symptoms and clinical exam that appears improved. Low suspicion for systemic infection or systemic spread and low suspicion for joint involvement given her unremarkable examination with no elbow or wrist swelling, erythema or range of motion restrictions. Laboratory studies were drawn at this time to make sure that there is no inflammatory marker elevations or systemic signs of infection such as leukocytosis. She was given Toradol for pain. X-rays were obtained. Laboratory studies showed no leukocytosis. Anemia of 9.8 which is at her baseline. Normal platelet count. Normal electrolyte profile. Normal renal function, normal hepatic function. Normal ESR, normal CRP. Negative lactic acid. On review of the EMR she had an elevated BHCG in the 50,000 range but a negative ultrasound x2 suggestive of missed without any signs of ectopic . Patient has no abdominal pain or distension. No vital concerns. No vaginal bleeding. Will not need to re-evaluate this at this time. Patient is safe and stable for discharge home at this time with continued course of antibiotics that she was prescribed recently as well as instructions to follow-up with regular doctor or return with any new or worsening concerns. <Adam Saucedo MD - Last Filed: 03/06/25 21:01> Medical Records Medical records reviewed: Yes I reviewed the external patient's medical records. <Adam Saucedo MD - Last Filed: 03/06/25 21:01> Vital Signs Vital Signs: Vital Signs Temperature 36.6 C 03/06/25 15:28 Pulse Rate 95 03/06/25 15:28 Respiratory Rate 16 03/06/25 15:28 Blood Pressure 99/66 L 03/06/25 15:28 Pulse Oximetry 100 03/06/25 15:28 Oxygen Delivery Room Air 03/06/25 15:28 Temperature 37.1 C 03/06/25 17:43 Pulse Rate 76 03/06/25 17:43 Respiratory Rate 18 03/06/25 17:43 Blood Pressure 104/62 03/06/25 17:43 Pulse Oximetry 100 03/06/25 17:43 Oxygen Delivery Room Air 03/06/25 15:28 <Paula Muñoz APRN - Last Filed: 03/06/25 15:37> Vital Signs Temperature 36.6 C 03/06/25 15:28 Pulse Rate 95 03/06/25 15:28 Respiratory Rate 16 03/06/25 15:28 Blood Pressure 99/66 L 03/06/25 15:28 Pulse Oximetry 100 03/06/25 15:28 Oxygen Delivery Room Air 03/06/25 15:28 Temperature 37.1 C 03/06/25 17:43 Pulse Rate 76 03/06/25 17:43 Respiratory Rate 18 03/06/25 17:43 Blood Pressure 104/62 03/06/25 17:43 Pulse Oximetry 100 03/06/25 17:43 Oxygen Delivery Room Air 03/06/25 15:28 <Adam Saucedo MD - Last Filed: 03/06/25 21:01> Lab Data Lab results reviewed: Yes I reviewed the patient's lab results. <Adam Saucedo MD - Last Filed: 03/06/25 21:01> Result diagrams: 03/06/25 16:24 03/06/25 16:24 <Paula Muñoz APRN - Last Filed: 03/06/25 15:37> Labs: Lab Results 03/06/25 Range/Units 16:24 WBC 6.9 (4.5-10.0) K/mm3 RBC 3.28 L (4.2-5.4) M/mm3 Hgb 9.8 L (12.0-15.0) g/dL Hct 31.4 L (37.0-47.0) % MCV 95.7 (80-100) fl MCH 29.9 (26-34) pg MCHC 31.2 L (32-36) g/dl RDW 13.9 (11.5-14.5) % Plt Count 302 (150-375) k/mm3 MPV 10.6 H (7.4-10.4) fl Immature Gran % (Auto) 0.3 (0-0.5) % Neut % (Auto) 65.0 (45.5-73.1) % Lymph % (Auto) 25.3 (18.3-44.2) % Morehouse % (Auto) 7.5 (2.6-8.5) % Eos % (Auto) 1.3 (0-4.4) % Baso % (Auto) 0.6 (0.2-1.2) % Lymph # (Auto) 1.75 (0.9-3.2) K/mm3 Morehouse # (Auto) 0.5 (0.1-0.6) K/mm3 Eos # (Auto) 0.1 (0-0.3) K/mm3 Baso # (Auto) 0.0 (0.0-0.1) K/mm3 Abs Immat Gran (auto) 0.02 (0.00-0.031) K/mm3 Absolute Neuts (auto) 4.5 (1.3-6.7) K/mm3 Absolute Nucleated RBC 0.000 (0.0-0.012) K/mm3 Nucleated RBC % 0.0 (0.0-0.2) % ESR 19 (0-20) mm/hr PT 15.0 H (11.1-14.7) Seconds INR 1.1 APTT 24.5 (22.3-36.8) Seconds Sodium 140 (137-145) mmol/L Potassium 4.1 (3.4-5.0) mmol/L Chloride 105 (98-107) mmol/L Carbon Dioxide 24 (22-30) mmol/L Anion Gap 11 (4-12) mmol/L BUN 10 D (7-17) mg/dL Creatinine 0.58 L (0.7-1.0) mg/dL Estim Creat Clear Calc 98 ml/min Estimated GFR > 60 (59 - ) Glucose 97 (65-110) mg/dL Lactic Acid 1.0 (0.7-2.0) mmol/L Calcium 9.0 (8.4-10.2) mg/dL Total Bilirubin 0.3 (0.2-1.3) mg/dL AST 35 (14-36) U/L ALT 46 H (6-35) U/L Alkaline Phosphatase 69 (38-126) U/L C-Reactive Protein < 0.5 (<1.0) mg/dL Total Protein 8.0 (6.3-8.2) g/dL Albumin 4.5 (3.5-5.1) g/dL <Paula Muñoz, HAND INSPECTOR - Last Filed: 03/06/25 15:37> Lab Results 03/06/25 Range/Units 16:24 WBC 6.9 (4.5-10.0) K/mm3 RBC 3.28 L (4.2-5.4) M/mm3 Hgb 9.8 L (12.0-15.0) g/dL Hct 31.4 L (37.0-47.0) % MCV 95.7 (80-100) fl MCH 29.9 (26-34) pg MCHC 31.2 L (32-36) g/dl RDW 13.9 (11.5-14.5) % Plt Count 302 (150-375) k/mm3 MPV 10.6 H (7.4-10.4) fl Immature Gran % (Auto) 0.3 (0-0.5) % Neut % (Auto) 65.0 (45.5-73.1) % Lymph % (Auto) 25.3 (18.3-44.2) % Morehouse % (Auto) 7.5 (2.6-8.5) % Eos % (Auto) 1.3 (0-4.4) % Baso % (Auto) 0.6 (0.2-1.2) % Lymph # (Auto) 1.75 (0.9-3.2) K/mm3 Morehouse # (Auto) 0.5 (0.1-0.6) K/mm3 Eos # (Auto) 0.1 (0-0.3) K/mm3 Baso # (Auto) 0.0 (0.0-0.1) K/mm3 Abs Immat Gran (auto) 0.02 (0.00-0.031) K/mm3 Absolute Neuts (auto) 4.5 (1.3-6.7) K/mm3 Absolute Nucleated RBC 0.000 (0.0-0.012) K/mm3 Nucleated RBC % 0.0 (0.0-0.2) % ESR 19 (0-20) mm/hr PT 15.0 H (11.1-14.7) Seconds INR 1.1 APTT 24.5 (22.3-36.8) Seconds Sodium 140 (137-145) mmol/L Potassium 4.1 (3.4-5.0) mmol/L Chloride 105 (98-107) mmol/L Carbon Dioxide 24 (22-30) mmol/L Anion Gap 11 (4-12) mmol/L BUN 10 D (7-17) mg/dL Creatinine 0.58 L (0.7-1.0) mg/dL Estim Creat Clear Calc 98 ml/min Estimated GFR > 60 (59 - ) Glucose 97 (65-110) mg/dL Lactic Acid 1.0 (0.7-2.0) mmol/L Calcium 9.0 (8.4-10.2) mg/dL Total Bilirubin 0.3 (0.2-1.3) mg/dL AST 35 (14-36) U/L ALT 46 H (6-35) U/L Alkaline Phosphatase 69 (38-126) U/L C-Reactive Protein < 0.5 (<1.0) mg/dL Total Protein 8.0 (6.3-8.2) g/dL Albumin 4.5 (3.5-5.1) g/dL <Adam Saucedo MD - Last Filed: 03/06/25 21:01> Imaging Data Attestation: I personally reviewed and interpreted this imaging study as follows: <Adam Saucedo MD - Last Filed: 03/06/25 21:01> My impression: Impressions Forearm X-Ray 03/06/25 15:57 IMPRESSION: Postoperative changes in the distal humerus and proximal ulna. <Adam Saucedo MD - Last Filed: 03/06/25 21:01> Discharge Plan Discharge Clinical Impression: Cellulitis <Paula Muñoz APRN - Last Filed: 03/06/25 15:37> Patient Disposition: Home <Paula Muñoz APRN - Last Filed: 03/06/25 15:37> Condition: Stable <Paula Muñoz APRN - Last Filed: 03/06/25 15:37> Instructions: Antibiotic Form, Cellulitis (ED) <Paula Muñoz APRN - Last Filed: 03/06/25 15:37> Additional Instructions: Your cellulitis is improving and evolving as expected. Continue taking the antibiotics until completion. Your inflammatory markers and infection markers are all negative here in the emergency department as well as your x-ray being reassuring. No signs of infection spread or any concerns at this time for any changes to your regimen. Take Tylenol and NSAIDs as needed for any aches or pains and follow-up with your regular doctor on outpatient basis. Return with any emergent concerns. <Paula Muñoz APRN - Last Filed: 03/06/25 15:37> Patient Language: Estonian <Paula Muñoz APRN - Last Filed: 03/06/25 15:37> Prescriptions: No Action lamotrigine [Lamictal] 25 mg tablet 50 mg PO DAILY Qty: 60 0RF Rx Instructions: take 2 tabs daily for 1 week then increase to twice a day doxycycline hyclate 100 mg capsule 100 mg PO BID 7 Days Qty: 14 0RF <Paula Muñoz APRN - Last Filed: 03/06/25 15:37> Follow-up/Referrals: UNKNOWN,DOCTOR [Primary Care Provider] - <Paula Muñoz APRN - Last Filed: 03/06/25 15:37> Time of Disposition: 17:22 <Paula Muñoz APRN - Last Filed: 03/06/25 15:37> 17:22 <Adam Saucedo MD - Last Filed: 03/06/25 21:01>
--- NOTE | 2025-03-06 15:59 | PC.NURSE ---
patient asked to get in a gown at this time.
--- OUTSIDE RECORDS SUMMARY | 2025-03-06 16:19 | XMS_ITS | Encounter Summary ---
Author Organization [facility] Address [address] [place] [address] Care Team Providers Care Rehabilitation Services Coordinator Name Role Phone Geno Gerard Primary Care Provider [phone] None, Provider Unavailable Unavailable Encounter Details Date Type Department Care Team (Late st Contact Info) Description 10/10/2022 peerTransfer Message Enc [facility] Medical Group Family and Sports Medicine - [place] [address] [place] [address] [facility] Provider Schedule Appointment: Annual Physical Due [...] on filedocumented in this encounter Care Teams Rehabilitation Services Coordinator Relationship Specialty Start Date End Date Geno Gerard APNP [address] [place] [address] PCP - General NURSE PRACTITIONER 10/15/18 None, Provider, 08/01/18 documented as of this encounter
--- OUTSIDE RECORDS SUMMARY | 2025-03-06 16:19 | XMS_ITS | Clinical Summary ---
Author Organization [facility] Address [address] [place] [address] Care Team Providers Care Esl Instructional Assistant Name Role Phone Ines Her NP Primary [...] Never Tobacco Cessation:Ready to Q uit: No [facility] Utilities Answer Date Recorded In the [...] often do you attend chur ch or scientology services? Never 09/26/2023 Do you belong to any clubs o r organizations such as latter-day groups, unions, fraternal or athletic groups, or [...] place to sleep or slept in a [place] facility (including now)? No 09/26/2023 Personal Safety Answer Date Recorded Have you ever been in or are you currently in a harmful physical or emotional relationship or is someone making you feel afraid or unsafe? Denies 11/19/2024 Comments No Sex and Gender Information Value Date Recorded Sex Assigned at Not on file Legal Sex Female 7:13 AM [employer]OCK AND WATCH HANDS DIPPER Gender Identity Not on file Sexual Orientation Not on file Obstetrics History Last Filed Vital Signs Vital Sign Reading Time Taken Comments Blood Pressure 94/55 11/19/2024 10:00 PM CLOCK AND WATCH HANDS DIPPER Pulse 74 11/19/2024 10:46 PM CLOCK AND WATCH HANDS DIPPER Temperature 36.7 C (98.1 F) 11/19/2024 6:18 PM CLOCK AND WATCH HANDS DIPPER Respiratory Rate 14 11/19/2024 10:46 PM CLOCK AND WATCH HANDS DIPPER Oxygen Saturation 97% 11/19/2024 10:46 PM CLOCK AND WATCH HANDS DIPPER Inhaled Oxygen Concentration - - Weight 61.2 kg (135 lb) 11/19/2024 4:40 PM CLOCK AND WATCH HANDS DIPPER Height 162.6 cm (5' 4 ) 11/24/2023 8:34 PM CLOCK AND WATCH HANDS DIPPER Body Mass Index 23.17 11/24/2023 8:34 PM CLOCK AND WATCH HANDS DIPPER Plan of Treatment Health Maintenance Due Date [...] patient's age to complete this topic Insurance [facility] Advance Directives For more information, please contact: [phone] * Full Code (Latest Code Status on File) Date Activated Date Inactivated Comments 09/25/2023 10:47 PM 09/27/2023 1:57 PM * Full Code Date Activated Date Inactivated Comments 09/23/2023 11:59 PM 09/25/2023 3:08 PM * Full Code Date Activated Date Inactivated Comments 10/22/2021 9:10 PM 10/23/2021 7:43 PM Care Teams Esl Instructional Assistant Relationship Specialty Start Date End Date Ines Her NP [facility] [place], [place] [id number] PCP - General Nurse Practitioner 01/30/25
--- OUTSIDE RECORDS SUMMARY | 2025-03-06 16:19 | XMS_ITS | Encounter Summary ---
Author Organization [facility] Address Pending sale to [facility] [place] [address] Care Team Providers Care Manager Erp Name Role Phone Geno Gerard Primary Care Provider [phone] None, Provider Unavailable Unavailable Encounter Details Date Type Department Care Team (Late st Contact Info) Description 12/26/2022 [employer] Message Enc [facility] Medical Group Family and Sports Medicine - [place] [address] [place] [address] [facility] Provider Schedule Appointment: Annual Physical Social History [...] on filedocumented in this encounter Care Teams Manager Erp Relationship Specialty Start Date End Date Geno Gerard APNP [address] [place] [address] PCP - General NURSE PRACTITIONER 10/15/18 None, ProviderMD 08/01/18 documented as of this encounter
--- OUTSIDE RECORDS SUMMARY | 2025-03-06 16:19 | XMS_ITS | Clinical Summary ---
Author Organization [facility] Address [facility] [place] [address] Care Team Providers Care Outboard System Operator Name Role Phone Geno Reilly Primary Care Provider [phone] None, Provider MD Unavailable Unavailable Allergies Active Allergy Reactions Criticality Noted Date Comments Ibuprofen Other (see comment) 11/20/2017 shakes Other reaction(s): Other (See Comments) shaking Medications QUEtiapine 200 MG tabletIndications:B ipolar depression ([facility]) Take 1 tablet (200 mg total) by [...] Bacterial vaginosis 08/03/2018 Bipolar disorder with depression ([facility] C) 08/03/2018 Contraception 08/03/2018 Dark urine [...] 3 weeks and then menstruate for 1. [facility] providers have told her in past [...] Comments Blood Pressure 103/72 11/19/2024 1:00 PM SUPPLY TECHNICIAN Pulse 88 11/19/2024 1:00 PM SUPPLY TECHNICIAN Temperature 37.1 C (98.8 F) 11/19/2024 8:40 AM SUPPLY TECHNICIAN Respiratory Rate 22 11/19/2024 1:00 PM SUPPLY TECHNICIAN Oxygen Saturation 93% 11/19/2024 1:00 PM SUPPLY TECHNICIAN Inhaled Oxygen Concentration - - Weight 63.7 kg (140 lb 6.9 oz) 11/19/2024 8:40 A M SUPPLY TECHNICIAN Height 163.8 cm (5' 4.5 ) 11/19/2024 8:27 AM SUPPLY TECHNICIAN Body Mass Index 23.73 11/19/2024 8:27 AM SUPPLY TECHNICIAN Plan of Treatment Health Maintenance Due Date [...] Cancer Screening with HPV 2024 PHQ-2 (Physician [place]) 11/13/2024 DTaP, Tdap and Td Vaccines (4 [...] Comments HEPATITIS PANEL,ACUTE Routine 11/14/2019 2:36 PM SUPPLY TECHNICIAN Routine screening for STI (sexually transmitted infection) HPV MRNA E6/E7 W/ RFLX GENOTYPES Routine 05/03/2019 2:36 PM CDT CYTOPATH CERV/VAG THIN LAYER Routine 05/03/2019 12:00 AM CDT from Last 3 Months or Most Recently Relevant to Health Maintenance Results * HEPATITIS PANEL,ACUTE (11/14/2019 2:36 PM SUPPLY TECHNICIAN) HEPATITIS B SURFACE AG NON-REACTI VE NON-REACTI VE 11/14/2019 8:35 PM SUPPLY TECHNICIAN [facility] HEP B CORE IGM NON-REACTI VE NON-REACTI VE 11/14/2019 8:52 PM SUPPLY TECHNICIAN [facility] HAV IGM NON-REACTI VE NON-REACTI VE 11/14/2019 8:54 PM SUPPLY TECHNICIAN [facility] HEPATITIS C AB NON-REACTI VE NON-REACTI VE 11/14/2019 8:51 PM SUPPLY TECHNICIAN [facility] 11/14/2019 2:36 PM SUPPLY TECHNICIAN Geno Poirot APNP LABORATORY Final Result [facility] [address] [place] [address], * HPV MRNA E6/E7 W/ RFLX GENOTYPES (05/03/2019 2:36 PM CDT) HPV MRNA E6/E7 Not Detected NOT DETECTED 05/09/2019 4:37 PM CDT [facility] LIMITADA LEXUS MORRISON Comment: This test was performed using the APTIMA(R) HPV Assay ([employer] This assay detects E6/E7 viral messenger RNA (mRNA) from 14 high-risk HPV types (16,18,31,33,35,39,45,51, 52,56,58,59,66,68). For additional information please refer to: http://education.[employer]/faq/QHT739m3 (This link is being provided for informational/ educational purposes only.) The analytical performance characteristics of this assay have been determined by [facility] [place], [place]. The modifications have not been cleared or approved by the FDA. This assay has been validated pursuant to the CLIA regulations and is used for clinical purposes. HPV HUMAN PAPILLOMAVIRUS REPORT 05/09/2019 4:37 PM CDT DNART LIMITADA LEXUS MORRISON Comment: Not indicated Test Performed by [facility], [facility] [place], [address] [place] [address] Scott Cano M.D., Ph.D., Director of Laboratories , CLIA [id number] 05/03/2019 2:36 PM CDT Geno Moustapha SARGENT PATHOLOGY/CYTOLOGY ORDERABLES Final Result [facility] [address] [place] [address], * Cytopath Cerv/Vag Thin Layer (05/03/2019 12:00 AM CDT) COPATH REPORT [facility] [address] [place], [place] [address] [phone] Department of Pathology Pathology Report Gynecological Cytology Report Patient Name: HARPAL EDENKINS ANUJ MATIASAccession#: [id number] : 1995 (Age: 23) Location: [facility] Gender: F Collected Date: 05/03/2019 Med Rec #: [id number] Date Received: 05/08/2019 Date Reported: 05/10/2019 Provider: GENO REILLY Final Cytologic Diagnosis Satisfactory for evaluation. Endocervical component not identified. Negative for Intraepithelial Lesion or Malignancy Bacterial Vaginosis High-risk HPV mRNA E6/E7 by Aptima assay (performed at [facility]) is reported as NOT DETECTED (see separate report for details). This case was signed out at [facility], [address] [place] [address]. Electronically Signed Out Oscar Jacobs Source of Specimen(s) Cervical/Endocervi veda - Thin Prep Clinical History Screening, last Pap not provided. History of HPV and abnormal Pap. Z12.4 Date of Last Menstrual Period: 04/15/19 Frozen Section Diagnosis Billing Fee Code(s): A: [address] [facility] 05/03/2019 05/08/2019 3:3 2 PM CDT Comment:CERVICAL/ENDOCERVICA L - THIN PREP us Geno SARGENT PATHOLOGY/CYTOLOGY ORDERABLES Final Result [facility] [address] [place] [address], from Last 3 Months or Most Recently Relevant to Health Maintenance Insurance [employer] Care Teams Outboard System Operator Relationship Specialty Start Date End Date Geno Reilly APNP [address] [place] [address] PCP - General NURSE PRACTITIONER 10/15/18 None, Provider, 08/01/18
--- OUTSIDE RECORDS SUMMARY | 2025-03-06 16:19 | XMS_ITS | Referral Summary ---
Author Organization [facility] Address [address] [place] [address] Care Team Providers Care Rib Matcher And Fitter Name Role Phone Ines Her NP Primary [...] Never Tobacco Cessation:Ready to Q uit: No [facility] Utilities Answer Date Recorded In [...] any clubs o r organizations such as bahai groups, unions, fraternal or athletic groups, or [...] on file Legal Sex Female 7:13 AM [employer] Gender Identity Not on file Sexual Orientation Not on file Last Filed Vital Signs Vital Sign Reading Time Taken Comments Blood Pressure 94/55 11/19/2024 10:00 PM [employer] Pulse 74 11/19/2024 10:46 PM [employer] Temperature 36.7 C (98.1 F) 11/19/2024 6:18 PM [employer] Respiratory Rate 14 11/19/2024 10:46 PM [employer] Oxygen Saturation 97% 11/19/2024 10:46 PM [employer] Inhaled Oxygen Concentration - - Weight 61.2 kg (135 lb) 11/19/2024 4:40 PM [employer] Height 162.6 cm (5' 4 ) 11/24/2023 8:34 PM [employer] Body Mass Index 23.17 11/24/2023 8:34 PM G[employer] Plan of Treatment Not on file Insurance [facility] [address] Advance Directives For more information, please contact: [phone] * Full Code (Latest Code Status on File) Date Activated Date Inactivated Comments 09/25/2023 10:47 PM 09/27/2023 1:57 PM * Full Code Date Activated Date Inactivated Comments 09/23/2023 11:59 PM 09/25/2023 3:08 PM * Full Code Date Activated Date Inactivated Comments 10/22/2021 9:10 PM 10/23/2021 7:43 PM Care Teams Rib Matcher And Fitter Relationship Specialty Start Date End Date Ines Her NP [address] [place] [address] PCP - General Nurse Practitioner 01/30/25
--- OUTSIDE RECORDS SUMMARY | 2025-03-06 16:19 | XMS_ITS | Encounter Summary ---
Author Organization [facility] Address [facility] [place] [address] Care Team Providers Care Ceramic Artist Name Role Phone Geno Gerard Primary Care Provider [phone] None, Provider MD Unavailable Unavailable Encounter Details Date Type Department Care Team (Late st Contact Info) Description 04/29/2024 MyChart Message Enc [facility] - [place] [address] [place] [address] Geno Gerard APNP [address] [place] [address] [phone] Yearly Visit Reminder Social History Tobacco Use [...] on filedocumented in this encounter Care Teams Ceramic Artist Relationship Specialty Start Date End Date Geno Gerard APNP [address] [place] [address] PCP - General NURSE PRACTITIONER 10/15/18 None, Provider, 08/01/18 documented as of this encounter
--- OUTSIDE RECORDS SUMMARY | 2025-03-06 16:20 | XMS_ITS | Clinical Summary ---
Author Organization [facility] Address [address] [address] [facility] [place] [address] Care Team Providers Care Sorter [employer]ol[employer] Name Role Phone Izzy Shukla MD Unavailable [phone] Source Comments [facility],non-owned Affiliates and Associated Physician Practices is amultiple site organization consisting of ambulatory clinics and hospital sitesin [place], [place], [place] and [place]. This disclosure is being madepursuant to the Care Everywhere program and may not contain all information available regarding this patient. 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 Kaitlynn Joseph over [...] given. Parent wishing to transfer care to plant ecologist. Pt to followup with Dr. Joseph in [...] weeks and then menstruate for 1. [facility] providers have told her in [...] AM CDT Hospital Encounter [facility] TELE/NEURO [address] [id number] Rick Campuzano MD Fatima, Noor E, MD Bezuneh, Abraham D, MD Hospitalist Discharge Disposition: Home or Self Care 02/24/2025 Travel 02/23/2025 10:21 AM CDT - 02/28/2025 8:00 PM CDT Hospital Encounter [facility] TELE[facility]NEURO [address] [place] [address] Jemma Virgen MD [place], MD Blayne Villalobos, Raymon Castillo, Kelli Chen MD Bezuneh, Armand Reyes MD Hospitalist Discharge Disposition: Admitted as an Inpatient 02/23/2025 6:17 AM CDT - 02/23/2025 7:19 AM CDT Emergency ER at [address] [address] from Last 3 Months Immunizations Immunization Administration [...] and heating? Not hard at all 02/26/2025 [facility] of Occupat ional Health - Occupational Stress [...] place to sleep or slept in a skilled nursing (including now)? No 06/04/2023 Richardson Depression Scale Answer Date Recorded RETIRED: Total [...] were you homeless or living in a skilled nursing (including now)? No 02/26/2025 Comments No Sex and Gender Information Value Date Recorded Sex Assigned at Not on file Legal Sex Female 5:37 AM FOOD PRESERVATION SCIENTIST Gender Identity Not on file Sexual Orientation [...] Procedure Name Priority Date/Time Associated Diagnosis Comments CARDIAC RHYTHM STRIP ORDER 03/04/2025 9:31 PM CDT GLUCOSE - POINT OF CARE Routine 03/02/2025 [...] HIV-1 HIV-2 ANTIBODY Routine 12/30/2009 4:38 PM FOOD PRESERVATION SCIENTIST Leukorrhea, not Specified as Infective from Last 3 Months or Most Recently Relevant to Health Maintenance Results * CARDIAC RHYTHM STRIP ORDER (03/04/2025 9:31 PM CDT) Narrative 03/04/2025 9:31 PM CDT Ordered by an unspecified provider. us Scanned Document CARDIAC SERVICES ORDERABLES Fin al Result * (ABNORMAL) GLUCOSE - POINT OF CARE (03/02/2025 9:16 PM CDT) Only the most recent of19 resultswithin the time period is included. Glucose WB/POC 103(H) 70 - 99 mg/dL 03/02/2025 9:18 PM CDT [facility] Specimen Type Cap Fingerstick 2024 9:18 PM CDT [facility] Blood BLOOD SPECIMEN / Unknown 03/02/2025 9:16 PM CDT 03/02/2025 9:18 PM CDT us Armand Fam MD LAB - POINT OF CARE ORDERAB LES Final Result [facility] [address] [place] [address] * (ABNORMAL) BASIC METABOLIC PANEL (CALCIUM TOTAL) (03/02/2025 3:49 AM CDT) Only the most recent of2 resultswithin the time period is included. Pathologist [facility] Glucose 102(H) 70 - 99 mg/dL 03/02/2025 4:22 AM CDT [facility] Sodium 141 136 - 145 mmol/L 03/02/2025 4:22 AM CDT [facility] Potassium 3.9 3.5 - 5.1 mmol/L 03/02/2025 4:22 AM CDT [facility] Chloride 112(H) 98 - 107 mmol/L 03/02/2025 4:22 AM CDT [facility] CO2 23 22 - 29 mmol/L 03/02/2025 4:22 AM CDT [facility] Calcium 8.3(L) 8.4 - 10.4 mg/dL 03/02/2025 4:22 AM CDT [facility] Anion Gap 6 6 - 16 mmol/L 03/02/2025 4:22 AM CDT [facility] BUN 8 5.3 - 18.7 mg/dL 03/02/2025 4:22 AM CDT [facility] Creatinine 0.63 0.57 - 1.11 mg/dL 03/02/2025 4:22 AM CDT [facility] eGFR by CKD-EPI >90 >=90 mL/min/1.7 3 m2 03/02/2025 4:22 AM CDT [facility] Blood BLOOD SPECIMEN / Unknown Venipuncture / Unknown 03/02/2025 3:49 AM CDT 03/02/2025 3:57 AM CDT Rick Campuzano MD LAB - CHEMISTRY ORDERAB LES Final Result [facility] [address] [place] [address] * (ABNORMAL) CBC W AUTO DIFFERENTIAL (03/01/2025 5:27 PM CDT) Only the most recent of7 resultswithin the time period is included. [facility] WBC 6.1 4.0 - 10.7 x10E9/L 03/01/2025 5:56 PM CDT [facility] RBC Count 3.40(L) 3.90 - 5.20 x10E12/L 03/01/2025 5:56 PM CDT [facility] Hemoglobin 9.9(L) 11.9 - 15.8 g/dL 03/01/2025 5:56 PM CDT [facility] Hematocrit 31.6(L) 34.8 - 46.1 % 03/01/2025 5:56 PM CDT [facility] MCV 92.9 80.0 - 98.0 fL 03/01/2025 5:56 PM CDT [facility] MCH 29.1 26.7 - 33.6 pg 03/01/2025 5:56 PM CDT [facility] MCHC 31.3(L) 31.7 - 36.3 g/dL 03/01/2025 5:56 PM CDT [facility] RDW-CV 13.3 11.3 - 14.8 % 03/01/2025 5:56 PM CDT [facility] Platelet Count 288 150 - 420 x10E9/L 03/01/2025 5:56 PM CDT [facility] MPV 10.3 7.8 - 11.4 fL 03/01/2025 5:56 PM CDT [facility] Neutrophil % 66.0 41.0 - 74.0 % 03/01/2025 5:56 PM CDT [facility] Lymphocyte % 25.9 17.0 - 47.0 % 03/01/2025 5:56 PM CDT [facility] Monocyte % 5.5 3.0 - 11.0 % 03/01/2025 5:56 PM CDT [facility] Eosinophil % 1.6 0.0 - 7.0 % 03/01/2025 5:56 PM CDT [facility] Basophil % 0.7 0.0 - 1.6 % 03/01/2025 5:56 PM CDT [facility] Immature Granulocytes % 0.3 0.0 - 1.0 % 03/01/2025 5:56 PM CDT [facility] Neutrophil Absolute 4.04 1.60 - 7.50 x10E9/L 03/01/2025 5:56 PM CDT [facility] Lymphocyte Absolute 1.59 1.00 - 4.40 x10E9/L 03/01/2025 5:56 PM CDT [facility] Monocyte Absolute 0.34 0.15 - 1.00 x10E9/L 03/01/2025 5:56 PM CDT [facility] Eosinophil Absolute 0.10 0.00 - 0.60 x10E9/L 03/01/2025 5:56 PM CDT [facility] Basophil Absolute 0.04 0.00 - 0.13 x10E9/L 03/01/2025 5:56 PM CDT [facility] Blood BLOOD SPECIMEN / Unknown Venipuncture / Unknown 03/01/2025 5:27 PM CDT 03/01/2025 5:37 PM CDT Rick Campuzano MD LAB - HEMATOLOGY ORDERA BLES Final Result [facility] [address] [place] [address] * (ABNORMAL) COMPREHENSIVE METABOLIC PANEL (03/01/2025 5:27 PM CDT) Only the most recent of2 resultswithin the time period is included. Glucose 107(H) 70 - 99 mg/dL 03/01/2025 5:52 PM CDT [facility] Sodium 141 136 - 145 mmol/L 03/01/2025 5:52 PM CDT [facility] Potassium 3.6 3.5 - 5.1 mmol/L 03/01/2025 5:52 PM CDT [facility] Chloride 110(H) 98 - 107 mmol/L 03/01/2025 5:52 PM CDT [facility] CO2 23 22 - 29 mmol/L 03/01/2025 5:52 PM CDT [facility] Calcium 8.9 8.4 - 10.4 mg/dL 03/01/2025 5:52 PM CDT [facility] Anion Gap 8 6 - 16 mmol/L 03/01/2025 5:52 PM CDT [facility] BUN 8 5.3 - 18.7 mg/dL 03/01/2025 5:52 PM CDT [facility] Creatinine 0.64 0.57 - 1.11 mg/dL 03/01/2025 5:52 PM CDT [facility] Alkaline Phosphatase 49 40 - 150 U/L 03/01/2025 5:52 PM CDT [facility] ALT 19 6 - 57 U/L 03/01/2025 5:52 PM CDT [facility] AST 39 10 - 48 U/L 03/01/2025 5:52 PM CDT [facility] Protein Total 6.7 6.4 - 8.3 gm/dL 03/01/2025 5:52 PM CDT [facility] Albumin 3.7 3.4 - 5.0 gm/dL 03/01/2025 5:52 PM CDT [facility] Bilirubin Total 0.3 0.2 - 1.2 mg/dL 03/01/2025 5:52 PM CDT [facility] eGFR by CKD-EPI >90 >=90 mL/min/1.7 3 m2 03/01/2025 5:52 PM CDT [facility] Blood BLOOD SPECIMEN / Unknown Venipuncture / Unknown 03/01/2025 5:27 PM CDT 03/01/2025 5:37 PM CDT Rick Campuzano MD LAB - CHEMISTRY ORDERAB LES Final Result [facility] [address] [place] [address] * EEG EXTENDED MONITORING > 1 HOUR (02/28/2025 8:35 AM CDT) Narrative [facility] - 02/28/2025 8:35 AM CDT Waqas Burnham MD 02/28/2025 8:36 AM LONG-TERM VIDEO EEG SUMMARY REPORT [facility] Long-term video EEG monitoring was performed on a patient with status. Utilizing the Nibu recording system, EEG was recorded in standard [...] limits. Suspected seizure-[place] [id number] on Feb 23, 2025. No EEG correlate [...] OF UNDERLYING EPILEPTIC SEIZURE ACTIVITY IS SEEN. us Roma Burger MD NEUROLOGY ORDERABLES Final Re [...] transvaginal pelvic ultrasound was performed by the weaver narrow fabrics with DICOM image capture. Obstetric follow-up care [...] and transvaginal pelvic ultrasound wasperformed by the weaver narrow fabrics with DICOM image capture. Obstetric follow-up care [...] 02/28/2025 10:52 AM us Armand Fam MD ORDERABLES Final Resul t * (ABNORMAL) RENAL FUNCTION PANEL (02/28/2025 6:37 AM CDT) Only the most recent of5 resultswithin the time period is included. Glucose 99 70 - 99 mg/dL 02/28/2025 7:09 AM CDT [facility] Sodium 142 136 - 145 mmol/L 02/28/2025 7:09 AM CDT [facility] Potassium 3.6 3.5 - 5.1 mmol/L 02/28/2025 7:09 AM CDT [facility] Chloride 109(H) 98 - 107 mmol/L 02/28/2025 7:09 AM CDT [facility] CO2 26 22 - 29 mmol/L 02/28/2025 7:09 AM CDT [facility] Calcium 9.1 8.4 - 10.4 mg/dL 02/28/2025 7:09 AM CDT [facility] Anion Gap 7 6 - 16 mmol/L 02/28/2025 7:09 AM CDT [facility] BUN 4(L) 5.3 - 18.7 mg/dL 02/28/2025 7:09 AM CDT [facility] Creatinine 0.61 0.57 - 1.11 mg/dL 02/28/2025 7:09 AM CDT [facility] Albumin 3.2(L) 3.4 - 5.0 gm/dL 02/28/2025 7:09 AM CDT [facility] Phosphorus 4.6(H) 2.5 - 4.5 mg/dL 02/28/2025 7:09 AM CDT [facility] eGFR by CKD-EPI >90 >=90 mL/min/1.7 3 m2 02/28/2025 7:09 AM CDT [facility] Blood BLOOD SPECIMEN / Unknown Venipuncture / Unknown 02/28/2025 6:37 AM CDT 02/28/2025 6:50 AM CDT Roma Burger MD LAB - CHEMISTRY ORDERABLES nal Result Performing Organization Address [facility] de Phone Number [facility] [address] [place] [phone] * MAGNESIUM BLOOD (02/28/2025 6:37 AM CDT) Only the most recent of6 resultswithin the time period is included. Pathologist [facility] Magnesium 1.7 1.6 - 2.6 mg/dL 02/28/2025 7:07 AM CDT [facility] Blood BLOOD SPECIMEN / Unknown Venipuncture / Unknown 02/28/2025 6:37 AM CDT 02/28/2025 6:50 AM CDT Roma Burger MD LAB - CHEMISTRY ORDERABLES [facility] Result Performing Organization Address [facility] de Phone Number [facility] [address] [place] [phone] * (ABNORMAL) HERPES SIMPLEX 2 ANTIBODY IGG (02/27/2025 2:43 AM CDT) Pathologist [facility] Herpes Simplex Virus 2 Antibody IgG Type Specific Reactive( A) Non Reactive 02/28/2025 8:11 AM CDT [facility] ([facility]) Comment: Please note reference interval change [...] CDT 02/27/2025 2:57 AM CDT Narrative [facility] ([facility]) - 02/28/2025 8:11 AM CDT Performed at: - [facility] [address] [place], [place] [id number] Auricular Acupuncturist: Reo John PhD, Phone: [phone] Weston Florentino SIZE WORKER-[facility] LAB - CHEMISTRY ORDERA BLES Final Result Performing Organization Address City/[facility]/ZIP Co de Phone Number [facility] ([facility]) [address] [place] [address] * IGG BLOOD (02/27/2025 2:43 AM CDT) Pathologist [facility] IgG 1,080 767 - 1,590 mg/dL 02/27/2025 10:34 AM CDT [facility] Blood BLOOD SPECIMEN / Unknown Venipuncture / Unknown 02/27/2025 2:43 AM CDT 02/27/2025 2:57 AM CDT Weston Florentino SIZE [facility] LAB - CHEMISTRY ORDERA BLES Final Result Performing Organization Address City/[facility]/ZIP Co de Phone Number [place] [phone] [phone] * (ABNORMAL) HCG BLOOD QUAL REFLEX QUANT (02/26/2025 3:43 AM CDT) [facility] HCG Qual Serum Positive(A ) Negative 02/26/2025 4:22 AM CDT [facility] Blood BLOOD SPECIMEN / Unknown Venipuncture / Unknown 02/26/2025 3:43 AM CDT 02/26/2025 3:56 AM CDT Narrative [facility] - 02/26/2025 4:22 AM CDT Specimens containing human anti-mouse antibodies may exhibit false positive or false negative results. If qualitative interpretation is inconsistent with clinical evaluation, consider confirmation by an alternative hCG method. Waqas Cotter MD LAB - CHEMISTRY O RDERABLES Final Result [facility] [address] [place] [address] * HCG BETA BLOOD QUANTITATIVE (02/26/2025 3:43 AM CDT) Only the most recent of2 resultswithin the time period is included. hCG Quantitative 5,731.84 mIU/mL 02/27/20 5:52 AM CDT [facility] Blood BLOOD SPECIMEN / Unknown Venipuncture / Unknown 02/26/2025 3:43 AM CDT 02/26/2025 3:56 AM CDT Narrative [facility] - 02/26/2025 5:52 AM CDT [...] a serum FSH >20 IU/L makes unlikely. us Waqas Cotter MD LAB - CHEMISTRY O RDERABLES Final Result [facility] [address] [place] [address] * MRI Brain Wwo Contrast (02/25/2025 8:13 PM CDT) Anatomical Region Laterality Modality Head Magnetic Resonan ce 02/26/2025 9:23 AM CDT Impressions 02/26/2025 9:32 AM CDT IMPRESSION: Unremarkable brain MRI performed without and with contrast. > Interpreting Provider: Deb Martinez MD on 02/26/2025 9:32 AM Narrative 02/26/2025 9:32 AM CDT PROCEDURE: MRI BRAIN WWO CONTRAST, DATE/TIME OF EXAM: 02/25/2025 8:15 PM, LOCATION [facility] INDICATION: R56.9: Unspecified convulsions (HCC) ADDITIONAL CLINICAL [...] CONTRAST, DATE/TIME OF EXAM: 02/25/2025 8:15PM, LOCATION [facility] INDICATION: R56.9: Unspecified convulsions (HCC) ADDITIONAL CLINICAL [...] 79 <150 mg/dL 02/25/2025 4:58 AM CDT [facility] Blood BLOOD SPECIMEN / Unknown Venipuncture / Unknown 02/25/2025 4:33 AM CDT 02/25/2025 4:40 AM CDT Roma Burger MD LAB - CHEMISTRY ORDERABLES Fi nal Result [facility] [address] [place] [address] * HEMOGLOBIN A1C (02/24/2025 4:57 AM CDT) Hemoglobin A1c 4.8 <5.7 % 02/24/2025 5:35 AM CDT [facility] Estimated Average Glucose 91 mg/dL 02/24/2025 5:35 AM CDT [facility] Blood BLOOD SPECIMEN / Unknown Venipuncture / Unknown 02/24/2025 4:57 AM CDT 02/24/2025 5:05 AM CDT Narrative [facility] - 02/24/2025 5:35 AM CDT [...] ORDERABLES Fi nal Result Performing Organization Address [facility]/ZIP Co de Phone Number [facility] [address] [place] [address] * (ABNORMAL) CK BLOOD (02/24/2025 4:57 AM CDT) Pathologist [facility] CK 227(H) 29 - 168 U/L 02/24/2025 8:50 AM CDT [facility] Blood BLOOD SPECIMEN / Unknown Venipuncture / Unknown 02/24/2025 4:57 AM CDT 02/24/2025 5:05 AM CDT Waqas Cotter MD LAB - CHEMISTRY O RDERABLES Final Result Performing Organization Address [facility] Co de Phone Number [facility] [address] [place] [address] * (ABNORMAL) HGB HCT PANEL (02/23/2025 9:59 PM CDT) Pathologist [facility] Hemoglobin 9.6(L) 11.9 - 15.8 g/dL 02/23/2025 10:14 PM CDT [facility] Hematocrit 30.7(L) 34.8 - 46.1 % 02/23/2025 10:14 PM CDT [facility] Blood BLOOD SPECIMEN / Unknown Venipuncture / Unknown 02/23/2025 9:59 PM CDT 02/23/2025 10:10 PM CDT Roma Burger MD LAB - HEMATOLOGY ORDERABLES F inal Result Performing Organization Address [facility] Co de Phone Number [facility] [address] [place] [address] * (ABNORMAL) BLOOD GASES ARTERIAL (02/23/2025 11:18 AM CDT) pH Arterial 7.33(L) 7.35 - 7.45 pH 02/23/2025 11:53 AM CDT [facility] RESP THERAPY pO2 Arterial 500(H) 80 - [...] LAB - BLOOD GASES ORDERABLES Final Result [facility] [address] [phone] * (ABNORMAL) PHOSPHORUS BLOOD (02/23/2025 11:14 AM CDT) Phosphorus 2.4(L) 2.5 - 4.5 mg/dL 02/23/2025 12:05 PM CDT [facility] Blood BLOOD SPECIMEN / Unknown Line Draw / Unknown 02/23/2025 11:14 AM CDT 02/23/2025 11:48 AM CDT Roma Burger MD LAB - CHEMISTRY ORDERABLES Fi nal Result Performing Organization Address [facility] Co de Phone Number [facility] [address] [place] [phone] * LACTIC ACID BLOOD (02/23/2025 11:14 AM CDT) Lactic Acid 1.6 <=2 mmol/L 02/23/2025 12:05 PM CDT [facility] Blood BLOOD SPECIMEN / Unknown Line Draw / Unknown 02/23/2025 11:14 AM CDT 02/23/2025 11:48 AM CDT Roma Burger MD LAB - CHEMISTRY ORDERABLES Fi nal Result Performing Organization Address [facility] Co de Phone Number [facility] [address] [place] [phone] * AMMONIA (02/23/2025 11:14 AM CDT) Pathologist [facility] Ammonia 18 18 - 72 umol/L 02/23/2025 11:57 AM CDT [facility] Blood BLOOD SPECIMEN / Unknown Line Draw / Unknown 02/23/2025 11:14 AM CDT 02/23/2025 11:48 AM CDT Roma Burger MD LAB - CHEMISTRY ORDERABLES Fi nal Result Performing Organization Address [facility] Co de Phone Number [facility] [address] [place] [phone] * XR CHEST 1VW PORTABLE (02/23/2025 11:10 [...] * HIV-1 HIV-2 ANTIBODY (12/30/2009 4:38 PM FOOD PRESERVATION SCIENTIST) HIV-1/HIV-2 Non-Reacti ve Non-Reacti ve [facility] BLOOD SPECIMEN / Unknown 12/30/2009 4:38 PM FOOD PRESERVATION SCIENTIST us Shikha Maguire MD LAB - CHEMISTRY ORDERA BLES Final Result [facility] from Last 3 Months or Most Recently Relevant to Health Maintenance Insurance [address] Advance Directives * Full Code (Latest Code [...] 9:04 AM 07/25/2022 5:20 PM Care Teams [employer] Relationship Specialty Start Date End Date Izzy Shukla MD [address] [place] [address] (work) 05/27/21
--- OUTSIDE RECORDS SUMMARY | 2025-03-06 16:20 | XMS_ITS | Encounter Summary ---
Author Organization [facility] Facility Care Team Providers Care Manager Business Management Name Role Phone No, Physician Primary Care Provider [phone] Reason for Visit * Auth/Cert Specialty Diagnoses / Procedures Referred By Reny t Referred To Contact Diagnoses SEIZURES Procedures VIDEO EEG Referral ID Status Reason Start Date Expiration Date Visits Re quested Visits Authorized [id number] 1 1 Encounter Details Date Type Department Care Team (Late st Contact Info) Description 03/09/2022 8:00 AM CDT Hospital Encounter Timothy Malik MD PhD [address] [place] [address] Social History Tobacco Use Types Packs/Day Years Used Date Smoking Tobacco: Former Cigarettes Q uit: 12/28/2021 Smokeless Tobacco: Never [facility] Utilities Answer Date Recorded In the past 12 months has [employer] electric, gas, oil, or water company threatened [...] any clubs o r organizations such as zoroastrian groups, unions, fraternal or athletic groups, or [...] to sleep or slept in a senior living (including now)? No 09/26/2023 Personal Safety Answer Date Recorded Have you ever been in or are you currently in a harmful physical or emotional relationship or is someone making you feel afraid or unsafe? Denies 11/19/2024 Comments No Sex and Gender Information Value Date Recorded Sex Assigned at Not on file Legal Sex Female 7:13 AM [employer] Gender Identity Not on file Sexual Orientation [...] COVID: Suspected 11/25/2023 11/25/2023 11/25/2023 3:30 AM [employer] COVID: Suspected 11/19/2024 11/19/2024 11/19/2024 9:11 PM [employer] documented as of this encounter Care Teams Manager Business Management Relationship Specialty Start Date End Date No, Physician PCP - General 01/02/22 04/26/23 documented as of this encounter
--- OUTSIDE RECORDS SUMMARY | 2025-03-06 16:20 | XMS_ITS | Data Portability ---
Author Organization [employer] , [facility] Address [address] [place] [address] Care Team Providers Care Surgical Assist Name Role Phone [facility] Reimbursement Specialist Assessment No assessment recorded. Plan of Treatment Reminders Order Date Submit Date Provider Last Modified By Organization Details Last Modified Time Details Appointments None record ed. Lab beta-H CG, quanti tative , serum or plasma 2024 025 WE[facility] BET[facility] [email or web address], [address] [place], [address], 5 10:18:32 CBC w/ auto diff 2024 025 [facility] [employer], [address] [place], [address], 5 10:23:50 bacter ial vagino sis + vagini tis panel, vagina l 2024 025 [employer], [address] [place], [address], 5 09:12:37 pregna ncy test, urine 2024 025 [facility], [address] [place], [address], 5 10:11:54 unlist ed lab - STD screen ing (hc) 2024 025 [facility] [employer], [address] [place], [address], 5 14:16:26 bacter ial vagino sis + vagini tis panel, vagina l 2023 [facility] [address] [place], [address], 4 08:57:22 pregna ncy test, urine 2023 024 [facility], [address] [place] [address], [address], 4 11:34:01 Referral dermat ologis t referr angeles roblero, evalua te and treat for possib le dermat itis 2024 025 [facility], [address], [place], [address], 5 04:03:50 Procedures None record ed. Surgeries None record ed. Imaging US, obstet roberto, transv aginal 2024 025 LACEY [facility], [address] [address], [address], 5 07:57:28 US, transv aginal 2024 025 [email or web address] [facility], [address] [place] [address], [address], 5 18:30:45 US, transv aginal 2023 024 LACEY [facility], [address] [place] [address], [address], 4 13:49:51 Medication Orders Percoc et 5 mg-325 mg tablet 2024 025 [id number], [address] [place], [place], [id number], 14:16:21 misopr ostol 200 mcg tablet 2024 025 [id number] [place], [place], [id number], 14:16:19 Prenat al Vitami n 27 mg iron-8 00 mcg tablet 2024 025 [id number], [address], [place], [id number], 10:12:00 Depo-P rovera 150 mg/mL intram uscula r suspen anna 2023 [id number], [address], [place], [id number], 5 09:39:34 Mirena 21 mcg/24 hr (up to 8 years) 52 mg intrau terine device 2023 024 emily Not available 15:48:09 Patient TargetsNo targets recorded. 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 Not Available [place] [facility] [address] [place] [address], [address], 02/22/2025 10:18:32 02/23/20 25 02/22/2025 CBC (INCL UDES DIFF/ PLT) WBC 8.7 thous and/u L 4.0 - 9.8 normal Not Available [email or web address] [address] [place] [address], [address], 02/22/2025 10:23:50 02/23/20 25 02/22/2025 CBC (INCL UDES DIFF/ PLT) RBC 4.2 chriss on/uL 3.9 - 4.9 normal Not Available [email or web address] [address] [place] [address], [address], 02/22/2025 10:23:50 02/23/20 25 02/22/2025 CBC (INCL UDES DIFF/ PLT) hemoglobin 12.5 g/dL 11.8 - 14.8 normal Not Available [email or web address] [address] [place] [address], [address], 02/22/2025 10:23:50 02/23/20 25 02/22/2025 CBC (INCL UDES DIFF/ PLT) hematocrit 38.2 % 35.5 - 44.0 normal Not Available [email or web address] [address] [place] [address], [address], 02/22/2025 10:23:50 02/23/20 25 02/22/2025 CBC (INCL UDES DIFF/ PLT) MCV 91.4 fL 82.0 - 99.0 normal Not Available [address], [address], 02/22/2025 10:23:50 02/23/20 25 02/22/2025 CBC (INCL UDES DIFF/ PLT) MCH 29.9 pg 27.2 - 32.6 normal Not Available [address], [address], 02/22/2025 10:23:50 02/23/20 25 02/22/2025 CBC (INCL UDES DIFF/ PLT) MCHC 32.7 g/dL 31.5 - 35.5 normal Not Available [address], [address], 02/22/2025 10:23:50 02/23/20 25 02/22/2025 CBC (INCL UDES DIFF/ PLT) RDW-CV 13.1 % 11.5 - 14.5 normal Not Available [address], [address], 02/22/2025 10:23:50 02/23/20 25 02/22/2025 CBC (INCL UDES DIFF/ PLT) platelet 271 thous and/u L 140 - 350 normal Not Available [address], [address], 02/22/2025 10:23:50 02/23/20 25 02/22/2025 CBC (INCL UDES DIFF/ PLT) MPV 12.0 fL 9.3 - 12.4 normal Not Available [address], [address], 02/22/2025 10:23:50 02/23/20 25 02/22/2025 CBC (INCL UDES DIFF/ PLT) absolute neutrophil 6.42 thous and/u L 1.90 - 7.00 normal Not Available [address], [address], 02/22/2025 10:23:50 02/23/20 25 02/22/2025 CBC (INCL UDES DIFF/ PLT) absolute lymphocyte 1.66 thous and/u L 0.70 - 4.50 normal Not Available [address], [address], 02/22/2025 10:23:50 02/23/20 25 02/22/2025 CBC (INCL UDES DIFF/ PLT) absolute monocyte 0.47 thous and/u L 0.10 - 1.30 normal Not Available [address], [address], 02/22/2025 10:23:50 02/23/20 25 02/22/2025 CBC (INCL UDES DIFF/ PLT) absolute eosinophil 0.03 thous and/u L <0.70 normal Not Available [address], [address], 02/22/2025 10:23:50 02/23/20 25 02/22/2025 CBC (INCL UDES DIFF/ PLT) absolute basophil 0.06 thous and/u L <0.20 normal Not Available [address], [address], 02/22/2025 10:23:50 02/23/20 25 02/22/2025 CBC (INCL UDES DIFF/ PLT) absolute immature granulocyte 0.01 thous and/u L <0.03 normal Not Available [address], [address], 02/22/2025 10:23:50 04/11/20 24 04/12/2024 STD SCREE TRACY ([facility] ) hep BS Ag Non-Re active non-re active normal Not Available [address], [address], 04/12/2024 14:16:03 04/11/20 24 04/12/2024 STD SCREE TRACY ([facility] ) hep C Ab Non-Re active non-re active normal Not Available [address], [place], [address], 04/12/2024 14:16:03 04/11/20 24 04/12/2024 STD SANDER MOLINA ([facility] ) HIV 1/2 Ag/Ab Non-Re active non-re active normal Not Available [address], [place], [address], 04/12/2024 14:16:03 04/11/20 24 04/12/2024 STD SANDER MOLINA ([facility] ) syphilis Ab Non-Re active non-re active normal Not Available [address], [place], [address], 04/12/2024 14:16:03 04/11/20 24 04/16/2024 STI PANEL trichomonas vaginalis TRICH neg negati ve normal Not Available [address], [address], 04/16/2024 13:50:12 04/11/20 24 04/16/2024 STI PANEL chlamydia trachomatis CT neg negati ve normal This repor t is inten ded for us in clini veda monit oring and manag ement of patie nts. It is not inten ded for use in medic al-le gal appli catio n. Not Available [address], [address], 04/16/2024 13:50:12 04/11/20 24 04/16/2024 STI PANEL neisseria gonorrhoeae GC neg negati ve normal This repor t is inten ded for us in clini veda monit oring and manag ement of patie nts. It is not inten ded for use in medic al-le gal appli catio n. Not Available [address], [address], 04/16/2024 13:50:12 04/15/20 24 04/15/2024 pregn chayito test, urine HCG negati ve Not Available [facility] [address] [place], [address], 04/15/2024 10:22:42 07/05/20 24 07/08/2024 VAGIN ITIS PLUS STD PANEL bacterial vaginosis BV POS negati ve abnormal Not Available [place] [facility] [address] [place] [address], [address], 07/09/2024 08:57:22 07/05/20 24 07/08/2024 VAGIN ITIS PLUS STD PANEL lety species C. spp neg negati ve normal Not Available [place] [facility] [address] [place] [address], [address], 07/09/2024 08:57:22 07/05/20 24 07/08/2024 VAGIN ITIS PLUS STD PANEL lety glabrata C. gla neg negati ve normal Not Available [address], [address], 07/09/2024 08:57:22 07/05/20 24 07/08/2024 VAGIN ITIS PLUS STD PANEL trichomonas vaginalis CV/TV TRICH neg negati ve normal Not Available [address], [address], 07/09/2024 08:57:22 07/05/20 24 07/08/2024 VAGIN ITIS PLUS STD PANEL chlamydia trachomatis CT neg negati ve normal This repor t is inten ded for us in clini veda monit oring and manag ement of patie nts. It is not inten ded for use in medic al-le gal appli catio n. Not Available [place] [facility] [address] [place] [address], [address], 07/09/2024 08:57:22 07/05/20 24 07/08/2024 VAGIN ITIS PLUS STD PANEL neisseria gonorrhoeae GC neg negati ve normal This repor t is inten ded for us in clini veda monit oring and manag ement of patie nts. It is not inten ded for use in medic al-le gal appli catio n. Not Available [place] [address], [place], [address], 07/09/2024 08:57:22 01/30/20 25 01/30/2025 STD BLOOD SCREE TRACY ([facility] ) hep BS Ag Non-Re active non-re active normal Not Available [address], [address], 01/30/2025 14:16:26 01/30/20 25 01/30/2025 STD BLOOD SCREE TRACY ([facility] ) hep C Ab Non-Re active non-re active normal Not Available [address], [address], 01/30/2025 14:16:26 01/30/20 25 01/30/2025 STD BLOOD SCREE TRACY ([facility] ) HIV 1/2 Ag/Ab Non-Re active non-re active normal Not Available [address], [address], 01/30/2025 14:16:26 01/30/20 25 01/30/2025 STD BLOOD SCREE TRACY ([facility] ) syphilis Ab Non-Re active non-re active normal Not Available [address], [address], 01/30/2025 14:16:26 01/30/20 25 01/30/2025 VAGIN ITIS PLUS STD PANEL bacterial vaginosis BV POS negati ve abnormal Not Available [address], [address], 01/31/2025 09:12:37 01/30/20 25 01/30/2025 VAGIN ITIS PLUS STD PANEL lety species C. spp neg negati ve normal Not Available [address], [address], 01/31/2025 09:12:37 01/30/20 25 01/30/2025 VAGIN ITIS PLUS STD PANEL lety glabrata C. gla neg negati ve normal Not Available [address], [address], 01/31/2025 09:12:37 01/30/20 25 01/30/2025 VAGIN ITIS PLUS STD PANEL trichomonas vaginalis CV/TV TRICH neg negati ve normal Not Available [address], [place], [address], 01/31/2025 09:12:37 01/30/20 25 01/30/2025 VAGIN ITIS PLUS STD PANEL chlamydia trachomatis CT neg negati ve normal This repor t is inten ded for us in clini veda monit oring and manag ement of patie nts. It is not inten ded for use in medic al-le gal appli catio n. Not Available [address], [address], 01/31/2025 09:12:37 01/30/20 25 01/30/2025 VAGIN ITIS PLUS STD PANEL neisseria gonorrhoeae GC neg negati ve normal This repor t is inten ded for us in clini veda monit oring and manag ement of patie nts. It is not inten ded for use in medic al-le gal appli catio n. Not Available [address], [place], [address], 01/31/2025 09:12:37 01/30/20 25 01/29/2025 pregn chayito test, urine HCG positi ve Not Available [facility] [address] [place], [address], 01/29/2025 10:02:14 04/15/20 24 04/15/2024 US, trans vagin al No observ ation record ed. [address], [place], [address], 04/15/2024 13:53:59 02/11/20 25 02/10/2025 US, trans vagin al No observ ation record ed. [address], [place], [address], 02/10/2025 20:17:54 02/23/20 25 02/21/2025 US, obste tric, trans vagin al No observ ation record ed. [address], [place], [address], 02/24/2025 09:57:36 Result Notes None recorded. Problems No Known Problems Procedures Surgical History Date Name Laterality Status Provider Name and Address Organization Details Recorded Time 07/05/20 24 IUD Removal completed INES HER, INVERFORM MACHINE OPERATOR [address] [place], [address], [facility] 07/05/2024 16:06:15 04/15/20 24 IUD Insertion completed INES HER, JESSIE [address] [place], [address], [place] [facility] 04/15/2024 11:07:07 04/11/20 24 Date of Last Pap Smear completed Millicent Malik [place] - [facility] 04/15/2024 10:33:27 09/11/20 23 Depo Provera Injection completed Martine Dallas [place] - [facility] 09/11/2023 11:52:07 11/16/19 23 I&D completed ERIKA PEREZ , [address] [place], [address], [place] [facility] 11/17/2022 10:32:24 09/06/20 22 Suture/Staple removal cancelled Ria Hoskins [place] [facility] 09/05/2022 14:12:57 procedure on upper arm completed Roma Callaway [place] [facility] 07/05/2024 15:49:01 Imaging Results Imaging Date Name Status LastModified by Organization Details LastModified Time 04/15/2024 US, transvaginal completed Sophie [address], [place], [address], 04/15/2024 13:53:59 02/10/2025 US, transvaginal completed Sophie [address], [place], [address], 02/10/2025 20:17:54 02/21/2025 US, obstetric, transvaginal completed Sophie [address], [place], [address], 02/24/2025 09:57:36 Procedure Notes None recorded. Medical Equipment None Reported. Allergies Allergen ID Allergen Name Allergen Category Reaction Reaction Severity Criticality Documentation Date Start Date Code Code System Note Provider Name and Address Organization Details Recorded Time 601061 ibuprofen medicatio n Not available Not available [...] daily 01/17 completed Celexa 10mg Tablet RxNorm: 630404 Allow Substitu tion: True Refill Denied: No [...] 10/06 completed Azithrom ycin 250mg Tablet RxNorm: 692332 Allow Substitu tion: True Refill Denied: No [...] completed Buspiron e HCl 15mg Tablet RxNorm: 625713 Allow Substitu tion: True Refill Denied: No For Problem: Depressi on Not Available Not Available Not Available Ortho Evra 150 mcg-35 mcg/24 hr transderm al patch Apply 1 patch to buttock, abdomen, or upper outer arm q week for 3 weeks of each month. 05/19 completed Ortho Evra 150mcg/3 5mcg per 24hr Transder mal Patch RxNorm: 6620016 Allow Substitu tion: True Refill Denied: No [...] Albutero l 90mcg/1a ctuation Oral Inhaler RxNorm: 830467 Allow Substitu tion: True Refill Denied: No Not Available Not Available Not Available azithromy ariana Take 2 tablet(s ) by mouth once. Take with food. 04/27 completed Azithrom ycin 500mg Tablet RxNorm: 597416 Allow Substitu tion: True Refill Denied: No Not Available Not Available Not Available ferrous sulfate 12/21 completed Ferrous Sulfate Allow Substitu tion: True Refill Denied: No Refill DateOccu rred: 08/18/20 15 Not Available Not Available Not Available Celexa 10/06 completed Celexa RxNorm: 134126 Allow Substitu tion: True Refill Denied: No [...] completed Not Available Not Available Not Available [place] 11/04 completed S[facility] RxNorm: 6837039 Allow Substitu tion: True Refill Denied: No [...] Updated DateTime 4 163.83 cm 24.2 kg/m2 37188.7 1 g 98 [degF] 118 mm[Hg] 68 mm[Hg] Millicent Malik [employer] [facility] 4 10:38:45 Date Recorded Body height Body mass index (BMI) Body weight Systolic blood pressure Diastolic blood pressure Provider Name and Address Organization Details Last Updated DateTime 07/05/2024 163.83 cm 24.3 kg/m2 75610.3 g 90 mm[Hg] 40 mm[Hg] Roma Callaway [employer] [facility] 4 15:53:27 Date Recorded Body height Body mass index (BMI) Body weight Systolic blood pressure Diastolic blood pressure Provider Name and Address Organization Details Last Updated DateTime 01/29/2025 163.83 cm 21.6 kg/m2 40896.82 g 110 mm[Hg] 70 mm[Hg] Ina Arellano [employer] [facility] 5 09:38:34 Date Recorded Body height Body mass index (BMI) Body weight Systolic blood pressure Diastolic blood pressure Provider Name and Address Organization Details Last Updated DateTime 02/10/2025 163.83 cm 21.2 kg/m2 90301.48 g 118 mm[Hg] 72 mm[Hg] Ria Hoskins [employer] [facility] 5 12:11:46 Date Recorded Body height Body mass index (BMI) Body weight Systolic blood pressure Diastolic blood pressure Provider Name and Address Organization Details Last Updated DateTime 02/21/2025 163.83 cm 20.9 kg/m2 67153.3 g 100 mm[Hg] 60 mm[Hg] Kirk Delgado [employer] [facility] 5 13:58:29 Social History Question Answer Notes LastModified by Organizat ion Details LastModified Time Tobacco Smoking Status Former Smoker Roma quiroz, [employer] [facility] 07/05/2024 15:48:44 What Is Your Level Of Alcohol Consumption? None [email or web address] Information not available 04/12/2022 Are You Blind Or Do You Have Difficulty Seeing? No Information not available 02/14/2022 Are You Currently Employed? No [email or web address] Information not available 04/11/2024 Are You Deaf [...] available 12/20/2022 What Is Your Relationship Status? Information not available 04/12/2022 Are You Sexually Active? Yes Information not available 04/11/2024 Do You Use Any Illicit Or Recreational Drugs? No [email or web address] Information not available 04/12/2022 Do You Or [...] Time Maternal Aunt Malignant tumor of breast Not available 2023 13:57:45 Paternal Grandfather Malignant tumor of colon [email or web address] Not available 04/2022 20:37:28 Maternal Grandmother Malignant tumor of ovary [email or web address] Not available 04/2022 20:37:39 Unspecified Relation Malignant tumor of breast [email or web address] Not available 2023 13:57:45 Medical History Condition [...] SNOMED-CT Code Diagnosis ICD10 Code Diagnosis Note [id number] MATHEUS Bee [facility] [address] [place] [address] 01/17/2022 14:22:52 01/17/2022 14:53:31 test positive 362101244 Z32.01 Hx of PTL/Seizur e disorder. Will refer to [facility]. 8 week confirmati on of visit performed today. Will RTO in 4 weeks. [facility] case started. [facility] referral placed. PNV rx'd. Pap performed today Screening for malignant neoplasm of cervix 664038664 Z12.4 Screening for disorder 217215922 Z11.3 N89.9 Vaginal discharge 027951 006 N89.8 N76.0 Seizure disorder 6879291 02 G40.909 Will refer to [facility] for hx of seizure disorder. Last seizure was last week and patient presented to [place] and was rx'd medication . She has not filled this medication as of yet. [id number] Kelli Lyon CNM [facility] [address] [place] [address] 02/14/2022 12:15:42 02/14/2022 14:06:36 Routine care 739312820 Z34.01 Z34.81 O09.511 O09.524 [id number] Kelli Lyon CNM [facility] [address] [place] [address] 03/21/2022 15:16:49 03/22/2022 10:47:09 Chromosome abnormality screening 841124052 Z13.79 [id number] Kelli Lyon CNM [facility] [address] [place] [address] 04/12/2022 15:21:41 04/12/2022 17:07:11 [id number] [facility] [address] [place] [address] 05/10/2022 10:36:57 05/10/2022 12:39:30 [id number] LYNN MENDES CNM [facility] [address] [place] [address] 06/24/2022 11:36:52 06/24/2022 12:14:42 Routine care 219930738 Z34.03 Z34.83 O09.513 O09.523 Gestation period, 31 weeks 72804787 Z3A.31 IUP @ 31+ wks. s/p inpatient stay at [facility], r/o PTL. sve 1cm on admit without change. complaints of left sided pain unresolved . discussed pt referral from [facility]. Plan to order on amazon. PTL precaution s discussed at length.Rho armando order and tdap info given today. 28 week labs completed today.RTO 2 wks. [id number] Marcy Byrnes FROY [facility] [address] [place] [address] 07/20/2022 09:50:43 07/20/2022 12:18:38 Gestation period, 34 weeks 98235700 Z3A.34 Uterine si ze for dates discrepancy 076995987 O26.849 High risk due to history of labor 862346098 O09.219 grow th restriction 19810746 O36.5999 start screening- biweekly NST/ weekly MELI and dopplerspa tient case to schedule appt with M (already establishe d) [id number] Nargis Ashton FROY [facility] [address] [place] [address] 10/17/2022 09:49:59 10/17/2022 12:09:11 state 86629550 Z39.2 Pt educated on release back to work, exercise, and sexual activity. Plan to F/U for WWE. Maternal p ostpartum depression screening 7033927986 16913 Z13.32 EPDS: 0. Pt educated on normal EPDS scoring, and discussed depression precaution s and when to notify HCP/go to ER. Screening for malignant neoplasm of cervix 212907371 Z12.4 ASCCP guidelines reviewed with pt. Pap collected and sent. Further POC pending lab result review. Pt states understand ing of POC. Initiation of depot contraception done 9264044310 42010 Z30.013 Pt unable to leave urine for [...] administra tion. Acute pelv ic inflammatory disease 243727657 N73.9 Bimanual exam notable for L adnexal and uterine tenderness . Plan to tx for PID. Rx for Flagyl, Doxycyclin e, & Ceftriaxon e sent. Pt educated on return to office for Ceftriaxon e administra tion. Pt encouraged to avoid intercours e. Vaginal cx collected and sent. Further POC pending lab result review. Pt states understand ing of POC. Cyst of vulva 39365551 N 90.7 Pt encouraged to discuss removal with MD only at future visit. Will need to discuss if can be done in office or outpatient . Pt states understand ing of POC. [id number] ERIKA PEREZ DO [facility] [address] [place] [address] 11/16/2022 13:09:13 11/17/2022 11:27:00 Contraception care 967424636 Z30.09 Initiation of depot contraception done 6234925656 37260 Z30.013 UPT in office is negative. Pt [...] period for injection Venereal d isease screening 676672851 Z11.3 Cyst of vulva 58118661 N 90.7 right labial cyst 1x1 cm. Mucous drainagePr ocedure went as planned, and patient tolerated procedure. Please see procedure note for full detail [id number] JEMIMA WALSH MD [facility] [address] [place] [address] 12/20/2022 13:58:37 01/03/2023 15:24:07 Indwelling catheter removed 488515400 Z46.6 [id number] STEFFANY DENNIS, [facility] [address] [place] [address] 09/04/2023 12:43:01 09/04/2023 16:49:39 Venereal disease screening 370188830 Z11.3 Pt comes in today for Infection/ STI testing. Discussed the various types of Infections and STIs, related symptoms and the potential consequenc es (including effects on fertility) of STI. Reviewed ways to limit exposure and prevention techniques . Vulvar care guidelines and safe sex practices reviewed. TX pending results. Accepts STI blood work Initiation of depot contraception done [id number] 89247 Z30.013 Pt comes in for Initiation of [...] . Due Sep 05 - Sep 19 [id number] INES HER, INVERFORM MACHINE OPERATOR [facility] [address] [place] [address] 09/11/2023 11:24:13 09/11/2023 14:25:20 Surveillance of depot contraception done 3959725741 9104 Z30.42 [id number] STEFFANY DENNIS, NP-BC [facility] [address] [place] [address] 04/11/2024 13:50:07 04/12/2024 14:08:40 Gynecologic examination 31082965 Z01.419 Patient is an establishe d patient who presents for a gynecologi veda Annual Exam. The patient denies any changes in her medical history. The patient denies any changes in her family medical history. 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 Pap Hx: No pap collected today. Pt states understand ing and is amenable to POC. Contracept ion education 672451161 Z30.09 Contracept humble counseling : Discussed options including OCPs, NuvaRing, Nexplanon, hormonal and copper IUDs. Discussed risks, efficacy, noncontrac eptive benefits, and side effects of each option, including risk of VTE with hormonal contracept ion and uterine perforatio n, expulsion, infection with IUD. Hypertrophy of breast 37 5789800 N62 Interested in breast reduction due to back pain. Venereal d isease screening 070960950 Z11.3 Pt comes in today for Infection/ STI testing. Discussed the various types of Infections and STIs, related symptoms and the potential consequenc es (including effects on fertility) of STI. Reviewed ways to limit exposure and prevention techniques . Vulvar care guidelines and safe sex practices reviewed. TX pending results. Accepts STI blood work [id number] JESSIE JETT [facility] [address] [place] [address] 04/15/2024 10:14:48 04/15/2024 13:20:47 Insertion of intrauterine contraceptive device [id number] Z30.430 28 y.o. presenting for IUD placement. Patient is moving to [place] by June. - Risks of abnormal bleeding, [...] amenorrhea - TVUS today confirms proper placement [id number] JESSIE JETT [facility] [address] [place] [address] 07/05/2024 15:02:44 07/08/2024 10:43:16 Removal of intrauterine contraceptive device [id number] Z30.432 IUD noted to be in cervical opening at time of assessment .IUD removed without difficulty and pt tolerated procedure well. Pt educated on OTC NSAID therapy for 24-48 hours PRN following procedure. Bleeding profile reviewed. Plan to F/U for WWE or PRN. Surveillan ce of depot contraception [id number] Z30.42 UPT not needed due to switching [...] medication for initial administra tion. Vaginal discharge [id number] 006 N89.8 Pt educated on exam findings, and discussed POC. Vaginal cx collected and sent. Discussed use of boric acid suppositor ies to help alleviate symptoms. 1 vaginal suppositor y at bedtime 3 nights in a row. Pt advised to avoid fragrant soaps/laun dry detergents , use of baking soda soaks, having partner change soaps, etc. Further POC pending lab result review. [id number] JESSIE JETT [facility] [address] [place] [address] 01/29/2025 09:30:48 01/29/2025 10:39:53 Vaginal discharge [id number] N89.8 N76.0 Pt educated on exam findings, [...] lab result review. Unprotecte d sexual intercourse [id number] Z72.51 LMP 2-12 based on LMP patient would be approx 5 weeksWill RTC in 2 weeks for confirmati on Venereal d isease screening 431731346 Z11.3 Pt educated on importance of condom use for protection against STD's. Samples collected and sent. Further POC pending lab result review. Pt states understand ing of POC. Inflammato ry dermatosis 130978420 L30.9 [id number] JESSIE JETT [facility] [address] [place] [address] 02/10/2025 11:48:12 02/10/2025 18:30:45 Urine test positive 135767849 Z32.01 Confirmati on of today. has not [...] repeat TVUS in 12 days for viability [id number] INES HER, [facility] [address] [place] [address] 02/21/2025 13:30:21 02/21/2025 16:28:33 Uncertain viability of [id number] O36.80X0 Us today showed approx 6 wk [...] proceed with medical management . Non-viable [id number] O02.89 Health Concerns Section Related Observation LastModified by Organization Detai ls LastModified Time None Recorded Concern Status LastModified by Organization Details LastModified Time None Recorded Advance Directives Directive None Recorded Payers Encounter Date Sequence Insurance Name Policy Number Policy Kelly Covered Member ID Kelly Member ID Guarantor Name 04/15/2024 1 [facility] ON OR AFTER 05/13/21 (MEDICAID REPLACEMENT - HMO) Saray aguilar [id number] Saray Worley ns 07/05/2024 1 [facility] ON OR AFTER 05/13/21 (MEDICAID REPLACEMENT - HMO) Saray aguilar [id number] Saray Worley ns 01/29/2025 1 [facility] ON OR AFTER 05/13/21 (MEDICAID REPLACEMENT - HMO) Saray aguilar [id number] Saray Worley ns 02/10/2025 1 [facility] ON OR AFTER 05/13/21 (MEDICAID REPLACEMENT - HMO) Saray aguilar [id number] Saray Worley ns 02/21/2025 1 [facility] ON OR AFTER 05/13/21 (MEDICAID REPLACEMENT - HMO) Saray aguilar [id number] Saray Worley ns Notes Date Note Type Note Provider Name and Address Organization Details Recorded Time 04/15/2024 text/html Feeling well toyaritza au states she had unprotected sex since last visit, but when asked date she said that her last sexual encounter was march 29.LMP:04/02/2024 JESSIE JETT [address] [facility], [place], [address], [employer] IV 04/15/2024 11:53:16 07/05/2024 text/html Patient is [...] restart Depo Provera today. JESSIE JETT [address] [facility], [place], [address], [facility] IV 07/05/2024 21:38:54 01/29/2025 text/html Vaginal/Vulvar ProblemReported bypatient.Location:[facility] Onset/Timing:after unprotected intercourse Duration:1 month Quality:itching; irritation Severity:severe Context:sexually active Alleviating Factors:triamcinolone Aggravating Factors:tight fitting clothing Associated Symptoms:vaginal itching;vaginal irritation Saray is a 29 y/o female. Pt is here for possible BV. Sx started about a month ago. Pt says she also has a rash on her inner rt thigh. Pt was treated with triamcinolone at [facility] but it did not help. Patient reports [...] be between Dec 25-. JESSIE JETT [address] [facility], [place], [address], [facility] IV 01/29/2025 10:18:31 02/10/2025 text/html Saray is here t danae for a positive confirmation visit. LMP 12/27/2024. Patient has questions concerning when she actually conceived because she is trying to figure out who the possible father is. Based on her LMP she states the conception dates does not add up. JESSIE JETT [address] [facility], [place], [address], [facility] [employer] IV 02/10/2025 13:45:20 02/21/2025 text/html Saray is a 29 y r old female. Pt wants to know what is next. Pt is here for viability in . Pt had US today. Patient denies any cramping or bleeding. JESSIE JETT [address] [facility], [place], [address], [facility] [employer] IV 02/21/2025 14:19:17 OBGyn Episode Ob Episode Information Episode Created Date Number of Fetuses Patient Bloodtype Patient rh Status Prepregnancy Weight lbs Domestic Partner Domestic Partner Phone Father Name Category Specialist Status 01/17/20 22 1 CLOSED Fetus Data First Name Last Name Admitted to NICU Weight (g) Sex Living Outcome Pediatric Complications Fetus ID Race Codes Race Delivery Type 2352.78 1704 F Full Term [id number] Chris Calculation Initial Chris Date Initial Exam [...] Domestic Partner Domestic Partner Phone Father Name Category Specialist Status 01/17/20 22 1 CLOSED Fetus Data First Name Last Name Admitted to NICU Weight (g) Sex Living Outcome Pediatric Complications Fetus ID Race Codes Race Delivery Type 2522.87 8704 F Full Term [id number] Chris Calculation Initial Chris Date Initial Exam [...] Domestic Partner Domestic Partner Phone Father Name Category Specialist Status 01/28/20 22 1 DELETED Chris [...] Domestic Partner Domestic Partner Phone Father Name Category Specialist Status 02/15/20 22 1 AB Negative CLOSED Fetus Data First Name Last Name Admitted to NICU Weight (g) Sex Living Outcome Pediatric Complications Fetus ID Race Codes Race Delivery Type 1983.46 5 M [id number] Problems Problem Notes Problem Name Start Date End Date Resolution Snomed Code Not e Chlamydial infection [id number] at [facility], s/p tx, RANCHO next visit Past history of premature delivery [id number] [place] ordered 04/12 per [facility] request Placenta previa [id number] growth restriction 07/20/2022 [id number] start testing- biweekly NST/wkly MELI and dopplers [...] Weight in lbs Pre/Post Dialysis Refused Weight 103.657552861579 BP Diastolic BP Location Tested BP Systolic BP Type 78 118 Fetus Heart Rate Present A 158 Fetus Movement A Yes Comments Flowsheet Date 03/21/2022 Early Score Blood Edema Fundus Height Fundus Units Glucose Ketones Leukocytes Nitrite Labor Signs Protein Cervic Dilation Cervic Effacement Cervic Station none none neg Type Weight in lbs Pre/Post Dialysis Refused Weight 104.306421299853 BP Diastolic BP Location Tested BP Systolic BP Type 58 110 Fetus Heart Rate Present A 150 Fetus Movement A Yes Comments PENTA today Flowsheet Date 04/12/2022 Early Score Blood Edema Fundus Height Fundus Units Glucose Ketones Leukocytes Nitrite Labor Signs Protein Cervic Dilation Cervic Effacement Cervic Station none neg Type Weight in lbs Pre/Post Dialysis Refused Weight 109.392738696870 BP Diastolic BP Location Tested BP Systolic BP Type 70 116 Fetus Heart Rate Present A 155 Fetus Movement A Yes Comments Patient is following up afte r [facility]FM visit last week. States they are requesting her to have [place] injections. Visit notes not available but task sent to day to order. Reinforced bleeding recommendations. Needs RANCHO for chlamydia at next visit. Flowsheet Date 05/10/2022 Early Score Blood Edema Fundus Height Fundus Units Glucose Ketones Leukocytes Nitrite Labor Signs Protein Cervic Dilation Cervic Effacement Cervic Station none neg Type Weight in lbs Pre/Post Dialysis Refused Weight 114.5925909591 BP Diastolic BP Location Tested BP Systolic [...] Weight in lbs Pre/Post Dialysis Refused Weight 123.911045106975 BP Diastolic BP Location Tested BP Systolic BP Type Fetus Heart Rate Present A 142 Present Fetus Movement A Yes Comments s/p inpatient stay at [facility], r /o PTL. sve 1cm on admit without change. complaints of left sided pain unresolved. discussed pt referral from [facility]. Plan to order on amazon. PTL precautions [...] in lbs Pre/Post Dialysis Refused With clothes 132.975530627948 BP Diastolic BP Location Tested BP Systolic [...] Weight in lbs Pre/Post Dialysis Refused Weight 122.328365844611 BP Diastolic BP Location Tested BP Systolic [...] Domestic Partner Domestic Partner Phone Father Name Category Specialist Status 10/15/20 22 1 CLOSED Fetus Data First Name Last Name Admitted to NICU Weight (g) Sex Living Outcome Pediatric Complications Fetus ID Race Codes Race Delivery Type , Spontane ous [id number] Chris Calculation Initial Chris Date Initial Exam [...] Domestic Partner Domestic Partner Phone Father Name Category Specialist Status 10/15/20 22 1 CLOSED Fetus Data First Name Last Name Admitted to NICU Weight (g) Sex Living Outcome Pediatric Complications Fetus ID Race Codes Race Delivery Type , Induced [id number] Chris Calculation Initial Chris Date Initial Exam [...]
[2025-03-06 16:32] LABS: Basophils Percent Auto 0.6 % (0.2-1.2); Eosinophils Absolute Auto 0.1 K/mm3 (0-0.3); Eosinophils Percent Auto 1.3 % (0-4.4); Hematocrit 31.4 % (37.0-47.0); Hemoglobin 9.8 g/dL (12.0-15.0); Immature Granulocyte Absolute 0.02 K/mm3 (0.00-0.031); Immature Granulocyte Percent A 0.3 % (0-0.5); Lymphocytes Absolute Auto 1.75 K/mm3 (0.9-3.2); Lymphocytes Percent Auto 25.3 % (18.3-44.2); Mean Corpuscular HGB Conc 31.2 g/dl (32-36); Mean Corpuscular Hemoglobin 29.9 pg (26-34); Mean Corpuscular Volume 95.7 fl (80-100); Mean Platelet Volume 10.6 fl (7.4-10.4); Monocytes Absolute Auto 0.5 K/mm3 (0.1-0.6); Monocytes Percent Auto 7.5 % (2.6-8.5); Neutrophils Absolute Auto 4.5 K/mm3 (1.3-6.7); Platelet Count Result 302 k/mm3 (150-375); Red Blood Count 3.28 M/mm3 (4.2-5.4); Red Cell Distribution Width 13.9 % (11.5-14.5); White Blood Count 6.9 K/mm3 (4.5-10.0)
[2025-03-06 16:45] LABS: Alanine Aminotransferase 46 U/L (6-35); Albumin Level 4.5 g/dL (3.5-5.1); Alkaline Phosphatase 69 U/L (38-126); Anion Gap 11 mmol/L (4-12); Aspartate Amino Transferase 35 U/L (14-36); Bilirubin,Total 0.3 mg/dL (0.2-1.3); Blood Urea Nitrogen 10 mg/dL (7-17); CRP < 0.5 mg/dL (<1.0); Carbon Dioxide 24 mmol/L (22-30); Chloride 105 mmol/L (98-107); Estimated CRCL calculation 98 ml/min; Estimated Glomerular Filt Rate > 60; Glucose 97 mg/dL (65-110); Potassium 4.1 mmol/L (3.4-5.0); Sodium 140 mmol/L (137-145)
[2025-03-06 16:52] LABS: Erythrocyte Sedimentation Rate 19 mm/hr (0-20); INR 1.1
[2025-03-06 16:53] LABS: Partial Thromboplastin Time 24.5 Seconds (22.3-36.8)
[2025-03-06] MEDS: KETOROLAC 30 MG/ML VIAL (*BKC) IM (17:30)
--- OUTSIDE RECORDS SUMMARY | 2025-03-06 17:32 | XMS_ITS | Encounter Summary ---
Author Organization [facility] Address [facility] [place] [address] Care Team Providers Care Spring Former Name Role Phone Geno Gerard Primary Care Provider [phone] None, Provider Unavailable Unavailable Encounter Details Date Type Department Care Team (Late st Contact Info) Description 12/26/2022 [employer] Message Enc [facility] Medical Group Family and Sports Medicine - [place] [address] [place] [address] [facility] Provider Schedule Appointment: Annual Physical Social History [...] on filedocumented in this encounter Care Teams Spring Former Relationship Specialty Start Date End Date Geno Gerard APNP [address] [place] [address] PCP - General NURSE PRACTITIONER 10/15/18 None, ProviderMD 08/01/18 documented as of this encounter
--- OUTSIDE RECORDS SUMMARY | 2025-03-06 17:32 | XMS_ITS | Referral Summary ---
Author Organization [facility] Address [address] [place] [address] Care Team Providers Care Creative Services Manager Name Role Phone Ines Her NP Primary [...] Never Tobacco Cessation:Ready to Q uit: No [facility] Utilities Answer Date Recorded In the [...] often do you attend chur ch or baptist services? Never 09/26/2023 Do you belong to any clubs o r organizations such as confucianist groups, unions, fraternal or athletic groups, or [...] in a skilled nursing (including now)? No 09/26/2023 Personal Safety Answer Date Recorded Have you ever been in or are you currently in a harmful physical or emotional relationship or is someone making you feel afraid or unsafe? Denies 11/19/2024 Comments No Sex and Gender Information Value Date Recorded Sex Assigned at Not on file Legal Sex Female 7:13 AM VETERINARY SURGEON Gender Identity Not on file Sexual Orientation Not on file Last Filed Vital Signs Vital Sign Reading Time Taken Comments Blood Pressure 94/55 11/19/2024 10:00 PM VETERINARY SURGEON Pulse 74 11/19/2024 10:46 PM VETERINARY SURGEON Temperature 36.7 C (98.1 F) 11/19/2024 6:18 PM VETERINARY SURGEON Respiratory Rate 14 11/19/2024 10:46 PM VETERINARY SURGEON Oxygen Saturation 97% 11/19/2024 10:46 PM VETERINARY SURGEON Inhaled Oxygen Concentration - - Weight 61.2 kg (135 lb) 11/19/2024 4:40 PM VETERINARY SURGEON Height 162.6 cm (5' 4 ) 11/24/2023 8:34 PM VETERINARY SURGEON Body Mass Index 23.17 11/24/2023 8:34 PM VETERINARY SURGEON Plan of Treatment Not on file Insurance [facility] [address] Advance Directives For more information, please contact: [phone] * Full Code (Latest Code Status on File) Date Activated Date Inactivated Comments 09/25/2023 10:47 PM 09/27/2023 1:57 PM * Full Code Date Activated Date Inactivated Comments 09/23/2023 11:59 PM 09/25/2023 3:08 PM * Full Code Date Activated Date Inactivated Comments 10/22/2021 9:10 PM 10/23/2021 7:43 PM Care Teams Creative Services Manager Relationship Specialty Start Date End Date Ines Her NP [address] [place] [address] PCP - General Nurse Practitioner 01/30/25
--- OUTSIDE RECORDS SUMMARY | 2025-03-06 17:32 | XMS_ITS | Encounter Summary ---
Author Organization [facility] Address [address] [place] [address] Care Team Providers Care Magazine Worker Name Role Phone Geno Gerard Primary Care Provider [phone] None, Provider Unavailable Unavailable Encounter Details Date Type Department Care Team (Late st Contact Info) Description 10/10/2022 [employer] Message Enc [facility] Medical Group Family and Sports Medicine - [place] [address] [place] [address] [facility] Provider Schedule Appointment: Annual Physical Due Social [...] on filedocumented in this encounter Care Teams Magazine Worker Relationship Specialty Start Date End Date Geno Gerard APNP [address] [place] [address] PCP - General NURSE PRACTITIONER 10/15/18 None, Provider, 08/01/18 documented as of this encounter
--- OUTSIDE RECORDS SUMMARY | 2025-03-06 17:32 | XMS_ITS | Clinical Summary ---
Author Organization [facility] Address [facility] [place] [address] Care Team Providers Care Mix Technician Name Role Phone Geno Reilly Primary Care Provider [phone] None, Provider MD Unavailable Unavailable Allergies Active Allergy Reactions Criticality Noted Date Comments Ibuprofen Other (see comment) 11/20/2017 shakes Other reaction(s): Other (See Comments) shaking Medications QUEtiapine 200 MG tabletIndications:B ipolar depression ([facility]) Take 1 tablet (200 mg total) by [...] Bacterial vaginosis 08/03/2018 Bipolar disorder with depression ([facility]) 08/03/2018 Contraception 08/03/2018 Dark urine [...] 3 weeks and then menstruate for 1. [facility] providers have told her in past [...] Comments Blood Pressure 103/72 11/19/2024 1:00 PM FAMILY RESOURCE MANAGEMENT SPECIALIST Pulse 88 11/19/2024 1:00 PM FAMILY RESOURCE MANAGEMENT SPECIALIST Temperature 37.1 C (98.8 F) 11/19/2024 8:40 AM FAMILY RESOURCE MANAGEMENT SPECIALIST Respiratory Rate 22 11/19/2024 1:00 PM FAMILY RESOURCE MANAGEMENT SPECIALIST Oxygen Saturation 93% 11/19/2024 1:00 PM FAMILY RESOURCE MANAGEMENT SPECIALIST Inhaled Oxygen Concentration - - Weight 63.7 kg (140 lb 6.9 oz) 11/19/2024 8:40 A M FAMILY RESOURCE MANAGEMENT SPECIALIST Height 163.8 cm (5' 4.5 ) 11/19/2024 8:27 AM FAMILY RESOURCE MANAGEMENT SPECIALIST Body Mass Index 23.73 11/19/2024 8:27 AM FAMILY RESOURCE MANAGEMENT SPECIALIST Plan of Treatment Health Maintenance Due Date [...] Cancer Screening with HPV 2024 PHQ-2 (Physician [facility]) 11/13/2024 DTaP, Tdap and Td Vaccines (4 [...] Comments HEPATITIS PANEL,ACUTE Routine 11/14/2019 2:36 PM FAMILY RESOURCE MANAGEMENT SPECIALIST Routine screening for STI (sexually transmitted infection) HPV MRNA E6/E7 W/ RFLX GENOTYPES Routine 05/03/2019 2:36 PM CDT CYTOPATH CERV/VAG THIN LAYER Routine 05/03/2019 12:00 AM CDT from Last 3 Months or Most Recently Relevant to Health Maintenance Results * HEPATITIS PANEL,ACUTE (11/14/2019 2:36 PM FAMILY RESOURCE MANAGEMENT SPECIALIST) HEPATITIS B SURFACE AG NON-REACTI VE NON-REACTI VE 11/14/2019 8:35 PM FAMILY RESOURCE MANAGEMENT SPECIALIST [facility] HEP B CORE IGM NON-REACTI VE NON-REACTI VE 11/14/2019 8:52 PM FAMILY RESOURCE MANAGEMENT SPECIALIST [facility] HAV IGM NON-REACTI VE NON-REACTI VE 11/14/2019 8:54 PM FAMILY RESOURCE MANAGEMENT SPECIALIST [facility] HEPATITIS C AB NON-REACTI VE NON-REACTI VE 11/14/2019 8:51 PM FAMILY RESOURCE MANAGEMENT SPECIALIST [facility] 11/14/2019 2:36 PM FAMILY RESOURCE MANAGEMENT SPECIALIST Geno Poirot APNP LABORATORY Final Result [facility] [address] [place] [address], * HPV MRNA E6/E7 W/ RFLX GENOTYPES (05/03/2019 2:36 PM CDT) HPV MRNA E6/E7 Not Detected NOT DETECTED 05/09/2019 4:37 PM CDT [facility] LEXUS MORRISON Comment: This test was performed using the APTIMA(R) HPV Assay ([employer] This assay detects E6/E7 viral messenger RNA (mRNA) from 14 high-risk HPV types (16,18,31,33,35,39,45,51, 52,56,58,59,66,68). For additional information please refer to: http://education.MyCosmik/faq/AUC871a5 (This link is being provided for informational/ educational purposes only.) The analytical performance characteristics of this assay have been determined by [facility] [place], [place]. The modifications have not been cleared or approved by the FDA. This assay has been validated pursuant to the CLIA regulations and is used for clinical purposes. HPV HUMAN PAPILLOMAVIRUS REPORT 05/09/2019 4:37 PM CDT [facility] LEXUS MORRISON Comment: Not indicated Test Performed by [facility], [facility] [place], [id number] [place] [address] Scott Cano M.D., Ph.D., Director of Laboratories , CLIA [id number] 05/03/2019 2:36 PM CDT Geno Moustapha SARGENT PATHOLOGY/CYTOLOGY ORDERABLES Final Result [facility] [address] [place] [address], * Cytopath Cerv/Vag Thin Layer (05/03/2019 12:00 AM CDT) COPATH REPORT [facility] [address] [place], [place] [address] [phone] Department of Pathology Pathology Report Gynecological Cytology Report Patient Name: HARPAL EDENKINS ANUJ MATIASAccession#: [id number] : 1995 (Age: 23) Location: [facility] Gender: F Collected Date: 05/03/2019 Med Rec #: [id number] Date Received: 05/08/2019 Date Reported: 05/10/2019 Provider: GENO REILLY Final Cytologic Diagnosis Satisfactory for evaluation. Endocervical component not identified. Negative for Intraepithelial Lesion or Malignancy Bacterial Vaginosis High-risk HPV mRNA E6/E7 by Aptima assay (performed at [facility]) is reported as NOT DETECTED (see separate report for details). This case was signed out at [facility], [address] [place] [address]. Electronically Signed Out Oscar Jacobs Source of Specimen(s) Cervical/Endocervi veda - Thin Prep Clinical History Screening, last Pap not provided. History of HPV and abnormal Pap. Z12.4 Date of Last Menstrual Period: 04/15/19 Frozen Section Diagnosis Billing Fee Code(s): A: [address] [facility] 05/03/2019 05/08/2019 3:3 2 PM CDT Comment:CERVICAL/ENDOCERVICA L - THIN PREP us Geno SARGENT PATHOLOGY/CYTOLOGY ORDERABLES Final Result [facility] [address] [place] [address], from Last 3 Months or Most Recently Relevant to Health Maintenance Insurance [employer] Care Teams Mix Technician Relationship Specialty Start Date End Date Geno Reilly APNP [address] [place] [address] PCP - General NURSE PRACTITIONER 10/15/18 None, Provider, 08/01/18
--- OUTSIDE RECORDS SUMMARY | 2025-03-06 17:32 | XMS_ITS | Encounter Summary ---
Author Organization [facility] Address [facility] [place] [address] Care Team Providers Care Edge Inker Uppers Name Role Phone Geno Gerard Primary Care Provider [phone] None, Provider MD Unavailable Unavailable Encounter Details Date Type Department Care Team (Late st Contact Info) Description 04/29/2024 MyChart Message Enc [facility] Medical Group Family and Sports Medicine - [place] [address] [place] [address] Geno Gerard APNP [address] [place] [address] [phone] Yearly Visit Reminder Social History Tobacco Use [...] on filedocumented in this encounter Care Teams Edge Inker Uppers Relationship Specialty Start Date End Date Geno Gerard APNP [address] [place] [address] PCP - General NURSE PRACTITIONER 10/15/18 None, Provider, 08/01/18 documented as of this encounter
--- OUTSIDE RECORDS SUMMARY | 2025-03-06 17:33 | XMS_ITS | Clinical Summary ---
Author Organization [facility] Address [address] [facility] [facility] [place] [address] Care Team Providers Care Vest Maker Name Role Phone Izzy Shukla MD Unavailable [phone] Source Comments [facility],non-owned Affiliates and Associated Physician Practices is amultiple site organization consisting of ambulatory clinics and hospital sitesin [place], [place], [place] and [place]. This disclosure is being madepursuant to the Care Everywhere program and may not contain all information available regarding this patient. 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 Kaitlynn Joseph over [...] given. Parent wishing to transfer care to web feeder. Pt to followup with Dr. Joseph in [...] 3 weeks and then menstruate for 1. [facility] providers have told her [...] AM CDT Hospital Encounter [facility] 7S TELE/NEURO [address] [id number] Rick Campuzano MD Fatima, Noor E, MD Bezuneh, Abraham D, MD Hospitalist Discharge Disposition: Home or Self Care 02/24/2025 Travel 02/23/2025 10:21 AM CDT - 02/28/2025 8:00 PM CDT Hospital Encounter [facility]S TELE[facility]NEURO [address] [place] [address] Jemma Virgen MD [place], MD Blayne Villalobos, Raymon Castillo, Kelli Chen MD Bezuneh, Armand Reyes MD Hospitalist Discharge Disposition: Admitted as an Inpatient 02/23/2025 6:17 AM CDT - 02/23/2025 7:19 AM CDT Emergency ER at [address] [address] from Last 3 Months Immunizations Immunization Administration [...] and heating? Not hard at all 02/26/2025 [facility] [place] [facility] - Occupational Stress [...] a skilled nursing (including now)? 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 Gender Identity Not on file Sexual [...] HIV-1 HIV-2 ANTIBODY Routine 12/30/2009 4:38 PM STREETCAR REPAIRER HELPER Leukorrhea, not Specified as Infective from Last [...] - 99 mg/dL 03/02/2025 9:18 PM CDT [facility] Specimen Type Cap Fingerstick 2024 9:18 PM CDT [facility] Blood BLOOD SPECIMEN / Unknown 03/02/2025 9:16 PM CDT 03/02/2025 9:18 PM CDT us Armand Fam MD LAB - POINT OF CARE ORDERAB LES Final Result [facility] [address] [place] [address] * (ABNORMAL) BASIC METABOLIC PANEL (CALCIUM TOTAL) (03/02/2025 3:49 AM CDT) Only the most recent of2 resultswithin the time period is included. Pathologist [facility] Glucose 102(H) 70 - 99 mg/dL 03/02/2025 4:22 AM CDT [facility] Sodium 141 136 - 145 mmol/L 03/02/2025 4:22 AM CDT [facility] Potassium 3.9 3.5 - 5.1 mmol/L 03/02/2025 4:22 AM CDT [facility] Chloride 112(H) 98 - 107 mmol/L 03/02/2025 4:22 AM CDT [facility] CO2 23 22 - 29 mmol/L 03/02/2025 4:22 AM CDT [facility] Calcium 8.3(L) 8.4 - 10.4 mg/dL 03/02/2025 4:22 AM CDT [facility] Anion Gap 6 6 - 16 mmol/L 03/02/2025 4:22 AM CDT [facility] BUN 8 5.3 - 18.7 mg/dL 03/02/2025 4:22 AM CDT [facility] Creatinine 0.63 0.57 - 1.11 mg/dL 03/02/2025 4:22 AM CDT [facility] eGFR by CKD-EPI >90 >=90 mL/min/1.7 3 m2 03/02/2025 4:22 AM CDT [facility] Blood BLOOD SPECIMEN / Unknown Venipuncture / Unknown 03/02/2025 3:49 AM CDT 03/02/2025 3:57 AM CDT Rick Campuzano MD LAB - CHEMISTRY ORDERAB LES Final Result [facility] [address] [place] [address] * (ABNORMAL) CBC W AUTO DIFFERENTIAL (03/01/2025 5:27 PM CDT) Only the most recent of7 resultswithin the time period is included. [facility] WBC 6.1 4.0 - 10.7 x10E9/L [...] - 4.40 x10E9/L 03/01/2025 5:56 PM CDT [facility] Monocyte Absolute 0.34 0.15 - 1.00 x10E9/L 03/01/2025 5:56 PM CDT [facility] Eosinophil Absolute 0.10 0.00 - 0.60 x10E9/L 03/01/2025 5:56 PM CDT [facility] Basophil Absolute 0.04 0.00 - 0.13 x10E9/L 03/01/2025 5:56 PM CDT [facility] Blood BLOOD SPECIMEN / Unknown Venipuncture / Unknown 03/01/2025 5:27 PM CDT 03/01/2025 5:37 PM CDT Rick Campuzano MD LAB - HEMATOLOGY ORDERA BLES Final Result [facility] [address] [place] [address] * (ABNORMAL) COMPREHENSIVE METABOLIC PANEL (03/01/2025 5:27 PM CDT) Only the most recent of2 resultswithin the time period is included. Glucose 107(H) 70 - 99 mg/dL 03/01/2025 5:52 PM CDT [facility] Sodium 141 136 - 145 mmol/L 03/01/2025 5:52 PM CDT [facility] Potassium 3.6 3.5 - 5.1 mmol/L 03/01/2025 5:52 PM CDT [facility] Chloride 110(H) 98 - 107 mmol/L 03/01/2025 5:52 PM CDT [facility] CO2 23 22 - 29 mmol/L 03/01/2025 5:52 PM CDT [facility] Calcium 8.9 8.4 - 10.4 mg/dL 03/01/2025 5:52 PM CDT [facility] Anion Gap 8 6 - 16 mmol/L 03/01/2025 5:52 PM CDT [facility] BUN 8 5.3 - 18.7 mg/dL 03/01/2025 5:52 PM CDT [facility] Creatinine 0.64 0.57 - 1.11 mg/dL 03/01/2025 5:52 PM CDT [facility] Alkaline Phosphatase 49 40 - 150 U/L 03/01/2025 5:52 PM CDT [facility] ALT 19 6 - 57 U/L 03/01/2025 5:52 PM CDT [facility] AST 39 10 - 48 U/L 03/01/2025 5:52 PM CDT [facility] Protein Total 6.7 6.4 - 8.3 gm/dL 03/01/2025 5:52 PM CDT [facility] Albumin 3.7 3.4 - 5.0 gm/dL 03/01/2025 5:52 PM CDT [facility] Bilirubin Total 0.3 0.2 - 1.2 mg/dL 03/01/2025 5:52 PM CDT [facility] eGFR by CKD-EPI >90 >=90 mL/min/1.7 3 m2 03/01/2025 5:52 PM CDT [facility] Blood BLOOD SPECIMEN / Unknown Venipuncture / Unknown 03/01/2025 5:27 PM CDT 03/01/2025 5:37 PM CDT Rick Campuzano MD LAB - CHEMISTRY ORDERAB LES Final Result [facility] [address] [place] [address] * EEG EXTENDED MONITORING > 1 HOUR (02/28/2025 8:35 AM CDT) Narrative [facility] - 02/28/2025 8:35 AM CDT Waqas Burnham MD 02/28/2025 8:36 AM LONG-TERM VIDEO EEG SUMMARY REPORT [facility] Long-term video EEG monitoring was performed on a patient with status. Utilizing the [employer] recording system, EEG was recorded in standard [...] limits. Suspected seizure-like activity is noted around [address] on Feb 23, 2025. No EEG correlate [...] transvaginal pelvic ultrasound was performed by the sash finisher with DICOM image capture. Obstetric follow-up care [...] and transvaginal pelvic ultrasound wasperformed by the sash finisher with DICOM image capture. Obstetric follow-up care [...] CHEMISTRY ORDERABLES nal Result Performing Organization Address [facility] de Phone Number [facility] [address] [place] [address] * MAGNESIUM BLOOD (02/28/2025 6:37 AM CDT) Only the most recent of6 resultswithin the time period is included. Pathologist [facility] Magnesium 1.7 1.6 - 2.6 mg/dL 02/28/2025 7:07 AM CDT [facility] Blood BLOOD SPECIMEN / Unknown Venipuncture / Unknown 02/28/2025 6:37 AM CDT 02/28/2025 6:50 AM CDT Roma Burger MD LAB - CHEMISTRY ORDERABLES [facility] Result Performing Organization Address [facility] de Phone Number [facility] [address] [place] [address] * (ABNORMAL) HERPES SIMPLEX 2 ANTIBODY IGG (02/27/2025 2:43 AM CDT) Pathologist [facility] Herpes Simplex Virus 2 Antibody IgG Type Specific Reactive( A) Non Reactive 02/28/2025 8:11 AM CDT [facility] ([facility]) Comment: Please note reference interval change [...] CDT 02/27/2025 2:57 AM CDT Narrative [facility] ([facility]) - 02/28/2025 8:11 AM CDT Performed at: - [facility] [address] [place], [place] [id number] Casting Assistant: Roe John PhD, Phone: [phone] Weston Florentino [facility] LAB - CHEMISTRY ORDERA BLES Final Result Performing Organization Address City/[facility]/ZIP Co de Phone Number [facility] ([facility]) [address] [place] [address] * IGG BLOOD (02/27/2025 2:43 AM CDT) Pathologist [facility] IgG 1,080 767 - 1,590 mg/dL 02/27/2025 10:34 AM CDT [facility] Blood BLOOD SPECIMEN / Unknown Venipuncture / Unknown 02/27/2025 2:43 AM CDT 02/27/2025 2:57 AM CDT [facility] Florentino [facility] - CHEMISTRY ORDERA BLES Final Result Performing Organization Address City/[facility]/ZIP Co de Phone Number [place] [id number] [phone] * (ABNORMAL) HCG BLOOD QUAL REFLEX QUANT (02/26/2025 3:43 AM CDT) [facility] HCG Qual Serum Positive(A ) Negative 02/26/2025 4:22 AM CDT [facility] Blood BLOOD SPECIMEN / Unknown Venipuncture / Unknown 02/26/2025 3:43 AM CDT 02/26/2025 3:56 AM CDT Narrative [facility] - 02/26/2025 4:22 AM CDT Specimens containing human anti-mouse antibodies may exhibit false positive or false negative results. If qualitative interpretation is inconsistent with clinical evaluation, consider confirmation by an alternative hCG method. Waqas Cotter MD LAB - CHEMISTRY O RDERABLES Final Result [facility] [address] [place] [address] * HCG BETA BLOOD QUANTITATIVE (02/26/2025 3:43 AM CDT) Only the most recent of2 resultswithin the time period is included. hCG Quantitative 5,731.84 mIU/mL 02/27/20 5:52 AM CDT [facility] Blood BLOOD SPECIMEN / Unknown Venipuncture / Unknown 02/26/2025 3:43 AM CDT 02/26/2025 3:56 AM CDT Narrative [facility] - 02/26/2025 5:52 AM CDT [...] LAB - CHEMISTRY O RDERABLES Final Result [facility] [address] [place] [address] * MRI Brain Wwo Contrast (02/25/2025 8:13 PM CDT) Anatomical Region Laterality Modality Head Magnetic Resonan ce 02/26/2025 9:23 AM CDT Impressions 02/26/2025 9:32 AM CDT IMPRESSION: Unremarkable brain MRI performed without and with contrast. > Interpreting Provider: Deb Martinez MD on 02/26/2025 9:32 AM Narrative 02/26/2025 9:32 AM CDT PROCEDURE: MRI BRAIN WWO CONTRAST, DATE/TIME OF EXAM: 02/25/2025 8:15 PM, LOCATION [facility] INDICATION: R56.9: Unspecified convulsions (HCC) ADDITIONAL CLINICAL [...] CONTRAST, DATE/TIME OF EXAM: 02/25/2025 8:15PM, LOCATION [facility] INDICATION: R56.9: Unspecified convulsions (HCC) ADDITIONAL CLINICAL [...] 79 <150 mg/dL 02/25/2025 4:58 AM CDT [facility] Blood BLOOD SPECIMEN / Unknown Venipuncture / Unknown 02/25/2025 4:33 AM CDT 02/25/2025 4:40 AM CDT Roma Burger MD LAB - CHEMISTRY ORDERABLES Fi nal Result [facility] [address] [place] [address] * HEMOGLOBIN A1C (02/24/2025 4:57 AM CDT) Hemoglobin A1c 4.8 <5.7 % 02/24/2025 5:35 AM CDT [facility] Estimated Average Glucose 91 mg/dL 02/24/2025 5:35 AM CDT [facility] Blood BLOOD SPECIMEN / Unknown Venipuncture / Unknown 02/24/2025 4:57 AM CDT 02/24/2025 5:05 AM CDT Narrative [facility] - 02/24/2025 5:35 AM CDT [...] ORDERABLES Fi nal Result Performing Organization Address [facility]/ZIP Co de Phone Number [facility] [address] [place] [address] * (ABNORMAL) CK BLOOD (02/24/2025 4:57 AM CDT) Pathologist [facility] CK 227(H) 29 - 168 U/L 02/24/2025 8:50 AM CDT [facility] Blood BLOOD SPECIMEN / Unknown Venipuncture / Unknown 02/24/2025 4:57 AM CDT 02/24/2025 5:05 AM CDT Waqas Cotter MD LAB - CHEMISTRY O RDERABLES Final Result Performing Organization Address [facility] Co de Phone Number [facility] [address] [place] [address] * (ABNORMAL) HGB HCT PANEL (02/23/2025 9:59 PM CDT) Pathologist [facility] Hemoglobin 9.6(L) 11.9 - 15.8 g/dL 02/23/2025 10:14 PM CDT [facility] Hematocrit 30.7(L) 34.8 - 46.1 % 02/23/2025 10:14 PM CDT [facility] Blood BLOOD SPECIMEN / Unknown Venipuncture / Unknown 02/23/2025 9:59 PM CDT 02/23/2025 10:10 PM CDT Roma Burger MD LAB - HEMATOLOGY ORDERABLES F inal Result Performing Organization Address [facility] Co de Phone Number [facility] [address] [place] [address] * (ABNORMAL) BLOOD GASES ARTERIAL (02/23/2025 11:18 AM CDT) pH Arterial 7.33(L) 7.35 - 7.45 pH 02/23/2025 11:53 AM CDT [facility] RESP THERAPY pO2 Arterial 500(H) 80 [...] GASES ORDERABLES Final Result [facility]ER[facility] [address] [phone] * (ABNORMAL) PHOSPHORUS BLOOD (02/23/2025 11:14 AM CDT) Phosphorus 2.4(L) 2.5 - 4.5 mg/dL 02/23/2025 12:05 PM CDT [facility] Blood BLOOD SPECIMEN / Unknown Line Draw / Unknown 02/23/2025 11:14 AM CDT 02/23/2025 11:48 AM CDT Roma Burger MD LAB - CHEMISTRY ORDERABLES Fi nal Result Performing Organization Address [facility] Co de Phone Number [facility] [address] [place] [address] * LACTIC ACID BLOOD (02/23/2025 11:14 AM CDT) Lactic Acid 1.6 <=2 mmol/L 02/23/2025 12:05 PM CDT [facility] Blood BLOOD SPECIMEN / Unknown Line Draw / Unknown 02/23/2025 11:14 AM CDT 02/23/2025 11:48 AM CDT Roma Burger MD LAB - CHEMISTRY ORDERABLES Fi nal Result Performing Organization Address [facility] Co de Phone Number [facility] [address] [place] [address] * AMMONIA (02/23/2025 11:14 AM CDT) Pathologist [facility] Ammonia 18 18 - 72 umol/L 02/23/2025 11:57 AM CDT [facility] Blood BLOOD SPECIMEN / Unknown Line Draw / Unknown 02/23/2025 11:14 AM CDT 02/23/2025 11:48 AM CDT Roma Burger MD LAB - CHEMISTRY ORDERABLES Fi nal Result Performing Organization Address [facility] Co de Phone Number [facility] [address] [place] [address] * XR CHEST 1VW PORTABLE (02/23/2025 11:10 [...] * HIV-1 HIV-2 ANTIBODY (12/30/2009 4:38 PM STREETCAR REPAIRER HELPER) HIV-1/HIV-2 Non-Reacti ve Non-Reacti ve [facility] BLOOD SPECIMEN / Unknown 12/30/2009 4:[address] STREETCAR REPAIRER HELPER us Shikha Maguire MD LAB - CHEMISTRY ORDERA BLES Final Result [facility] from Last 3 Months or Most Recently Relevant to Health Maintenance Insurance [address] Advance Directives * Full Code (Latest [...] 9:04 AM 07/25/2022 5:20 PM Care Teams Vest Maker Relationship Specialty Start Date End Date Izzy Shukla MD [address] [place] [address] (work) 05/27/21
--- OUTSIDE RECORDS SUMMARY | 2025-03-06 17:33 | XMS_ITS | Encounter Summary ---
Author Organization [facility] Facility Care Team Providers Care Mechatronics Technologist Name Role Phone No, Physician Primary Care Provider [phone] Reason for Visit * Auth/Cert Specialty Diagnoses / Procedures Referred By Reny t Referred To Contact Diagnoses SEIZURES Procedures VIDEO EEG Referral ID Status Reason Start Date Expiration Date Visits Re quested Visits Authorized [id number] 1 1 Encounter Details Date Type Department Care Team (Late st Contact Info) Description 03/09/2022 8:00 AM CDT Hospital Encounter Timothy Malik MD PhD [address] [place] [address] Social History Tobacco Use Types Packs/Day Years Used Date Smoking Tobacco: Former Cigarettes Q uit: 12/28/2021 Smokeless Tobacco: Never [facility] Utilities Answer Date Recorded In the past 12 months has [employer] electric, gas, oil, or water company threatened [...] often do you attend chur ch or christianity services? Never 09/26/2023 Do you belong to [...] place to sleep or slept in a correction (including now)? No 09/26/2023 Personal Safety Answer Date Recorded Have you ever been in or are you currently in a harmful physical or emotional relationship or is someone making you feel afraid or unsafe? 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
--- OUTSIDE RECORDS SUMMARY | 2025-03-06 17:33 | XMS_ITS | Clinical Summary ---
Author Organization [facility] Address [address] [place] [address] Care Team Providers Care Seal Extrusion Operator Name Role Phone Ines Her NP Primary [...] Never Tobacco Cessation:Ready to Q uit: No [facility] Utilities Answer Date Recorded In [...] often do you attend chur ch or anglican services? Never 09/26/2023 Do you belong to any clubs o r organizations such as judaism groups, unions, fraternal or athletic groups, or [...] place to sleep or slept in a retirement (including now)? No 09/26/2023 Personal Safety Answer Date Recorded Have you ever been in or are you currently in a harmful physical or emotional relationship or is someone making you feel afraid or unsafe? 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 Gender Identity Not on file Sexual Orientation Not on file Obstetrics History Last Filed Vital Signs Vital Sign Reading Time Taken Comments Blood Pressure 94/55 11/19/2024 10:00 PM WAREHOUSE HELPER Pulse 74 11/19/2024 10:46 PM WAREHOUSE HELPER Temperature 36.7 C (98.1 F) 11/19/2024 6:18 PM WAREHOUSE HELPER Respiratory Rate 14 11/19/2024 10:46 PM WAREHOUSE HELPER Oxygen Saturation 97% 11/19/2024 10:46 PM WAREHOUSE HELPER Inhaled Oxygen Concentration - - Weight 61.2 kg (135 lb) 11/19/2024 4:40 PM WAREHOUSE HELPER Height 162.6 cm (5' 4 ) 11/24/2023 8:34 PM WAREHOUSE HELPER Body Mass Index 23.17 11/24/2023 8:34 PM WAREHOUSE HELPER Plan of Treatment Health Maintenance Due Date [...] patient's age to complete this topic Insurance [facility] Advance Directives For more information, please contact: [phone] * Full Code (Latest Code Status on File) Date Activated Date Inactivated Comments 09/25/2023 10:47 PM 09/27/2023 1:57 PM * Full Code Date Activated Date Inactivated Comments 09/23/2023 11:59 PM 09/25/2023 3:08 PM * Full Code Date Activated Date Inactivated Comments 10/22/2021 9:10 PM 10/23/2021 7:43 PM Care Teams Seal Extrusion Operator Relationship Specialty Start Date End Date Ines Her NP [facility] [place], [place] [id number] PCP - General Nurse Practitioner 01/30/25
[2025-03-06 17:43] VITALS: BP 104/62; PULSE 76; RESP 18; TEMP 37.1; O2SAT 100
== END 2025-03-06 17:45 | disposition home or self-care (01) ==
PROVIDERS: Registered Nurse; Emergency Provider Student in an Organized Health Care Education/Training Program
DX: G40.909 Epilepsy, unspecified, not intractable, without status epilepticus (principal)
CPT/HCPCS: 36415; 73090; 80053; 83605; 85025; 85610; 85652; 85730; 86140; 87040; 96372; 99283; J1885

== ENCOUNTER 2025-07-14 19:16 | Emergency (ER) | payer OTHER, SELFPAY ==
--- NOTE | ~2025-07-14 | XR_ITS ---
EXAM/PROCEDURE: XR chest 2V - 07/14/2025 21:05 CDT HISTORY: 29 years old Female with chest pain TECHNIQUE: Two view(s) of the chest. COMPARISON: None available. FINDINGS: LUNGS/ PLEURA: No focal consolidation. No appreciable pneumothorax or large pleural effusion. HEART/ MEDIASTINUM: Heart appears normal in size. BONES: No acute osseous abnormality. OTHER: Visualized upper abdomen is unremarkable. IMPRESSION: No acute process. Reviewed, dictated and finalized at location N. IMPRESSION: No acute process.
--- NOTE | ~2025-07-14 | CT_ITS ---
EXAMINATION: CT abdomen pelvis w con DATE: 07/14/2025 21:14 INDICATION: Right upper quadrant abdominal pain TECHNIQUE: Computed tomography (CT) of the abdomen and pelvis was performed with 100 mL Omnipaque-350 intravenous contrast. Automated exposure control and iterative reconstruction technique were employed. The dose-length product was 780.69 mGy-cm. COMPARISON: None FINDINGS: Lung bases are clear. Heart size is normal. No pericardial or pleural effusion. 9 mm low-attenuation hepatic cyst or hemangioma. Gallbladder, spleen, pancreas, bilateral adrenal glands and right kidney are normal. 2 mm nonobstructing stone at the lower pole the left kidney. No ureteral stones or hydronephrosis. Bowels including the appendix are normal. Bladder, uterus and bilateral adnexa are unremarkable. Small amount of likely physiologic free fluid in the cul-de-sac. No abscess or free intraperitoneal gas. Gas and fluid within a small diverticulum at the fundus of the stomach. Minimal scattered degenerative skeletal changes. IMPRESSION: 1. No acute intra-abdominal/pelvic process. 2. 2 mm nonobstructing left renal stone. Reviewed, dictated and finalized at location A.
[2025-07-14 19:17] VITALS: BP 124/86; PULSE 103; RESP 12; TEMP 37.3; O2SAT 99
[2025-07-14 19:22] VITALS: BP 124/86; PULSE 107; RESP 24; O2SAT 99
[2025-07-14 19:24] VITALS: O2SAT 99
[2025-07-14 19:30] VITALS: BP 113/84; PULSE 101; RESP 12; O2SAT 99
[2025-07-14] MEDS: ONDANSETRON INJ 4 MG/2 ML VIAL IV PUSH (19:43)
[2025-07-14] MEDS: MORPHINE SULFATE (*CRX) 4 MG/ML INJ IV PUSH (19:44)
[2025-07-14] MEDS: SODIUM CHLORIDE 0.9% IV 1,000 ML 999 ML IV CONT (19:45)
[2025-07-14 19:53] LABS: BEDSIDEPREGUCG Negative (Negative)
[2025-07-14 20:13] LABS: Hematocrit 35.6 % (37.0-47.0); Hemoglobin 11.3 g/dL (12.0-15.0); Immature Granulocyte Percent A 0.4 % (0-0.5); Lymphocytes Absolute Auto 2.43 K/mm3 (0.9-3.2); Mean Corpuscular HGB Conc 31.7 g/dl (32-36); Mean Corpuscular Hemoglobin 27.6 pg (26-34); Mean Corpuscular Volume 87.0 fl (80-100); Nucleated Red Blood Cells Absolute Auto 0.000 K/mm3 (0.0-0.012); Nucleated Red Blood Cells Perc 0.0 % (0.0-0.2); Platelet Count Result 260 k/mm3 (150-375); Red Blood Count 4.09 M/mm3 (4.2-5.4); White Blood Count 12.2 K/mm3 (4.5-10.0)
[2025-07-14 20:15] VITALS: BP 122/94; PULSE 98; RESP 16; O2SAT 100
[2025-07-14 20:16] VITALS: PULSE 96; RESP 16; O2SAT 100
[2025-07-14 20:23] LABS: Alanine Aminotransferase 19 U/L (6-35); Albumin Level 4.2 g/dL (3.5-5.1); Alkaline Phosphatase 76 U/L (38-126); Anion Gap 10 mmol/L (4-12); Aspartate Amino Transferase 35 U/L (14-36); Bilirubin,Total 0.2 mg/dL (0.2-1.3); Blood Urea Nitrogen 10 mg/dL (7-17); Calcium 8.9 mg/dL (8.4-10.2); Carbon Dioxide 25 mmol/L (22-30); Chloride 104 mmol/L (98-107); Estimated Glomerular Filt Rate > 60; Glucose 100 mg/dL (65-110); Lipase 245 U/L (23-300); Potassium 3.2 mmol/L (3.4-5.0); Sodium 139 mmol/L (137-145); Total Protein 8.0 g/dL (6.3-8.2)
[2025-07-14 20:35] LABS: Troponin I < 0.012 ng/mL (0.000-0.034)
--- NOTE | 2025-07-14 20:42 | ED_ITS ---
HPI - General Adult General Chief complaint: Allergic Reaction Stated complaint: DIFFICULTY IN BREATHING, POSSIBLE RX TO INSULIN Time Seen by Provider: 07/14/25 19:20 History of Present Illness HPI narrative: Patient is a 29-year-old female who presents ER with concerns for insulin reaction. Patient was diagnosed diabetes today [place] 1 more ill. She received some insulin prior to her discharge. She got home and ate some food and developed right-sided chest and upper abdominal pain. No fevers or chills or sweats. No nausea or vomiting. Pain is sharp. No urinary symptoms. No dizziness or sweats. Blood sugar 120 here. Her A1c at the outside hospital was 8. She was started on metformin for home. Related Data Home Medications ?Medication ?Instructions ?Recorded ?Confirmed ?Last Taken ?Type divalproex 250 mg tablet,delayed 500 mg PO 07/14/25 0 07/14/25 07:00 History release Allergies Allergy/AdvReac Type Severity Reaction Status Date / Time ibuprofen Allergy Shakiness Verified 03/03/25 15:19 Review of Systems 2 Review of Systems: All systems reviewed & are unremarkable except as noted in HPI and below Constitutional: Constitutional: Reports no additional constitutional complaints ENT: Reports system reviewed and no additional complaints, except as documented Cardiovascular: Cardiovascular: Reports no additional cardiovascular complaints Respiratory: Respiratory: Reports no additional respiratory complaints Gastrointestinal: Gastrointestinal: Reports no additional gastrointestinal complaints [facility] Past Medical History Medical History (Updated 07/15/25 @ 00:34 by Valerio Azevedo MD) Type 2 diabetes mellitus Seizures Social History Social History Alcohol intake: current Exam 2 Narrative: GENERAL: Well-appearing, well-nourished, and in no acute distress. HEAD: Normocephalic, atraumatic. ENT: Mucous membranes moist. CHEST: Clear to auscultation. No respiratory distress. HEART: Regular rate and rhythm. Normal peripheral pulses. ABDOMEN: Soft, tender to palpation right upper quadrant without guarding, nondistended. EXTREMITIES: Normal range of motion. No edema. SKIN: Warm, dry, no rash. NEURO: Alert and oriented x3. PSYCH: Normal mood and affect. Course Course Emergency Course: 2107: Patient is still having discomfort after morphine and Zofran. Will give a GI cocktail as well as Bentyl as CT scan shows some fluid-filled bowel in the abdomen. Still awaiting formal read. Will also add on a 2nd troponin and D- dimer out of caution. Vital Signs Vital signs: Vital Signs Temperature 37.3 C 07/14/25 19:17 Pulse Rate 103 H 07/14/25 19:17 Respiratory Rate 12 07/14/25 19:17 Blood Pressure 124/86 07/14/25 19:17 Pulse Oximetry 99 07/14/25 19:17 Oxygen Delivery Room Air 07/14/25 19:17 Temperature 37.3 C 07/14/25 19:17 Pulse Rate 96 07/14/25 20:16 Respiratory Rate 16 07/14/25 20:16 Blood Pressure 122/94 H 07/14/25 20:15 Pulse Oximetry 100 07/14/25 20:16 Oxygen Delivery Room Air 07/14/25 19:24 Medical Decision Making Vital Signs Vital Signs: Vital Signs Temperature 37.3 C 07/14/25 19:17 Pulse Rate 103 H 07/14/25 19:17 Respiratory Rate 12 07/14/25 19:17 Blood Pressure 124/86 07/14/25 19:17 Pulse Oximetry 99 07/14/25 19:17 Oxygen Delivery Room Air 07/14/25 19:17 Temperature 37.3 C 07/14/25 19:17 Pulse Rate 96 07/14/25 20:16 Respiratory Rate 16 07/14/25 20:16 Blood Pressure 122/94 H 07/14/25 20:15 Pulse Oximetry 100 07/14/25 20:16 Oxygen Delivery Room Air 07/14/25 19:24 Lab Data 07/14/25 20:08 07/14/25 20:08 Labs: Lab Results 07/14/25 07/14/25 07/14/25 Range/Units 19:24 19:51 20:08 WBC 12.2 H (4.5-10.0) K/mm3 RBC 4.09 L (4.2-5.4) M/mm3 Hgb 11.3 L (12.0-15.0) g/dL Hct 35.6 L (37.0-47.0) % MCV 87.0 (80-100) fl MCH 27.6 (26-34) pg MCHC 31.7 L (32-36) g/dl RDW 14.1 (11.5-14.5) % Plt Count 260 (150-375) k/mm3 MPV 10.2 (7.4-10.4) fl Immature Gran % (Auto) 0.4 (0-0.5) % Neut % (Auto) 70.3 (45.5-73.1) % Lymph % (Auto) 19.9 (18.3-44.2) % [place] % (Auto) 8.4 (2.6-8.5) % Eos % (Auto) 0.6 (0-4.4) % Baso % (Auto) 0.4 (0.2-1.2) % Lymph # (Auto) 2.43 (0.9-3.2) K/mm3 [place] # (Auto) 1.0 H (0.1-0.6) K/mm3 Eos # (Auto) 0.1 (0-0.3) K/mm3 Baso # (Auto) 0.1 (0.0-0.1) K/mm3 Abs Immat Gran (auto) 0.05 H (0.00-0.031) K/mm3 Absolute Neuts (auto) 8.6 H (1.3-6.7) K/mm3 Absolute Nucleated RBC 0.000 (0.0-0.012) K/mm3 Nucleated RBC % 0.0 (0.0-0.2) % D-Dimer (<0.48) ug/mL Sodium 139 (137-145) mmol/L Potassium 3.2 L (3.4-5.0) mmol/L Chloride 104 (98-107) mmol/L Carbon Dioxide 25 (22-30) mmol/L Anion Gap 10 (4-12) mmol/L BUN 10 (7-17) mg/dL Creatinine 0.80 (0.7-1.0) mg/dL Estim Creat Clear Calc Not Reportable Estimated GFR > 60 (59 - ) Glucose 100 (65-110) mg/dL POC Capillary Glucose 122 H (65-105) mg/dl Calcium 8.9 (8.4-10.2) mg/dL Total Bilirubin 0.2 (0.2-1.3) mg/dL AST 35 (14-36) U/L ALT 19 (6-35) U/L Alkaline Phosphatase 76 (38-126) U/L Troponin I < 0.012 (0.000-0.034) ng/mL Total Protein 8.0 (6.3-8.2) g/dL Albumin 4.2 (3.5-5.1) g/dL Lipase 245 (23-300) U/L POC Urine HCG, Qual Negative (Negative) 07/14/25 07/14/25 Range/Units 21:26 23:03 WBC (4.5-10.0) K/mm3 RBC (4.2-5.4) M/mm3 Hgb (12.0-15.0) g/dL Hct (37.0-47.0) % MCV (80-100) fl MCH (26-34) pg MCHC (32-36) g/dl RDW (11.5-14.5) % Plt Count (150-375) k/mm3 MPV (7.4-10.4) fl Immature Gran % (Auto) (0-0.5) % Neut % (Auto) (45.5-73.1) % Lymph % (Auto) (18.3-44.2) % [place] % (Auto) (2.6-8.5) % Eos % (Auto) (0-4.4) % Baso % (Auto) (0.2-1.2) % Lymph # (Auto) (0.9-3.2) K/mm3 [place] # (Auto) (0.1-0.6) K/mm3 Eos # (Auto) (0-0.3) K/mm3 Baso # (Auto) (0.0-0.1) K/mm3 Abs Immat Gran (auto) (0.00-0.031) K/mm3 Absolute Neuts (auto) (1.3-6.7) K/mm3 Absolute Nucleated RBC (0.0-0.012) K/mm3 Nucleated RBC % (0.0-0.2) % D-Dimer < 0.27 (<0.48) ug/mL Sodium (137-145) mmol/L Potassium (3.4-5.0) mmol/L Chloride (98-107) mmol/L Carbon Dioxide (22-30) mmol/L Anion Gap (4-12) mmol/L BUN (7-17) mg/dL Creatinine (0.7-1.0) mg/dL Estim Creat Clear Calc Estimated GFR (59 - ) Glucose (65-110) mg/dL POC Capillary Glucose (65-105) mg/dl Calcium (8.4-10.2) mg/dL Total Bilirubin (0.2-1.3) mg/dL AST (14-36) U/L ALT (6-35) U/L Alkaline Phosphatase (38-126) U/L Troponin I < 0.012 (0.000-0.034) ng/mL Total Protein (6.3-8.2) g/dL Albumin (3.5-5.1) g/dL Lipase (23-300) U/L POC Urine HCG, Qual (Negative) Imaging Data My impression: Chest x-ray: No acute cardiopulmonary process. ECG Data EKG #1: ECG completion date: 07/14/25 ECG completion time: 21:23 EKG Interpretation: tachycardia (101), sinus rhythm, no ectopy, non- specific ST changes, normal QRS and normal QT Discharge Plan Discharge Clinical Impression: Chest pain, Abdominal pain Patient Disposition: Home Condition: Stable Instructions: Antibiotic Form, Chest Pain (ED), Abdominal Pain (ED) Additional Instructions: Please be sure to check her blood sugars at home. Please start your metformin and 48 hours after the IV contrast in it is recommended follow-up your primary care provider please return to the emergency department if you have worsening symptoms. Patient Language: Luxembourgish Prescriptions: No Action lamotrigine [Lamictal] 25 mg tablet 50 mg PO DAILY Qty: 60 0RF Rx Instructions: take 2 tabs daily for 1 week then increase to twice a day doxycycline hyclate 100 mg capsule 100 mg PO BID 7 Days Qty: 14 0RF divalproex 250 mg tablet,delayed release (DR/EC) 500 mg PO Follow-up/Referrals: Trevor,AUGUSTA Zamorano [Primary Care Provider, Unknown] Time of Disposition: 00:34
--- NOTE | 2025-07-14 20:44 | ECG_ITS ---
Test Date: 2025-07-14 21:23:35 Measurements Intervals [place] Rate: 101 P: 61 UT: 118 QRS: -13 QRSD: 76 T: -61 QT: 337 QTc: 438 Interpretive Statements SINUS TACHYCARDIA WITH SHORT UT INTERVAL LOW QRS VOLTAGE IN PRECORDIAL LEADS POSSIBLE ANTERIOR MYOCARDIAL INFARCTION , OF INDETERMINATE AGE Electronically Signed On 07-15-2025 07:31:45 CDT by Burke Frias D.O
[2025-07-14] MEDS: BELLADONNA ALK/PHENOB ELIX 10 ML, MAG HYDROX/ALUMINUM HYD/SIMETH 30 ML, LIDOCAINE 2% VI... PO (21:12)
[2025-07-14] MEDS: DICYCLOMINE HCL INJ 20 MG/2 ML VIAL IM (21:12)
--- NOTE | 2025-07-14 21:44 | PC.NURSE ---
Pt ambulatory to bathroom with even and steady gait.
--- NOTE | 2025-07-14 23:08 | ECG_ITS ---
Test Date: 2025-07-14 23:13:54 Measurements Intervals [place] Rate: 99 P: 72 SC: 118 QRS: -12 QRSD: 78 T: -67 QT: 333 QTc: 429 Interpretive Statements SINUS RHYTHM WITH SINUS ARRHYTHMIA WITH SHORT SC INTERVAL LOW QRS VOLTAGE IN PRECORDIAL LEADS ST DEVIATION AND T-WAVE ABNORMALITY, CONSIDER ISCHEMIA Electronically Signed On 07-15-2025 07:32:12 CDT by Burke Frias D.O
[2025-07-14 23:38] LABS: Troponin I < 0.012 ng/mL (0.000-0.034)
[2025-07-15 00:48] VITALS: BP 104/73; PULSE 94; RESP 19; O2SAT 99
== END 2025-07-15 00:47 | disposition home or self-care (01) ==
PROVIDERS: Emergency Provider Emergency Medicine; PCP Physician Assistant Medical
DX: R07.9 Chest pain, unspecified (principal); R10.10 Upper abdominal pain, unspecified; R00.0 Tachycardia, unspecified; E11.9 Type 2 diabetes mellitus without complications; G40.909 Epilepsy, unspecified, not intractable, without status epilepticus
CPT/HCPCS: 36415; 71046; 74177; 80053; 81025; 82948; 83690; 84484; 85025; 85380; 93005; 96361; 96372; 96374; 96375; 99284; A9270; J0500; J2270; J2405; J7030; Q9967